=== PATIENT | female | born 1970 | race Two or more races ===

== ENCOUNTER 2020-08-31 16:50 | Outpatient (REF) | payer OTHER, SELFPAY | END 2020-08-31 16:51 | disposition home or self-care (01) | LOC: HO.LAB 16:50 | PROVIDERS: Visit Provider Internal Medicine | DX: Z20.828 Contact with and (suspected) exposure to other viral communicable diseases (principal) | CPT/HCPCS: 87635 ==

== ENCOUNTER 2020-09-08 13:23 | Emergency (ER) | payer OTHER, SELFPAY ==
[2020-09-08 13:34] VITALS: BP 157/89; PULSE 84; RESP 17; TEMP 36.7; O2SAT 97; BMI 36.1
--- NOTE | 2020-09-08 14:04 | ED_ITS ---
HPI - Back Pain/Injury General Chief Complaint: Back Pain/Injury Stated Complaint: back pain Time Seen by Provider: 09/08/20 13:57 Source: patient Mode of arrival: ambulatory Limitations: no limitations History of Present Illness HPI Narrative: Right flank pain with radiation to the right ribs for 1 week. Associated dysuria and frequency. No fevers or chills or vaginal discharge or vomiting or diarrhea. History of chronic back pain but this feels different for patient no injury or trauma. MD elicited complaint: back pain Pertinent past history: prior back pain Onset (ago): week(s) Timing: constant Severity: moderate Similar Symptoms Previously: No Quality: sharp Location: right flank Radiation: none ( Right ribs) Exacerbating factors: none Relieving factors: none Associated symptoms: dysuria Work related injury: No Related Data Previous Rx's Medication Instructions Recorded cyclobenzaprine 10 mg PO TID PRN #10 tab 09/08/20 ketorolac 10 mg PO Q8H PRN #10 tab 09/08/20 lidocaine [Lidoderm] 1 patch TOPICAL DAILY #15 ea 09/08/20 Allergies Allergy/AdvReac Type Severity Reaction Status Date / Time propofol [PROPOFOL] Allergy Severe ANAPHYLACTIC Verified 09/08/20 15:48 REACTION, anaphylaxis Anesthetics - [facility] Type - Allergy Unknown UNKNOWN Verified 09/08/20 15:48 Select A [Anesthetics - [facility] Type] Anesthetics - [facility] Type- Allergy Unknown UNKNOWN Verified 09/08/20 15:48 Parabens [Anesthetics - [facility] Type] morphine [MORPHINE] Allergy Unknown ITCHINESS Verified 09/08/20 15:48 AND HIVES, anaphylaxis succinylcholine [Anectine] Allergy Unknown anaphylaxis Verified 09/08/20 15:48 From ANECTINE Allergy Severe ANAPHYLACTI Uncoded 08/03/20 15:56 C nuts Allergy Unknown Unknown Uncoded 09/08/20 13:36 SEAFOOD Allergy Unknown THROAT Uncoded 08/03/20 15:56 SWELLING Review of Systems Review of Systems: Yes all other systems are reviewed and are negative Constitutional: Constitutional: Reports no additional constitutional complaint s, Denies body ache(s), Denies chills, Denies fever(s), Denies headache(s) and Denies weakness Eyes: Eyes: Reports no additional eye complaints and Denies change in vision ENT: Reports system reviewed and no additional complaints, except as documented, Denies dizziness, Denies headache(s), Denies nasal congestion, Denies nasal discharge and Denies neck pain Cardiovascular: Cardiovascular: Reports no additional cardiovascular complaints, Denies chest pain, Denies leg edema and Denies dyspnea Respiratory: Respiratory: Reports no additional respiratory complaints, Denies cough and Denies dyspnea Gastrointestinal: Gastrointestinal: Reports no additional gastrointestinal complaints, Denies abdominal pain, Denies diarrhea, Denies nausea and Denies vo miting Genitourinary: Genitourinary: Reports no additional female genitourinary complaints, Reports dysuria, Reports flank pain, Denies urinary incontinence and Reports urinary urgency Musculoskeletal: Musculoskeletal: Reports no additional musculoskeletal complaints, Reports back pain, Denies arthralgias, Denies joint swelling, Denies neck pain, Denies numbness and Denies tingling Integumentary/Breasts: Skin/Breast: Reports system reviewed and no additional complaints, except as docu and Denies rash Neurologic: Reports system reviewed and no additional complaints, except as documented, Denies Abnormal speech present, Denies dizziness, Denies headache(s), Denies numbness, Denies tingling and Denies weakness PMFSH Past Medical History Attestation statement: The following information was validated with the patient. Source: obtained from family and nursing notes reviewed Medical History (Updated 09/08/20 @ 16:17 by Marilou Oswald NP) Cholecystectomy planned Social History Social History Alcohol 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 Smoking Status: Unknown if ever smoked Use of substances other than those prescribed or required for medical reasons: No Advance Directives: No Advance Directives Information Provided: No Physical Exam Vital Signs: Vital Signs: Vital Signs Temp Pulse Resp BP Pulse Ox 09/08/20 15:56 71 18 122/76 97 09/08/20 13:34 98.0 F 84 17 157/89 H 97 Body Mass Index 36.1 Const: General: cooperative, healthy appearing, comfortable and no acute distress Orientation/consciousness: patient oriented x3 Limitations: no limitations HENMT: Head: Yes normal to inspection Ears: hearing grossly normal bilaterally General nose exam: Normal external nose present Face and sinus: Yes normal facial exam Mouth: Normal oral and palatal mucosa present Throat: Yes posterior oropharynx normal Eyes: General: appearance normal, both eyes and all related structures Pupils: Equal, round and reactive pupils present Neck: Neck: Yes normal visual inspection Chest: Chest palpation & inspection: normal inspection of the chest Resp: Effort & Inspection: normal respiratory effort Auscultation: clear to auscultation bilaterally Cardio: Rate: regular rate Rhythm: regular rhythm Peripheral pulses: Peripheral pulses 2+ throughout GI: Inspection: Yes normal to inspection Palpation (GI): Soft to palpation and nontender Auscultation: normal bowel sounds Back/Spine/Pelvis: Other: right-sided CVA tenderness with associated soft tissue tenderness on that side. Tenderness over the right lateral ribs. Mild tenderness in the right abdomen. No focal tenderness in the right upper or right lower quadrant. No rebound or guarding. Thoracic/Lumbar Spine: thoracic and lumbar spine normal to inspection Skin: General skin exam: no rashes or lesions noted Neuro: General: patient oriented x3, no focal motor deficits and normal sensation to monofilament Cranial nerves: Yes Equal, round and reactive pupils present Cognition (Neuro): normal cognition Speech: No Abnormal speech present Gait exam (Neuro): Normal gait present Motor exam (neuro): 5/5 motor strength present throughout Extrem: General: Yes normal to inspection Course Course Course Narrative: Right flank pain with dysuria and frequency for 1 week. Will check UA and urine . 1440- UA shows 2+ blood. no nitrates or wbc or signs of UTI. Will check CT abdomen and pelvis to rule out renal colic. Toradol IM for pain. 1615- CT shows a nonobstructing stone in the kidney. No other findings. Patient is feeling improved. Likely lumbar strain. Reviewed worrisome signs and symptoms and when to return to the emergency department. Comfortable with discharge home. MDM - Back Pain/Injury MDM Narrative Medical decision making narrative: Considered UTI, pyelonephritis, renal colic, lumbar strain Medical Records Attestation: I reviewed the patient's medical records. Lab Data Attestation: I reviewed the patient's lab results. Labs: Lab Results 09/08/20 Range/Units 14:10 Urine Color YELLOW Urine Appearance CLEAR Urine pH 6.0 (5.0-8.0) Ur Specific [place] 1.025 (1.005-1.025) Urine Protein NEG (NEG-TRACE) MG/DL Urine Glucose (UA) NEG (NEG) MG/DL Urine Ketones NEG (NEG) MG/DL Urine Blood 2+ H (NEG) Urine Nitrite NEG (NEG) Ur Leukocyte Esterase NEG (NEG) Urine RBC 5-9 H (0) /HPF Urine WBC 0 (0-4) /HPF Ur Squamous Epith Cells 1+ /LPF Urine Bacteria NONE /LPF Urine Test NEGATIVE (NEGATIVE) Imaging Data CT scan - abdomen: Attestation: I personally reviewed and interpreted this imaging study as follows: Radiologist's impression: EXAMINATION: CT ABDOMEN AND PELVIS WITHOUT CONTRAST CLINICAL INFORMATION: Right flank pain. Hematoma. History right renal calculus. COMPARISON: CT abdomen and pelvis 12/14/2019 TECHNIQUE: Multidetector volumetric imaging was performed from the superior aspect of the liver through the pubic symphysis. No oral or intravenous contrast. Sagittal and coronal reformatted images were obtained on the technologist's workstation. This CT examination was performed using dose optimization techniques as appropriate, variously including the following: *Automated exposure control *Adjustment of mA and/or kV according to patient size (this includes techniques or standardized protocols for targeted exams where dose is matched to indication/reason for exam; i.e. extremities or head) *Use of iterative reconstruction technique DLP: 701 mGy-cm FINDINGS: LUNG BASES: The visualized lung bases are unremarkable. LIVER, GALLBLADDER, AND BILIARY TREE: The liver is within normal size and smooth in contour. There is diffuse hepatic steatosis. No focal hepatic parenchymal lesion or intrahepatic ductal dilatation. There is been prior cholecystectomy. Common duct unremarkable. PANCREAS: Unremarkable. SPLEEN: Unremarkable. ADRENAL GLANDS: Unremarkable. KIDNEYS AND URETERS: The kidneys are normal in size and smooth in contour. There is no hydronephrosis, hydroureter, or perinephric stranding. No left urinary tract calculi. The right kidney has nonobstructing calculus mid to lower pole measuring 6 x 8 x 10 mm, 1160 HU attenuation, and 9 cm from the flank. BLADDER: Unremarkable. GASTROINTESTINAL TRACT: There is no bowel obstruction or inflammatory changes in the bowel or mesentery. The appendix is normal. There is no ascites or fluid collection. ABDOMINAL WALL: Borderline fat-containing umbilical hernia just under 2 cm. No lymphadenopathy. LYMPH NODES: No lymphadenopathy. VASCULAR: Unremarkable. PELVIC VISCERA: Dominant follicle on right 1.7 cm, similar to prior study. No pelvic ascites. OSSEOUS STRUCTURES: No acute bony abnormality. Prior disc surgery lumbosacral junction. CT/CT abdomen pelvis wo con IMPRESSION: 1. Nonobstructing right lower pole renal calculus 6 x 8 x 10 mm. No hydronephrosis or perinephric stranding. 2. No inflammatory changes in bowel or mesentery. Normal appendix. 3. Prior cholecystectomy. No ductal dilatation. Discharge Plan Discharge Clinical Impression: Strain of lumbar region Qualifiers: Encounter type: initial encounter Qualified Code(s): S39.012A - Strain of muscle, fascia and tendon of lower back, initial encounter Patient Disposition: Home, Self-Care Instructions: Acute Low Back Pain (ED) Additional Instructions: no heavy lifting or bending gentle stretching heat to the area Prescriptions: New ketorolac 10 mg tablet 10 mg PO Q8H PRN (Reason: pain) Qty: 10 RF: 0 cyclobenzaprine 10 mg tablet 10 mg PO TID PRN (Reason: muscle spasm) Qty: 10 RF: 0 lidocaine [Lidoderm] 5 % adhesive patch,medicated 1 patch topical DAILY Qty: 15 RF: 0 Referrals: Sarthak Silva MD [Primary Care Provider] - 2 days Interventions: ED Discharge Assessment Last Done: 09/08/20 16:20 Discharge Date/Time: 09/08/20 16:22
[2020-09-08 14:28] LABS: Glucose Urine UA NEG (NEG); Leukocyte Esterase Urine NEG (NEG); Nitrite Urine NEG (NEG); Specific Gravity - Urine 1.025 (1.005-1.025); Urine Blood 2+ (NEG); Urine Ketones NEG (NEG); Urine Protein NEG (NEG-TRACE)
[2020-09-08 14:32] LABS: Appearance Urine CLEAR; Color Urine YELLOW
--- NOTE | 2020-09-08 14:39 | CT_ITS ---
EXAMINATION: CT ABDOMEN AND PELVIS WITHOUT CONTRAST CLINICAL INFORMATION: Right flank pain. Hematoma. History right renal calculus. COMPARISON: CT abdomen and pelvis 12/14/2019 TECHNIQUE: Multidetector volumetric imaging was performed from the superior aspect of the liver through the pubic symphysis. No oral or intravenous contrast. Sagittal and coronal reformatted images were obtained on the technologist's workstation. This CT examination was performed using dose optimization techniques as appropriate, variously including the following: *Automated exposure control *Adjustment of mA and/or kV according to patient size (this includes techniques or standardized protocols for targeted exams where dose is matched to indication/reason for exam; i.e. extremities or head) *Use of iterative reconstruction technique DLP: 701 mGy-cm FINDINGS: LUNG BASES: The visualized lung bases are unremarkable. LIVER, GALLBLADDER, AND BILIARY TREE: The liver is within normal size and smooth in contour. There is diffuse hepatic steatosis. No focal hepatic parenchymal lesion or intrahepatic ductal dilatation. There is been prior cholecystectomy. Common duct unremarkable. PANCREAS: Unremarkable. SPLEEN: Unremarkable. ADRENAL GLANDS: Unremarkable. KIDNEYS AND URETERS: The kidneys are normal in size and smooth in contour. There is no hydronephrosis, hydroureter, or perinephric stranding. No left urinary tract calculi. The right kidney has nonobstructing calculus mid to lower pole measuring 6 x 8 x 10 mm, 1160 HU attenuation, and 9 cm from the flank. BLADDER: Unremarkable. GASTROINTESTINAL TRACT: There is no bowel obstruction or inflammatory changes in the bowel or mesentery. The appendix is normal. There is no ascites or fluid collection. ABDOMINAL WALL: Borderline fat-containing umbilical hernia just under 2 cm. No lymphadenopathy. LYMPH NODES: No lymphadenopathy. VASCULAR: Unremarkable. PELVIC VISCERA: Dominant follicle on right 1.7 cm, similar to prior study. No pelvic ascites. OSSEOUS STRUCTURES: No acute bony abnormality. Prior disc surgery lumbosacral junction. CT/CT abdomen pelvis wo con IMPRESSION: 1. Nonobstructing right lower pole renal calculus 6 x 8 x 10 mm. No hydronephrosis or perinephric stranding. 2. No inflammatory changes in bowel or mesentery. Normal appendix. 3. Prior cholecystectomy. No ductal dilatation.
[2020-09-08] MEDS: Ketorolac Tromethamine 60 MG/2 ML VIAL IM (14:47)
[2020-09-08 14:55] LABS: WBC Urine 0 /HPF (0-4)
[2020-09-08 14:56] LABS: Squamous Epithelial Cell Urine 1+ /LPF
[2020-09-08 15:17] LABS: UPreg QC Valid YES; Urine Pregnancy NEGATIVE (NEGATIVE)
[2020-09-08 15:56] VITALS: BP 122/76; PULSE 71; RESP 18; O2SAT 97
== END 2020-09-08 16:22 | disposition home or self-care (01) ==
PROVIDERS: Nurse Practitioner Family; Emergency Provider Emergency Medicine; PCP Internal Medicine
DX: S39.012A Strain of muscle, fascia and tendon of lower back, initial encounter (principal); X58.XXXA Exposure to other specified factors, initial encounter; Y93.9 Activity, unspecified; Y92.9 Unspecified place or not applicable; Y99.9 Unspecified external cause status
CPT/HCPCS: 74176; 81001; 81025; 96372; 99284; J1885

== ENCOUNTER 2020-12-12 15:14 | Outpatient (REF) | payer OTHER, SELFPAY | END 2020-12-12 15:15 | disposition home or self-care (01) | LOC: HO.LAB 15:14 | PROVIDERS: PCP Internal Medicine; Visit Provider Internal Medicine | DX: Z20.822 Contact with and (suspected) exposure to COVID-19 (principal) | CPT/HCPCS: 36415; C9803; U0003 ==

== ENCOUNTER 2021-02-13 08:33 | Emergency (ER) | payer OTHER, SELFPAY ==
--- NOTE | ~2021-02-13 | CT_ITS ---
EXAMINATION: CT ABDOMEN AND PELVIS WITHOUT CONTRAST CLINICAL INFORMATION: Diffuse abdominal pain and nausea COMPARISON: Previous CT of the abdomen and pelvis August 2020 TECHNIQUE: Multidetector volumetric imaging was performed from the superior aspect of the liver through the pubic symphysis. Sagittal and coronal reformatted images were obtained on the technologist's workstation. This CT examination was performed using dose optimization techniques as appropriate, variously including the following: *Automated exposure control *Adjustment of mA and/or kV according to patient size (this includes techniques or standardized protocols for targeted exams where dose is matched to indication/reason for exam; i.e. extremities or head) *Use of iterative reconstruction technique DLP: 749 mGy-cm FINDINGS: LUNG BASES: The visualized lung bases are unremarkable. LIVER, GALLBLADDER, AND BILIARY TREE: The liver is low in attenuation suggestive of fatty infiltration. The gallbladder is been removed. No focal liver lesion or biliary duct dilatation. PANCREAS: Unremarkable. SPLEEN: Unremarkable. ADRENAL GLANDS: Unremarkable. KIDNEYS AND URETERS: 6 x 10 mm stone in the lower pole of the right kidney. Kidneys are otherwise unremarkable. No hydronephrosis, ureteral dilatation or ureteral stone is seen. BLADDER: Not well distended and not well evaluated. GASTROINTESTINAL TRACT: The small and large bowel are unremarkable. The appendix is unremarkable. ABDOMINAL WALL: No significant hernia is appreciated. LYMPH NODES: Normal. VASCULAR: Unremarkable. PELVIC VISCERA: Unremarkable. OSSEOUS STRUCTURES: There are postsurgical changes at the L5-S1 disc space level. CT/CT abdomen pelvis wo con IMPRESSION: 6 x 10 mm right renal stone. No hydronephrosis, ureteral dilatation or ureteral stone. Fatty liver.
[2021-02-13 08:57] VITALS: BP 141/78; PULSE 67; RESP 16; TEMP 36.9; O2SAT 98; BMI 36.1
--- NOTE | 2021-02-13 09:59 | ED.ABDPAIN ---
HPI - Abdominal Pain General Chief Complaint: Abdominal Pain Stated Complaint: stomach pain Time Seen by Provider: 02/13/21 09:47 Source: patient Mode of arrival: ambulatory Limitations: no limitations History of Present Illness HPI narrative: 50 y/o female with history of diabetes, kidney stones who presents to the ED from home with 2 weeks of worsening abdominal pain. She states she has pain in 3 locations, upper abdomen, lower abdomen and LLQ. She states over the last 2 weeks it has gotten worse and come more frequently. It keeps her up at night. She gets nauseated when she has severe pain but has not vomited at all. She had 1 episode of non-blood diarrhea this morning. She states she did not sleep at all last night due to the pain. She has never had pain like this before. She denies urinary symptoms, vaginal bleeding, vaginal discharge, fever or chills. LMP 1 month ago, irregular, miranda-menopausal. MD elicited complaint: abdominal pain Pertinent past history: kidney stones Onset (ago): week(s) (2) Pain Consistency: intermittent Location: diffuse Severity: moderate Pain scale (0-10): 8 Quality: aching and burning Radiation: none Migration to: no migration Exacerbating factors: nothing Relieving factors: nothing Associated symptoms: nausea Related Data Date of Last Menstrual Period: 01/10/21 Patient : No Previous Rx's Medication Instructions Recorded cyclobenzaprine 10 mg PO TID PRN #10 tab 09/08/20 ketorolac 10 mg PO Q8H PRN #10 tab 09/08/20 lidocaine [Lidoderm] 1 patch TOPICAL DAILY #15 ea 09/08/20 dicyclomine 20 mg PO BID #10 tab 02/13/21 sucralfate [Carafate] 1 g PO BID #20 tab 02/13/21 Allergies Allergy/AdvReac Type Severity Reaction Status Date / Time propofol [PROPOFOL] Allergy Severe ANAPHYLACTIC Verified 09/08/20 15:48 REACTION, anaphylaxis Anesthetics - Amide Type - Allergy Unknown UNKNOWN Verified 09/08/20 15:48 Select A [Anesthetics - [facility] Type] Anesthetics - [facility] Type- Allergy Unknown UNKNOWN Verified 09/08/20 15:48 Parabens [Anesthetics - [facility] Type] morphine [MORPHINE] Allergy Unknown ITCHINESS Verified 09/08/20 15:48 AND HIVES, anaphylaxis succinylcholine [Anectine] Allergy Unknown anaphylaxis Verified 09/08/20 15:48 From ANECTINE Allergy Severe ANAPHYLACTI Uncoded 08/03/20 15:56 C nuts Allergy Unknown Unknown Uncoded 09/08/20 13:36 SEAFOOD Allergy Unknown THROAT Uncoded 08/03/20 15:56 SWELLING Review of Systems Review of Systems Constitutional: No Fever, No Chills ENT/Mouth: No sore throat, No Rhinorrhea, No Swallowing Difficulty Eyes: No Eye Pain, No Swelling, No Redness Cardiovascular: No Chest Pain, No SOB, No Orthopnea, No Edema Respiratory: No Cough, No Sputum, No Wheezing, No dyspnea Gastrointestinal: + Nausea, No Vomiting, + Diarrhea, + abdominal Pain, No Hematochezia, No Melena Genitourinary: No Dysuria, No Urinary Frequency, No Hematuria Musculoskeletal: No joint pain, No Myalgias Skin: No Skin Lesions, No rash Neuro: No Weakness, No Numbness, No Dizziness, No Headache Psych: No Anxiety/Panic, No Depression Heme/Lymph: No Bruising, No Lymphadenopathy Endocrine: No Polyuria, No Polydipsia Physical Exam Vital Signs: Vital Signs: Last Vital Signs Temp 98.5 F 02/13/21 08:57 Pulse 67 02/13/21 08:57 Resp 16 02/13/21 08:57 BP 141/78 H 02/13/21 08:57 Pulse Ox 98 02/13/21 08:57 Body Mass Index 36.1 Appearance: Alert. Oriented X3. Appears to be in pain. Eyes: Pupils equal, round and reactive to light. ENT: Pharynx normal. Neck: Normal inspection. Neck supple. CVS: Normal heart rate and rhythm. Pulses normal. Respiratory: No respiratory distress. Breath sounds normal. Abdomen: Obese, Soft with mild diffuse tenderness throughout, no rebound or guarding. +BS x4 Skin: Skin warm and dry. Normal skin color. Normal skin turgor. No rashes. Extremities: No lower extremity edema. Neuro: Oriented X 3. No motor deficit. No sensory deficit. Course Course Course Narrative: 50 y/o female presenting with 2 weeks of worsening episodic abdominal pain, diffuse both upper and lower. Etiology is unclear - Will get basic lab workup to start. IV toradol and GI cocktail ordered for symptomatic relief. Will reassess. Reevaluation(s) Reevaluation #1: Lab workup is unremarkable. Will get CT scan for further evaluation of pain. Reevaluation #2: Patient reports no improvement in the pain after Toradol and GI cocktail. She has anaphylaxis to narcotics, will give dose of Tylenol for pain. CT scan delayed due to awaiting status. CT now completed. Reevaluation #3: CT scan is negative for acute pathology - stable 6x10 mm stone in right kidney, unchanged from Aug 2020. Unlikely like to be causing her pain. She has a GI doctor and a follow up appointment with them next month. The cause of her abdominal pain is unclear at this time. She is tolerating PO and had no episodes of vomiting here. She continues to have some dull pain but it is tolerable. She would like to be discharged home. She was advised of her results and recommended management. Will start trial of carafate and bentyl for her abdominal pain. Patient agreeable with plan. MDM - Abdominal Pain Differential Diagnosis Differential diagnosis: Likely abdominal pain, aortic dissection, acute appendicitis, bowel perforation, calculus of kidney, constipation, diverticulitis, endometriosis, gastroenteritis, gastritis, mesenteric ischemia, ovarian cyst, pancreatitis, peptic ulcer disease, renal colic and small bowel obstruction Medical Records Attestation: I reviewed the patient's medical records. Lab Data Attestation: I reviewed the patient's lab results. Result diagrams: 02/13/21 10:14 02/13/21 10:14 Labs: Lab Results 02/13/21 02/13/21 02/13/21 Range/Units 10:12 10:14 10:14 WBC 7.3 (4.8-10.8) X10*3/uL RBC 4.35 (4.20-5.50) X10*6/uL Hgb 12.1 (12.0-16.0) g/dl Hct 38.5 (37-47) % MCV 88.5 (80-98) fL MCH 27.8 (27.0-33.0) pg MCHC 31.4 (31.0-35.0) g/dl RDW 12.9 (11.0-16.0) % Plt Count 292 (160-400) X10*3/uL MPV 11.1 (9.4-12.3) fL Immature Gran % (Auto) 0.1 (0.0-0.4) % Neut % (Auto) 56.2 (45-73) % Lymph % (Auto) 30.8 (20-40) % Parker % (Auto) 7.0 (2-11) % Eos % (Auto) 5.2 H (0-4) % Baso % (Auto) 0.7 (0-2) % Lymph # (Auto) 2.2 (1.2-4.9) X10*3/uL Parker # (Auto) 0.5 (0.1-1.2) X10*3/uL Eos # (Auto) 0.4 (0.0-0.4) X10*3/uL Baso # (Auto) 0.1 (0.0-0.2) X10*3/uL Abs Immat Gran (auto) 0.01 (0.00-0.03) X10*3/uL Absolute Neuts (auto) 4.1 (2.0-8.3) X10*3/uL Absolute Nucleated RBC 0.000 (0.0-0.012) X10*3/uL Nucleated RBC % (auto) 0.0 (0.0-0.2) /100WBC Hold Blue Top SEE NOTE Sodium (135-145) mmol/L Potassium (3.3-5.1) mmol/L Chloride (96-108) mmol/L Carbon Dioxide (22-29) mmol/L Anion Gap (12-20) BUN (9-16) mg/dL Creatinine (0.5-1.4) mg/dL Estim Creat Clear Calc Estimated GFR Random Glucose (60-115) mg/dL Calcium (8.4-10.2) mg/dL Magnesium (1.6-2.6) mg/dL Total Bilirubin (0.0-1.0) mg/dL Direct Bilirubin (0.0-0.5) mg/dL AST (5-31) U/L ALT (0-31) U/L Alkaline Phosphatase (39-117) U/L Total Protein (6.5-8.0) g/dL Albumin (3.5-5.0) g/dL Lipase (8-78) U/L Urine Color Urine Appearance Urine pH (5.0-8.0) Ur Specific [place] (1.005-1.025) Urine Protein (NEG-TRACE) MG/DL Urine Glucose (UA) (NEG) MG/DL Urine Ketones (NEG) MG/DL Urine Blood (NEG) Urine Nitrite (NEG) Ur Leukocyte Esterase (NEG) Urine RBC (0) /HPF Urine WBC (0-4) /HPF Ur Squamous Epith Cells /LPF Urine Bacteria /LPF Urine Test (NEGATIVE) COVID-19 ([facility]) Negative (Negative) COVID-19 Clin Com See Note 02/13/21 02/13/21 02/13/21 Range/Units 10:14 10:14 12:50 WBC (4.8-10.8) X10*3/uL RBC (4.20-5.50) X10*6/uL Hgb (12.0-16.0) g/dl Hct (37-47) % MCV (80-98) fL MCH (27.0-33.0) pg MCHC (31.0-35.0) g/dl RDW (11.0-16.0) % Plt Count (160-400) X10*3/uL MPV (9.4-12.3) fL Immature Gran % (Auto) (0.0-0.4) % Neut % (Auto) (45-73) % Lymph % (Auto) (20-40) % Parker % (Auto) (2-11) % Eos % (Auto) (0-4) % Baso % (Auto) (0-2) % Lymph # (Auto) (1.2-4.9) X10*3/uL Parker # (Auto) (0.1-1.2) X10*3/uL Eos # (Auto) (0.0-0.4) X10*3/uL Baso # (Auto) (0.0-0.2) X10*3/uL Abs Immat Gran (auto) (0.00-0.03) X10*3/uL Absolute Neuts (auto) (2.0-8.3) X10*3/uL Absolute Nucleated RBC (0.0-0.012) X10*3/uL Nucleated RBC % (auto) (0.0-0.2) /100WBC Hold Blue Top Sodium 139 (135-145) mmol/L Potassium 4.5 (3.3-5.1) mmol/L Chloride 104 (96-108) mmol/L Carbon Dioxide 26 (22-29) mmol/L Anion Gap 14 (12-20) BUN 17 H (9-16) mg/dL Creatinine 0.85 (0.5-1.4) mg/dL Estim Creat Clear Calc 93.9 Estimated GFR > 60 Random Glucose 109 (60-115) mg/dL Calcium 8.6 (8.4-10.2) mg/dL Magnesium 2.1 (1.6-2.6) mg/dL Total Bilirubin 0.3 (0.0-1.0) mg/dL Direct Bilirubin < 0.2 (0.0-0.5) mg/dL AST 12 (5-31) U/L ALT 21 (0-31) U/L Alkaline Phosphatase 78 (39-117) U/L Total Protein 7.0 (6.5-8.0) g/dL Albumin 4.2 (3.5-5.0) g/dL Lipase 65 (8-78) U/L Urine Color YELLOW Urine Appearance CLEAR Urine pH 5.5 (5.0-8.0) Ur Specific [place] >= 1.030 H (1.005-1.025) Urine Protein NEG (NEG-TRACE) MG/DL Urine Glucose (UA) NEG (NEG) MG/DL Urine Ketones NEG (NEG) MG/DL Urine Blood 1+ H (NEG) Urine Nitrite NEG (NEG) Ur Leukocyte Esterase NEG (NEG) Urine RBC 1-4 (0) /HPF Urine WBC 0 (0-4) /HPF Ur Squamous Epith Cells NONE /LPF Urine Bacteria NONE /LPF Urine Test (NEGATIVE) COVID-19 ([facility]) (Negative) COVID-19 Clin Com 02/13/21 Range/Units 12:50 WBC (4.8-10.8) X10*3/uL RBC (4.20-5.50) X10*6/uL Hgb (12.0-16.0) g/dl Hct (37-47) % MCV (80-98) fL MCH (27.0-33.0) pg MCHC (31.0-35.0) g/dl RDW (11.0-16.0) % Plt Count (160-400) X10*3/uL MPV (9.4-12.3) fL Immature Gran % (Auto) (0.0-0.4) % Neut % (Auto) (45-73) % Lymph % (Auto) (20-40) % Parker % (Auto) (2-11) % Eos % (Auto) (0-4) % Baso % (Auto) (0-2) % Lymph # (Auto) (1.2-4.9) X10*3/uL Parker # (Auto) (0.1-1.2) X10*3/uL Eos # (Auto) (0.0-0.4) X10*3/uL Baso # (Auto) (0.0-0.2) X10*3/uL Abs Immat Gran (auto) (0.00-0.03) X10*3/uL Absolute Neuts (auto) (2.0-8.3) X10*3/uL Absolute Nucleated RBC (0.0-0.012) X10*3/uL Nucleated RBC % (auto) (0.0-0.2) /100WBC Hold Blue Top Sodium (135-145) mmol/L Potassium (3.3-5.1) mmol/L Chloride (96-108) mmol/L Carbon Dioxide (22-29) mmol/L Anion Gap (12-20) BUN (9-16) mg/dL Creatinine (0.5-1.4) mg/dL Estim Creat Clear Calc Estimated GFR Random Glucose (60-115) mg/dL Calcium (8.4-10.2) mg/dL Magnesium (1.6-2.6) mg/dL Total Bilirubin (0.0-1.0) mg/dL Direct Bilirubin (0.0-0.5) mg/dL AST (5-31) U/L ALT (0-31) U/L Alkaline Phosphatase (39-117) U/L Total Protein (6.5-8.0) g/dL Albumin (3.5-5.0) g/dL Lipase (8-78) U/L Urine Color Urine Appearance Urine pH (5.0-8.0) Ur Specific [place] (1.005-1.025) Urine Protein (NEG-TRACE) MG/DL Urine Glucose (UA) (NEG) MG/DL Urine Ketones (NEG) MG/DL Urine Blood (NEG) Urine Nitrite (NEG) Ur Leukocyte Esterase (NEG) Urine RBC (0) /HPF Urine WBC (0-4) /HPF Ur Squamous Epith Cells /LPF Urine Bacteria /LPF Urine Test NEGATIVE (NEGATIVE) COVID-19 ([facility]) (Negative) COVID-19 Clin Com Discharge Plan Discharge Clinical Impression: Abdominal pain Qualifiers: Abdominal location: generalized Qualified Code(s): R10.84 - Generalized abdominal pain Patient Disposition: Home, Self-Care Instructions: Abdominal Pain (ED) Additional Instructions: Your lab workup today is normal. Your CT scan showed no acute abnormalities that could be causing your pain. Recommend following up with your GI doctor MELINDA.. Take the prescribed medications for your abdominal pain. Stick to a bland diet while you are not feeling well. Keep a food diary to bring to your GI doctor appointment. If you develop worsening pain or persistent nausea or vomiting or any other concerning symptom come back to the ER for further evaluation. Prescriptions: New sucralfate [Carafate] 1 gram tablet 1 g PO BID Qty: 20 RF: 0 dicyclomine 20 mg tablet 20 mg PO BID Qty: 10 RF: 0 No Action ketorolac 10 mg tablet 10 mg PO Q8H PRN (Reason: pain) Qty: 10 RF: 0 cyclobenzaprine 10 mg tablet 10 mg PO TID PRN (Reason: muscle spasm) Qty: 10 RF: 0 lidocaine [Lidoderm] 5 % adhesive patch,medicated 1 patch topical DAILY Qty: 15 RF: 0 PMFSH Past Medical History Medical History (Updated 02/13/21 @ 14:53 by ERI Hernandez) Cholecystectomy planned Diabetes Date of Last Menstrual Period: 01/10/21 Social History Social History Alcohol 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 Smoking Status: Never smoker Use of substances other than those prescribed or required for medical reasons: No Advance Directives: Yes Advance Directives Information Provided: No Advance Directives on File: No
[2021-02-13] MEDS: Ketorolac Tromethamine 30 MG/ML VIAL IVPUSH (10:20)
[2021-02-13] MEDS: Magnesium Hydrox/Alum Hydrox 30 ML ORAL.SUSP PO (10:20)
[2021-02-13] MEDS: Lidocaine HCl Viscous 2 % 15 ML SOLUTION MUCOUS MEM (10:20)
[2021-02-13] MEDS: 0.9 % Sodium Chloride 1,000 ML 999 ML IVCONT (10:20)
[2021-02-13] MEDS: Omeprazole 40 MG CAPSULE.DR PO (10:20)
[2021-02-13 10:26] LABS: MANUAL DIFF FLAG NO
[2021-02-13 10:28] LABS: Basophils Absolute Auto 0.1 X10*3/uL (0.0-0.2); Basophils Percent Auto 0.7 % (0-2); Eosinophils Absolute Auto 0.4 X10*3/uL (0.0-0.4); Eosinophils Percent Auto 5.2 % (0-4); Hematocrit 38.5 % (37-47); Hemoglobin 12.1 g/dl (12.0-16.0); Imm Gran Abs Auto 0.01 X10*3/uL (0.00-0.03); Imm Gran Pct Auto 0.1 % (0.0-0.4); Lymphocytes Absolute Auto 2.2 X10*3/uL (1.2-4.9); Lymphocytes Percent Auto 30.8 % (20-40); Mean Corpuscular HGB Conc 31.4 g/dl (31.0-35.0); Mean Corpuscular Hemoglobin 27.8 pg (27.0-33.0); Mean Corpuscular Volume 88.5 fL (80-98); Mean Platelet Volume 11.1 fL (9.4-12.3); Monocytes Absolute Auto 0.5 X10*3/uL (0.1-1.2); Neutrophils Absolute Auto 4.1 X10*3/uL (2.0-8.3); Neutrophils Percent Auto 56.2 % (45-73); Platelet Count 292 X10*3/uL (160-400); Red Blood Count 4.35 X10*6/uL (4.20-5.50); Red Cell Distribution Width 12.9 % (11.0-16.0); White Blood Count 7.3 X10*3/uL (4.8-10.8)
[2021-02-13 10:53] LABS: Alanine Aminotransferase 21 U/L (0-31); Albumin Level 4.2 g/dL (3.5-5.0); Alkaline Phosphatase 78 U/L (39-117); Anion Gap 14 (12-20); Aspartate Amino Transferase 12 U/L (5-31); Bilirubin Direct < 0.2 mg/dL (0.0-0.5); Bilirubin Total 0.3 mg/dL (0.0-1.0); Blood Urea Nitrogen 17 mg/dL (9-16); Calcium 8.6 mg/dL (8.4-10.2); Carbon Dioxide 26 mmol/L (22-29); Chloride 104 mmol/L (96-108); Creatinine Clr Calc Pharmacy 93.9; Estimated Glomerular Filt Rate > 60; Glucose Random 109 mg/dL (60-115); Lipase 65 U/L (8-78); Magnesium 2.1 mg/dL (1.6-2.6); Potassium 4.5 mmol/L (3.3-5.1); Sodium 139 mmol/L (135-145)
[2021-02-13 10:57] LABS: COVID-19 Test Negative (Negative); IDNOW Serial# 9DD0AD1C
[2021-02-13 13:00] LABS: Glucose Urine UA NEG (NEG); Leukocyte Esterase Urine NEG (NEG); Nitrite Urine NEG (NEG); PH 5.5 (5.0-8.0); Specific Gravity - Urine >= 1.030 (1.005-1.025); Urine Blood 1+ (NEG); Urine Ketones NEG (NEG); Urine Protein NEG (NEG-TRACE)
[2021-02-13 13:01] LABS: UPreg QC Valid YES; Urine Pregnancy NEGATIVE (NEGATIVE)
[2021-02-13 13:02] LABS: Appearance Urine CLEAR; Color Urine YELLOW
[2021-02-13 13:23] LABS: WBC Urine 0 /HPF (0-4)
[2021-02-13] MEDS: Acetaminophen 325 MG TABLET 975 MG PO (14:00)
[2021-02-13 14:53] VITALS: BP 123/58; PULSE 65; RESP 16; O2SAT 96
== END 2021-02-13 15:01 | disposition home or self-care (01) ==
PROVIDERS: Physician Assistant; Emergency Provider Emergency Medicine; PCP Internal Medicine
DX: R10.32 Left lower quadrant pain (principal); R10.84 Generalized abdominal pain; Z20.822 Contact with and (suspected) exposure to COVID-19; Z79.899 Other long term (current) drug therapy
CPT/HCPCS: 36415; 74176; 80048; 80076; 81001; 81003; 81025; 83690; 83735; 85025; 87635; 96365; 96375; 99284; 99285; J1885

== ENCOUNTER 2021-06-07 16:11 | Emergency (ER) | payer OTHER, SELFPAY ==
[2021-06-07 16:53] VITALS: BP 173/94; PULSE 83; RESP 18; TEMP 36.4; O2SAT 100; BMI 35.4
[2021-06-07 17:47] LABS: MANUAL DIFF FLAG NO
[2021-06-07 17:49] LABS: Basophils Absolute Auto 0.1 X10*3/uL (0.0-0.2); Basophils Percent Auto 0.6 % (0-2); Eosinophils Absolute Auto 0.2 X10*3/uL (0.0-0.4); Eosinophils Percent Auto 2.7 % (0-4); Hematocrit 39.1 % (37-47); Hemoglobin 12.5 g/dl (12.0-16.0); Imm Gran Abs Auto 0.01 X10*3/uL (0.00-0.03); Imm Gran Pct Auto 0.1 % (0.0-0.4); Lymphocytes Absolute Auto 2.3 X10*3/uL (1.2-4.9); Lymphocytes Percent Auto 27.1 % (20-40); Mean Corpuscular Hemoglobin 27.9 pg (27.0-33.0); Mean Corpuscular Volume 87.3 fL (80-98); Mean Platelet Volume 10.9 fL (9.4-12.3); Monocytes Absolute Auto 0.5 X10*3/uL (0.1-1.2); Neutrophils Absolute Auto 5.3 X10*3/uL (2.0-8.3); Neutrophils Percent Auto 63.5 % (45-73); Platelet Count 299 X10*3/uL (160-400); Red Blood Count 4.48 X10*6/uL (4.20-5.50); Red Cell Distribution Width 13.2 % (11.0-16.0); White Blood Count 8.3 X10*3/uL (4.8-10.8)
[2021-06-07 18:15] LABS: Alanine Aminotransferase 40 U/L (0-31); Albumin Level 4.5 g/dL (3.5-5.0); Alkaline Phosphatase 88 U/L (39-117); Anion Gap 13 (12-20); Aspartate Amino Transferase 26 U/L (5-31); Bilirubin Total 0.3 mg/dL (0.0-1.0); Blood Urea Nitrogen 17 mg/dL (9-16); Calcium 9.7 mg/dL (8.4-10.2); Carbon Dioxide 29 mmol/L (22-29); Chloride 102 mmol/L (96-108); Creatinine Clr Calc Pharmacy 73.8; Estimated Glomerular Filt Rate 55; Glucose Random 135 mg/dL (60-115); Potassium 4.5 mmol/L (3.3-5.1); Sodium 139 mmol/L (135-145); Total Protein 7.8 g/dL (6.5-8.0)
[2021-06-07 18:33] LABS: Glucose Urine UA NEG (NEG); Leukocyte Esterase Urine NEG (NEG); Nitrite Urine NEG (NEG); Specific Gravity - Urine >= 1.030 (1.005-1.025); Urine Blood 1+ (NEG); Urine Ketones NEG (NEG); Urine Protein NEG (NEG-TRACE)
[2021-06-07 18:34] LABS: Appearance Urine CLEAR; Color Urine YELLOW
[2021-06-07 18:41] LABS: Bacteria Urine TRACE /LPF; Mucus Urine TRACE /LPF; Squamous Epithelial Cell Urine TRACE /LPF
[2021-06-07 21:05] VITALS: BP 168/91; PULSE 82; RESP 18; TEMP 36.8; O2SAT 99
--- NOTE | 2021-06-07 21:10 | PC.NURSE ---
at bedside for primary eval.
--- NOTE | 2021-06-07 21:12 | ED_ITS ---
HPI - Abdominal Pain General Chief Complaint: Abdominal Pain Stated Complaint: belly pain Time Seen by Provider: 06/07/21 20:56 Source: patient Mode of arrival: ambulatory Limitations: no limitations History of Present Illness HPI narrative: Patient comes to the emergency room complaining of right-sided ear pain and gastric burning sensation intermittently for several days. Patient complaining of nausea, no vomiting or diarrhea. Patient has had multiple episodes of the same discomfort, patient has been seen by Gastroenterology, states she has had 2 upper endoscopies this year. Denies fever or chills, no dysuria. Patient is known to have chronic microscopic hematuria. Patient denies flank pain, no dysuria. MD elicited complaint: abdominal pain Related Data Previous Rx's Medication Instructions Recorded cyclobenzaprine 10 mg PO TID PRN #10 tab 09/08/20 ketorolac 10 mg PO Q8H PRN #10 tab 09/08/20 lidocaine [Lidoderm] 1 patch TOPICAL DAILY #15 ea 09/08/20 dicyclomine 20 mg PO BID #10 tab 02/13/21 sucralfate [Carafate] 1 g PO BID #20 tab 02/13/21 acetic acid 3 drp OTIC (EAR) RIGHT Q6H #15 ml 06/07/21 sucralfate 1 g PO BID #30 tab 06/07/21 Allergies Allergy/AdvReac Type Severity Reaction Status Date / Time propofol [PROPOFOL] Allergy Severe ANAPHYLACTIC Verified 06/07/21 16:53 REACTION, anaphylaxis succinylcholine [Anectine] Allergy Severe anaphylaxis Verified 06/07/21 16:53 morphine [MORPHINE] Allergy Intermediate ITCHINESS Verified 06/07/21 16:53 AND HIVES, anaphylaxis Anesthetics - Amide Type - Allergy Unknown UNKNOWN Verified 06/07/21 16:53 Select A [Anesthetics - [facility] Type] Anesthetics - [facility] Type- Allergy Unknown UNKNOWN Verified 06/07/21 16:53 Parabens [Anesthetics - [facility] Type] From ANECTINE Allergy Severe ANAPHYLACTI Uncoded 06/07/21 16:53 C nuts Allergy Unknown Unknown Uncoded 09/08/20 13:36 SEAFOOD Allergy Unknown THROAT Uncoded 08/03/20 15:56 SWELLING Review of Systems Review of Systems Constitutional : No Weight loss, No Fever, No Chills, No Night Sweats, No Fatigue, No Malaise ENT/Mouth : No Hearing loss, complaining of right-sided ear pain with no discharge, No Nasal Congestion, No Sinus Pain, No Hoarseness, No sore throat, No Rhinorrhea, No Swallowing Difficulty Eyes: No Eye Pain, No Swelling, No Redness, No Foreign Body, No Discharge, No Vision Changes Cardiovascular : No Chest Pain, No SOB, No Dyspnea on Exertion, No Orthopnea, No Edema, No Palpitations Respiratory : No Cough, No Sputum, No Wheezing, No Smoke Exposure, No Dyspnea Gastrointestinal : Complaining of Nausea, No Vomiting, No Diarrhea, No Constipation, complaining of a burning sensation radiating up her esophagus, No Hematochezia, No Melena Genitourinary : no irregular bleeding, No Dysuria, No Urinary Frequency, No Hematuria, No Urinary Incontinence, No Urgency, No Flank Pain, No Urinary Flow Changes, No Hesitancy Musculoskeletal : No joint pain, No Myalgias, No Joint Swelling Skin : No Skin Lesions, No rash Neuro : No Weakness, No Numbness, No Paresthesias, No Loss of Consciousness, No Dizziness, No Headache Psych : No Anxiety/Panic, No Depression, No SI/HI/AH/VH, No Social Issues, Heme/Lymph: No Bruising, No Bleeding,No Lymphadenopathy Endocrine : No Polyuria, No Polydipsia, No Temperature Intolerance Physical Exam Vital Signs: Vital Signs: Last Vital Signs Temp 98.3 F 06/07/21 21:05 Pulse 82 06/07/21 21:05 Resp 18 06/07/21 21:05 BP 168/91 H 06/07/21 21:05 Pulse Ox 99 06/07/21 21:05 Body Mass Index 35.4 Appearance: Alert. Oriented X3. No acute distress. Eyes: Pupils equal, round and reactive to light. ENT: Pharynx normal, no erythema, no vesicles. No visible abscess. Bilateral tympanic membranes clear, no erythema in the ear canal or tympanic membrane Neck: Normal inspection. Neck supple. No lymph nodes noted. No crepitus CVS: Normal heart rate and rhythm. Pulses normal. Normal S1 and S2 Respiratory: No respiratory distress. Breath sounds normal. No Wheezing. No rales Abdomen: Soft and nontender. No rigidity. No distention. Negative for Neumann sign, no guarding, no rebound, overall benign abdominal exam Skin: Skin warm and dry. Normal skin color. Normal skin turgor. Extremities: No lower extremity edema. No Lacerations. No Rash Neuro: Oriented X 3. No motor deficit. No sensory deficit. Moving all extermities. No slurred speech. Course Course Course Narrative: I discussed the labs with the patient, patient has no acute findings has +1 blood in the urine. I discussed with the patient on physical exam for ear she had no signs of infection. For abdominal pain, at this time likely has GERD/peptic ulcer disease, ulcer perforation is not suspected at this time. Labs and physical exam do not suggest acute cholecystitis. Patient had a CT scan done 3 months ago, it was unchanged from previous CT scan. Patient instructed to follow-up with her developer programmer analyst tomorrow, who seems to be at [facility] - Abdominal Pain Lab Data Result diagrams: 06/07/21 17:41 06/07/21 17:41 Labs: Lab Results 06/07/21 06/07/21 06/07/21 Range/Units 17:41 17:41 18:26 WBC 8.3 (4.8-10.8) X10*3/uL RBC 4.48 (4.20-5.50) X10*6/uL Hgb 12.5 (12.0-16.0) g/dl Hct 39.1 (37-47) % MCV 87.3 (80-98) fL MCH 27.9 (27.0-33.0) pg MCHC 32.0 (31.0-35.0) g/dl RDW 13.2 (11.0-16.0) % Plt Count 299 (160-400) X10*3/uL MPV 10.9 (9.4-12.3) fL Immature Gran % (Auto) 0.1 (0.0-0.4) % Neut % (Auto) 63.5 (45-73) % Lymph % (Auto) 27.1 (20-40) % Alexander % (Auto) 6.0 (2-11) % Eos % (Auto) 2.7 (0-4) % Baso % (Auto) 0.6 (0-2) % Lymph # (Auto) 2.3 (1.2-4.9) X10*3/uL Alexander # (Auto) 0.5 (0.1-1.2) X10*3/uL Eos # (Auto) 0.2 (0.0-0.4) X10*3/uL Baso # (Auto) 0.1 (0.0-0.2) X10*3/uL Abs Immat Gran (auto) 0.01 (0.00-0.03) X10*3/uL Absolute Neuts (auto) 5.3 (2.0-8.3) X10*3/uL Absolute Nucleated RBC 0.000 (0.0-0.012) X10*3/uL Nucleated RBC % (auto) 0.0 (0.0-0.2) /100WBC Sodium 139 (135-145) mmol/L Potassium 4.5 (3.3-5.1) mmol/L Chloride 102 (96-108) mmol/L Carbon Dioxide 29 (22-29) mmol/L Anion Gap 13 (12-20) BUN 17 H (9-16) mg/dL Creatinine 1.06 (0.5-1.4) mg/dL Estim Creat Clear Calc 73.8 Estimated GFR 55 Random Glucose 135 H (60-115) mg/dL Calcium 9.7 D (8.4-10.2) mg/dL Total Bilirubin 0.3 (0.0-1.0) mg/dL AST 26 D (5-31) U/L ALT 40 H (0-31) U/L Alkaline Phosphatase 88 (39-117) U/L Total Protein 7.8 (6.5-8.0) g/dL Albumin 4.5 (3.5-5.0) g/dL Urine Color YELLOW Urine Appearance CLEAR Urine pH 6.0 (5.0-8.0) Ur Specific [place] >= 1.030 H (1.005-1.025) Urine Protein NEG (NEG-TRACE) MG/DL Urine Glucose (UA) NEG (NEG) MG/DL Urine Ketones NEG (NEG) MG/DL Urine Blood 1+ H (NEG) Urine Nitrite NEG (NEG) Ur Leukocyte Esterase NEG (NEG) Urine RBC 1-4 (0) /HPF Urine WBC 1-4 (0-4) /HPF Ur Squamous Epith Cells TRACE /LPF Urine Bacteria TRACE /LPF Urine Mucus TRACE /LPF ECG Data Attestation: I personally reviewed and interpreted this ECG as follows: (Sinus rhythm, heart rate 62, no ST segment depression or elevation, no T-wave inversion, QTC 401) Discharge Plan Discharge Clinical Impression: Chronic GERD, Ear pain, right Patient Disposition: Home, Self-Care Instructions: Diet for Stomach Ulcers and Gastritis (ED), Earache (ED), Abdominal Pain (ED) Additional Instructions: Please follow-up with your primary care physician and with your developer programmer analyst tomorrow. If you have any worsening or new symptoms, please return to the emergency room or call 911 Prescriptions: New acetic acid 2 % solution 3 drp otic (ear) right Q6H Qty: 15 RF: 0 sucralfate 1 gram tablet 1 g PO BID Qty: 30 RF: 0 No Action ketorolac 10 mg tablet 10 mg PO Q8H PRN (Reason: pain) Qty: 10 RF: 0 cyclobenzaprine 10 mg tablet 10 mg PO TID PRN (Reason: muscle spasm) Qty: 10 RF: 0 lidocaine [Lidoderm] 5 % adhesive patch,medicated 1 patch topical DAILY Qty: 15 RF: 0 sucralfate [Carafate] 1 gram tablet 1 g PO BID Qty: 20 RF: 0 dicyclomine 20 mg tablet 20 mg PO BID Qty: 10 RF: 0 PMFSH Past Medical History Medical History Asthma Cholecystectomy planned Diabetes Hypertension Surgical History History of tubal ligation Social History Social History Alcohol 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 Advance Directives: No Advance Directives Information Provided: No Patient : No
--- NOTE | 2021-06-07 21:26 | ECG_ITS ---
Test Reason : ABD PAIN Blood Pressure : / mmHG Vent. Rate : 062 BPM Atrial Rate : 062 BPM P-R Int : 182 ms QRS Dur : 082 ms QT Int : 396 ms P-R-T Axes : 047 041 031 degrees QTc Int : 401 ms Normal sinus rhythm Normal ECG When compared with ECG of 31-JUL-2015 09:54, No significant change was found Referred By: Cindy Stephens Electronically Signed By:RAYNA LUCAS MD
[2021-06-07] MEDS: Famotidine 20 MG TABLET PO (21:27)
[2021-06-07] MEDS: Magnesium Hydrox/Alum Hydrox 30 ML ORAL.SUSP PO (21:27)
--- NOTE | 2021-06-07 21:31 | PC.NURSE ---
Medicated per JAN. information technology technician at bedside for EKG.
== END 2021-06-07 21:40 | disposition home or self-care (01) ==
PROVIDERS: Emergency Provider Emergency Medicine; PCP Internal Medicine
DX: K21.9 Gastro-esophageal reflux disease without esophagitis (principal); H92.01 Otalgia, right ear
CPT/HCPCS: 36415; 80053; 81001; 85025; 93005; 99283; 99284

== ENCOUNTER 2022-03-24 11:34 | Emergency (ER) | payer OTHER, SELFPAY ==
[2022-03-24 11:41] VITALS: BP 187/95; PULSE 75; RESP 18; TEMP 36.6; O2SAT 98; BMI 35.6
--- NOTE | 2022-03-24 12:21 | ED.GENADULT ---
HPI - General Adult General Chief complaint: Upper Respiratory Symptoms Stated complaint: Congestion Time Seen by Provider: 03/24/22 12:05 Source: patient Mode of arrival: ambulatory Limitations: no limitations History of Present Illness HPI narrative: 42-year-old female with history of hypertension presents to ED for nasal congestion and sinus pain. Patient states history of sinusitis. Patient states no coughing, chest pain, shortness of breath, weakness, dizziness, diarrhea, abdominal pain. Related Data Previous Rx's Medication Instructions Recorded cyclobenzaprine 10 mg tablet 10 mg PO TID PRN #10 tab 09/08/20 ketorolac 10 mg tablet 10 mg PO Q8H PRN #10 tab 09/08/20 lidocaine 5 % topical patch 1 patch TOPICAL DAILY #15 ea 09/08/20 (Lidoderm) dicyclomine 20 mg tablet 20 mg PO BID #10 tab 02/13/21 sucralfate 1 gram tablet (Carafate) 1 g PO BID #20 tab 02/13/21 acetic acid 2 % ear solution 3 drp OTIC (EAR) RIGHT Q6H #15 ml 06/07/21 sucralfate 1 gram tablet 1 g PO BID #30 tab 06/07/21 amoxicillin 875 mg-potassium 1 tab PO Q12H 10 Days #20 tab 03/24/22 clavulanate 125 mg tablet naproxen 500 mg tablet 500 mg PO BID PRN 10 Days #20 tab 03/24/22 Allergies Allergy/AdvReac Type Severity Reaction Status Date / Time propofol [PROPOFOL] Allergy Severe ANAPHYLACTIC Verified 03/24/22 11:41 REACTION, anaphylaxis succinylcholine [Anectine] Allergy Severe anaphylaxis Verified 03/24/22 11:41 morphine [MORPHINE] Allergy Intermediate ITCHINESS Verified 03/24/22 11:41 AND HIVES, anaphylaxis Anesthetics - Amide Type - Allergy Unknown UNKNOWN Verified 03/24/22 11:41 Select A [Anesthetics - [facility]ide Type] Anesthetics - [facility] Type- Allergy Unknown UNKNOWN Verified 03/24/22 11:41 Parabens [Anesthetics - [facility] Type] From ANECTINE Allergy Severe ANAPHYLACTI Uncoded 06/07/21 16:53 C nuts Allergy Unknown Unknown Uncoded 09/08/20 13:36 SEAFOOD Allergy Unknown THROAT Uncoded 08/03/20 15:56 SWELLING Review of Systems Review of Systems: Nasal congestion sinusitis. Yes all other systems are reviewed and are negative PMFSH Past Medical History Medical History Asthma Cholecystectomy planned Diabetes Hypertension Surgical History History of tubal ligation Social History Social History Alcohol 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 Advance Directives: No Advance Directives Information Provided: No Physical Exam ED Vital Signs: Vital Signs - 24 hr 03/24/22 11:41 Temperature 97.9 F Pulse Rate 75 Respiratory Rate 18 Blood Pressure 187/95 H Pulse Oximetry 98 BMI result Body Mass Index 35.6 Const General: cooperative, healthy appearing, comfortable, no acute distress, well developed, alert, awake and Physically active Orientation/consciousness: patient oriented x3 HENMT Head: Yes normal to inspection, Yes No palpable skull fracture present, Yes normocephalic, Yes atraumatic and No abrasion Face and sinus: Yes sinus tenderness (maxillary and frontal) Eyes General: appearance normal, both eyes and all related structures Neck Neck: Yes normal visual inspection, Yes full ROM, Yes no lymphadenopathy, Yes no meningeal signs, Yes trachea midline, Yes supple, No anterior neck swelling and No tender Chest Chest palpation & inspection: normal inspection of the chest and normal palpation of entire chest wall Resp Effort & Inspection: normal respiratory effort and able to speak in complete sentences Auscultation: clear to auscultation bilaterally Cardio Jugular venous distension: no JVD Heart sounds: S1 normal heart sound present and S2 normal heart sound present GI Inspection: Yes normal to inspection and No abdominal wall ecchymosis Palpation (GI): Soft to palpation, not firm, nontender, no guarding and not rigid General: No CVA tenderness and Yes no CVA tenderness Back/Spine/Pelvis Back: no CVA tenderness, No CVA tenderness and No back tenderness Skin General skin exam: no rashes or lesions noted and elasticity normal Neuro General: patient oriented x3, gait normal, tone normal, moves all extremities, no meningeal signs, no focal motor deficits and CN's II-XI intact bilaterally Extrem General: Yes normal to inspection and Yes full ROM Psych Appearance: grossly normal, well kempt and not disheveled Course Course Course Narrative: Sinusitis. COVID and influenza ordered. Reevaluation(s) Reevaluation #1: Patient states history of high blood pressure and admits not taking any of her high blood pressure medications this morning. Negative for any neuro deficits. no indicatino for head CT scan. NIH score 0. Covid and influenza negative. Patient show me a picture of Flonase bottle prescribed to her by primary care provider. Patient states usually when she received oral antibiotics the sinuses improved. Patient was prescribed antibiotics told to continue taking Flonase. Patient informed to be compliant with her high blood pressure medications to prevent stroke and OK. Time: 13:06 Medical Decision Making MDM Narrative Medical decision making narrative: Sinusitis Lab Data Labs: Lab Results 03/24/22 03/24/22 Range/Units 12:11 12:11 COVID-19 (LUCIAN) Negative (Negative) COVID-19 Clin Com See Note Influenza Type A (FARHANA) Negative (Negative) Influenza Type B (FARHANA) Negative (Negative) Influenza A & B Note See Note Discharge Plan Discharge Clinical Impression: Sinusitis Patient Disposition: Home, Self-Care Additional Instructions: Continue using Flonase prescribed by her primary care provider. He will be discharged with antibiotics to help with symptoms. Return to ED for any photophobia, nausea, vomiting, severe headache, green nasal discharge, neck swelling, coughing, chest pain, shortness of breath, or any other concerning symptoms. I recommend being compliant with you hypertensive medication to prevent stroke and heart attacks. Prescriptions: New amoxicillin-pot clavulanate 875-125 mg tablet 1 tab PO Q12H 10 Days Qty: 20 0RF naproxen 500 mg tablet 500 mg PO BID PRN (Reason: pain) 10 Days Qty: 20 0RF No Action ketorolac 10 mg tablet 10 mg PO Q8H PRN (Reason: pain) Qty: 10 0RF cyclobenzaprine 10 mg tablet 10 mg PO TID PRN (Reason: muscle spasm) Qty: 10 0RF lidocaine [Lidoderm] 5 % adhesive patch,medicated 1 patch topical DAILY Qty: 15 0RF Rx Instructions: leave on most painful area for up to 12 hrs sucralfate [Carafate] 1 gram tablet 1 g PO BID Qty: 20 0RF dicyclomine 20 mg tablet 20 mg PO BID Qty: 10 0RF acetic acid 2 % solution 3 drp otic (ear) right Q6H Qty: 15 0RF Rx Instructions: apply to (cotton) wick; replace wick every 24 hours sucralfate 1 gram tablet 1 g PO BID Qty: 30 0RF Interventions: ED Discharge Assessment Last Done: 03/24/22 13:50 Discharge Date/Time: 03/24/22 13:52 Print Language: [place]
[2022-03-24 12:35] LABS: COVID-19 Test Negative (Negative)
[2022-03-24 12:36] LABS: IDNOW Serial# 16C4AD1C; Influenza A Negative (Negative); Influenza B2 Negative (Negative)
== END 2022-03-24 13:52 | disposition home or self-care (01) ==
PROVIDERS: Physician Assistant; Emergency Provider Emergency Medicine; PCP Internal Medicine
DX: J32.9 Chronic sinusitis, unspecified (principal); R09.81 Nasal congestion; Z20.822 Contact with and (suspected) exposure to COVID-19; Z79.899 Other long term (current) drug therapy
CPT/HCPCS: 87502; 87635; 99283

== ENCOUNTER 2022-06-30 14:52 | Emergency (ER) | payer OTHER, SELFPAY ==
--- NOTE | ~2022-06-30 | CT_ITS ---
EXAMINATION: CT ABDOMEN AND PELVIS WITHOUT CONTRAST CLINICAL INFORMATION: Periumbilical pain COMPARISON: 04/15/2021 TECHNIQUE: Multidetector volumetric imaging was performed from the superior aspect of the liver through the pubic symphysis. Sagittal and coronal reformatted images were obtained on the technologist's workstation. This CT examination was performed using dose optimization techniques as appropriate, variously including the following: *Automated exposure control *Adjustment of mA and/or kV according to patient size (this includes techniques or standardized protocols for targeted exams where dose is matched to indication/reason for exam; i.e. extremities or head) *Use of iterative reconstruction technique DLP: 711 mGy-cm FINDINGS: LUNG BASES: The visualized lung bases are unremarkable. LIVER, GALLBLADDER, AND BILIARY TREE: Liver normal in size, contour and morphology. Diffuse hepatic steatosis. No focal liver lesions. No biliary dilatation. Cholecystectomy. PANCREAS: Normal. SPLEEN: Normal. ADRENAL GLANDS: Normal. KIDNEYS AND URETERS: The kidneys are normal in size, shape, and attenuation. Stable 10 x 6 mm nonobstructive calculus in the lower pole right kidney. No ureteral calculi. No hydronephrosis, or hydroureter. No perinephric stranding. BLADDER: Unremarkable. GASTROINTESTINAL TRACT: Scattered colonic diverticula. No evidence of diverticulitis. Normal appendix. Stomach and small bowel unremarkable. ABDOMINAL WALL: No significant hernia is appreciated. LYMPH NODES: Normal. VASCULAR: Unremarkable. PELVIC VISCERA: Uterus and adnexa unremarkable. OSSEOUS STRUCTURES: No acute or suspicious osseous abnormalities. Previous fusion at L5-S1. CT/CT abdomen pelvis wo con IMPRESSION: * No acute findings within the abdomen or pelvis. * Hepatic steatosis. * Unchanged 10 x 6 mm nonobstructive calculus in the lower pole right kidney. * Scattered colonic diverticula without evidence of diverticulitis.
[2022-06-30 14:56] VITALS: BP 187/103; PULSE 72; RESP 18; TEMP 36.6; O2SAT 98; BMI 35.2
[2022-06-30 15:08] LABS: MANUAL DIFF FLAG NO
[2022-06-30 15:10] LABS: Basophils Absolute Auto 0.1 X10*3/uL (0.0-0.2); Basophils Percent Auto 0.6 % (0-2); Eosinophils Absolute Auto 0.2 X10*3/uL (0.0-0.4); Eosinophils Percent Auto 1.5 % (0-4); Hematocrit 39.7 % (37.0-47.0); Hemoglobin 12.7 g/dl (12.0-16.0); Imm Gran Abs Auto 0.05 X10*3/uL (0.00-0.03); Imm Gran Pct Auto 0.4 % (0.0-0.4); Lymphocytes Absolute Auto 4.5 X10*3/uL (1.2-4.9); Lymphocytes Percent Auto 36.9 % (20-40); Mean Corpuscular Hemoglobin 27.4 pg (27.0-33.0); Mean Corpuscular Volume 85.6 fL (80.0-98.0); Monocytes Absolute Auto 0.8 X10*3/uL (0.1-1.2); Monocytes Percent Auto 6.8 % (2-11); Neutrophils Absolute Auto 6.6 x10*3/uL (2.0-8.3); Neutrophils Percent Auto 53.8 % (45-73); Platelet Count 316 X10*3/uL (160-400); Red Blood Count 4.64 X10*6/uL (4.20-5.50); Red Cell Distribution Width 13.4 % (11.0-16.0); White Blood Count 12.3 X10*3/uL (4.8-10.8)
[2022-06-30 15:25] LABS: Alanine Aminotransferase 24 U/L (0-31); Albumin Level 3.8 g/dL (3.5-5.0); Alkaline Phosphatase 93 U/L (39-117); Anion Gap 14 (12-20); Aspartate Amino Transferase 12 U/L (5-31); Bilirubin Total 0.3 mg/dL (0.0-1.0); Blood Urea Nitrogen 17 mg/dL (9-16); Calcium 8.4 mg/dL (8.4-10.2); Carbon Dioxide 28 mmol/L (22-29); Chloride 101 mmol/L (96-108); Creatinine Clr Calc Pharmacy 91.9; Estimated Glomerular Filt Rate > 60; Glucose Random 117 mg/dL (60-115); Potassium 3.5 mmol/L (3.3-5.1); Sodium 139 mmol/L (135-145); Total Protein 6.7 g/dL (6.5-8.0)
[2022-06-30 21:53] LABS: Lipase 53 U/L (8-78)
--- NOTE | 2022-06-30 23:17 | ED.ABDPAIN ---
HPI - Abdominal Pain General Chief Complaint: Abdominal Pain Stated Complaint: Abd pain Time Seen by Provider: 06/30/22 21:17 Source: patient Mode of arrival: ambulatory Limitations: no limitations History of Present Illness HPI narrative: 52-year-old female who presents emergency department for evaluation of abdominal pain x3 days. The patient's pain started 3 days prior and the afternoon while she was watching television. She states that the pain came on suddenly and she points to her epigastric area and left upper quadrant when asked to localize the pain. She states that the pain is a constant, tearing sensation and was severe, 8/10. She states this the 1st episode of this type of pain. She took Mylanta and Prilosec with no relief for the pain. She states that her last bowel movement was this morning and was normal. She denied fever, chills, rhinorrhea, sore throat, cough, dyspnea on exertion, nausea, vomiting or diarrhea. She has not noticed any dark black stools or bloody stools. MD elicited complaint: abdominal pain Onset (ago): day(s) (3) Pain Consistency: constant Location: epigastric and LUQ Severity: severe Pain scale (0-10): 8 Quality: other (Tearing) Radiation: none Migration to: no migration Exacerbating factors: nothing Relieving factors: nothing Treatments prior to arrival: antacids Related Data Previous Rx's Medication Instructions Recorded cyclobenzaprine 10 mg tablet 10 mg PO TID PRN muscle spasm #10 09/08/20 tabs ketorolac 10 mg tablet 10 mg PO Q8H PRN pain #10 tabs 09/08/20 lidocaine 5 % topical patch 1 patch topical DAILY #15 ea 09/08/20 (Lidoderm) dicyclomine 20 mg tablet 20 mg PO BID #10 tabs 02/13/21 sucralfate 1 gram tablet (Carafate) 1 g PO BID #20 tabs 02/13/21 acetic acid 2 % ear solution 3 drp otic (ear) right Q6H #15 mL 06/07/21 sucralfate 1 gram tablet 1 g PO BID #30 tabs 06/07/21 amoxicillin 875 mg-potassium 1 tab PO Q12H 10 days #20 tabs 03/24/22 clavulanate 125 mg tablet naproxen 500 mg tablet 500 mg PO BID PRN pain 10 days #20 0508/22 tabs omeprazole 20 mg capsule,delayed 20 mg PO DAILY 30 days #30 caps 07/01/22 release oxycodone 5 mg tablet 5 mg PO Q4H PRN pain #14 tabs 07/01/22 Allergies Allergy/AdvReac Type Severity Reaction Status Date / Time propofol [PROPOFOL] Allergy Severe ANAPHYLACTIC Verified 06/30/22 14:56 REACTION, anaphylaxis succinylcholine [Anectine] Allergy Severe anaphylaxis Verified 06/30/22 14:56 morphine [MORPHINE] Allergy Intermediate ITCHINESS Verified 06/30/22 14:56 AND HIVES, anaphylaxis Anesthetics - Amide Type - Allergy Unknown UNKNOWN Verified 06/30/22 14:56 Select A [Anesthetics - [facility] Type] Anesthetics - [facility] Type- Allergy Unknown UNKNOWN Verified 06/30/22 14:56 Parabens [Anesthetics - [facility] Type] From ANECTINE Allergy Severe ANAPHYLACTI Uncoded 06/07/21 16:53 C nuts Allergy Unknown Unknown Uncoded 09/08/20 13:36 SEAFOOD Allergy Unknown THROAT Uncoded 08/03/20 15:56 SWELLING Review of Systems Review of Systems Yes all other systems are reviewed and are negative [facility] Past Medical History Medical History Asthma Cholecystectomy planned Diabetes Hypertension Surgical History History of tubal ligation Social History Social History Alcohol 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 Advance Directives: No Advance Directives Information Provided: No Physical Exam ED Vital Signs: Vital Signs - 24 hr 06/30/22 14:56 Temperature 97.8 F Pulse Rate 72 Respiratory Rate 18 Blood Pressure 187/103 H Pulse Oximetry 98 Oxygen Delivery Method Room Air BMI result Body Mass Index 35.2 Const Other: Awake, alert, female patient, very pleasant cooperative, she appears to be in [id number] distress secondary to her abdominal pain Limitations: no limitations HENMT Head: Yes normal to inspection, Yes normocephalic and Yes atraumatic Ears: external ears normal General nose exam: Normal external nose present Face and sinus: Yes normal facial exam Mouth: Normal oral and palatal mucosa present Throat: Yes posterior oropharynx normal Eyes General: appearance normal, both eyes and all related structures Pupils: Equal, round and reactive pupils present Neck Neck: Yes normal visual inspection, Yes no lymphadenopathy, Yes trachea midline and Yes supple Chest Chest palpation & inspection: normal inspection of the chest and normal palpation of entire chest wall Resp Effort & Inspection: normal respiratory effort and able to speak in complete sentences Auscultation: clear to auscultation bilaterally Cardio Rate: regular rate Rhythm: regular rhythm Heart sounds: S1 normal heart sound present, S2 normal heart sound present and no murmurs GI Other: Abdomen appears to be distended, hyperactive bowel sounds Palpation (GI): Soft to palpation, Tenderness to palpation present (GI) in the epigastrum (Moderate) and in the LUQ (Mild) and no guarding General: Yes no CVA tenderness Back/Spine/Pelvis Back: no CVA tenderness Skin General skin exam: no rashes or lesions noted Neuro Cranial nerves: Yes CN's II-XII intact bilaterally and Yes Equal, round and reactive pupils present Cognition (Neuro): normal cognition Motor exam (neuro): 5/5 motor strength present throughout Extrem General: Yes normal to inspection Psych Appearance: grossly normal Speech and movement: Normal speech and movement present Affect: normal affect Attitude: cooperative Thought process: Normal thought process present Thought content: Normal thought content present Course Course Course Narrative: 52-year-old female who presents emergency department for evaluation epigastric and left upper quadrant pain x3 days. Patient's vital signs revealed an elevated blood pressure of 187/103 otherwise were unremarkable. Patient did have epigastric and left upper quadrant tenderness. Patient also appear to be distended. She also have hyperactive bowel sounds. Patient's laboratory evaluation did reveal an elevated white blood cell count 12,[address] scan of the abdomen pelvis did not reveal a clear cause for the patient's pain, there were 3 incidental findings that I did discuss with the patient. The patient was initially treated with Toradol 15 mg IV and Zofran 4 mg IV with only minimal relief for pain. Patient was given a 2nd dose of Toradol 30 mg IV again with only minimal relief for pain. I did order Dilaudid and Benadryl however the patient does not want any medications that are going to make her sleepy and unable to drive at this time. I suspect the patient's pain is secondary to gastritis and I did discuss this with her. She was started on Prilosec 20 mg once a day for 30 days, she is advised to take Tylenol for pain and for pain not relieved by Tylenol she was prescribed oxycodone. Patient was given printed and verbal instructions and discharged home. MDM - Abdominal Pain Lab Data Result diagrams: 06/30/22 14:59 06/30/22 14:59 Labs: Lab Results 06/30/22 06/30/22 06/30/22 Range/Units 14:59 14:59 23:24 WBC 12.3 H (4.8-10.8) X10*3/uL RBC 4.64 (4.20-5.50) X10*6/uL Hgb 12.7 (12.0-16.0) g/dl Hct 39.7 (37.0-47.0) % MCV 85.6 (80.0-98.0) fL MCH 27.4 (27.0-33.0) pg MCHC 32.0 (31.0-35.0) g/dl RDW 13.4 (11.0-16.0) % Plt Count 316 (160-400) X10*3/uL MPV 11.0 (9.4-12.3) fL Immature Gran % (Auto) 0.4 (0.0-0.4) % Neut % (Auto) 53.8 (45-73) % Lymph % (Auto) 36.9 (20-40) % [place] % (Auto) 6.8 (2-11) % Eos % (Auto) 1.5 (0-4) % Baso % (Auto) 0.6 (0-2) % Lymph # (Auto) 4.5 (1.2-4.9) X10*3/uL [place] # (Auto) 0.8 (0.1-1.2) X10*3/uL Eos # (Auto) 0.2 (0.0-0.4) X10*3/uL Baso # (Auto) 0.1 (0.0-0.2) X10*3/uL Abs Immat Gran (auto) 0.05 H (0.00-0.03) X10*3/uL Absolute Neuts (auto) 6.6 (2.0-8.3) x10*3/uL Absolute Nucleated RBC 0.000 (0.0-0.012) X10*3/uL Nucleated RBC % (auto) 0.0 (0.0-0.2) /100WBC Sodium 139 (135-145) mmol/L Potassium 3.5 D (3.3-5.1) mmol/L Chloride 101 (96-108) mmol/L Carbon Dioxide 28 (22-29) mmol/L Anion Gap 14 (12-20) BUN 17 H (9-16) mg/dL Creatinine 0.84 (0.5-1.4) mg/dL Estim Creat Clear Calc 91.9 Estimated GFR > 60 Random Glucose 117 H (60-115) mg/dL Calcium 8.4 D (8.4-10.2) mg/dL Total Bilirubin 0.3 (0.0-1.0) mg/dL AST 12 D (5-31) U/L ALT 24 (0-31) U/L Alkaline Phosphatase 93 (39-117) U/L Total Protein 6.7 (6.5-8.0) g/dL Albumin 3.8 (3.5-5.0) g/dL Lipase 53 (8-78) U/L Urine Color YELLOW Urine Appearance CLEAR Urine pH 7.0 (5.0-8.0) Ur Specific [place] 1.020 (1.005-1.025) Urine Protein NEG (NEG-TRACE) MG/DL Urine Glucose (UA) NEG (NEG) MG/DL Urine Ketones NEG (NEG) MG/DL Urine Blood NEG (NEG) Urine Nitrite NEG (NEG) Ur Leukocyte Esterase NEG (NEG) Discharge Plan Discharge Clinical Impression: Gastritis Patient Disposition: Home, Self-Care Instructions: Gastritis (ED) Additional Instructions: Your blood work was unremarkable. Your urinalysis was unremarkable. The CT scan of your abdomen pelvis did not reveal a clear cause for your abdominal pain. There were 3 incidental findings that you will need to follow-up with her doctor for, please see the report below and discuss these with your doctor. At this time I believe that your pain is secondary to inflammation of your stomach (gastritis). Take Prilosec (omeprazole) 20 mg pills, 1 pill once a day for 1 month. This medication shuts off your acid production and let us the inflammation in your esophagus and stomach heal.. Take Tylenol (acetaminophen) 500 mg pills, 2 pills every 4-6 hours as needed for pain. For pain not relieved by Tylenol take oxycodone 5 mg pills, 1 pill every 4 hours as needed for pain. Do not drive or work while taking this medication since they can cause sleepiness. Oxycodone is a narcotic medication that can be addicting. If you are concerned about addiction you can ask the pharmacist for less pills or do not get this prescription filled. Follow-up with your doctor in 2 days. Please return to the emergency department if your symptoms get worse or if you develop any symptoms that are concerning to you. Prescriptions: New omeprazole 20 mg capsule,delayed release(DR/EC) 20 mg PO DAILY 30 Days Qty: 30 0RF oxycodone 5 mg tablet 5 mg PO Q4H PRN (Reason: pain) Qty: 14 0RF Rx Instructions: Patient may request partial fill; Partial Fill upon patient request. No Action ketorolac 10 mg tablet 10 mg PO Q8H PRN (Reason: pain) Qty: 10 0RF cyclobenzaprine 10 mg tablet 10 mg PO TID PRN (Reason: muscle spasm) Qty: 10 0RF lidocaine [Lidoderm] 5 % adhesive patch,medicated 1 patch topical DAILY Qty: 15 0RF Rx Instructions: leave on most painful area for up to 12 hrs sucralfate [Carafate] 1 gram tablet 1 g PO BID Qty: 20 0RF dicyclomine 20 mg tablet 20 mg PO BID Qty: 10 0RF acetic acid 2 % solution 3 drp otic (ear) right Q6H Qty: 15 0RF Rx Instructions: apply to (cotton) wick; replace wick every 24 hours sucralfate 1 gram tablet 1 g PO BID Qty: 30 0RF amoxicillin-pot clavulanate 875-125 mg tablet 1 tab PO Q12H 10 Days Qty: 20 0RF naproxen 500 mg tablet 500 mg PO BID PRN (Reason: pain) 10 Days Qty: 20 0RF
[2022-06-30] MEDS: ondansetron HCL 4 MG/2 ML VIAL IVPUSH (23:22)
[2022-06-30] MEDS: Ketorolac Tromethamine 15 MG/ML VIAL IVPUSH (23:23)
[2022-06-30] MEDS: 0.9 % Sodium Chloride 1,000 ML 999 ML IV (23:23)
[2022-06-30 23:33] LABS: Appearance Urine CLEAR; Color Urine YELLOW; Glucose Urine UA NEG (NEG); Leukocyte Esterase Urine NEG (NEG); Nitrite Urine NEG (NEG); Urine Blood NEG (NEG); Urine Ketones NEG (NEG); Urine Protein NEG (NEG-TRACE)
[2022-07-01] MEDS: Lidocaine HCl Viscous 2 % 15 ML SOLUTION 10 ML PO (00:52)
[2022-07-01] MEDS: Magnesium Hydrox/Alum Hydrox 30 ML ORAL.SUSP PO (00:52)
[2022-07-01] MEDS: PHENobarb/Hyoscy/Atropine/Scop 10 ML ELIXIR PO (00:53)
[2022-07-01] MEDS: Ketorolac Tromethamine 15 MG/ML VIAL 30 MG IVPUSH (01:35)
== END 2022-07-01 02:36 | disposition home or self-care (01) ==
PROVIDERS: Emergency Medicine; Emergency Provider Emergency Medicine Emergency Medical Services; PCP Internal Medicine
DX: K29.70 Gastritis, unspecified, without bleeding (principal); R10.9 Unspecified abdominal pain; E11.9 Type 2 diabetes mellitus without complications; I10 Essential (primary) hypertension; Z98.51 Tubal ligation status
CPT/HCPCS: 36415; 74176; 80053; 81003; 83690; 85025; 96361; 96374; 96375; 96376; 99284; 99285; J1885; J2405

== ENCOUNTER 2022-08-15 07:00 | Emergency (ER) | payer OTHER, SELFPAY ==
--- NOTE | ~2022-08-15 | XR_ITS ---
EXAMINATION: XR CHEST CLINICAL INFORMATION: Shortness of breath COMPARISON: 11/26/2019 TECHNIQUE: 2 views of the chest were obtained. FINDINGS: Lungs are well-inflated. Minimal linear opacity of scar or atelectasis at the level of the inferior lingula. Trachea is midline in position. No interstitial disease, consolidation or mass. No pleural effusion or pneumothorax. Cardiac silhouette and pulmonary vessels are normal in size. The mediastinum and bev have normal contour. The visualized bones, and upper abdomen, are unremarkable. XR/XR chest 2V IMPRESSION: No acute cardiopulmonary abnormality. No evidence of pneumonia or congestive heart failure.
--- NOTE | ~2022-08-15 | CT_ITS ---
EXAMINATION: CT ANGIOGRAM OF THE CHEST WITH AND WITHOUT CONTRAST (CT PULMONARY ANGIOGRAM FOR PE) CLINICAL INFORMATION: Left-sided chest pain and dyspnea. COMPARISON: CXR from 08/15/2022. TECHNIQUE: Prior to contrast administration, noncontrast localization images were obtained. Subsequently, multidetector volumetric imaging was performed from the thoracic inlet to below the diaphragms following the administration of 65 mL Omnipaque 350 intravenous contrast. No contrast reaction reported. Sagittal, coronal, and MIP oblique sagittal reformatted images were obtained on the CT workstation, uploaded to PACS, and reviewed. This CT examination was performed using dose optimization techniques as appropriate, variously including the following: *Automated exposure control *Adjustment of mA and/or kV according to patient size (this includes techniques or standardized protocols for targeted exams where dose is matched to indication/reason for exam; i.e. extremities or head) *Use of iterative reconstruction technique DLP: Total exam dose-length product 339 mGy-cm FINDINGS: LUNGS AND PLEURA: The airways are widely patent and normal in caliber. There are a few scattered linear opacities of minimal atelectasis in both lungs. No airspace disease or pleural effusion. No pneumothorax. QUALITY OF STUDY/CONTRAST BOLUS: Satisfactory. CARDIOVASCULAR: The pulmonary arteries are normal in size. No embolic filling defects are identified within the main, lobar or segmental vessels. Cardiac chambers are normal in caliber. No pericardial effusion. Thoracic aorta has normal size and contour; no aneurysm or dissection. Incidentally noted is a bovine configuration of the aortic arch. MEDIASTINUM/LOWER NECK: No mediastinal mass. The esophagus and visualized portion of the thyroid gland are unremarkable. LYMPHATICS: No pathologic sized axillary, hilar or mediastinal lymph nodes. UPPER ABDOMEN: No contrast reflux into the inferior vena cava. Diffuse hepatic steatosis. Adrenal glands are normal. 1 cm calyceal stone of the right kidney is partially included in the [id number]; it is unchanged in size and position compared to 06/30/2022. No hydronephrosis. OSSEOUS STRUCTURES: No acute or suspicious osseous abnormality. No rib fractures are seen. No chest wall mass. CT/CT angio chest PE protocol IMPRESSION: * No evidence of pulmonary embolism. * No specific source of left-sided chest pain is identified. No rib fracture, pneumothorax or pleural effusion. * Diffuse hepatic steatosis. * 1 cm stone of the right kidney is partially included in the [id number]. No hydronephrosis.
[2022-08-15 07:31] VITALS: BP 184/96; PULSE 74; RESP 18; TEMP 36.3; O2SAT 97; BMI 34.7
--- NOTE | 2022-08-15 07:33 | ECG_ITS ---
Test Reason : chest tightness Blood Pressure : / mmHG Vent. Rate : 070 BPM Atrial Rate : 070 BPM P-R Int : 184 ms QRS Dur : 074 ms QT Int : 386 ms P-R-T Axes : 021 026 039 degrees QTc Int : 416 ms Normal sinus rhythm Normal ECG When compared with ECG of 07-JUN-2021 21:34, No significant change was found Referred By: Generic ED Physician Electronically Signed By:NADINE JO
[2022-08-15 08:06] LABS: COVID-19 Test Negative (Negative)
--- NOTE | 2022-08-15 08:53 | ED_ITS ---
HPI - SOB/Dyspnea General Chief Complaint: Dyspnea Stated Complaint: Tingling in arms Time Seen by Provider: 08/15/22 08:52 Source: patient Mode of arrival: ambulatory Limitations: no limitations History of Present Illness HPI Narrative: 7 yo female with hx of asthma, DM, HTN here with c/o 1 week of asthma symptoms including tight chest, wheezing, feeling like she cannot cough of sputum, has some tingling across her chest as well - has inhalers at home which are not helping has not been on prednisone in 2 months. MD elicited complaint: shortness of breath and cough Pertinent past history: asthma Onset (ago): week(s) (1) Timing: progressively worsening Severity: moderate Exacerbating factors: exertion and coughing Relieving factors: bronchodilators Known history of: asthma Associated symptoms: cough and wheezing Treatment prior to arrival: bronchodilator Related Data Previous Rx's Medication Instructions Recorded cyclobenzaprine 10 mg tablet 10 mg PO TID PRN muscle spasm #10 09/08/20 tabs ketorolac 10 mg tablet 10 mg PO Q8H PRN pain #10 tabs 09/08/20 lidocaine 5 % topical patch 1 patch topical DAILY #15 ea 09/08/20 (Lidoderm) dicyclomine 20 mg tablet 20 mg PO BID #10 tabs 02/13/21 sucralfate 1 gram tablet (Carafate) 1 g PO BID #20 tabs 02/13/21 acetic acid 2 % ear solution 3 drp otic (ear) right Q6H #15 mL 06/07/21 sucralfate 1 gram tablet 1 g PO BID #30 tabs 06/07/21 amoxicillin 875 mg-potassium 1 tab PO Q12H 10 days #20 tabs 03/24/22 clavulanate 125 mg tablet naproxen 500 mg tablet 500 mg PO BID PRN pain 10 days #20 03/24/22 tabs omeprazole 20 mg capsule,delayed 20 mg PO DAILY 30 days #30 caps 07/01/22 release oxycodone 5 mg tablet 5 mg PO Q4H PRN pain #14 tabs 07/01/22 azithromycin 250 mg tablet See Rx Instructions PO .COMPLEX #6 08/15/22 tabs prednisone 20 mg tablet 40 mg PO DAILY 5 days #10 tabs 08/15/22 Allergies Allergy/AdvReac Type Severity Reaction Status Date / Time propofol [PROPOFOL] Allergy Severe ANAPHYLACTIC Verified 06/30/22 14:56 REACTION, anaphylaxis succinylcholine [Anectine] Allergy Severe anaphylaxis Verified 06/30/22 14:56 morphine [MORPHINE] Allergy Intermediate ITCHINESS Verified 06/30/22 14:56 AND HIVES, anaphylaxis Anesthetics - [facility]ide Type - Allergy Unknown UNKNOWN Verified 06/30/22 14:56 Select A [Anesthetics - [facility] Type] Anesthetics - [facility] Type- Allergy Unknown UNKNOWN Verified 06/30/22 14:56 Parabens [Anesthetics - [facility] Type] From ANECTINE Allergy Severe ANAPHYLACTI Uncoded 06/07/21 16:53 C nuts Allergy Unknown Unknown Uncoded 09/08/20 13:36 SEAFOOD Allergy Unknown THROAT Uncoded 08/03/20 15:56 SWELLING Review of Systems Review of Systems: Constitutional : No Fever, No Chills ENT/Mouth : No Hoarseness, No sore throat, No Rhinorrhea Eyes: No Redness, No Discharge, No Vision Changes Cardiovascular : No Chest Pain, positive SOB, positive Dyspnea on Exertion, No Edema Respiratory : positive Cough, No Sputum, positive Wheezing, Gastrointestinal : No Nausea, No Vomiting, No Diarrhea, No abdominal Pain Genitourinary : No Dysuria, No Hematuria Musculoskeletal : No joint pain, No Myalgias Skin : No rash Neuro : No Weakness, No Numbness, No Headache Psych : No anxiety, depression Heme/Lymph: No Bruising, No Bleeding Endocrine : No Polyuria, No Polydipsia All other systems reviewed and are negative [facility] Past Medical History Attestation statement: The following information was validated with the patient. Medical History Asthma Cholecystectomy planned Diabetes Hypertension Surgical History History of tubal ligation Social History Social History (Updated 08/15/22 @ 08:53 by Gretel Bynum DO) Alcohol 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 Patient Tobacco Use Status: Never used Tobacco Use of substances other than those prescribed or required for medical reasons: No Advance Directives: No Advance Directives Information Provided: No Physical Exam Vital Signs: Vital Signs: Last Vital Signs Temp 98.4 F 08/15/22 15:32 Pulse 78 08/15/22 15:32 Resp 16 08/15/22 15:32 BP 125/73 08/15/22 15:32 Pulse Ox 96 08/15/22 15:32 O2 Del Method 08/15/22 15:32 BMI result Body Mass Index 34.7 Appearance: Alert. Oriented X3. No acute distress. Eyes: Pupils equal, round and reactive to light. ENT: Pharynx normal. Neck: Normal inspection. Neck supple. CVS: Normal heart rate and rhythm. Pulses normal. Respiratory: No respiratory distress. Breath sounds decreased with wheezes noted throughout mild wheezes Abdomen: Soft and nontender. Skin: Skin warm and dry. Normal skin color. Normal skin turgor. Extremities: No lower extremity edema. No calf ttp Neuro: Oriented X 3. No motor deficit. No sensory deficit. Course Course Course Narrative: negative troponin, EKG, no PE, no COVID, no pneumonia at this time will start on zpak and prednisone as well as tessalon stable for DC no hypoxia 96% on RA, no resp distress, lungs are CTAB MDM - SOB/Dyspnea MDM Narrative Medical decision making narrative: 52 yo female with hx of asthma, DM, HTN here with asthma complaints but also come L arm tingling. She will need neb treatment 5mg IV steroids and IV magnesium, CXR negative, EKG no acute ischemic changes - troponin ordered. She has no hypoxia/signs of DVT/tachycardia and it is not pleuritic low suspicion for VTE. Dispo per results and clinical response to treatments in the ED. Lab Data Result diagrams: 08/15/22 09:34 08/15/22 09:34 Labs: Lab Results 08/15/22 08/15/22 08/15/22 Range/Units 07:42 09:34 09:34 WBC 6.4 (4.8-10.8) X10*3/uL RBC 4.64 (4.20-5.50) X10*6/uL Hgb 12.8 (12.0-16.0) g/dl Hct 40.1 (37.0-47.0) % MCV 86.4 (80.0-98.0) fL MCH 27.6 (27.0-33.0) pg MCHC 31.9 (31.0-35.0) g/dl RDW 13.4 (11.0-16.0) % Plt Count 266 (160-400) X10*3/uL MPV 11.5 (9.4-12.3) fL Immature Gran % (Auto) 0.3 (0.0-0.4) % Neut % (Auto) 56.2 (45-73) % Lymph % (Auto) 33.1 (20-40) % Fleming % (Auto) 7.3 (2-11) % Eos % (Auto) 2.5 (0-4) % Baso % (Auto) 0.6 (0-2) % Lymph # (Auto) 2.1 (1.2-4.9) X10*3/uL Fleming # (Auto) 0.5 (0.1-1.2) X10*3/uL Eos # (Auto) 0.2 (0.0-0.4) X10*3/uL Baso # (Auto) 0.0 (0.0-0.2) X10*3/uL Abs Immat Gran (auto) 0.02 (0.00-0.03) X10*3/uL Absolute Neuts (auto) 3.6 (2.0-8.3) x10*3/uL Absolute Nucleated RBC 0.000 (0.0-0.012) X10*3/uL Nucleated RBC % (auto) 0.0 (0.0-0.2) /100WBC Sodium 138 (135-145) mmol/L Potassium 4.8 D (3.3-5.1) mmol/L Chloride 102 (96-108) mmol/L Carbon Dioxide 23 (22-29) mmol/L Anion Gap 18 (12-20) BUN 16 (9-16) mg/dL Creatinine 0.84 (0.5-1.4) mg/dL Estim Creat Clear Calc 91.2 Estimated GFR > 60 Random Glucose 135 H (60-115) mg/dL Calcium 9.2 D (8.4-10.2) mg/dL Troponin I High Sens (<3.5-17.0) ng/L COVID-19 (LUCIAN) Negative (Negative) COVID-19 Clin Com See Note 08/15/22 Range/Units 09:34 WBC (4.8-10.8) X10*3/uL RBC (4.20-5.50) X10*6/uL Hgb (12.0-16.0) g/dl Hct (37.0-47.0) % MCV (80.0-98.0) fL MCH (27.0-33.0) pg MCHC (31.0-35.0) g/dl RDW (11.0-16.0) % Plt Count (160-400) X10*3/uL MPV (9.4-12.3) fL Immature Gran % (Auto) (0.0-0.4) % Neut % (Auto) (45-73) % Lymph % (Auto) (20-40) % Fleming % (Auto) (2-11) % Eos % (Auto) (0-4) % Baso % (Auto) (0-2) % Lymph # (Auto) (1.2-4.9) X10*3/uL Fleming # (Auto) (0.1-1.2) X10*3/uL Eos # (Auto) (0.0-0.4) X10*3/uL Baso # (Auto) (0.0-0.2) X10*3/uL Abs Immat Gran (auto) (0.00-0.03) X10*3/uL Absolute Neuts (auto) (2.0-8.3) x10*3/uL Absolute Nucleated RBC (0.0-0.012) X10*3/uL Nucleated RBC % (auto) (0.0-0.2) /100WBC Sodium (135-145) mmol/L Potassium (3.3-5.1) mmol/L Chloride (96-108) mmol/L Carbon Dioxide (22-29) mmol/L Anion Gap (12-20) BUN (9-16) mg/dL Creatinine (0.5-1.4) mg/dL Estim Creat Clear Calc Estimated GFR Random Glucose (60-115) mg/dL Calcium (8.4-10.2) mg/dL Troponin I High Sens < 3.5 (<3.5-17.0) ng/L COVID-19 (LUCIAN) (Negative) COVID-19 Clin Com ECG Data Attestation: I personally reviewed and interpreted this ECG as follows: ECG interpretation date: 08/15/22 ECG interpretation time: 08:53 Interpretation: Rate: 70 Rhythm: NSR Troy: normal Normal P waves. Normal PATITO. Normal QRS complex. ST T wave : normal no LUAN qTC: normal prior studies: no acute ischemia The study has been interpreted contemporaneously by me. . Discharge Plan Discharge Clinical Impression: Bronchitis, Atypical chest pain Patient Disposition: Home, Self-Care Instructions: Chest Pain (ED), Acute Bronchitis (ED) Additional Instructions: return to ED for any worsening symptoms or concerns FINDINGS: LUNGS AND PLEURA: The airways are widely patent and normal in caliber. There are a few scattered linear opacities of minimal atelectasis in both lungs. No airspace disease or pleural effusion. No pneumothorax. QUALITY OF STUDY/CONTRAST BOLUS: Satisfactory.? CARDIOVASCULAR: The pulmonary arteries are normal in size. No embolic filling defects are identified within the main, lobar or segmental vessels. Cardiac chambers are normal in caliber. No pericardial effusion. Thoracic aorta has normal size and contour; no aneurysm or dissection. Incidentally noted is a bovine configuration of the aortic arch. MEDIASTINUM/LOWER NECK: No mediastinal mass. The esophagus and visualized portion of the thyroid gland are unremarkable. LYMPHATICS: No pathologic sized axillary, hilar or mediastinal lymph nodes. UPPER ABDOMEN: No contrast reflux into the inferior vena cava. Diffuse hepatic steatosis. Adrenal glands are normal. 1 cm calyceal stone of the right kidney is partially included in the [id number]; it is unchanged in size and position compared to 06/30/2022. No hydronephrosis. OSSEOUS STRUCTURES: No acute or suspicious osseous abnormality. No rib fractures are seen. No chest wall mass. CT/CT angio chest PE protocol IMPRESSION: *? No evidence of pulmonary embolism. *? No specific source of left-sided chest pain is identified. No rib fracture, pneumothorax or pleural effusion. *? Diffuse hepatic steatosis. *? 1 cm stone of the right kidney is partially included in the [id number]. No hydronephrosis. Prescriptions: New azithromycin 250 mg tablet See Rx Instructions .ROUTE .COMPLEX Qty: 6 0RF Rx Instructions: For 250 mg dose pack: take 500 mg today (day 1), then 250 mg for 4 days (days 2-5) prednisone 20 mg tablet 40 mg PO DAILY 5 Days Qty: 10 0RF No Action ketorolac 10 mg tablet 10 mg PO Q8H PRN (Reason: pain) Qty: 10 0RF cyclobenzaprine 10 mg tablet 10 mg PO TID PRN (Reason: muscle spasm) Qty: 10 0RF lidocaine [Lidoderm] 5 % adhesive patch,medicated 1 patch topical DAILY Qty: 15 0RF Rx Instructions: leave on most painful area for up to 12 hrs sucralfate [Carafate] 1 gram tablet 1 g PO BID Qty: 20 0RF dicyclomine 20 mg tablet 20 mg PO BID Qty: 10 0RF acetic acid 2 % solution 3 drp otic (ear) right Q6H Qty: 15 0RF Rx Instructions: apply to (cotton) wick; replace wick every 24 hours sucralfate 1 gram tablet 1 g PO BID Qty: 30 0RF omeprazole 20 mg capsule,delayed release(DR/EC) 20 mg PO DAILY 30 Days Qty: 30 0RF oxycodone 5 mg tablet 5 mg PO Q4H PRN (Reason: pain) Qty: 14 0RF Rx Instructions: Patient may request partial fill; Partial Fill upon patient request. amoxicillin-pot clavulanate 875-125 mg tablet 1 tab PO Q12H 10 Days Qty: 20 0RF naproxen 500 mg tablet 500 mg PO BID PRN (Reason: pain) 10 Days Qty: 20 0RF Referrals: Sarthak Silva III, MD [Primary Care Provider] - 2 days (if not better) Stand Alone Forms: Work/School Release
[2022-08-15] MEDS: Albuterol Sulfate 2.5 MG/0.5 ML VIAL.NEB 5 MG INHALE (09:23)
[2022-08-15 09:24] VITALS: PULSE 70; RESP 18; O2SAT 99
[2022-08-15] MEDS: methylPREDNISolone Sod Succ 125 MG/2 ML VIAL IVPUSH (09:40)
[2022-08-15] MEDS: Magnesium Sulfate/H2O 2 GM/50 ML PIGGYBACK IV (09:40)
--- NOTE | 2022-08-15 09:40 | PC.NURSE ---
pt alert and oriented, skin appropriate for ethnicity, pt reports feeling sob and dry cough, ls wheezing through all gallardo but sating well
[2022-08-15 09:46] VITALS: BP 143/89; PULSE 76; RESP 20; O2SAT 99
[2022-08-15 09:53] LABS: MANUAL DIFF FLAG NO
[2022-08-15 10:03] LABS: Basophils Percent Auto 0.6 % (0-2); Eosinophils Absolute Auto 0.2 X10*3/uL (0.0-0.4); Eosinophils Percent Auto 2.5 % (0-4); Hematocrit 40.1 % (37.0-47.0); Hemoglobin 12.8 g/dl (12.0-16.0); Imm Gran Abs Auto 0.02 X10*3/uL (0.00-0.03); Imm Gran Pct Auto 0.3 % (0.0-0.4); Lymphocytes Absolute Auto 2.1 X10*3/uL (1.2-4.9); Lymphocytes Percent Auto 33.1 % (20-40); Mean Corpuscular HGB Conc 31.9 g/dl (31.0-35.0); Mean Corpuscular Hemoglobin 27.6 pg (27.0-33.0); Mean Corpuscular Volume 86.4 fL (80.0-98.0); Mean Platelet Volume 11.5 fL (9.4-12.3); Monocytes Absolute Auto 0.5 X10*3/uL (0.1-1.2); Monocytes Percent Auto 7.3 % (2-11); Neutrophils Absolute Auto 3.6 x10*3/uL (2.0-8.3); Neutrophils Percent Auto 56.2 % (45-73); Platelet Count 266 X10*3/uL (160-400); Red Blood Count 4.64 X10*6/uL (4.20-5.50); Red Cell Distribution Width 13.4 % (11.0-16.0); White Blood Count 6.4 X10*3/uL (4.8-10.8)
[2022-08-15 10:12] LABS: Anion Gap 18 (12-20); Blood Urea Nitrogen 16 mg/dL (9-16); Calcium 9.2 mg/dL (8.4-10.2); Carbon Dioxide 23 mmol/L (22-29); Chloride 102 mmol/L (96-108); Creatinine Clr Calc Pharmacy 91.2; Estimated Glomerular Filt Rate > 60; Glucose Random 135 mg/dL (60-115); Potassium 4.8 mmol/L (3.3-5.1); Sodium 138 mmol/L (135-145)
[2022-08-15 10:17] LABS: Troponin-I High Sensitivity < 3.5 ng/L (<3.5-17.0)
[2022-08-15] MEDS: Ketorolac Tromethamine 15 MG/ML VIAL IVPUSH (12:27)
[2022-08-15 12:28] VITALS: BP 154/86; PULSE 74; RESP 20; O2SAT 98
[2022-08-15] MEDS: diphenhydrAMINE HCL 50 MG/ML VIAL IVPUSH (13:25)
[2022-08-15 13:26] VITALS: BP 143/76; PULSE 71; RESP 18; O2SAT 99
--- NOTE | 2022-08-15 15:07 | PC.NURSE ---
pt is still experiencing chest tightness even after all the medications, ls improved wheezing improved
[2022-08-15 15:32] VITALS: BP 125/73; PULSE 78; RESP 16; TEMP 36.9; O2SAT 96
[2022-08-15] MEDS: Albuterol Sulfate 90 MCG 8 GM INHALER 2 PUFF INHALE (16:35)
== END 2022-08-15 16:36 | disposition home or self-care (01) ==
PROVIDERS: Emergency Provider Emergency Medicine; PCP Internal Medicine
DX: R07.89 Other chest pain (principal); J40 Bronchitis, not specified as acute or chronic; E11.9 Type 2 diabetes mellitus without complications; I10 Essential (primary) hypertension; Z79.899 Other long term (current) drug therapy
CPT/HCPCS: 36415; 71046; 71275; 80048; 84484; 85025; 87635; 93005; 94640; 96365; 96375; 99284; 99285; J1200; J1885; J2930; J3475

== ENCOUNTER 2022-08-20 13:26 | Emergency (ER) | payer OTHER, SELFPAY | END 2022-08-20 14:30 | disposition left against medical advice (07) | PROVIDERS: Emergency Provider Emergency Medicine; PCP Internal Medicine | DX: R06.02 Shortness of breath (principal) ==

== ENCOUNTER 2022-12-20 05:34 | Emergency (ER) | payer OTHER, SELFPAY ==
[2022-12-20 05:48] VITALS: BP 189/97; PULSE 66; RESP 20; TEMP 36.1; O2SAT 96; BMI 33.7
[2022-12-20 06:30] VITALS: BP 148/82; PULSE 73; RESP 16; TEMP 36.6; O2SAT 97
[2022-12-20 06:53] LABS: MANUAL DIFF FLAG NO
[2022-12-20 06:56] LABS: Basophils Absolute Auto 0.1 X10*3/uL (0.0-0.2); Basophils Percent Auto 0.8 % (0-2); Eosinophils Absolute Auto 0.3 X10*3/uL (0.0-0.4); Hematocrit 38.5 % (37.0-47.0); Hemoglobin 12.3 g/dl (12.0-16.0); Imm Gran Abs Auto 0.02 X10*3/uL (0.00-0.03); Imm Gran Pct Auto 0.3 % (0.0-0.4); Lymphocytes Absolute Auto 2.1 X10*3/uL (1.2-4.9); Lymphocytes Percent Auto 33.6 % (20-40); Mean Corpuscular HGB Conc 31.9 g/dl (31.0-35.0); Mean Corpuscular Hemoglobin 27.6 pg (27.0-33.0); Mean Corpuscular Volume 86.3 fL (80.0-98.0); Mean Platelet Volume 10.9 fL (9.4-12.3); Monocytes Absolute Auto 0.4 X10*3/uL (0.1-1.2); Monocytes Percent Auto 7.1 % (2-11); Neutrophils Absolute Auto 3.3 x10*3/uL (2.0-8.3); Neutrophils Percent Auto 53.2 % (45-73); Platelet Count 275 X10*3/uL (160-400); Red Blood Count 4.46 X10*6/uL (4.20-5.50); Red Cell Distribution Width 12.4 % (11.0-16.0); White Blood Count 6.2 X10*3/uL (4.8-10.8)
--- NOTE | 2022-12-20 07:04 | ED.BACK ---
HPI - Back Pain/Injury General Chief Complaint: Back Pain/Injury Stated Complaint: Left Lower back pain Time Seen by Provider: 12/20/22 07:04 Source: patient Mode of arrival: ambulatory Limitations: no limitations History of Present Illness HPI Narrative: Left back pain radiating to the front, denies injury, the pain slowly increased, nothing started it, nothing makes it worse. No fever, no dysuria, no hematuria, has a history of kidney stones but this does not feel like it. Patient had lumbar diskectomy in the past. MD elicited complaint: back pain Pertinent past history: prior back pain Onset (ago): day(s) Timing: constant Severity: moderate Similar Symptoms Previously: Yes Quality: throbbing Location: lumbar spine Related Data Previous Rx's Medication Instructions Recorded cyclobenzaprine 10 mg tablet 10 mg PO TID PRN muscle spasm #10 09/08/20 tabs ketorolac 10 mg tablet 10 mg PO Q8H PRN pain #10 tabs 09/08/20 lidocaine 5 % topical patch 1 patch topical DAILY #15 ea 09/08/20 (Lidoderm) dicyclomine 20 mg tablet 20 mg PO BID #10 tabs 02/13/21 sucralfate 1 gram tablet (Carafate) 1 g PO BID #20 tabs 02/13/21 acetic acid 2 % ear solution 3 drp otic (ear) right Q6H #15 mL 06/07/21 sucralfate 1 gram tablet 1 g PO BID #30 tabs 06/07/21 amoxicillin 875 mg-potassium 1 tab PO Q12H 10 days #20 tabs 03/24/22 clavulanate 125 mg tablet naproxen 500 mg tablet 500 mg PO BID PRN pain 10 days #20 03/24/22 tabs omeprazole 20 mg capsule,delayed 20 mg PO DAILY 30 days #30 caps 07/01/22 release oxycodone 5 mg tablet 5 mg PO Q4H PRN pain #14 tabs 07/01/22 azithromycin 250 mg tablet See Rx Instructions PO .COMPLEX #6 08/15/22 tabs prednisone 20 mg tablet 40 mg PO DAILY 5 days #10 tabs 08/15/22 cyclobenzaprine 10 mg tablet 10 mg PO TID #10 tabs 12/20/22 naproxen 500 mg tablet (Naprosyn) 500 mg PO BID #20 tabs 12/20/22 Allergies Allergy/AdvReac Type Severity Reaction Status Date / Time propofol [PROPOFOL] Allergy Severe ANAPHYLACTIC Verified 12/20/22 05:51 REACTION, anaphylaxis succinylcholine [Anectine] Allergy Severe anaphylaxis Verified 12/20/22 05:51 morphine [MORPHINE] Allergy Intermediate ITCHINESS Verified 12/20/22 05:51 AND HIVES, anaphylaxis Anesthetics - [facility]ide Type - Allergy Unknown UNKNOWN Verified 12/20/22 05:51 Select A [Anesthetics - [facility] Type] Anesthetics - [facility] Type- Allergy Unknown UNKNOWN Verified 12/20/22 05:51 Parabens [Anesthetics - [facility] Type] From ANECTINE Allergy Severe ANAPHYLACTI Uncoded 12/20/22 05:51 C nuts Allergy Unknown Unknown Uncoded 12/20/22 05:51 SEAFOOD Allergy Unknown THROAT Uncoded 12/20/22 05:51 SWELLING Review of Systems Review of Systems: Yes all other systems are reviewed and are negative Musculoskeletal: Musculoskeletal: Reports back pain Neurologic: Denies Sensory deficit (Neuro) PMFSH Past Medical History Medical History Asthma Cholecystectomy planned Diabetes Hypertension Surgical History History of tubal ligation Social History Social History Alcohol 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 Patient Tobacco Use Status: Never used Tobacco Smoked in Last 30 Days: No Use of substances other than those prescribed or required for medical reasons: No Advance Directives: No Advance Directives Information Provided: Yes Physical Exam Vital Signs: Vital Signs: Last Vital Signs Temp 97.9 F 12/20/22 06:30 Pulse 68 12/20/22 08:48 Resp 16 12/20/22 08:48 BP 145/82 H 12/20/22 08:48 Pulse Ox 99 12/20/22 08:48 O2 Del Method 12/20/22 08:48 BMI result Body Mass Index 33.7 Const: General: healthy appearing Nutritional Appearance: average body habitus Orientation/consciousness: oriented to person and patient oriented x3 Limitations: no limitations HEENT: Head: Yes normal to inspection Ears: external ears normal General nose exam: Normal external nose present Mouth: Normal oral and palatal mucosa present and oropharynx normal Throat: Yes posterior oropharynx normal Eyes: General: appearance normal, both eyes and all related structures Neck: Other: supple Neck: Yes normal visual inspection Chest: Chest palpation & inspection: normal inspection of the chest Resp: Auscultation: clear to auscultation bilaterally Cardio: Jugular venous distension: no JVD Rate: regular rate Rhythm: regular rhythm Heart sounds: S1 normal heart sound present and S2 normal heart sound present GI: Inspection: Yes normal to inspection Palpation (GI): Soft to palpation, nontender and No hepatosplenomegaly present Auscultation: normal bowel sounds Back/Spine/Pelvis: Other: left SI tenderness, no sciatic notch tenderness Skin: General skin exam: no rashes or lesions noted Neuro: General: oriented to person and patient oriented x3 Cranial nerves: Yes CN's II-XII intact bilaterally Motor exam (neuro): 5/5 motor strength present throughout Sensory Exam: No Sensory deficit (Neuro) Extrem: General: Yes normal to inspection Psych: Appearance: grossly normal Course Reevaluation(s) Reevaluation #1: patient feeling much better will dc home Time: 08:57 Medications Administered Discontinued Medications Generic Name Dose Route Start Last Admin Trade Name [place] PRN Reason Stop Dose Admin Cyclobenzaprine HCl 10 mg 12/20/22 07:11 12/20/22 07:21 Cyclobenzaprine Hcl 10 Mg Tablet PO 12/20/22 07:12 10 mg ONCE ONE Administration Ketorolac Tromethamine 30 mg 12/20/22 07:11 12/20/22 07:24 Ketorolac Tromethamine 30 Mg/Ml Vial IVPUSH 12/20/22 07:12 30 mg ONCE ONE Administration Ondansetron HCl 4 mg 12/20/22 07:47 12/20/22 07:53 Ondansetron Hcl 4 Mg/2 Ml Vial IVPUSH 12/20/22 07:48 4 mg ONCE ONE Administration Medical Decision Making Differential Diagnosis Differential Diagnoses: The differential diagnosis associated with the presentation includes (SI Lumbar pain, lumbar radiculopathy, renal colic, UTI) Lab Data MDM Lab Attestation statement: I reviewed the patient's lab results. 12/20/22 06:46 12/20/22 06:46 Labs: Lab Results 12/20/22 12/20/22 12/20/22 Range/Units 06:46 06:46 07:16 WBC 6.2 (4.8-10.8) X10*3/uL RBC 4.46 (4.20-5.50) X10*6/uL Hgb 12.3 (12.0-16.0) g/dl Hct 38.5 (37.0-47.0) % MCV 86.3 (80.0-98.0) fL MCH 27.6 (27.0-33.0) pg MCHC 31.9 (31.0-35.0) g/dl RDW 12.4 (11.0-16.0) % Plt Count 275 (160-400) X10*3/uL MPV 10.9 (9.4-12.3) fL Immature Gran % (Auto) 0.3 (0.0-0.4) % Neut % (Auto) 53.2 (45-73) % Lymph % (Auto) 33.6 (20-40) % [place] % (Auto) 7.1 (2-11) % Eos % (Auto) 5.0 H (0-4) % Baso % (Auto) 0.8 (0-2) % Lymph # (Auto) 2.1 (1.2-4.9) X10*3/uL [place] # (Auto) 0.4 (0.1-1.2) X10*3/uL Eos # (Auto) 0.3 (0.0-0.4) X10*3/uL Baso # (Auto) 0.1 (0.0-0.2) X10*3/uL Abs Immat Gran (auto) 0.02 (0.00-0.03) X10*3/uL Absolute Neuts (auto) 3.3 (2.0-8.3) x10*3/uL Absolute Nucleated RBC 0.000 (0.0-0.012) X10*3/uL Nucleated RBC % (auto) 0.0 (0.0-0.2) /100WBC Sodium 139 (135-145) mmol/L Potassium 4.6 (3.3-5.1) mmol/L Chloride 104 (96-108) mmol/L Carbon Dioxide 25 (22-29) mmol/L Anion Gap 15 (12-20) BUN 15 (9-16) mg/dL Creatinine 0.76 (0.5-1.4) mg/dL Estim Creat Clear Calc 99.3 Estimated GFR > 60 Random Glucose 138 H (60-115) mg/dL Calcium 9.1 (8.4-10.2) mg/dL Total Bilirubin 0.3 (0.0-1.0) mg/dL AST 18 (5-31) U/L ALT 26 (0-31) U/L Alkaline Phosphatase 96 (39-117) U/L Total Protein 7.0 (6.5-8.0) g/dL Albumin 4.1 (3.5-5.0) g/dL Urine Color Yellow Urine Appearance Clear Urine pH 6.0 (5.0-9.0) Ur Specific [place] 1.020 (1.005-1.025) Urine Protein Negative (Neg-Trace) mg/dL Urine Glucose (UA) Negative (Negative) mg/dL Urine Ketones Negative (Negative) mg/dL Urine Blood Trace H (Negative) Urine Nitrite Negative (Negative) Ur Leukocyte Esterase Negative (Negative) Urine RBC 3-5 H (0-2) /HPF Urine WBC 0-5 (0-5) /HPF Ur Squamous Epith Cells 0-2 (0-2) /HPF Urine Bacteria None Seen (None Seen) Hyaline Casts 0-2 (0-2) /LPF Tests considered The following testing was considered but not selected: I considered getting a CT abdomen and pelvis but the patient had point tenderness to palpation so this seemed more like lumbar radiculopathy than renal colic Chronic Conditions Patient?s care impacted by: Diabetes and Hypertension Discharge Plan Discharge Clinical Impression: Lumbar radiculopathy, Strain of lumbar region Patient Disposition: Home, Self-Care Instructions: Lumbar Radiculopathy (ED), Back Pain (ED) Prescriptions: New cyclobenzaprine 10 mg tablet 10 mg PO TID Qty: 10 0RF naproxen [Naprosyn] 500 mg tablet 500 mg PO BID Qty: 20 0RF No Action ketorolac 10 mg tablet 10 mg PO Q8H PRN (Reason: pain) Qty: 10 0RF cyclobenzaprine 10 mg tablet 10 mg PO TID PRN (Reason: muscle spasm) Qty: 10 0RF lidocaine [Lidoderm] 5 % adhesive patch,medicated 1 patch topical DAILY Qty: 15 0RF Rx Instructions: leave on most painful area for up to 12 hrs sucralfate [Carafate] 1 gram tablet 1 g PO BID Qty: 20 0RF dicyclomine 20 mg tablet 20 mg PO BID Qty: 10 0RF acetic acid 2 % solution 3 drp otic (ear) right Q6H Qty: 15 0RF Rx Instructions: apply to (cotton) wick; replace wick every 24 hours sucralfate 1 gram tablet 1 g PO BID Qty: 30 0RF omeprazole 20 mg capsule,delayed release(DR/EC) 20 mg PO DAILY 30 Days Qty: 30 0RF oxycodone 5 mg tablet 5 mg PO Q4H PRN (Reason: pain) Qty: 14 0RF Rx Instructions: Patient may request partial fill; Partial Fill upon patient request. amoxicillin-pot clavulanate 875-125 mg tablet 1 tab PO Q12H 10 Days Qty: 20 0RF naproxen 500 mg tablet 500 mg PO BID PRN (Reason: pain) 10 Days Qty: 20 0RF azithromycin 250 mg tablet See Rx Instructions .ROUTE .COMPLEX Qty: 6 0RF Rx Instructions: For 250 mg dose pack: take 500 mg today (day 1), then 250 mg for 4 days (days 2-5) prednisone 20 mg tablet 40 mg PO DAILY 5 Days Qty: 10 0RF
[2022-12-20] MEDS: Cyclobenzaprine HCl 10 MG TABLET PO (07:21)
[2022-12-20 07:24] LABS: Chloride 104 mmol/L (96-108)
[2022-12-20] MEDS: Ketorolac Tromethamine 30 MG/ML VIAL IVPUSH (07:24)
[2022-12-20 07:25] LABS: Alanine Aminotransferase 26 U/L (0-31); Albumin Level 4.1 g/dL (3.5-5.0); Alkaline Phosphatase 96 U/L (39-117); Anion Gap 15 (12-20); Aspartate Amino Transferase 18 U/L (5-31); Bilirubin Total 0.3 mg/dL (0.0-1.0); Blood Urea Nitrogen 15 mg/dL (9-16); Calcium 9.1 mg/dL (8.4-10.2); Carbon Dioxide 25 mmol/L (22-29); Creatinine Clr Calc Pharmacy 99.3; Estimated Glomerular Filt Rate > 60; Glucose Random 138 mg/dL (60-115); Potassium 4.6 mmol/L (3.3-5.1); Sodium 139 mmol/L (135-145)
[2022-12-20 07:41] LABS: Appearance Urine Clear; Color Urine Yellow; Glucose Urine UA Negative (Negative); Leukocyte Esterase Urine Negative (Negative); Nitrite Urine Negative (Negative); UMIC TRIGGER UACC YES; Urine Blood Trace (Negative); Urine Ketones Negative (Negative); Urine Protein Negative (Neg-Trace)
[2022-12-20 07:46] LABS: Bacteria Urine None Seen (None Seen); Hyaline Casts Urine 0-2 /LPF (0-2); Squamous Epithelial Cell Urine 0-2 /HPF (0-2); WBC Urine 0-5 /HPF (0-5)
[2022-12-20] MEDS: ondansetron HCL 4 MG/2 ML VIAL IVPUSH (07:53)
[2022-12-20 08:48] VITALS: BP 145/82; PULSE 68; RESP 16; O2SAT 99
== END 2022-12-20 09:28 | disposition home or self-care (01) ==
PROVIDERS: Emergency Provider Emergency Medicine; PCP Internal Medicine
DX: M54.16 Radiculopathy, lumbar region (principal); M54.50 Low back pain, unspecified; Z79.899 Other long term (current) drug therapy
CPT/HCPCS: 36415; 80053; 81001; 85025; 96374; 96375; 99284; J1885; J2405

== ENCOUNTER 2023-02-15 15:07 | Emergency (ER) | payer OTHER, SELFPAY ==
--- NOTE | ~2023-02-15 | XR_ITS ---
EXAMINATION: XR CHEST CLINICAL INFORMATION: Shortness of breath COMPARISON: Chest x-ray and CTA chest August 15, 2022 TECHNIQUE: Frontal view of the chest was obtained. FINDINGS: Cardiac silhouette is normal in size. The lungs are well aerated. There is no lobar consolidation. No pleural effusion or pneumothorax. XR/XR chest 1V IMPRESSION: No acute pulmonary pathology.
[2023-02-15 15:12] VITALS: BP 187/93; PULSE 78; RESP 20; TEMP 36.8; O2SAT 98; BMI 34.1
--- NOTE | 2023-02-15 15:16 | ED.URI ---
HPI - URI/Sore Throat General Chief Complaint: Upper Respiratory Symptoms <ERI Valenzuela Last Filed: 02/15/23 15:19> Stated Complaint: asthma,wheezing,tightness <ERI Valenzuela Last Filed: 02/15/23 15:19> Time Seen by Provider: 02/15/23 16:29 <ERI Valenzuela Last Filed: 02/15/23 15:19> History of Present Illness HPI Narrative: Patient complains of cough, shortness of breath described as intermittent wheezing relieved by her nebulizer, but wheezing returns shortly thereafter She went to her doctor about the cough several days ago and he prescribed the Z-Balaji but the wheezing and chest tightness continue The cough is productive of sputum She also complains of some burning in her chest when she coughs and when she is wheezing but there is no other chest pain it is not related to exertion there is no fainting or feeling faint, there is no other shortness of breath except the typical wheezing relieved by albuterol similar to prior asthma, there is no nausea or vomiting no diaphoresis, there is no abdominal pain no diarrhea no leg swelling no calf pain or swelling no dysuria no skin rash <ERI Hernández Last Filed: 02/15/23 19:23> Related Data Home Medications: Previous Rx's Medication Instructions Recorded cyclobenzaprine 10 mg tablet 10 mg PO TID PRN muscle spasm #10 09/08/20 tabs ketorolac 10 mg tablet 10 mg PO Q8H PRN pain #10 tabs 09/08/20 lidocaine 5 % topical patch 1 patch topical DAILY #15 ea 09/08/20 (Lidoderm) dicyclomine 20 mg tablet 20 mg PO BID #10 tabs 02/13/21 sucralfate 1 gram tablet (Carafate) 1 g PO BID #20 tabs 02/13/21 acetic acid 2 % ear solution 3 drp otic (ear) right Q6H #15 mL 06/07/21 sucralfate 1 gram tablet 1 g PO BID #30 tabs 06/07/21 amoxicillin 875 mg-potassium 1 tab PO Q12H 10 days #20 tabs 03/24/22 clavulanate 125 mg tablet naproxen 500 mg tablet 500 mg PO BID PRN pain 10 days #20 03/24/22 tabs omeprazole 20 mg capsule,delayed 20 mg PO DAILY 30 days #30 caps 07/01/22 release oxycodone 5 mg tablet 5 mg PO Q4H PRN pain #14 tabs 07/01/22 azithromycin 250 mg tablet See Rx Instructions PO .COMPLEX #6 08/15/22 tabs prednisone 20 mg tablet 40 mg PO DAILY 5 days #10 tabs 08/15/22 cyclobenzaprine 10 mg tablet 10 mg PO TID #10 tabs 12/20/22 naproxen 500 mg tablet (Naprosyn) 500 mg PO BID #20 tabs 12/20/22 albuterol sulfate 2.5 mg/0.5 mL 5 mg inhalation QID PRN shortness 02/15/23 solution for nebulization of breath or wheezing #30 ea albuterol sulfate 90 mcg/actuation 2 puff inhalation Q4-6H PRN 02/15/23 aerosol inhaler shortness of breath or wheezing #8.5 grams benzonatate 200 mg capsule 200 mg PO BID PRN cough #14 caps 02/15/23 prednisone 20 mg tablet 60 mg PO DAILY 4 days #12 tabs 02/15/23 <ERI Valenzuela - Last Filed: 02/15/23 15:19> Allergies/Adverse Reactions: Allergies Allergy/AdvReac Type Severity Reaction Status Date / Time propofol [PROPOFOL] Allergy Severe ANAPHYLACTIC Verified 12/20/22 05:51 REACTION, anaphylaxis succinylcholine [Anectine] Allergy Severe anaphylaxis Verified 12/20/22 05:51 morphine [MORPHINE] Allergy Intermediate ITCHINESS Verified 12/20/22 05:51 AND HIVES, anaphylaxis Anesthetics - [facility]ide Type - Allergy Unknown UNKNOWN Verified 12/20/22 05:51 Select A [Anesthetics - [facility] Type] Anesthetics - [facility] Type- Allergy Unknown UNKNOWN Verified 12/20/22 05:51 Parabens [Anesthetics - [facility] Type] From ANECTINE Allergy Severe ANAPHYLACTI Uncoded 12/20/22 05:51 C nuts Allergy Unknown Unknown Uncoded 12/20/22 05:51 SEAFOOD Allergy Unknown THROAT Uncoded 12/20/22 05:51 SWELLING <ERI Valenzuela - Last Filed: 02/15/23 15:19> [facility] Past Medical History Source: nursing notes reviewed <ERI Hernández - Last Filed: 02/15/23 19:23> Medical History: Medical History Asthma Cholecystectomy planned Diabetes Hypertension <ERI Valenzuela - Last Filed: 02/15/23 15:19> Surgical History: Surgical History History of tubal ligation <ERI Valenzuela - Last Filed: 02/15/23 15:19> Social History Social History: Social History Alcohol 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 Patient Tobacco Use Status: Never used Tobacco Advance Directives: No Advance Directives Information Provided: No <ERI Valenzuela - Last Filed: 02/15/23 15:19> Physical Exam Vital Signs: Vital Signs: Last Vital Signs Temp 98.2 F 02/15/23 15:12 Pulse 72 02/15/23 18:31 Resp 20 02/15/23 18:31 BP 187/93 H 02/15/23 15:12 Pulse Ox 98 02/15/23 15:12 O2 Del Method Room Air 02/15/23 15:12 BMI result Body Mass Index 34.1 <ERI Valenzuela - Last Filed: 02/15/23 15:19> Vital Signs: Last Vital Signs Temp 98.2 F 02/15/23 15:12 Pulse 72 02/15/23 18:31 Resp 20 02/15/23 18:31 BP 187/93 H 02/15/23 15:12 Pulse Ox 98 02/15/23 15:12 O2 Del Method Room Air 02/15/23 15:12 BMI result Body Mass Index 34.1 <ERI Hernández - Last Filed: 02/15/23 19:23> General appearance no acute distress Eyes no redness or discharge The sinuses nontender The pharynx is clear no redness swelling or exudate Neck is supple Chest was clear to auscultation but there were diminished breath sounds bilaterally, no adventitious sounds No respiratory distress Heart no murmur Abdomen soft nontender Extremities no pedal edema no calf tenderness or swelling <ERI Hernández - Last Filed: 02/15/23 19:23> Course Course Course Narrative: This is an RME: Additional HPI, ROS, PE not included below will be deferred to primary provider. 52 year old female presents w/ persistent cough X 3 weeks feels like she has to cough something up but cant. On Z pack day four. Cough is very uncomfortable. Reports substernal chest pressure non radiating Pe benign Plan- labs, viral tests, trop, ekg <ERI Valenzuela - Last Filed: 02/15/23 15:19> This is an RME: Additional HPI, ROS, PE not included below will be deferred to primary provider. 52 year old female presents w/ persistent cough X 3 weeks feels like she has to cough something up but cant. On Z pack day four. Cough is very uncomfortable. Reports substernal chest pressure non radiating Pe benign Plan- labs, viral tests, trop, ekg Patient with cough for over 2 weeks saw her doctor several days ago and is in middle of taking Zithromax 5 day course Her main complaint has been intermittent episodes of wheezing and chest tightness similar to prior asthma relieved with her home nebulizer, but wheezing returns and shortness of breath and chest tightness returns She has not had any chest pain but she gets a burning feeling only when she is coughing or wheezing, EKG was normal sinus rhythm, normal intervals, no ST elevations no ischemic changes Troponin was under 3.5 normal, symptoms were not consistent with cardiac disease or pulmonary embolus Chest x-ray was negative no acute pneumonia no acute findings CBC and chemistry did not have any acute findings Patient is being treated for bronchitis with Zithromax, we started prednisone for asthma today and she did have 1 treatment in the ER for her chest tightness which she experienced here and her lungs did open up with repeat exam showing good full air movement no wheezing and symptoms she felt improved Well-appearing patient speaking full sentences no respiratory distress, improved after neb is discharged <ERI Hernández - Last Filed: 02/15/23 19:23> Medications Administered Discontinued Medications Generic Name Dose Route Start Last Admin Trade Name Freq PRN Reason Stop Dose Admin Albuterol Sulfate 5 mg/ 0 mg 02/15/23 18:14 02/15/23 18:31 Ipratropium Foreman 0.5 mg INHALE 02/15/23 18:15 5 each ONCE ONE Administration Prednisone 60 mg 02/15/23 18:29 02/15/23 18:38 Prednisone 20 Mg Tablet PO 02/15/23 18:30 60 mg ONCE ONE Administration <ERI Valenzuela - Last Filed: 02/15/23 15:19> Medications Administered Discontinued Medications Generic Name Dose Route Start Last Admin Trade Name Sedrick PRN Reason Stop Dose Admin Albuterol Sulfate 5 mg/ 0 mg 02/15/23 18:14 02/15/23 18:31 Ipratropium Foreman 0.5 mg INHALE 02/15/23 18:15 5 each ONCE ONE Administration Prednisone 60 mg 02/15/23 18:29 02/15/23 18:38 Prednisone 20 Mg Tablet PO 02/15/23 18:30 60 mg ONCE ONE Administration <ERI Hernández - Last Filed: 02/15/23 19:23> Medical Decision Making Lab Data MDM Lab Attestation statement: I reviewed the patient's lab results. <ERI Hernández - Last Filed: 02/15/23 19:23> Result Diagrams: 02/15/23 15:26 02/15/23 15:26 <ERI Valenzuela - Last Filed: 02/15/23 15:19> Labs: Lab Results 02/15/23 02/15/23 02/15/23 Range/Units 15:26 15:26 15:26 WBC (4.8-10.8) X10*3/uL RBC (4.20-5.50) X10*6/uL Hgb (12.0-16.0) g/dl Hct (37.0-47.0) % MCV (80.0-98.0) fL MCH (27.0-33.0) pg MCHC (31.0-35.0) g/dl RDW (11.0-16.0) % Plt Count (160-400) X10*3/uL MPV (9.4-12.3) fL Immature Gran % (Auto) (0.0-0.4) % Neut % (Auto) (45-73) % Lymph % (Auto) (20-40) % [place] % (Auto) (2-11) % Eos % (Auto) (0-4) % Baso % (Auto) (0-2) % Lymph # (Auto) (1.2-4.9) X10*3/uL [place] # (Auto) (0.1-1.2) X10*3/uL Eos # (Auto) (0.0-0.4) X10*3/uL Baso # (Auto) (0.0-0.2) X10*3/uL Abs Immat Gran (auto) (0.00-0.03) X10*3/uL Absolute Neuts (auto) (2.0-8.3) x10*3/uL Absolute Nucleated RBC (0.0-0.012) X10*3/uL Nucleated RBC % (auto) (0.0-0.2) /100WBC Sodium (135-145) mmol/L Potassium (3.3-5.1) mmol/L Chloride (96-108) mmol/L Carbon Dioxide (22-29) mmol/L Anion Gap (12-20) BUN (9-16) mg/dL Creatinine (0.5-1.4) mg/dL Estim Creat Clear Calc Estimated GFR Random Glucose (60-115) mg/dL Calcium (8.4-10.2) mg/dL Total Bilirubin (0.0-1.0) mg/dL AST (5-31) U/L ALT (0-31) U/L Alkaline Phosphatase (39-117) U/L Troponin I High Sens < 3.5 (<3.5-17.0) ng/L Total Protein (6.5-8.0) g/dL Albumin (3.5-5.0) g/dL COVID-19 (LUCIAN) Negative (Negative) COVID-19 Clin Com See Note Influenza Type A (FARHANA) Negative (Negative) Influenza Type B (FARHANA) Negative (Negative) Influenza A & B Note See Note 02/15/23 02/15/23 Range/Units 15:26 15:26 WBC 7.2 (4.8-10.8) X10*3/uL RBC 4.61 (4.20-5.50) X10*6/uL Hgb 12.6 (12.0-16.0) g/dl Hct 39.1 (37.0-47.0) % MCV 84.8 (80.0-98.0) fL MCH 27.3 (27.0-33.0) pg MCHC 32.2 (31.0-35.0) g/dl RDW 12.9 (11.0-16.0) % Plt Count 297 (160-400) X10*3/uL MPV 10.8 (9.4-12.3) fL Immature Gran % (Auto) 0.1 (0.0-0.4) % Neut % (Auto) 54.2 (45-73) % Lymph % (Auto) 34.7 (20-40) % [place] % (Auto) 7.0 (2-11) % Eos % (Auto) 3.2 (0-4) % Baso % (Auto) 0.8 (0-2) % Lymph # (Auto) 2.5 (1.2-4.9) X10*3/uL [place] # (Auto) 0.5 (0.1-1.2) X10*3/uL Eos # (Auto) 0.2 (0.0-0.4) X10*3/uL Baso # (Auto) 0.1 (0.0-0.2) X10*3/uL Abs Immat Gran (auto) 0.01 (0.00-0.03) X10*3/uL Absolute Neuts (auto) 3.9 (2.0-8.3) x10*3/uL Absolute Nucleated RBC 0.000 (0.0-0.012) X10*3/uL Nucleated RBC % (auto) 0.0 (0.0-0.2) /100WBC Sodium 139 (135-145) mmol/L Potassium 3.8 (3.3-5.1) mmol/L Chloride 103 (96-108) mmol/L Carbon Dioxide 29 (22-29) mmol/L Anion Gap 11 L (12-20) BUN 19 H (9-16) mg/dL Creatinine 0.85 (0.5-1.4) mg/dL Estim Creat Clear Calc 89.2 Estimated GFR > 60 Random Glucose 117 H (60-115) mg/dL Calcium 9.2 (8.4-10.2) mg/dL Total Bilirubin 0.4 (0.0-1.0) mg/dL AST 14 (5-31) U/L ALT 27 (0-31) U/L Alkaline Phosphatase 86 (39-117) U/L Troponin I High Sens (<3.5-17.0) ng/L Total Protein 7.1 (6.5-8.0) g/dL Albumin 4.2 (3.5-5.0) g/dL COVID-19 (LUCIAN) (Negative) COVID-19 Clin Com Influenza Type A (FARHANA) (Negative) Influenza Type B (FARHANA) (Negative) Influenza A & B Note <ERI Valenzuela - Last Filed: 02/15/23 15:19> Lab Results 02/15/23 02/15/23 02/15/23 Range/Units 15:26 15:26 15:26 WBC (4.8-10.8) X10*3/uL RBC (4.20-5.50) X10*6/uL Hgb (12.0-16.0) g/dl Hct (37.0-47.0) % MCV (80.0-98.0) fL MCH (27.0-33.0) pg MCHC (31.0-35.0) g/dl RDW (11.0-16.0) % Plt Count (160-400) X10*3/uL MPV (9.4-12.3) fL Immature Gran % (Auto) (0.0-0.4) % Neut % (Auto) (45-73) % Lymph % (Auto) (20-40) % [place] % (Auto) (2-11) % Eos % (Auto) (0-4) % Baso % (Auto) (0-2) % Lymph # (Auto) (1.2-4.9) X10*3/uL [place] # (Auto) (0.1-1.2) X10*3/uL Eos # (Auto) (0.0-0.4) X10*3/uL Baso # (Auto) (0.0-0.2) X10*3/uL Abs Immat Gran (auto) (0.00-0.03) X10*3/uL Absolute Neuts (auto) (2.0-8.3) x10*3/uL Absolute Nucleated RBC (0.0-0.012) X10*3/uL Nucleated RBC % (auto) (0.0-0.2) /100WBC Sodium (135-145) mmol/L Potassium (3.3-5.1) mmol/L Chloride (96-108) mmol/L Carbon Dioxide (22-29) mmol/L Anion Gap (12-20) BUN (9-16) mg/dL Creatinine (0.5-1.4) mg/dL Estim Creat Clear Calc Estimated GFR Random Glucose (60-115) mg/dL Calcium (8.4-10.2) mg/dL Total Bilirubin (0.0-1.0) mg/dL AST (5-31) U/L ALT (0-31) U/L Alkaline Phosphatase (39-117) U/L Troponin I High Sens < 3.5 (<3.5-17.0) ng/L Total Protein (6.5-8.0) g/dL Albumin (3.5-5.0) g/dL COVID-19 (LUCIAN) Negative (Negative) COVID-19 Clin Com See Note Influenza Type A (FARHANA) Negative (Negative) Influenza Type B (FARHANA) Negative (Negative) Influenza A & B Note See Note 02/15/23 02/15/23 Range/Units 15:26 15:26 WBC 7.2 (4.8-10.8) X10*3/uL RBC 4.61 (4.20-5.50) X10*6/uL Hgb 12.6 (12.0-16.0) g/dl Hct 39.1 (37.0-47.0) % MCV 84.8 (80.0-98.0) fL MCH 27.3 (27.0-33.0) pg MCHC 32.2 (31.0-35.0) g/dl RDW 12.9 (11.0-16.0) % Plt Count 297 (160-400) X10*3/uL MPV 10.8 (9.4-12.3) fL Immature Gran % (Auto) 0.1 (0.0-0.4) % Neut % (Auto) 54.2 (45-73) % Lymph % (Auto) 34.7 (20-40) % [place] % (Auto) 7.0 (2-11) % Eos % (Auto) 3.2 (0-4) % Baso % (Auto) 0.8 (0-2) % Lymph # (Auto) 2.5 (1.2-4.9) X10*3/uL [place] # (Auto) 0.5 (0.1-1.2) X10*3/uL Eos # (Auto) 0.2 (0.0-0.4) X10*3/uL Baso # (Auto) 0.1 (0.0-0.2) X10*3/uL Abs Immat Gran (auto) 0.01 (0.00-0.03) X10*3/uL Absolute Neuts (auto) 3.9 (2.0-8.3) x10*3/uL Absolute Nucleated RBC 0.000 (0.0-0.012) X10*3/uL Nucleated RBC % (auto) 0.0 (0.0-0.2) /100WBC Sodium 139 (135-145) mmol/L Potassium 3.8 (3.3-5.1) mmol/L Chloride 103 (96-108) mmol/L Carbon Dioxide 29 (22-29) mmol/L Anion Gap 11 L (12-20) BUN 19 H (9-16) mg/dL Creatinine 0.85 (0.5-1.4) mg/dL Estim Creat Clear Calc 89.2 Estimated GFR > 60 Random Glucose 117 H (60-115) mg/dL Calcium 9.2 (8.4-10.2) mg/dL Total Bilirubin 0.4 (0.0-1.0) mg/dL AST 14 (5-31) U/L ALT 27 (0-31) U/L Alkaline Phosphatase 86 (39-117) U/L Troponin I High Sens (<3.5-17.0) ng/L Total Protein 7.1 (6.5-8.0) g/dL Albumin 4.2 (3.5-5.0) g/dL COVID-19 (LUCIAN) (Negative) COVID-19 Clin Com Influenza Type A (FARHANA) (Negative) Influenza Type B (FARHANA) (Negative) Influenza A & B Note <ERI Hernández - Last Filed: 02/15/23 19:23> Discharge Plan Discharge Clinical Impression: Bronchitis, Asthma <ERI Valenzuela - Last Filed: 02/15/23 15:19> Patient Disposition: Home, Self-Care <ERI Valenzuela - Last Filed: 02/15/23 15:19> Additional Instructions: Chest x-ray was normal Blood tests did not show any acute abnormalities Troponin test for your heart and EKG were normal, no sign of heart attack Your symptoms are consistent with asthma and bronchitis so complete your antibiotic Zithromax We started prednisone, use albuterol as needed Return to the ER any time for difficulty breathing any worse condition or any concerns <ERI Valenzuela - Last Filed: 02/15/23 15:19> Prescriptions: New prednisone 20 mg tablet 60 mg PO DAILY 4 Days Qty: 12 0RF benzonatate 200 mg capsule 200 mg PO BID PRN (Reason: cough) Qty: 14 0RF albuterol sulfate 2.5 mg/0.5 mL solution for nebulization 5 mg inhalation QID PRN (Reason: shortness of breath or wheezing) Qty: 30 0RF albuterol sulfate 90 mcg/actuation HFA aerosol inhaler 2 puff inhalation Q4-6H PRN (Reason: shortness of breath or wheezing) Qty: 8.5 0RF No Action ketorolac 10 mg tablet 10 mg PO Q8H PRN (Reason: pain) Qty: 10 0RF cyclobenzaprine 10 mg tablet 10 mg PO TID PRN (Reason: muscle spasm) Qty: 10 0RF lidocaine [Lidoderm] 5 % adhesive patch,medicated 1 patch topical DAILY Qty: 15 0RF Rx Instructions: leave on most painful area for up to 12 hrs sucralfate [Carafate] 1 gram tablet 1 g PO BID Qty: 20 0RF dicyclomine 20 mg tablet 20 mg PO BID Qty: 10 0RF acetic acid 2 % solution 3 drp otic (ear) right Q6H Qty: 15 0RF Rx Instructions: apply to (cotton) wick; replace wick every 24 hours sucralfate 1 gram tablet 1 g PO BID Qty: 30 0RF omeprazole 20 mg capsule,delayed release(DR/EC) 20 mg PO DAILY 30 Days Qty: 30 0RF oxycodone 5 mg tablet 5 mg PO Q4H PRN (Reason: pain) Qty: 14 0RF Rx Instructions: Patient may request partial fill; Partial Fill upon patient request. amoxicillin-pot clavulanate 875-125 mg tablet 1 tab PO Q12H 10 Days Qty: 20 0RF naproxen 500 mg tablet 500 mg PO BID PRN (Reason: pain) 10 Days Qty: 20 0RF azithromycin 250 mg tablet See Rx Instructions .ROUTE .COMPLEX Qty: 6 0RF Rx Instructions: For 250 mg dose pack: take 500 mg today (day 1), then 250 mg for 4 days (days 2-5) prednisone 20 mg tablet 40 mg PO DAILY 5 Days Qty: 10 0RF cyclobenzaprine 10 mg tablet 10 mg PO TID Qty: 10 0RF naproxen [Naprosyn] 500 mg tablet 500 mg PO BID Qty: 20 0RF <ERI Valenzuela - Last Filed: 02/15/23 15:19>
--- NOTE | 2023-02-15 15:18 | ECG_ITS ---
Test Reason : SOB Blood Pressure : / mmHG Vent. Rate : 073 BPM Atrial Rate : 073 BPM P-R Int : 174 ms QRS Dur : 088 ms QT Int : 368 ms P-R-T Axes : 039 024 041 degrees QTc Int : 405 ms Normal sinus rhythm Normal ECG When compared with ECG of 15-AUG-2022 07:36, No significant change was found Referred By: Leda Menendez Electronically Signed By:MARLIN GUTIERREZ
[2023-02-15 15:32] LABS: MANUAL DIFF FLAG NO
[2023-02-15 15:33] LABS: Basophils Absolute Auto 0.1 X10*3/uL (0.0-0.2); Basophils Percent Auto 0.8 % (0-2); Eosinophils Absolute Auto 0.2 X10*3/uL (0.0-0.4); Eosinophils Percent Auto 3.2 % (0-4); Hematocrit 39.1 % (37.0-47.0); Hemoglobin 12.6 g/dl (12.0-16.0); Imm Gran Abs Auto 0.01 X10*3/uL (0.00-0.03); Imm Gran Pct Auto 0.1 % (0.0-0.4); Lymphocytes Absolute Auto 2.5 X10*3/uL (1.2-4.9); Lymphocytes Percent Auto 34.7 % (20-40); Mean Corpuscular HGB Conc 32.2 g/dl (31.0-35.0); Mean Corpuscular Hemoglobin 27.3 pg (27.0-33.0); Mean Corpuscular Volume 84.8 fL (80.0-98.0); Mean Platelet Volume 10.8 fL (9.4-12.3); Monocytes Absolute Auto 0.5 X10*3/uL (0.1-1.2); Neutrophils Absolute Auto 3.9 x10*3/uL (2.0-8.3); Neutrophils Percent Auto 54.2 % (45-73); Platelet Count 297 X10*3/uL (160-400); Red Blood Count 4.61 X10*6/uL (4.20-5.50); Red Cell Distribution Width 12.9 % (11.0-16.0); White Blood Count 7.2 X10*3/uL (4.8-10.8)
[2023-02-15 15:51] LABS: IDNOW Serial# BCCEAD1C
[2023-02-15 15:52] LABS: Alanine Aminotransferase 27 U/L (0-31); Albumin Level 4.2 g/dL (3.5-5.0); Alkaline Phosphatase 86 U/L (39-117); Anion Gap 11 (12-20); Aspartate Amino Transferase 14 U/L (5-31); Bilirubin Total 0.4 mg/dL (0.0-1.0); Blood Urea Nitrogen 19 mg/dL (9-16); COVID-19 Test Negative (Negative); Calcium 9.2 mg/dL (8.4-10.2); Carbon Dioxide 29 mmol/L (22-29); Chloride 103 mmol/L (96-108); Creatinine Clr Calc Pharmacy 89.2; Estimated Glomerular Filt Rate > 60; Glucose Random 117 mg/dL (60-115); IDNOW Serial# 08D9AD1C; Influenza A Negative (Negative); Influenza B2 Negative (Negative); Potassium 3.8 mmol/L (3.3-5.1); Sodium 139 mmol/L (135-145); Total Protein 7.1 g/dL (6.5-8.0)
[2023-02-15 16:04] LABS: Troponin-I High Sensitivity < 3.5 ng/L (<3.5-17.0)
[2023-02-15 18:31] VITALS: PULSE 72; RESP 20; O2SAT 99
[2023-02-15] MEDS: predniSONE 20 MG TABLET 60 MG PO (18:38)
== END 2023-02-15 19:24 | disposition home or self-care (01) ==
PROVIDERS: Physician Assistant; Emergency Provider Emergency Medicine Emergency Medical Services; PCP Internal Medicine
DX: J40 Bronchitis, not specified as acute or chronic (principal); J45.909 Unspecified asthma, uncomplicated; R06.02 Shortness of breath; Z20.822 Contact with and (suspected) exposure to COVID-19; E11.9 Type 2 diabetes mellitus without complications; I10 Essential (primary) hypertension; Z79.899 Other long term (current) drug therapy
CPT/HCPCS: 36415; 71045; 80053; 84484; 85025; 87502; 87635; 93005; 94640; 99284

== ENCOUNTER 2023-02-22 12:30 | Emergency (ER) | payer OTHER, SELFPAY ==
--- NOTE | ~2023-02-22 | XR_ITS ---
EXAMINATION: XR chest 2V CLINICAL INFORMATION: Shortness of breath COMPARISON: 02/15/2023 TECHNIQUE: XR chest 2V Lungs and Haleigh: Both lungs are clear. Pleura: Normal. Costophrenic angles are sharp. No pneumothorax. Heart: The heart is normal in size. Mediastinum: The mediastinum is within normal limits.. Bones: Skeletal structures included are normal for patient's age. XR/XR chest 2V IMPRESSION: No radiographic evidence of acute cardiopulmonary disease.
[2023-02-22 12:53] VITALS: BP 188/91; PULSE 80; RESP 18; TEMP 36.7; O2SAT 99; BMI 34.1
--- NOTE | 2023-02-22 12:53 | ED.GENADULT ---
HPI - General Adult General Chief complaint: Asthma <ERI Tiwari - Last Filed: 02/22/23 12:54> Stated complaint: diff breathing <ERI Tiwari - Last Filed: 02/22/23 12:54> Time Seen by Provider: 02/22/23 13:18 <ERI Tiwari - Last Filed: 02/22/23 12:54> Source: patient <Chrissy Dennis MD - Last Filed: 02/22/23 15:42> Mode of arrival: ambulatory <Chrissy Dennis MD - Last Filed: 02/22/23 15:42> Limitations: no limitations <Chrissy Dennis MD - Last Filed: 02/22/23 15:42> History of Present Illness HPI narrative: A 52-year-old female history of asthma came in for evaluation of difficulty breathing, dry cough, patient feels sputum in her lungs but cannot cough it up. No fever, no chills, no recent travel, no lower extremity swelling or tenderness. Patient was recently seen in the emergency department for similar symptoms was started on albuterol and Z-Balaji and prednisone patient said was a temporary relief, patient is back today for the same symptoms, no sick contacts, no recent travel. <Chrissy Dennis MD - Last Filed: 02/22/23 15:42> Related Data Home medications: Previous Rx's Medication Instructions Recorded cyclobenzaprine 10 mg tablet 10 mg PO TID PRN muscle spasm #10 09/08/20 tabs ketorolac 10 mg tablet 10 mg PO Q8H PRN pain #10 tabs 09/08/20 lidocaine 5 % topical patch 1 patch topical DAILY #15 ea 09/08/20 (Lidoderm) dicyclomine 20 mg tablet 20 mg PO BID #10 tabs 02/13/21 sucralfate 1 gram tablet (Carafate) 1 g PO BID #20 tabs 02/13/21 acetic acid 2 % ear solution 3 drp otic (ear) right Q6H #15 mL 06/07/21 sucralfate 1 gram tablet 1 g PO BID #30 tabs 06/07/21 amoxicillin 875 mg-potassium 1 tab PO Q12H 10 days #20 tabs 03/24/22 clavulanate 125 mg tablet naproxen 500 mg tablet 500 mg PO BID PRN pain 10 days #20 03/24/22 tabs omeprazole 20 mg capsule,delayed 20 mg PO DAILY 30 days #30 caps 07/01/22 release oxycodone 5 mg tablet 5 mg PO Q4H PRN pain #14 tabs 07/01/22 azithromycin 250 mg tablet See Rx Instructions PO .COMPLEX #6 08/15/22 tabs prednisone 20 mg tablet 40 mg PO DAILY 5 days #10 tabs 08/15/22 cyclobenzaprine 10 mg tablet 10 mg PO TID #10 tabs 12/20/22 naproxen 500 mg tablet (Naprosyn) 500 mg PO BID #20 tabs 12/20/22 albuterol sulfate 2.5 mg/0.5 mL 5 mg inhalation QID PRN shortness 02/15/23 solution for nebulization of breath or wheezing #30 ea albuterol sulfate 90 mcg/actuation 2 puff inhalation Q4-6H PRN 02/15/23 aerosol inhaler shortness of breath or wheezing #8.5 grams benzonatate 200 mg capsule 200 mg PO BID PRN cough #14 caps 02/15/23 prednisone 20 mg tablet 60 mg PO DAILY 4 days #12 tabs 02/15/23 azithromycin 500 mg tablet 500 mg PO DAILY 7 days #7 tabs 02/22/23 (Zithromax) prednisone 20 mg tablet 20 mg PO BID #10 tabs 02/22/23 <ERI Tiwari - Last Filed: 02/22/23 12:54> Allergies/adverse reactions: Allergies Allergy/AdvReac Type Severity Reaction Status Date / Time propofol [PROPOFOL] Allergy Severe ANAPHYLACTIC Verified 02/22/23 12:53 REACTION, anaphylaxis succinylcholine [Anectine] Allergy Severe anaphylaxis Verified 02/22/23 12:53 morphine [MORPHINE] Allergy Intermediate ITCHINESS Verified 02/22/23 12:53 AND HIVES, anaphylaxis Anesthetics - Amide Type - Allergy Unknown UNKNOWN Verified 02/22/23 12:53 Select A [Anesthetics - Amide Type] Anesthetics - Mercy Type- Allergy Unknown UNKNOWN Verified 02/22/23 12:53 Parabens [Anesthetics - [facility] Type] From ANECTINE Allergy Severe ANAPHYLACTI Uncoded 12/20/22 05:51 C nuts Allergy Unknown Unknown Uncoded 12/20/22 05:51 SEAFOOD Allergy Unknown THROAT Uncoded 12/20/22 05:51 SWELLING <ERI Tiwari - Last Filed: 02/22/23 12:54> Review of Systems Review of Systems: All other systems are reviewed and are negative Constitutional: Reports as per HPI and Reports no additional constitutional complaints Eyes: Reports as per HPI and Reports no additional eye complaints Reports system reviewed and no additional complaints, except as documented Cardiovascular: Reports as per HPI and Reports no additional cardiovascular complaints Respiratory: Reports as per HPI and Reports no additional respiratory complaints Gastrointestinal: Reports as per HPI and Reports no additional gastrointestinal complaints Genitourinary: Reports no additional female genitourinary complaints Musculoskeletal: Reports no additional musculoskeletal complaints Skin/Breast: Reports system reviewed and no additional complaints, except as docu Psychiatric: Reports no additional psychiatric complaints Endocrine: Reports no additional endocrine complaints Hematologic/Lymphatic: Reports no additional hematologic/lymphatic complaints Allergic/Immunologic: Reports no additional allergic/immunologic complaints Reports system reviewed and no additional complaints, except as documented and Reports Abnormal speech present <Chrissy Dennis MD - Last Filed: 02/22/23 15:42> [facility] Past Medical History Medical History: Medical History Asthma Cholecystectomy planned Diabetes Hypertension <ERI Tiwari - Last Filed: 02/22/23 12:54> Surgical History: Surgical History History of tubal ligation <ERI Tiwari - Last Filed: 02/22/23 12:54> Social History Social History: Social History Alcohol 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 Patient Tobacco Use Status: Never used Tobacco Smoked in Last 30 Days: No Use of substances other than those prescribed or required for medical reasons: No Advance Directives: No Advance Directives Information Provided: Yes <ERI Tiwari - Last Filed: 02/22/23 12:54> Physical Exam ED Vital Signs: Vital Signs - 24 hr 02/22/23 12:53 02/22/23 13:28 02/22/23 13:48 Temperature 98.1 F 97.6 F Pulse Rate 80 75 Respiratory Rate 18 18 Blood Pressure 188/91 H Pulse Oximetry 99 99 Oxygen Delivery Method Room Air Room Air 02/22/23 15:37 Temperature Pulse Rate 99 Respiratory Rate 16 Blood Pressure Pulse Oximetry 95 Oxygen Delivery Method Room Air BMI result Body Mass Index 34.1 <ERI Tiwari - Last Filed: 02/22/23 12:54> Vital Signs - 24 hr 02/22/23 12:53 02/22/23 13:28 02/22/23 13:48 Temperature 98.1 F 97.6 F Pulse Rate 80 75 Respiratory Rate 18 18 Blood Pressure 188/91 H Pulse Oximetry 99 99 Oxygen Delivery Method Room Air Room Air 02/22/23 15:37 Temperature Pulse Rate 99 Respiratory Rate 16 Blood Pressure Pulse Oximetry 95 Oxygen Delivery Method Room Air BMI result Body Mass Index 34.1 Vital signs have been reviewed as appeared to be correct. Blood pressure elevated. Heart rate normal. Respiration rate normal. Temperature normal. Oxygen saturation normal. <Chrissy Dennis MD - Last Filed: 02/22/23 15:42> Appearance: Alert. Oriented X3. No acute distress. Head: Normal external exam. Normocephalic. Atraumatic. No Pineda signs noted. No raccoon eyes noted Eyes: PERRLA. EOMI. Conjunctiva and sclera normal. Eyelids normal. ENT: TM's Normal. Pharynx normal. Uvula midline. Moist mucous membranes. No trismus noted. No drooling noted. No muffled voice noted. Neck: Normal inspection. Neck supple. FROM. No adenopathy. Thyroid Normal. No meningeal signs. No neck mass noted. CVS: Normal heart rate and rhythm. Heart sound normal. No murmurs noted. Pulses normal throughout. Respiratory: No respiratory distress. Painless inspiration. Breath sounds normal. Expiratory wheezing with prolonged expiration. Chest nontender. No accessory muscle usage noted or decreased air movement noted. Abdomen: Soft and nontender. Bowel sounds normal in all 4 quadrants. No distention noted. No organomegaly noted. No visible injury noted. Back: No CVA tenderness. Full range of motion noted. Skin: Skin warm and dry. Normal skin color. Normal skin turgor. No rashes/lesions/lacerations noted. Extremities: No lower extremity edema. Extremities exhibit normal range of motion. Extremities nontender. Neuro: Oriented X 3. Cranial nerve exam: II-XII are grossly intact No motor deficit. No sensory deficit. Reflexes normal. <Chrissy Dennis MD - Last Filed: 02/22/23 15:42> Course Course Course Narrative: RME performed by Hailey Carcamo PA-C. Patient is a 52 year old assigned female at presenting to the emergency department with shortness of breath. Patient has a history of asthma. Labs, imaging, and swab ordered. Patient placed back in the waiting room pending room availability and results. <ERI Tiwari - Last Filed: 02/22/23 12:54> Reevaluation(s) Reevaluation #1: 52-year-old female with history of asthma/COPD came in with 2 weeks of bronchitis patient had a previous treatment with prednisone 2 weeks ago fell temporally better, patient return with similar symptoms, no miquel pneumonia on the x-ray. Will start the patient on another short course of prednisone for 5 days and zithromax. Negative D-dimer with no risks to suggest for pulmonary embolism <Chrissy Dennis MD - Last Filed: 02/22/23 15:42> Time: 15:40 <Chrissy Dennis MD - Last Filed: 02/22/23 15:42> Medications Administered Discontinued Medications Generic Name Dose Route Start Last Admin Trade Name Freq PRN Reason Stop Dose Admin Albuterol Sulfate 5 mg 02/22/23 13:02/22/23 13:48 Albuterol Sulfate (0.083%) 2.5 Mg/3 Ml Vial.Neb INHALE 02/22/23 13:24 5 mg ONCE ONE Administration Methylprednisolone Sodium Succinate 125 mg 02/22/23 13:23 02/22/23 13:39 Methylprednisolone Sod Succ 125 Mg/2 Ml Vial IVPUSH 02/22/23 13:24 125 mg ONCE ONE Administration <ERI Tiwari - Last Filed: 02/22/23 12:54> Medications Administered Discontinued Medications Generic Name Dose Route Start Last Admin Trade Name Freq PRN Reason Stop Dose Admin Albuterol Sulfate 5 mg 02/22/23 13:23 02/22/23 13:48 Albuterol Sulfate (0.083%) 2.5 Mg/3 Ml Vial.Neb INHALE 02/22/23 13:24 5 mg ONCE ONE Administration Methylprednisolone Sodium Succinate 125 mg 02/22/23 13:23 02/22/23 13:39 Methylprednisolone Sod Succ 125 Mg/2 Ml Vial IVPUSH 02/22/23 13:24 125 mg ONCE ONE Administration <Chrissy Dennis MD - Last Filed: 02/22/23 15:42> Medical Decision Making Differential Diagnosis Differential Diagnoses: The differential diagnosis associated with the presentation includes (Acute bronchitis, asthma exacerbation, COPD exacerbation, pneumonia, pulmonary embolism.) <Chrissy Dennis MD - Last Filed: 02/22/23 15:42> Admission/Observation Consideration of admission/observation: Escalation of care including admission/observation considered <Chrissy Dennis MD - Last Filed: 02/22/23 15:42> Lab Data MDM Lab Attestation statement: I reviewed the patient's lab results. <Chrissy Dennis MD - Last Filed: 02/22/23 15:42> Result Diagrams: 02/22/23 13:30 02/22/23 13:30 <ERI Tiwari - Last Filed: 02/22/23 12:54> Labs: Lab Results 02/22/23 02/22/23 02/22/23 Range/Units 13:21 13:30 13:30 WBC 9.2 (4.8-10.8) X10*3/uL RBC 4.70 (4.20-5.50) X10*6/uL Hgb 13.0 (12.0-16.0) g/dl Hct 40.5 (37.0-47.0) % MCV 86.2 (80.0-98.0) fL MCH 27.7 (27.0-33.0) pg MCHC 32.1 (31.0-35.0) g/dl RDW 13.2 (11.0-16.0) % Plt Count 341 (160-400) X10*3/uL MPV 10.5 (9.4-12.3) fL Immature Gran % (Auto) 0.2 (0.0-0.4) % Neut % (Auto) 56.4 (45-73) % Lymph % (Auto) 33.4 (20-40) % Ulster % (Auto) 5.8 (2-11) % Eos % (Auto) 3.7 (0-4) % Baso % (Auto) 0.5 (0-2) % Lymph # (Auto) 3.1 (1.2-4.9) X10*3/uL Ulster # (Auto) 0.5 (0.1-1.2) X10*3/uL Eos # (Auto) 0.3 (0.0-0.4) X10*3/uL Baso # (Auto) 0.1 (0.0-0.2) X10*3/uL Abs Immat Gran (auto) 0.02 (0.00-0.03) X10*3/uL Absolute Neuts (auto) 5.2 (2.0-8.3) x10*3/uL Absolute Nucleated RBC 0.000 (0.0-0.012) X10*3/uL Nucleated RBC % (auto) 0.0 (0.0-0.2) /100WBC D-Dimer High Sensitivty NG/ML Sodium 141 (135-145) mmol/L Potassium 4.1 (3.3-5.1) mmol/L Chloride 103 (96-108) mmol/L Carbon Dioxide 31 H (22-29) mmol/L Anion Gap 11 L (12-20) BUN 16 (9-16) mg/dL Creatinine 0.93 (0.5-1.4) mg/dL Estim Creat Clear Calc 81.5 Estimated GFR > 60 Random Glucose 149 H (60-115) mg/dL Calcium 9.2 (8.4-10.2) mg/dL Magnesium 2.1 (1.6-2.6) mg/dL Total Bilirubin 0.5 (0.0-1.0) mg/dL AST 11 (5-31) U/L ALT 21 (0-31) U/L Alkaline Phosphatase 90 (39-117) U/L Total Protein 6.8 (6.5-8.0) g/dL Albumin 4.0 (3.5-5.0) g/dL Influenza Type A (PCR) NEGATIVE (Negative) Influenza Type B (PCR) NEGATIVE (Negative) RSV RNA Qual (PCR) NEGATIVE (Negative) SARS-CoV-2 RNA (RT-PCR) NEGATIVE (Negative) 02/22/23 Range/Units 13:30 WBC (4.8-10.8) X10*3/uL RBC (4.20-5.50) X10*6/uL Hgb (12.0-16.0) g/dl Hct (37.0-47.0) % MCV (80.0-98.0) fL MCH (27.0-33.0) pg MCHC (31.0-35.0) g/dl RDW (11.0-16.0) % Plt Count (160-400) X10*3/uL MPV (9.4-12.3) fL Immature Gran % (Auto) (0.0-0.4) % Neut % (Auto) (45-73) % Lymph % (Auto) (20-40) % Ulster % (Auto) (2-11) % Eos % (Auto) (0-4) % Baso % (Auto) (0-2) % Lymph # (Auto) (1.2-4.9) X10*3/uL Ulster # (Auto) (0.1-1.2) X10*3/uL Eos # (Auto) (0.0-0.4) X10*3/uL Baso # (Auto) (0.0-0.2) X10*3/uL Abs Immat Gran (auto) (0.00-0.03) X10*3/uL Absolute Neuts (auto) (2.0-8.3) x10*3/uL Absolute Nucleated RBC (0.0-0.012) X10*3/uL Nucleated RBC % (auto) (0.0-0.2) /100WBC D-Dimer High Sensitivty 228 NG/ML Sodium (135-145) mmol/L Potassium (3.3-5.1) mmol/L Chloride (96-108) mmol/L Carbon Dioxide (22-29) mmol/L Anion Gap (12-20) BUN (9-16) mg/dL Creatinine (0.5-1.4) mg/dL Estim Creat Clear Calc Estimated GFR Random Glucose (60-115) mg/dL Calcium (8.4-10.2) mg/dL Magnesium (1.6-2.6) mg/dL Total Bilirubin (0.0-1.0) mg/dL AST (5-31) U/L ALT (0-31) U/L Alkaline Phosphatase (39-117) U/L Total Protein (6.5-8.0) g/dL Albumin (3.5-5.0) g/dL Influenza Type A (PCR) (Negative) Influenza Type B (PCR) (Negative) RSV RNA Qual (PCR) (Negative) SARS-CoV-2 RNA (RT-PCR) (Negative) <ERI Tiwari - Last Filed: 02/22/23 12:54> Lab Results 02/22/23 02/22/23 02/22/23 Range/Units 13:21 13:30 13:30 WBC 9.2 (4.8-10.8) X10*3/uL RBC 4.70 (4.20-5.50) X10*6/uL Hgb 13.0 (12.0-16.0) g/dl Hct 40.5 (37.0-47.0) % MCV 86.2 (80.0-98.0) fL MCH 27.7 (27.0-33.0) pg MCHC 32.1 (31.0-35.0) g/dl RDW 13.2 (11.0-16.0) % Plt Count 341 (160-400) X10*3/uL MPV 10.5 (9.4-12.3) fL Immature Gran % (Auto) 0.2 (0.0-0.4) % Neut % (Auto) 56.4 (45-73) % Lymph % (Auto) 33.4 (20-40) % Ulster % (Auto) 5.8 (2-11) % Eos % (Auto) 3.7 (0-4) % Baso % (Auto) 0.5 (0-2) % Lymph # (Auto) 3.1 (1.2-4.9) X10*3/uL Ulster # (Auto) 0.5 (0.1-1.2) X10*3/uL Eos # (Auto) 0.3 (0.0-0.4) X10*3/uL Baso # (Auto) 0.1 (0.0-0.2) X10*3/uL Abs Immat Gran (auto) 0.02 (0.00-0.03) X10*3/uL Absolute Neuts (auto) 5.2 (2.0-8.3) x10*3/uL Absolute Nucleated RBC 0.000 (0.0-0.012) X10*3/uL Nucleated RBC % (auto) 0.0 (0.0-0.2) /100WBC D-Dimer High Sensitivty NG/ML Sodium 141 (135-145) mmol/L Potassium 4.1 (3.3-5.1) mmol/L Chloride 103 (96-108) mmol/L Carbon Dioxide 31 H (22-29) mmol/L Anion Gap 11 L (12-20) BUN 16 (9-16) mg/dL Creatinine 0.93 (0.5-1.4) mg/dL Estim Creat Clear Calc 81.5 Estimated GFR > 60 Random Glucose 149 H (60-115) mg/dL Calcium 9.2 (8.4-10.2) mg/dL Magnesium 2.1 (1.6-2.6) mg/dL Total Bilirubin 0.5 (0.0-1.0) mg/dL AST 11 (5-31) U/L ALT 21 (0-31) U/L Alkaline Phosphatase 90 (39-117) U/L Total Protein 6.8 (6.5-8.0) g/dL Albumin 4.0 (3.5-5.0) g/dL Influenza Type A (PCR) NEGATIVE (Negative) Influenza Type B (PCR) NEGATIVE (Negative) RSV RNA Qual (PCR) NEGATIVE (Negative) SARS-CoV-2 RNA (RT-PCR) NEGATIVE (Negative) 02/22/23 Range/Units 13:30 WBC (4.8-10.8) X10*3/uL RBC (4.20-5.50) X10*6/uL Hgb (12.0-16.0) g/dl Hct (37.0-47.0) % MCV (80.0-98.0) fL MCH (27.0-33.0) pg MCHC (31.0-35.0) g/dl RDW (11.0-16.0) % Plt Count (160-400) X10*3/uL MPV (9.4-12.3) fL Immature Gran % (Auto) (0.0-0.4) % Neut % (Auto) (45-73) % Lymph % (Auto) (20-40) % Ulster % (Auto) (2-11) % Eos % (Auto) (0-4) % Baso % (Auto) (0-2) % Lymph # (Auto) (1.2-4.9) X10*3/uL Ulster # (Auto) (0.1-1.2) X10*3/uL Eos # (Auto) (0.0-0.4) X10*3/uL Baso # (Auto) (0.0-0.2) X10*3/uL Abs Immat Gran (auto) (0.00-0.03) X10*3/uL Absolute Neuts (auto) (2.0-8.3) x10*3/uL Absolute Nucleated RBC (0.0-0.012) X10*3/uL Nucleated RBC % (auto) (0.0-0.2) /100WBC D-Dimer High Sensitivty 228 NG/ML Sodium (135-145) mmol/L Potassium (3.3-5.1) mmol/L Chloride (96-108) mmol/L Carbon Dioxide (22-29) mmol/L Anion Gap (12-20) BUN (9-16) mg/dL Creatinine (0.5-1.4) mg/dL Estim Creat Clear Calc Estimated GFR Random Glucose (60-115) mg/dL Calcium (8.4-10.2) mg/dL Magnesium (1.6-2.6) mg/dL Total Bilirubin (0.0-1.0) mg/dL AST (5-31) U/L ALT (0-31) U/L Alkaline Phosphatase (39-117) U/L Total Protein (6.5-8.0) g/dL Albumin (3.5-5.0) g/dL Influenza Type A (PCR) (Negative) Influenza Type B (PCR) (Negative) RSV RNA Qual (PCR) (Negative) SARS-CoV-2 RNA (RT-PCR) (Negative) <Chrissy Dennis MD - Last Filed: 02/22/23 15:42> Independent Interpretation I performed an independent interpretation of an: Plain X-Ray (No radiographic evidence of acute pulmonary disease.) <Chrissy Dennis MD - Last Filed: 02/22/23 15:42> Radiology Impression Discussion of test interpretation with radiology: I have reviewed the radiologist's reading. <Chrissy Dennis MD - Last Filed: 02/22/23 15:42> Discharge Plan Discharge Clinical Impression: Chronic obstructive asthma with exacerbation, Bronchitis <ERI Tiwari - Last Filed: 02/22/23 12:54> Patient Disposition: Home, Self-Care <ERI Tiwari - Last Filed: 02/22/23 12:54> Instructions: Acute Bronchitis (ED) <ERI Tiwari - Last Filed: 02/22/23 12:54> Additional Instructions: Use albuterol inhaler 2 puffs every 6 hours if needed for wheezing. <ERI Tiwari - Last Filed: 02/22/23 12:54> Prescriptions: New prednisone 20 mg tablet 20 mg PO BID Qty: 10 0RF azithromycin [Zithromax] 500 mg tablet 500 mg PO DAILY 7 Days Qty: 7 0RF No Action ketorolac 10 mg tablet 10 mg PO Q8H PRN (Reason: pain) Qty: 10 0RF cyclobenzaprine 10 mg tablet 10 mg PO TID PRN (Reason: muscle spasm) Qty: 10 0RF lidocaine [Lidoderm] 5 % adhesive patch,medicated 1 patch topical DAILY Qty: 15 0RF Rx Instructions: leave on most painful area for up to 12 hrs sucralfate [Carafate] 1 gram tablet 1 g PO BID Qty: 20 0RF dicyclomine 20 mg tablet 20 mg PO BID Qty: 10 0RF acetic acid 2 % solution 3 drp otic (ear) right Q6H Qty: 15 0RF Rx Instructions: apply to (cotton) wick; replace wick every 24 hours sucralfate 1 gram tablet 1 g PO BID Qty: 30 0RF omeprazole 20 mg capsule,delayed release(DR/EC) 20 mg PO DAILY 30 Days Qty: 30 0RF oxycodone 5 mg tablet 5 mg PO Q4H PRN (Reason: pain) Qty: 14 0RF Rx Instructions: Patient may request partial fill; Partial Fill upon patient request. amoxicillin-pot clavulanate 875-125 mg tablet 1 tab PO Q12H 10 Days Qty: 20 0RF naproxen 500 mg tablet 500 mg PO BID PRN (Reason: pain) 10 Days Qty: 20 0RF azithromycin 250 mg tablet See Rx Instructions .ROUTE .COMPLEX Qty: 6 0RF Rx Instructions: For 250 mg dose pack: take 500 mg today (day 1), then 250 mg for 4 days (days 2-5) prednisone 20 mg tablet 40 mg PO DAILY 5 Days Qty: 10 0RF cyclobenzaprine 10 mg tablet 10 mg PO TID Qty: 10 0RF naproxen [Naprosyn] 500 mg tablet 500 mg PO BID Qty: 20 0RF prednisone 20 mg tablet 60 mg PO DAILY 4 Days Qty: 12 0RF benzonatate 200 mg capsule 200 mg PO BID PRN (Reason: cough) Qty: 14 0RF albuterol sulfate 2.5 mg/0.5 mL solution for nebulization 5 mg inhalation QID PRN (Reason: shortness of breath or wheezing) Qty: 30 0RF albuterol sulfate 90 mcg/actuation HFA aerosol inhaler 2 puff inhalation Q4-6H PRN (Reason: shortness of breath or wheezing) Qty: 8.5 0RF <ERI Tiwari - Last Filed: 02/22/23 12:54> Referrals: Sarthak Silva III, MD [Primary Care Provider] - <ERI Tiwari - Last Filed: 02/22/23 12:54>
[2023-02-22 13:28] VITALS: TEMP 36.4; O2SAT 99
[2023-02-22 13:34] LABS: MANUAL DIFF FLAG NO
[2023-02-22 13:35] LABS: Basophils Absolute Auto 0.1 X10*3/uL (0.0-0.2); Basophils Percent Auto 0.5 % (0-2); Eosinophils Absolute Auto 0.3 X10*3/uL (0.0-0.4); Eosinophils Percent Auto 3.7 % (0-4); Hematocrit 40.5 % (37.0-47.0); Imm Gran Abs Auto 0.02 X10*3/uL (0.00-0.03); Imm Gran Pct Auto 0.2 % (0.0-0.4); Lymphocytes Absolute Auto 3.1 X10*3/uL (1.2-4.9); Lymphocytes Percent Auto 33.4 % (20-40); Mean Corpuscular HGB Conc 32.1 g/dl (31.0-35.0); Mean Corpuscular Hemoglobin 27.7 pg (27.0-33.0); Mean Corpuscular Volume 86.2 fL (80.0-98.0); Mean Platelet Volume 10.5 fL (9.4-12.3); Monocytes Absolute Auto 0.5 X10*3/uL (0.1-1.2); Monocytes Percent Auto 5.8 % (2-11); Neutrophils Absolute Auto 5.2 x10*3/uL (2.0-8.3); Neutrophils Percent Auto 56.4 % (45-73); Platelet Count 341 X10*3/uL (160-400); Red Cell Distribution Width 13.2 % (11.0-16.0); White Blood Count 9.2 X10*3/uL (4.8-10.8)
[2023-02-22] MEDS: methylPREDNISolone Sod Succ 125 MG/2 ML VIAL IVPUSH (13:39)
[2023-02-22 13:44] LABS: D Dimer High Sensitivity 228 NG/ML
[2023-02-22 13:48] VITALS: PULSE 75; RESP 18; O2SAT 100
[2023-02-22] MEDS: Albuterol Sulfate (0.083%) 2.5 MG/3 ML VIAL.NEB 5 MG INHALE (13:48)
[2023-02-22 14:03] LABS: Influenza A PCR NEGATIVE (Negative); Influenza B PCR NEGATIVE (Negative); Resp Syncy Virus RNA Qual PCR NEGATIVE (Negative); SARS COV2 PCR INHOUSE NEGATIVE (Negative)
[2023-02-22 14:37] LABS: Alanine Aminotransferase 21 U/L (0-31); Alkaline Phosphatase 90 U/L (39-117); Anion Gap 11 (12-20); Aspartate Amino Transferase 11 U/L (5-31); Bilirubin Total 0.5 mg/dL (0.0-1.0); Blood Urea Nitrogen 16 mg/dL (9-16); Calcium 9.2 mg/dL (8.4-10.2); Carbon Dioxide 31 mmol/L (22-29); Chloride 103 mmol/L (96-108); Creatinine Clr Calc Pharmacy 81.5; Estimated Glomerular Filt Rate > 60; Glucose Random 149 mg/dL (60-115); Magnesium 2.1 mg/dL (1.6-2.6); Potassium 4.1 mmol/L (3.3-5.1); Sodium 141 mmol/L (135-145); Total Protein 6.8 g/dL (6.5-8.0)
--- NOTE | 2023-02-22 15:35 | PC.NURSE ---
report received from valerie Blue Pt is resting comfortably on stretcher at this time, reports that she has been having increased difficulty breathing over the past few months and that her home inhaler is not working. Pt received duoneb treatment here in the ED and reports that it has helped a little but not 100%. O2 is currently 95% on room air. Lung sounds clear bilaterally, no wheezes noted
[2023-02-22 15:37] VITALS: PULSE 99; RESP 16; O2SAT 95
== END 2023-02-22 15:50 | disposition home or self-care (01) ==
PROVIDERS: Physician Assistant Medical; Emergency Provider Emergency Medicine; PCP Internal Medicine
DX: J44.1 Chronic obstructive pulmonary disease with (acute) exacerbation (principal); J20.9 Acute bronchitis, unspecified; J44.0 Chronic obstructive pulmonary disease with (acute) lower respiratory infection; Z20.822 Contact with and (suspected) exposure to COVID-19; Z20.828 Contact with and (suspected) exposure to other viral communicable diseases; E11.9 Type 2 diabetes mellitus without complications; I10 Essential (primary) hypertension; Z79.899 Other long term (current) drug therapy
CPT/HCPCS: 0241U; 36415; 71046; 80053; 83735; 85025; 85379; 94640; 96374; 99284; J2930

== ENCOUNTER 2023-06-25 03:31 | Emergency (ER) | payer OTHER, SELFPAY ==
--- NOTE | 2023-06-25 | ECG_ITS ---
Test Reason : CP Blood Pressure : / mmHG Vent. Rate : 091 BPM Atrial Rate : 091 BPM P-R Int : 172 ms QRS Dur : 078 ms QT Int : 346 ms P-R-T Axes : 039 025 037 degrees QTc Int : 425 ms Normal sinus rhythm Normal ECG When compared with ECG of 15-FEB-2023 15:34, No significant change was found Referred By: Generic ED Physician Electronically Signed By:Pedro Quinn
[2023-06-25 03:40] VITALS: BP 200/88; PULSE 92; RESP 20; TEMP 36.7; O2SAT 97; BMI 35.3
[2023-06-25 04:00] LABS: Hematocrit 39.1 % (37.0-47.0); Hemoglobin 12.8 g/dl (12.0-16.0); Mean Corpuscular HGB Conc 32.7 g/dl (31.0-35.0); Mean Corpuscular Hemoglobin 28.1 pg (27.0-33.0); Mean Corpuscular Volume 85.9 fL (80.0-98.0); Mean Platelet Volume 10.9 fL (9.4-12.3); Platelet Count 272 X10*3/uL (160-400); Red Blood Count 4.55 X10*6/uL (4.20-5.50); Red Cell Distribution Width 12.1 % (11.0-16.0); White Blood Count 9.7 X10*3/uL (4.8-10.8)
[2023-06-25] MEDS: lisinopriL 5 MG TABLET PO (04:09)
[2023-06-25 04:13] LABS: Alanine Aminotransferase 46 U/L (0-31); Albumin Level 4.2 g/dL (3.5-5.0); Alkaline Phosphatase 76 U/L (39-117); Anion Gap 15 (12-20); Aspartate Amino Transferase 19 U/L (5-31); Bilirubin Total 0.3 mg/dL (0.0-1.0); Blood Urea Nitrogen 13 mg/dL (9-16); Calcium 9.7 mg/dL (8.4-10.2); Carbon Dioxide 22 mmol/L (22-29); Chloride 105 mmol/L (96-108); Estimated Glomerular Filt Rate > 60; Glucose Random 249 mg/dL (60-115); Potassium 4.3 mmol/L (3.3-5.1); Sodium 138 mmol/L (135-145); Total Protein 7.5 g/dL (6.5-8.0)
[2023-06-25 04:24] LABS: Troponin-I High Sensitivity < 2.7 ng/L (<3.5-17.0)
[2023-06-25 04:35] VITALS: BP 153/85; PULSE 81; RESP 18; O2SAT 97
--- NOTE | 2023-06-25 05:20 | ED_ITS ---
HPI - Chest Pain General Chief Complaint: Chest Pain Stated Complaint: Chest Pain Time Seen by Provider: 06/25/23 05:19 Source: patient Mode of arrival: ambulatory Limitations: no limitations History of Present Illness HPI narrative: 53 yo female with bronchits seeing pulm on inhalers and current prednisone taper, HTN no known CAD here with c/o waking up with tingling in L arm and chest tightness and feeling sob at 2am. She didn't take her BP medications. She notes she does feel tight in the lungs. She has not had a fever or change in cough. She has had chest pain before but not to this degree. No recent travel or procedures. MD complaint: chest pain Onset (ago): hour(s) (2am) Timing of current episode: now resolved Prior episodes: Yes Onset: during rest Pain location: substernal Pain radiation: left arm Severity: moderate Quality: shooting Relieving factors: nothing Exacerbating factors: nothing Associated symptoms: dyspnea Treatment prior to arrival: none Related Data Previous Rx's Medication Instructions Recorded cyclobenzaprine 10 mg tablet 10 mg PO TID PRN muscle spasm #10 09/08/20 tabs ketorolac 10 mg tablet 10 mg PO Q8H PRN pain #10 tabs 09/08/20 lidocaine 5 % topical patch 1 patch topical DAILY #15 ea 09/08/20 (Lidoderm) dicyclomine 20 mg tablet 20 mg PO BID #10 tabs 02/13/21 sucralfate 1 gram tablet (Carafate) 1 g PO BID #20 tabs 02/13/21 acetic acid 2 % ear solution 3 drp otic (ear) right Q6H #15 mL 06/07/21 sucralfate 1 gram tablet 1 g PO BID #30 tabs 06/07/21 amoxicillin 875 mg-potassium 1 tab PO Q12H 10 days #20 tabs 03/24/22 clavulanate 125 mg tablet naproxen 500 mg tablet 500 mg PO BID PRN pain 10 days #20 03/24/22 tabs omeprazole 20 mg capsule,delayed 20 mg PO DAILY 30 days #30 caps 07/01/22 release oxycodone 5 mg tablet 5 mg PO Q4H PRN pain #14 tabs 07/01/22 azithromycin 250 mg tablet See Rx Instructions PO .COMPLEX #6 08/15/22 tabs prednisone 20 mg tablet 40 mg PO DAILY 5 days #10 tabs 08/15/22 cyclobenzaprine 10 mg tablet 10 mg PO TID #10 tabs 12/20/22 naproxen 500 mg tablet (Naprosyn) 500 mg PO BID #20 tabs 12/20/22 albuterol sulfate 2.5 mg/0.5 mL 5 mg inhalation QID PRN shortness 02/15/23 solution for nebulization of breath or wheezing #30 ea albuterol sulfate 90 mcg/actuation 2 puff inhalation Q4-6H PRN 02/15/23 aerosol inhaler shortness of breath or wheezing #8.5 grams benzonatate 200 mg capsule 200 mg PO BID PRN cough #14 caps 02/15/23 prednisone 20 mg tablet 60 mg PO DAILY 4 days #12 tabs 02/15/23 azithromycin 500 mg tablet 500 mg PO DAILY 7 days #7 tabs 02/22/23 (Zithromax) prednisone 20 mg tablet 20 mg PO BID #10 tabs 02/22/23 Allergies Allergy/AdvReac Type Severity Reaction Status Date / Time propofol [PROPOFOL] Allergy Severe ANAPHYLACTIC Verified 02/22/23 12:53 REACTION, anaphylaxis succinylcholine [Anectine] Allergy Severe anaphylaxis Verified 02/22/23 12:53 morphine [MORPHINE] Allergy Intermediate ITCHINESS Verified 02/22/23 12:53 AND HIVES, anaphylaxis Anesthetics - Amide Type - Allergy Unknown UNKNOWN Verified 02/22/23 12:53 Select A [Anesthetics - Amide Type] Anesthetics - [facility] Type- Allergy Unknown UNKNOWN Verified 02/22/23 12:53 Parabens [Anesthetics - [facility] Type] From ANECTINE Allergy Severe ANAPHYLACTI Uncoded 12/20/22 05:51 C nuts Allergy Unknown Unknown Uncoded 12/20/22 05:51 SEAFOOD Allergy Unknown THROAT Uncoded 12/20/22 05:51 SWELLING Review of Systems Review of Systems: Constitutional : No Weight loss, No Fever, No Chills ENT/Mouth : No sore throat, No Rhinorrhea Cardiovascular : pos Chest Pain, pos SOB, no Dyspnea on Exertion, No Orthopnea, No Edema, No Palpitations Respiratory : No Cough, No Sputum Gastrointestinal : no Nausea, No Vomiting, No Diarrhea, No abdominal Pain, No Hematochezia, No Melena Genitourinary : No Dysuria, No Urinary Frequency Musculoskeletal : No joint pain, No Myalgias, No Joint Swelling Skin : No Skin Lesions, No rash Neuro : No Weakness, No Numbness, No Dizziness, No Headache Psych : No Anxiety/Panic, No Depression All other systems reviewed and are negative [facility] Past Medical History Attestation statement: The following information was validated with the patient. Medical History Asthma Cholecystectomy planned Diabetes Hypertension Surgical History History of tubal ligation Social History Social History Alcohol 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 Patient Tobacco Use Status: Never used Tobacco Advance Directives: No Advance Directives Information Provided: No Physical Exam Vital Signs: Vital Signs: Last Vital Signs Temp 98.0 F 06/25/23 03:40 Pulse 76 06/25/23 06:08 Resp 20 06/25/23 06:08 BP 156/92 H 06/25/23 05:53 Pulse Ox 97 06/25/23 05:53 O2 Del Method Room Air 06/25/23 05:53 BMI result Body Mass Index 35.3 Appearance: Alert. Oriented X3. No acute distress. Eyes: Pupils equal, round and reactive to light. ENT: Pharynx normal. Neck: Normal inspection. Neck supple. CVS: Normal heart rate and rhythm. Pulses normal. Respiratory: No respiratory distress. Breath sounds diminished Abdomen: Soft and nontender. Skin: Skin warm and dry. Normal skin color. Normal skin turgor. Extremities: No lower extremity edema. No calf ttp Neuro: Oriented X 3. No motor deficit. No sensory deficit. Course Course Course Narrative: trop flat Medications Administered Discontinued Medications Generic Name Dose Route Start Last Admin Trade Name Freq PRN Reason Stop Dose Admin Albuterol/Ipratropium 3 ml 06/25/23 05:52 06/25/23 06:08 Albuterol/Iprat 2.5/0.5mg 3 Ml Ampul.Neb INHALE 06/25/23 05:53 3 ml ONCE ONE Administration Lisinopril 5 mg 06/25/23 03:56 06/25/23 04:09 Lisinopril 5 Mg Tablet PO 06/25/23 03:57 5 mg ONCE ONE Administration Protocol Medical Decision Making Medical Decision Making MDM Narrative: 53 yo female no known CAD here with c/o chest pain with tingling in L arm - no hx of clots no signs of DVT no tachycardia no hypoxia - doubt PE. Her pulses are intact doubt dissection. At this time no know CAD so ACS is unlikely. Will obtain troponin x 2. She is slightly diminished will give duoneb. At this time she is not toxic and no fevers or change in cough to suggest pneumonia or need for antibiotics. Can follow up with heart doctor for sress test. Differential Diagnosis Differential Diagnoses: The differential diagnosis associated with the presentation includes bronchitis, doubt PE no hypoxia/signs of DVT/not pleuritic/denies risk factors, distal pulses are intact doubt dissection seems atypical for ACS has no known heart disease Admission/Observation Consideration of admission/observation: Escalation of care including admission/observation considered trop flat x 2 and EKG unchanged atypical chest pain can get stress test as outpatient Lab Data [facility] Lab Attestation statement: I reviewed the patient's lab results. 06/25/23 03:54 06/25/23 03:54 Labs: Lab Results 06/25/23 06/25/23 06/25/23 Range/Units 03:54 03:54 03:54 WBC 9.7 (4.8-10.8) X10*3/uL RBC 4.55 (4.20-5.50) X10*6/uL Hgb 12.8 (12.0-16.0) g/dl Hct 39.1 (37.0-47.0) % MCV 85.9 (80.0-98.0) fL MCH 28.1 (27.0-33.0) pg MCHC 32.7 (31.0-35.0) g/dl RDW 12.1 (11.0-16.0) % Plt Count 272 (160-400) X10*3/uL MPV 10.9 (9.4-12.3) fL Absolute Nucleated RBC 0.000 (0.0-0.012) X10*3/uL Nucleated RBC % (auto) 0.0 (0.0-0.2) /100WBC Sodium 138 (135-145) mmol/L Potassium 4.3 (3.3-5.1) mmol/L Chloride 105 (96-108) mmol/L Carbon Dioxide 22 (22-29) mmol/L Anion Gap 15 (12-20) BUN 13 (9-16) mg/dL Creatinine 0.92 (0.5-1.4) mg/dL Estim Creat Clear Calc 83.0 Estimated GFR > 60 Random Glucose 249 H (60-115) mg/dL Calcium 9.7 (8.4-10.2) mg/dL Total Bilirubin 0.3 (0.0-1.0) mg/dL AST 19 (5-31) U/L ALT 46 H (0-31) U/L Alkaline Phosphatase 76 (39-117) U/L Troponin I High Sens < 2.7 (<3.5-17.0) ng/L Total Protein 7.5 (6.5-8.0) g/dL Albumin 4.2 (3.5-5.0) g/dL Independent Interpretation I performed an independent interpretation of an: EKG Interpretation: Rate: 91 Rhythm: NSR [place]: normal Normal P waves. Normal PATITO. Normal QRS complex. ST T wave : no LUAN qTC: normal prior studies: no acute ischemia The study has been interpreted contemporaneously by me. . External Record Review External record reviewed: Inpatient record Discharge Plan Discharge Clinical Impression: Atypical chest pain Patient Disposition: Home, Self-Care Instructions: Chest Pain (ED) Additional Instructions: please talk to your doctor about outpatient stress test. continue all medications. return for worsening symptoms or concerns. stay hydrated. take your inhalers. return for dizziness, faitning, increased work of breath, return of persistent pain or any other concerns. Prescriptions: No Action ketorolac 10 mg tablet 10 mg PO Q8H PRN (Reason: pain) Qty: 10 0RF cyclobenzaprine 10 mg tablet 10 mg PO TID PRN (Reason: muscle spasm) Qty: 10 0RF lidocaine [Lidoderm] 5 % adhesive patch,medicated 1 patch topical DAILY Qty: 15 0RF Rx Instructions: leave on most painful area for up to 12 hrs sucralfate [Carafate] 1 gram tablet 1 g PO BID Qty: 20 0RF dicyclomine 20 mg tablet 20 mg PO BID Qty: 10 0RF acetic acid 2 % solution 3 drp otic (ear) right Q6H Qty: 15 0RF Rx Instructions: apply to (cotton) wick; replace wick every 24 hours sucralfate 1 gram tablet 1 g PO BID Qty: 30 0RF omeprazole 20 mg capsule,delayed release(DR/EC) 20 mg PO DAILY 30 Days Qty: 30 0RF oxycodone 5 mg tablet 5 mg PO Q4H PRN (Reason: pain) Qty: 14 0RF Rx Instructions: Patient may request partial fill; Partial Fill upon patient request. amoxicillin-pot clavulanate 875-125 mg tablet 1 tab PO Q12H 10 Days Qty: 20 0RF naproxen 500 mg tablet 500 mg PO BID PRN (Reason: pain) 10 Days Qty: 20 0RF azithromycin 250 mg tablet See Rx Instructions .ROUTE .COMPLEX Qty: 6 0RF Rx Instructions: For 250 mg dose pack: take 500 mg today (day 1), then 250 mg for 4 days (days 2-5) prednisone 20 mg tablet 40 mg PO DAILY 5 Days Qty: 10 0RF cyclobenzaprine 10 mg tablet 10 mg PO TID Qty: 10 0RF naproxen [Naprosyn] 500 mg tablet 500 mg PO BID Qty: 20 0RF prednisone 20 mg tablet 60 mg PO DAILY 4 Days Qty: 12 0RF benzonatate 200 mg capsule 200 mg PO BID PRN (Reason: cough) Qty: 14 0RF albuterol sulfate 2.5 mg/0.5 mL solution for nebulization 5 mg inhalation QID PRN (Reason: shortness of breath or wheezing) Qty: 30 0RF albuterol sulfate 90 mcg/actuation HFA aerosol inhaler 2 puff inhalation Q4-6H PRN (Reason: shortness of breath or wheezing) Qty: 8.5 0RF prednisone 20 mg tablet 20 mg PO BID Qty: 10 0RF azithromycin [Zithromax] 500 mg tablet 500 mg PO DAILY 7 Days Qty: 7 0RF Referrals: Pedro Quinn MD [Physician] - (call for outpatient stress test)
[2023-06-25 05:53] VITALS: BP 156/92; PULSE 91; RESP 18; O2SAT 97
[2023-06-25 06:08] VITALS: PULSE 76; RESP 20; O2SAT 97
[2023-06-25] MEDS: Albuterol/Iprat 2.5/0.5MG 3 ML AMPUL.NEB INHALE (06:08)
[2023-06-25 06:29] LABS: Troponin-I High Sensitivity < 2.7 ng/L (<3.5-17.0)
[2023-06-25 07:04] VITALS: BP 163/80; PULSE 91; RESP 16; O2SAT 95
== END 2023-06-25 07:07 | disposition home or self-care (01) ==
PROVIDERS: Emergency Provider Emergency Medicine; PCP Internal Medicine
DX: R07.89 Other chest pain (principal); R06.02 Shortness of breath; Z79.899 Other long term (current) drug therapy
CPT/HCPCS: 36415; 80053; 84484; 85027; 93005; 94640; 99284; 99285

== ENCOUNTER → 2023-06-25 03:38 | Outpatient (BNV) | payer OTHER, SELFPAY | PROVIDERS: Emergency Provider Emergency Medicine; PCP Internal Medicine; Visit Provider Internal Medicine Cardiovascular Disease | DX: R07.9 Chest pain, unspecified (principal) | CPT/HCPCS: 93010 ==

== ENCOUNTER 2023-10-06 05:40 | Emergency (ER) | payer OTHER, SELFPAY ==
[2023-10-06 05:41] VITALS: BP 191/109; PULSE 100; RESP 18; TEMP 36.9; O2SAT 97; BMI 34.9
[2023-10-06 06:02] VITALS: O2SAT 99
[2023-10-06 06:08] LABS: IDNOW Serial# 08D9AD1C; Strep A Nucleic Acid Negative (Negative)
--- NOTE | 2023-10-06 06:35 | ED.URI ---
HPI - URI/Sore Throat General Chief Complaint: Upper Respiratory Symptoms Stated Complaint: Ear Pain Time Seen by Provider: 10/06/23 06:35 Source: patient, RN notes reviewed and old records reviewed Mode of arrival: ambulatory History of Present Illness HPI Narrative: 53-year-old female with a past medical history of asthma, hypertension, diabetes, presenting to the ED complaining of sinus congestion, head pressure and bilateral ear pain x2 weeks. Also reports mild sore throat. Admits recently saw PCP versus prescribed nasal spray without relief. Denies known fever, chills, cough, SOB, recent travel, sick contacts MD elicited complaint: sore throat, rhinorrhea and nasal congestion Related Data Previous Rx's Medication Instructions Recorded cyclobenzaprine 10 mg tablet 10 mg PO TID PRN muscle spasm #10 09/08/20 tabs ketorolac 10 mg tablet 10 mg PO Q8H PRN pain #10 tabs 09/08/20 lidocaine 5 % topical patch 1 patch topical DAILY #15 ea 09/08/20 (Lidoderm) dicyclomine 20 mg tablet 20 mg PO BID #10 tabs 02/13/21 sucralfate 1 gram tablet (Carafate) 1 g PO BID #20 tabs 02/13/21 acetic acid 2 % ear solution 3 drp otic (ear) right Q6H #15 mL 06/07/21 sucralfate 1 gram tablet 1 g PO BID #30 tabs 06/07/21 amoxicillin 875 mg-potassium 1 tab PO Q12H 10 days #20 tabs 03/24/22 clavulanate 125 mg tablet naproxen 500 mg tablet 500 mg PO BID PRN pain 10 days #20 03/24/22 tabs omeprazole 20 mg capsule,delayed 20 mg PO DAILY 30 days #30 caps 07/01/22 release oxycodone 5 mg tablet 5 mg PO Q4H PRN pain #14 tabs 07/01/22 azithromycin 250 mg tablet See Rx Instructions PO .COMPLEX #6 08/15/22 tabs prednisone 20 mg tablet 40 mg (2 x 20 mg) PO DAILY 5 days 08/15/22 #10 tabs cyclobenzaprine 10 mg tablet 10 mg PO TID #10 tabs 12/20/22 naproxen 500 mg tablet (Naprosyn) 500 mg PO BID #20 tabs 12/20/22 albuterol sulfate 2.5 mg/0.5 mL 5 mg inhalation QID PRN shortness 02/15/23 solution for nebulization of breath or wheezing #30 ea albuterol sulfate 90 mcg/actuation 2 puff inhalation Q4-6H PRN 02/15/23 aerosol inhaler shortness of breath or wheezing #8.5 grams benzonatate 200 mg capsule 200 mg PO BID PRN cough #14 caps 02/15/23 prednisone 20 mg tablet 60 mg (3 x 20 mg) PO DAILY 4 days 02/15/23 #12 tabs azithromycin 500 mg tablet 500 mg PO DAILY 7 days #7 tabs 02/22/23 (Zithromax) prednisone 20 mg tablet 20 mg PO BID #10 tabs 02/22/23 amoxicillin 875 mg tablet 875 mg PO BID 7 days #14 tabs 10/06/23 Allergies Allergy/AdvReac Type Severity Reaction Status Date / Time propofol [PROPOFOL] Allergy Severe ANAPHYLACTIC Verified 10/06/23 05:44 REACTION, anaphylaxis succinylcholine [Anectine] Allergy Severe anaphylaxis Verified 10/06/23 05:44 morphine [MORPHINE] Allergy Intermediate ITCHINESS Verified 10/06/23 05:44 AND HIVES, anaphylaxis Anesthetics - Amide Type - Allergy Unknown UNKNOWN Verified 10/06/23 05:44 Select A [Anesthetics - [facility]ide Type] Anesthetics - [facility] Type- Allergy Unknown UNKNOWN Verified 10/06/23 05:44 Parabens [Anesthetics - [facility] Type] From ANECTINE Allergy Severe ANAPHYLACTI Uncoded 12/20/22 05:51 C nuts Allergy Unknown Unknown Uncoded 12/20/22 05:51 SEAFOOD Allergy Unknown THROAT Uncoded 12/20/22 05:51 SWELLING Review of Systems Review of Systems: Constitutional: No Fever, No Chills,No Fatigue, No Malaise ENT/Mouth: + Ear Pain, +Nasal Congestion, + Sinus Pain, No Hoarseness, +sore throat, + Rhinorrhea, No Swallowing Difficulty Eyes: No Eye Pain, No Swelling, No Redness,No Discharge, No Vision Changes Cardiovascular: No Chest Pain, No SOB, No Edema, No Palpitations Respiratory: No Cough, No Sputum, No Dyspnea Gastrointestinal: No Nausea, No Vomiting, No Diarrhea, No Constipation, No Abdominal pain Musculoskeletal: No joint pain, No Myalgias, No Joint Swelling Skin: No Skin Lesions, No rash Neuro: No Weakness, No Dizziness, + Headache Yes all other systems are reviewed and are negative Constitutional: Constitutional: Reports as per [facility] Past Medical History Attestation statement: The following information was validated with the patient. Source: old records reviewed Medical History Asthma Hypertension Diabetes Cholecystectomy planned Surgical History History of tubal ligation Social History Alcohol 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 Patient Tobacco Use Status: Never used Tobacco Advance Directives: No Advance Directives Information Provided: No Physical Exam Vital Signs: Vital Signs: Last Vital Signs Temp 98.2 F 10/06/23 08:13 Pulse 67 10/06/23 08:13 Resp 16 10/06/23 08:13 BP 165/86 H 10/06/23 08:13 Pulse Ox 97 10/06/23 08:13 O2 Del Method Room Air 10/06/23 08:13 BMI result Body Mass Index 34.9 Const: General: cooperative, healthy appearing and no acute distress Orientation/consciousness: patient oriented x3 Limitations: no limitations HEENT: Head: Yes normal to inspection and Yes atraumatic Ears: hearing grossly normal bilaterally, external ears normal, TM's normal bilaterally and mastoids normal General nose exam: Normal external nose present Face and sinus: Yes normal facial exam and Yes sinus tenderness (Maxillary and frontal) Mouth: Normal oral and palatal mucosa present Throat: Yes posterior oropharynx normal, Yes tonsils normal, Yes uvula midline, No peritonsillar mass, No uvula laterally displaced and No uvular edema Eyes: General: appearance normal, both eyes and all related structures EOM: EOMs intact bilaterally Neck: Neck: Yes normal visual inspection and Yes no meningeal signs Resp: Effort & Inspection: normal respiratory effort, no respiratory distress and not tachypneic Auscultation: clear to auscultation bilaterally and no wheezes Cardio: Rate: regular rate Heart sounds: S1 normal heart sound present and S2 normal heart sound present Skin: Rashes: no rashes Wounds: no wounds Neuro: General: patient oriented x3, tone normal and no meningeal signs Cranial nerves: Yes CN's II-XII intact bilaterally Gait exam (Neuro): Normal gait present Extrem: General: Yes normal to inspection Course Course Course Narrative: -713--COVID/FLU/RSV and rapid strep negative -801--repeat blood pressure 151/84 after home dose of lisinopril Results discussed with patient including worrisome signs and symptoms and strict return precautions, and when to return to the emergency department. They verbalized understanding and feel safe for discharge at this time. Medications Administered Discontinued Medications Generic Name Dose Route Start Last Admin Trade Name [place] PRN Reason Stop Dose Admin Lisinopril 5 mg 10/06/23 07:12 10/06/23 08:30 Lisinopril 5 Mg Tablet PO 10/06/23 07:13 5 mg ONCE ONE Administration Protocol Medical Decision Making Medical Decision Making [facility] Narrative: 53-year-old female with a past medical history of asthma, hypertension, diabetes, presenting to the ED complaining of sinus congestion, head pressure and bilateral ear pain x2 weeks. On exam hypertensive, patient denies taking her BP medication today, NAD, nontoxic appearing, physical exam as noted above with nasal congestion bilateral sinus tenderness. Oropharynx WNL, lungs CTA. Concern for sinusitis vs viral illness vs pharyngitis. Lower suspicion for strep, [employer], retropharyngeal abscess, pneumonia Plan: Viral testing, rapid strep, give PO home dose Lisinopril Please refer to course for remaining clinical decision making, interpretation of labs/imaging results, and discussions with consultants and/or family members. Differential Diagnosis Differential Diagnoses: The differential diagnosis associated with the presentation includes As above Lab Data [facility] Lab Attestation statement: I reviewed the patient's lab results. Labs: Lab Results 10/06/23 Range/Units 05:54 Influenza Type A (PCR) NEGATIVE (Negative) Influenza Type B (PCR) NEGATIVE (Negative) RSV RNA Qual (PCR) NEGATIVE (Negative) SARS-CoV-2 RNA (RT-PCR) NEGATIVE (Negative) S. pyogenes GrpA FARHANA Negative (Negative) External Record Review External record reviewed: Inpatient record, Office record, Outpatient record, Prior outpatient labs, Prior outpatient radiology, Primary care record and Outside ED record Tests considered The following testing was considered but not selected: As above Discharge Plan Discharge Clinical Impression: Sinusitis Patient Disposition: Home, Self-Care Instructions: Sinusitis (ED) Additional Instructions: You likely have sinusitis. Amoxicillin as an antibiotic please take as prescribed. You can continue to use nasal spray Follow-up with her doctor Stay hydrated Please take blood pressure medication at home If symptoms persist or worsen return to the ED Prescriptions: New amoxicillin 875 mg tablet 875 mg PO BID 7 Days Qty: 14 0RF No Action ketorolac 10 mg tablet 10 mg PO Q8H PRN (Reason: pain) Qty: 10 0RF cyclobenzaprine 10 mg tablet 10 mg PO TID PRN (Reason: muscle spasm) Qty: 10 0RF lidocaine [Lidoderm] 5 % adhesive patch,medicated 1 patch topical DAILY Qty: 15 0RF Rx Instructions: leave on most painful area for up to 12 hrs sucralfate [Carafate] 1 gram tablet 1 g PO BID Qty: 20 0RF dicyclomine 20 mg tablet 20 mg PO BID Qty: 10 0RF acetic acid 2 % solution 3 drp otic (ear) right Q6H Qty: 15 0RF Rx Instructions: apply to (cotton) wick; replace wick every 24 hours sucralfate 1 gram tablet 1 g PO BID Qty: 30 0RF omeprazole 20 mg capsule,delayed release(DR/EC) 20 mg PO DAILY 30 Days Qty: 30 0RF oxycodone 5 mg tablet 5 mg PO Q4H PRN (Reason: pain) Qty: 14 0RF Rx Instructions: Patient may request partial fill; Partial Fill upon patient request. amoxicillin-pot clavulanate 875-125 mg tablet 1 tab PO Q12H 10 Days Qty: 20 0RF naproxen 500 mg tablet 500 mg PO BID PRN (Reason: pain) 10 Days Qty: 20 0RF azithromycin 250 mg tablet See Rx Instructions .ROUTE .COMPLEX Qty: 6 0RF Rx Instructions: For 250 mg dose pack: take 500 mg today (day 1), then 250 mg for 4 days (days 2-5) prednisone 20 mg tablet 40 mg PO DAILY 5 Days Qty: 10 0RF cyclobenzaprine 10 mg tablet 10 mg PO TID Qty: 10 0RF naproxen [Naprosyn] 500 mg tablet 500 mg PO BID Qty: 20 0RF prednisone 20 mg tablet 60 mg PO DAILY 4 Days Qty: 12 0RF benzonatate 200 mg capsule 200 mg PO BID PRN (Reason: cough) Qty: 14 0RF albuterol sulfate 2.5 mg/0.5 mL solution for nebulization 5 mg inhalation QID PRN (Reason: shortness of breath or wheezing) Qty: 30 0RF albuterol sulfate 90 mcg/actuation HFA aerosol inhaler 2 puff inhalation Q4-6H PRN (Reason: shortness of breath or wheezing) Qty: 8.5 0RF prednisone 20 mg tablet 20 mg PO BID Qty: 10 0RF azithromycin [Zithromax] 500 mg tablet 500 mg PO DAILY 7 Days Qty: 7 0RF Referrals: Sarthak Silva III, MD [Primary Care Provider] - Interventions: ED Discharge Assessment Last Done: 10/06/23 08:30 Discharge Date/Time: 10/06/23 08:30
[2023-10-06 06:39] LABS: Influenza A PCR NEGATIVE (Negative); Influenza B PCR NEGATIVE (Negative); Resp Syncy Virus RNA Qual PCR NEGATIVE (Negative); SARS COV2 PCR INHOUSE NEGATIVE (Negative)
[2023-10-06 08:13] VITALS: BP 165/86; PULSE 67; RESP 16; TEMP 36.8; O2SAT 97
[2023-10-06] MEDS: lisinopriL 5 MG TABLET PO (08:30)
== END 2023-10-06 08:30 | disposition home or self-care (01) ==
PROVIDERS: Emergency Provider Emergency Medicine; PCP Internal Medicine
DX: J32.9 Chronic sinusitis, unspecified (principal); Z20.822 Contact with and (suspected) exposure to COVID-19; Z20.828 Contact with and (suspected) exposure to other viral communicable diseases; E11.9 Type 2 diabetes mellitus without complications; I10 Essential (primary) hypertension
CPT/HCPCS: 0241U; 87651; 99283; 99284

== ENCOUNTER 2023-10-18 20:26 | Emergency (ER) | payer OTHER, SELFPAY ==
--- NOTE | ~2023-10-18 | CT_ITS ---
EXAMINATION: CT ABDOMEN AND PELVIS WITHOUT CONTRAST CLINICAL INFORMATION: Right flank pain, hematuria. COMPARISON: CTA chest 08/15/2022. CT abdomen/pelvis 06/30/2022. TECHNIQUE: Multidetector volumetric imaging was performed from the superior aspect of the liver through the pubic symphysis. Sagittal and coronal reformatted images were obtained on the technologist's workstation. This CT examination was performed using dose optimization techniques as appropriate, variously including the following: *Automated exposure control *Adjustment of mA and/or kV according to patient size (this includes techniques or standardized protocols for targeted exams where dose is matched to indication/reason for exam; i.e. extremities or head) *Use of iterative reconstruction technique DLP: 657 mGy-cm FINDINGS: The lack of intravenous contrast limits evaluation of the solid visceral organs including the liver, spleen, pancreas, and kidneys. LUNG BASES: No focal consolidation or pleural effusion. LIVER, GALLBLADDER, AND BILIARY TREE: Enlarged liver measuring 20 cm craniocaudally with decreased attenuation consistent with hepatic steatosis, otherwise normal in shape without discrete focal lesion. No biliary ductal dilatation. Cholecystectomy. PANCREAS: Limited noncontrast examination. No peripancreatic fat stranding or free fluid. No main ductal dilatation. SPLEEN: Unremarkable. ADRENAL GLANDS: Unremarkable. KIDNEYS AND URETERS: Moderate right-sided hydronephrosis secondary to a 1 cm calculus in the right ureteropelvic junction measuring 1434 Hounsfield units. Mild surrounding stranding of the right renal pelvis and adjacent proximal right ureter. Normal noncontrast appearance of the left kidney. BLADDER: Unremarkable. GASTROINTESTINAL TRACT: The stomach and the small bowel are nondilated. Normal appendix. Colonic diverticulosis without significant pericolonic fat stranding or free fluid. No evidence of bowel obstruction. ABDOMINAL WALL: No significant hernia is appreciated. LYMPH NODES: No lymphadenopathy. VASCULAR: Normal caliber abdominal aorta. PELVIC VISCERA: Unremarkable. OSSEOUS STRUCTURES: No acute or aggressive appearing osseous findings. Degenerative change of the spine. Previous fusion at L5-S1. CT/CT abdomen pelvis wo IV con IMPRESSION: 1. Moderate right-sided hydronephrosis secondary to a 1 cm calculus in the right ureteropelvic junction. 2. Diverticulosis but no evidence of acute diverticulitis. 3. Hepatomegaly and hepatic steatosis.
[2023-10-18 20:41] VITALS: BP 195/101; PULSE 79; RESP 18; TEMP 36.3; O2SAT 98; BMI 34.9
[2023-10-18 21:10] LABS: Basophils Absolute Auto 0.1 X10*3/uL (0.0-0.2); Basophils Percent Auto 0.7 % (0-2); Eosinophils Absolute Auto 0.2 X10*3/uL (0.0-0.4); Eosinophils Percent Auto 3.1 % (0-4); Hematocrit 38.3 % (37.0-47.0); Hemoglobin 12.3 g/dl (12.0-16.0); Imm Gran Abs Auto 0.01 X10*3/uL (0.00-0.03); Imm Gran Pct Auto 0.1 % (0.0-0.4); Lymphocytes Absolute Auto 2.3 X10*3/uL (1.2-4.9); Lymphocytes Percent Auto 30.9 % (20-40); MANUAL DIFF FLAG NO; Mean Corpuscular HGB Conc 32.1 g/dl (31.0-35.0); Mean Corpuscular Hemoglobin 27.8 pg (27.0-33.0); Mean Corpuscular Volume 86.7 fL (80.0-98.0); Mean Platelet Volume 11.1 fL (9.4-12.3); Monocytes Absolute Auto 0.6 X10*3/uL (0.1-1.2); Monocytes Percent Auto 7.7 % (2-11); Neutrophils Absolute Auto 4.3 x10*3/uL (2.0-8.3); Neutrophils Percent Auto 57.5 % (45-73); Platelet Count 285 X10*3/uL (160-400); Red Blood Count 4.42 X10*6/uL (4.20-5.50); White Blood Count 7.5 X10*3/uL (4.8-10.8)
--- NOTE | 2023-10-18 21:10 | MHC.EDTECH ---
Patient blood drawn and urine sample collected and sent to lab .
[2023-10-18 21:12] LABS: Appearance Urine Hazy; Color Urine Yellow; Glucose Urine UA Negative (Negative); Leukocyte Esterase Urine Trace (Negative); Nitrite Urine Negative (Negative); Specific Gravity - Urine 1.025 (1.005-1.025); UMIC TRIGGER UACC YES; Urine Blood Large (3+) (Negative); Urine Ketones Negative (Negative); Urine Protein 30 (1+) mg/dL (Neg-Trace)
[2023-10-18 21:17] LABS: Bacteria Urine None Seen (None Seen); RBC Urine >20 /HPF (0-2); Squamous Epithelial Cell Urine 0-2 /HPF (0-2); UACC Culture Trigger YES
[2023-10-18 21:24] LABS: Alanine Aminotransferase 47 U/L (0-31); Albumin Level 4.2 g/dL (3.5-5.0); Alkaline Phosphatase 91 U/L (39-117); Anion Gap 14 (12-20); Aspartate Amino Transferase 29 U/L (5-31); Bilirubin Total 0.3 mg/dL (0.0-1.0); Blood Urea Nitrogen 19 mg/dL (9-16); Calcium 9.7 mg/dL (8.4-10.2); Carbon Dioxide 27 mmol/L (22-29); Chloride 104 mmol/L (96-108); Creatinine Clr Calc Pharmacy 68.4; Estimated Glomerular Filt Rate 52; Glucose Random 151 mg/dL (60-115); Lipase 18 U/L (8-78); Sodium 141 mmol/L (135-145); Total Protein 7.5 g/dL (6.5-8.0)
--- NOTE | 2023-10-18 21:59 | ED.GENADULT ---
HPI - General Adult General Chief complaint: Abdominal Pain Stated complaint: R side pain Time Seen by Provider: 10/18/23 21:47 Source: patient History of Present Illness HPI narrative: The patient is a 53-year-old female comes to the emergency room complaining of 3 days of right-sided flank pain. She has been taking ibuprofen over the last couple of days and this was helping at first. She has a known large right-sided kidney stone which was last imaged at this hospital in June of 2022. This showed a longstanding 10 mm x 6 mm nonobstructive calculus in the lower pole the right kidney. Patient also feels that her urine has looked somewhat bloody over the last 3 days. No nausea or vomiting or diarrhea. No definite fever. Related Data Previous Rx's Medication Instructions Recorded cyclobenzaprine 10 mg tablet 10 mg PO TID PRN muscle spasm #10 09/08/20 tabs ketorolac 10 mg tablet 10 mg PO Q8H PRN pain #10 tabs 09/08/20 lidocaine 5 % topical patch 1 patch topical DAILY #15 ea 09/08/20 (Lidoderm) dicyclomine 20 mg tablet 20 mg PO BID #10 tabs 02/13/21 sucralfate 1 gram tablet (Carafate) 1 g PO BID #20 tabs 02/13/21 acetic acid 2 % ear solution 3 drp otic (ear) right Q6H #15 mL 06/07/21 sucralfate 1 gram tablet 1 g PO BID #30 tabs 06/07/21 amoxicillin 875 mg-potassium 1 tab PO Q12H 10 days #20 tabs 03/24/22 clavulanate 125 mg tablet naproxen 500 mg tablet 500 mg PO BID PRN pain 10 days #20 03/24/22 tabs omeprazole 20 mg capsule,delayed 20 mg PO DAILY 30 days #30 caps 07/01/22 release oxycodone 5 mg tablet 5 mg PO Q4H PRN pain #14 tabs 07/01/22 azithromycin 250 mg tablet See Rx Instructions PO .COMPLEX #6 08/15/22 tabs prednisone 20 mg tablet 40 mg (2 x 20 mg) PO DAILY 5 days 08/15/22 #10 tabs cyclobenzaprine 10 mg tablet 10 mg PO TID #10 tabs 12/20/22 naproxen 500 mg tablet (Naprosyn) 500 mg PO BID #20 tabs 12/20/22 albuterol sulfate 2.5 mg/0.5 mL 5 mg inhalation QID PRN shortness 02/15/23 solution for nebulization of breath or wheezing #30 ea albuterol sulfate 90 mcg/actuation 2 puff inhalation Q4-6H PRN 02/15/23 aerosol inhaler shortness of breath or wheezing #8.5 grams benzonatate 200 mg capsule 200 mg PO BID PRN cough #14 caps 02/15/23 prednisone 20 mg tablet 60 mg (3 x 20 mg) PO DAILY 4 days 02/15/23 #12 tabs azithromycin 500 mg tablet 500 mg PO DAILY 7 days #7 tabs 02/22/23 (Zithromax) prednisone 20 mg tablet 20 mg PO BID #10 tabs 02/22/23 amoxicillin 875 mg tablet 875 mg PO BID 7 days #14 tabs 10/06/23 cefuroxime axetil 500 mg tablet 500 mg PO BID #14 tabs 10/19/23 ibuprofen 600 mg tablet 600 mg PO Q6H PRN pain #14 tabs 10/19/23 ondansetron 4 mg disintegrating 4 mg PO Q8H PRN nausea and 10/19/23 tablet vomiting #10 tabs oxycodone 5 mg capsule 5 mg PO Q6H PRN pain #10 caps 10/19/23 tamsulosin 0.4 mg capsule 0.4 mg PO BEDTIME #7 caps 10/19/23 Allergies Allergy/AdvReac Type Severity Reaction Status Date / Time propofol [PROPOFOL] Allergy Severe ANAPHYLACTIC Verified 10/18/23 20:41 REACTION, anaphylaxis succinylcholine [Anectine] Allergy Severe anaphylaxis Verified 10/18/23 20:41 morphine [MORPHINE] Allergy Intermediate ITCHINESS Verified 10/18/23 20:41 AND HIVES, anaphylaxis Anesthetics - [facility]ide Type - Allergy Unknown UNKNOWN Verified 10/18/23 20:41 Select A [Anesthetics - [facility] Type] Anesthetics - [facility] Type- Allergy Unknown UNKNOWN Verified 10/18/23 20:41 Parabens [Anesthetics - [facility] Type] From ANECTINE Allergy Severe ANAPHYLACTI Uncoded 12/20/22 05:51 C nuts Allergy Unknown Unknown Uncoded 12/20/22 05:51 SEAFOOD Allergy Unknown THROAT Uncoded 12/20/22 05:51 SWELLING Review of Systems Review of Systems: Yes all other systems are reviewed and are negative [facility] Past Medical History Medical History Asthma Hypertension Diabetes Cholecystectomy planned Surgical History History of tubal ligation Social History Social History Alcohol 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 Patient Tobacco Use Status: Never used Tobacco Smoked in Last 30 Days: No Use of substances other than those prescribed or required for medical reasons: No Advance Directives: No Advance Directives Information Provided: No Physical Exam ED Vital Signs: Vital Signs - 24 hr 10/18/23 20:41 10/18/23 22:00 10/18/23 23:58 Temperature 97.3 F 98.3 F 97.7 F Pulse Rate 79 70 65 Respiratory Rate 18 18 18 Blood Pressure 195/101 H 203/95 H 170/89 H Pulse Oximetry 98 93 96 Oxygen Delivery Method Room Air Room Air Room Air BMI result Body Mass Index 34.9 Const Other: The patient is awake and alert. She is pleasant cooperative. She looks mildly uncomfortable. She does not look overtly toxic. HENMT Other: Mucous membranes are moist. Eyes Other: Pupils are round equal, conjunctivae are clear Neck Other: Moving her neck easily Resp Other: Lungs are clear bilaterally Cardio Other: The patient has a regular rate and rhythm no murmur GI Other: The abdomen is soft and nontender Back/Spine/Pelvis Other: There is right-sided percussion tenderness Skin Other: The skin is dry and unremarkable Neuro Other: The patient is awake, alert, appropriate, neurologically intact. Extrem Other: No peripheral edema Medications Administered Discontinued Medications Generic Name Dose Route Start Last Admin Trade Name Freq PRN Reason Stop Dose Admin Acetaminophen 975 mg 10/19/23 00:22 10/19/23 00:44 Acetaminophen 325 Mg Tablet PO 10/19/23 00:23 975 mg ONCE ONE Administration Sodium Chloride 1,000 mls @ 999 mls/hr 10/18/23 22:00 10/19/23 00:51 Ns IV 10/18/23 23:00 Infused .Q1H1M YASH Infusion Sodium Chloride 1,000 mls @ 999 mls/hr 10/19/23 00:30 10/19/23 01:50 Ns IV 10/19/23 01:30 Infused .Q1H1M YASH Infusion Ceftriaxone Sodium 1 gm/ 50 mls @ 100 mls/hr 10/19/23 01:45 10/19/23 03:22 Sodium Chloride IV 10/19/23 02:14 Infused ONCE ONE Infusion Ketorolac Tromethamine 15 mg 10/18/23 21:58 10/18/23 23:27 Ketorolac Tromethamine 15 Mg/Ml Vial IVPUSH 10/18/23 21:59 15 mg ONCE ONE Administration Tamsulosin HCl 0.4 mg 10/19/23 01:45 10/19/23 02:35 Tamsulosin Hcl 0.4 Mg Capsule PO 10/19/23 01:46 0.4 mg ONCE ONE Administration Medical Decision Making Medical Decision Making [facility] Narrative: The patient is a very pleasant 53-year-old who has had a known history of a large right renal stone for several years. She comes in with 3 days of right renal colic associated with hematuria. She also possibly describes some dysuria but she has not had a fever or vomiting. CT the abdomen and pelvis shows that the large stone which had been an intrarenal stone is now visible in the renal pelvis at the UPJ and causing some hydronephrosis. The patient reported the severity of pain as 9/10 although she did not look remarkably uncomfortable. She was treated with ketorolac IV. This helped somewhat. She was very watery of narcotic medications. Ultimately I discussed the case with the on-call urologist, Dr. Kingsley. Since the patient does not look toxic and since the patient's renal function is good and since the patient's white count is good we agreed that the patient might be appropriate for outpatient management. The patient seemed to prefer the concept of being discharged rather than being hospitalized. The patient's urinalysis is very mildly abnormal but since she has some symptoms of dysuria I felt it would be reasonable to cover her with antibiotics. This had also been discussed with the urologist who agreed. The patient was therefore given a g of IV ceftriaxone in addition to the 2 L of IV saline she had received. She will be discharged with prescriptions for cefuroxime, oxycodone, ibuprofen, ondansetron, and tamsulosin. She should call the urology office on Dinesh morning. She should return if worse. Lab Data 10/18/23 21:04 10/18/23 21:04 Labs: Lab Results 10/18/23 Range/Units 21:04 WBC 7.5 (4.8-10.8) X10*3/uL RBC 4.42 (4.20-5.50) X10*6/uL Hgb 12.3 (12.0-16.0) g/dl Hct 38.3 (37.0-47.0) % MCV 86.7 (80.0-98.0) fL MCH 27.8 (27.0-33.0) pg MCHC 32.1 (31.0-35.0) g/dl RDW 12.0 (11.0-16.0) % Plt Count 285 (160-400) X10*3/uL MPV 11.1 (9.4-12.3) fL Immature Gran % (Auto) 0.1 (0.0-0.4) % Neut % (Auto) 57.5 (45-73) % Lymph % (Auto) 30.9 (20-40) % Chambers % (Auto) 7.7 (2-11) % Eos % (Auto) 3.1 (0-4) % Baso % (Auto) 0.7 (0-2) % Lymph # (Auto) 2.3 (1.2-4.9) X10*3/uL Chambers # (Auto) 0.6 (0.1-1.2) X10*3/uL Eos # (Auto) 0.2 (0.0-0.4) X10*3/uL Baso # (Auto) 0.1 (0.0-0.2) X10*3/uL Abs Immat Gran (auto) 0.01 (0.00-0.03) X10*3/uL Absolute Neuts (auto) 4.3 (2.0-8.3) x10*3/uL Absolute Nucleated RBC 0.000 (0.0-0.012) X10*3/uL Nucleated RBC % (auto) 0.0 (0.0-0.2) /100WBC Sodium 141 (135-145) mmol/L Potassium 4.0 (3.3-5.1) mmol/L Chloride 104 (96-108) mmol/L Carbon Dioxide 27 (22-29) mmol/L Anion Gap 14 (12-20) BUN 19 H (9-16) mg/dL Creatinine 1.11 (0.5-1.4) mg/dL Estim Creat Clear Calc 68.4 Estimated GFR 52 Random Glucose 151 H (60-115) mg/dL Calcium 9.7 (8.4-10.2) mg/dL Total Bilirubin 0.3 (0.0-1.0) mg/dL AST 29 (5-31) U/L ALT 47 H (0-31) U/L Alkaline Phosphatase 91 (39-117) U/L C-Reactive Protein 0.64 H (< or = 0.50) mg/dL Total Protein 7.5 (6.5-8.0) g/dL Albumin 4.2 (3.5-5.0) g/dL Lipase 18 (8-78) U/L Urine Color Yellow Urine Appearance Hazy Urine pH 6.0 (5.0-9.0) Ur Specific Marquez 1.025 (1.005-1.025) Urine Protein 30 (1+) H (Neg-Trace) mg/dL Urine Glucose (UA) Negative (Negative) mg/dL Urine Ketones Negative (Negative) mg/dL Urine Blood Large (3+) H (Negative) Urine Nitrite Negative (Negative) Ur Leukocyte Esterase Trace H (Negative) Urine RBC >20 H (0-2) /HPF Urine WBC 6-10 H (0-5) /HPF Ur Squamous Epith Cells 0-2 (0-2) /HPF Urine Bacteria None Seen (None Seen) Hyaline Casts 3-5 (0-2) /LPF Urine Test NEGATIVE (NEGATIVE) Discharge Plan Discharge Clinical Impression: Ureter colic, Calculus of proximal right ureter Patient Disposition: Home, Self-Care Instructions: Renal Colic (ED) Additional Instructions: Your kidney stone has moved into your right ureter and is causing a blockage. This is why you are having pain. To manage your pain at home you may take 2 extra-strength acetaminophen every 8 hours. You may also take ibuprofen 600 mg every 6 hours as needed. I have also sent a prescription for oxycodone which she may take every 6 hours as needed as well. If you wish you may cut the tablets in half. There is a prescription for ondansetron the you may use for nausea. Please take the tamsulosin at bedtime (starting Friday evening). This may help passage of the stone. Drink a lot of fluids. In case there is any element of an infection you have been prescribed an antibiotic, cefuroxime. This should be taken 2 times a day, approximately every 12 hours. Please start this medication on Friday evening also. Please call the urology office on Friday to arrange follow-up and further care. Return to the emergency room if worse. Prescriptions: New oxycodone 5 mg capsule 5 mg PO Q6H PRN (Reason: pain) Qty: 10 0RF Rx Instructions: Partial Fill upon patient request. ondansetron 4 mg tablet,disintegrating 4 mg PO Q8H PRN (Reason: nausea and vomiting) Qty: 10 0RF ibuprofen 600 mg tablet 600 mg PO Q6H PRN (Reason: pain) Qty: 14 0RF cefuroxime axetil 500 mg tablet 500 mg PO BID Qty: 14 0RF tamsulosin 0.4 mg capsule 0.4 mg PO BEDTIME Qty: 7 0RF No Action ketorolac 10 mg tablet 10 mg PO Q8H PRN (Reason: pain) Qty: 10 0RF cyclobenzaprine 10 mg tablet 10 mg PO TID PRN (Reason: muscle spasm) Qty: 10 0RF lidocaine [Lidoderm] 5 % adhesive patch,medicated 1 patch topical DAILY Qty: 15 0RF Rx Instructions: leave on most painful area for up to 12 hrs sucralfate [Carafate] 1 gram tablet 1 g PO BID Qty: 20 0RF dicyclomine 20 mg tablet 20 mg PO BID Qty: 10 0RF acetic acid 2 % solution 3 drp otic (ear) right Q6H Qty: 15 0RF Rx Instructions: apply to (cotton) wick; replace wick every 24 hours sucralfate 1 gram tablet 1 g PO BID Qty: 30 0RF omeprazole 20 mg capsule,delayed release(DR/EC) 20 mg PO DAILY 30 Days Qty: 30 0RF oxycodone 5 mg tablet 5 mg PO Q4H PRN (Reason: pain) Qty: 14 0RF Rx Instructions: Patient may request partial fill; Partial Fill upon patient request. amoxicillin-pot clavulanate 875-125 mg tablet 1 tab PO Q12H 10 Days Qty: 20 0RF naproxen 500 mg tablet 500 mg PO BID PRN (Reason: pain) 10 Days Qty: 20 0RF azithromycin 250 mg tablet See Rx Instructions .ROUTE .COMPLEX Qty: 6 0RF Rx Instructions: For 250 mg dose pack: take 500 mg today (day 1), then 250 mg for 4 days (days 2-5) prednisone 20 mg tablet 40 mg PO DAILY 5 Days Qty: 10 0RF cyclobenzaprine 10 mg tablet 10 mg PO TID Qty: 10 0RF naproxen [Naprosyn] 500 mg tablet 500 mg PO BID Qty: 20 0RF amoxicillin 875 mg tablet 875 mg PO BID 7 Days Qty: 14 0RF prednisone 20 mg tablet 60 mg PO DAILY 4 Days Qty: 12 0RF benzonatate 200 mg capsule 200 mg PO BID PRN (Reason: cough) Qty: 14 0RF albuterol sulfate 2.5 mg/0.5 mL solution for nebulization 5 mg inhalation QID PRN (Reason: shortness of breath or wheezing) Qty: 30 0RF albuterol sulfate 90 mcg/actuation HFA aerosol inhaler 2 puff inhalation Q4-6H PRN (Reason: shortness of breath or wheezing) Qty: 8.5 0RF prednisone 20 mg tablet 20 mg PO BID Qty: 10 0RF azithromycin [Zithromax] 500 mg tablet 500 mg PO DAILY 7 Days Qty: 7 0RF Referrals: Angle Kingsley MD [Physician] - (right proximal ureteral stone)
[2023-10-18 22:00] VITALS: BP 203/95; PULSE 70; RESP 18; TEMP 36.8; O2SAT 93
[2023-10-18 22:09] LABS: UPreg QC Valid YES; Urine Pregnancy NEGATIVE (NEGATIVE)
[2023-10-18 22:10] LABS: C Reactive Protein 0.64 mg/dL (< or = 0.50)
--- NOTE | 2023-10-18 22:31 | PC.NURSE ---
Pt ca&ox4, no signs of distress. Pts family at bedside. Pt reports 9/10 right flank pain that radiates to RLQ with an onset of 3 days. Pt denies n/v/d/fever. Plan of care ongoing.
[2023-10-18] MEDS: 0.9 % Sodium Chloride 1,000 ML 999 ML IV (23:27)
[2023-10-18] MEDS: Ketorolac Tromethamine 15 MG/ML VIAL IVPUSH (23:27)
[2023-10-18 23:58] VITALS: BP 170/89; PULSE 65; RESP 18; TEMP 36.5; O2SAT 96
[2023-10-19] MEDS: Acetaminophen 325 MG TABLET 975 MG PO (00:44)
[2023-10-19] MEDS: 0.9 % Sodium Chloride 1,000 ML 999 ML IV (00:46)
--- NOTE | 2023-10-19 00:48 | PC.NURSE ---
Pt medicated per jan. Pt ca&ox4, no signs of distress. Pt ambulated to the restroom with a steady gait. Plan of care ongoing.
--- NOTE | 2023-10-19 01:27 | PC.NURSE ---
Pt ambulated to the restroom. Plan of care ongoing.
[2023-10-19] MEDS: cefTRIAXone sodium 1 GM in 0.9 % Sodium Chloride 50 ML IV (02:35)
[2023-10-19] MEDS: Tamsulosin HCL 0.4 MG CAPSULE PO (02:35)
--- NOTE | 2023-10-19 02:53 | PC.NURSE ---
Pt ca&ox4, no signs of distress. Pt moved from ED to hospital bed for comfort. Binder placed on pt. Pt tolerated well. Plan of care ongoing.
== END 2023-10-19 04:16 | disposition home or self-care (01) ==
PROVIDERS: Emergency Provider Emergency Medicine; PCP Internal Medicine
DX: N13.2 Hydronephrosis with renal and ureteral calculous obstruction (principal); E11.9 Type 2 diabetes mellitus without complications; I10 Essential (primary) hypertension; Z79.899 Other long term (current) drug therapy
CPT/HCPCS: 36415; 74176; 80053; 81001; 81025; 83690; 85025; 86140; 87086; 96361; 96365; 96375; 99284; J0696; J1885

== ENCOUNTER 2023-10-20 14:12 | Inpatient (IN) | payer OTHER, SELFPAY ==
--- NOTE | ~2023-10-20 | FL_ITS ---
EXAMINATION: XR FLUOROSCOPY WITH IMAGES CLINICAL INFORMATION: Cystoscopy COMPARISON: CT of the abdomen and pelvis October 18, 2023 TECHNIQUE: Fluoroscopy Supervised By: Dr. Kingsley. Fluoroscopy Time: 12.5 seconds. Cumulative Dose: 5.2 mGy. DAP: Gycm2. Images: 1. FINDINGS: Single image demonstrates opacification of the right renal collecting system. There is mild right hydronephrosis. There is a central right renal stone. There is a right internal ureteral stent with proximal pigtail projecting over the right renal pelvis. FL/FL guidance in OR IMPRESSION: Fluoroscopy guidance for right retrograde exam and stent placement.
--- NOTE | ~2023-10-20 | XR_ITS ---
EXAMINATION: XR ABDOMEN KUB CLINICAL INDICATION: Renal stone, extracorporal shockwave lithotripsy COMPARISON: None available. TECHNIQUE: AP view of the abdomen. FINDINGS: AP supine x-rays of the abdomen show nonspecific bowel gas pattern. No abnormal bowel dilatation is seen. Triangular-shaped calculus is seen in medial lower mid right kidney measuring 1.1 cm in vertical height, 0.9 cm in width. Right ureteric double pigtail stent is present. Surgical clips are seen in medial right upper abdomen.. XR/XR KUB IMPRESSION: 1. Medial right lower mid renal calculus is present. Right ureteric double pigtail stent is seen. 2. No diagnostic radiographic signs of intestinal obstruction on supine x-rays. 3. Status post cholecystectomy.
--- NOTE | 2023-10-20 14:27 | ED_ITS ---
HPI - General Adult General Chief complaint: Urogenital-Female Stated complaint: kidney stone pain Time Seen by Provider: 10/20/23 19:48 Source: patient Mode of arrival: ambulatory Limitations: no limitations History of Present Illness HPI narrative: Patient is a 53-year-old female past medical history of hypertension, diabetes, ureteral calculi presenting to emergency department for evaluation of worsening right flank pain. She states she was seen in the emergency department recently was diagnosed with a kidney stone and discharged home with ibuprofen and oxycodone without any improvement in her pain. She reports her pain to be worsening, having some dysuria, as well as nausea but without vomiting. She also endorses chills but no fever Related Data Previous Rx's Medication Instructions Recorded cyclobenzaprine 10 mg tablet 10 mg PO TID PRN muscle spasm #10 09/08/20 tabs ketorolac 10 mg tablet 10 mg PO Q8H PRN pain #10 tabs 09/08/20 lidocaine 5 % topical patch 1 patch topical DAILY #15 ea 09/08/20 (Lidoderm) dicyclomine 20 mg tablet 20 mg PO BID #10 tabs 02/13/21 sucralfate 1 gram tablet (Carafate) 1 g PO BID #20 tabs 02/13/21 acetic acid 2 % ear solution 3 drp otic (ear) right Q6H #15 mL 06/07/21 sucralfate 1 gram tablet 1 g PO BID #30 tabs 06/07/21 amoxicillin 875 mg-potassium 1 tab PO Q12H 10 days #20 tabs 03/24/22 clavulanate 125 mg tablet naproxen 500 mg tablet 500 mg PO BID PRN pain 10 days #20 03/24/22 tabs omeprazole 20 mg capsule,delayed 20 mg PO DAILY 30 days #30 caps 07/01/22 release oxycodone 5 mg tablet 5 mg PO Q4H PRN pain #14 tabs 07/01/22 azithromycin 250 mg tablet See Rx Instructions PO .COMPLEX #6 08/15/22 tabs prednisone 20 mg tablet 40 mg (2 x 20 mg) PO DAILY 5 days 08/15/22 #10 tabs cyclobenzaprine 10 mg tablet 10 mg PO TID #10 tabs 12/20/22 naproxen 500 mg tablet (Naprosyn) 500 mg PO BID #20 tabs 12/20/22 albuterol sulfate 2.5 mg/0.5 mL 5 mg inhalation QID PRN shortness 02/15/23 solution for nebulization of breath or wheezing #30 ea albuterol sulfate 90 mcg/actuation 2 puff inhalation Q4-6H PRN 02/15/23 aerosol inhaler shortness of breath or wheezing #8.5 grams benzonatate 200 mg capsule 200 mg PO BID PRN cough #14 caps 02/15/23 prednisone 20 mg tablet 60 mg (3 x 20 mg) PO DAILY 4 days 02/15/23 #12 tabs azithromycin 500 mg tablet 500 mg PO DAILY 7 days #7 tabs 02/22/23 (Zithromax) prednisone 20 mg tablet 20 mg PO BID #10 tabs 02/22/23 amoxicillin 875 mg tablet 875 mg PO BID 7 days #14 tabs 10/06/23 cefuroxime axetil 500 mg tablet 500 mg PO BID #14 tabs 10/19/23 ibuprofen 600 mg tablet 600 mg PO Q6H PRN pain #14 tabs 10/19/23 ondansetron 4 mg disintegrating 4 mg PO Q8H PRN nausea and 10/19/23 tablet vomiting #10 tabs oxycodone 5 mg capsule 5 mg PO Q6H PRN pain #10 caps 10/19/23 tamsulosin 0.4 mg capsule 0.4 mg PO BEDTIME #7 caps 10/19/23 Allergies Allergy/AdvReac Type Severity Reaction Status Date / Time propofol [PROPOFOL] Allergy Severe ANAPHYLACTIC Verified 10/20/23 14:27 REACTION, anaphylaxis succinylcholine [Anectine] Allergy Severe anaphylaxis Verified 10/20/23 14:27 morphine [MORPHINE] Allergy Intermediate ITCHINESS Verified 10/20/23 14:27 AND HIVES, anaphylaxis Anesthetics - Amide Type - Allergy Unknown UNKNOWN Verified 10/20/23 14:27 Select A [Anesthetics - Amide Type] Anesthetics - [facility] Type- Allergy Unknown UNKNOWN Verified 10/20/23 14:27 Parabens [Anesthetics - [facility] Type] From ANECTINE Allergy Severe ANAPHYLACTI Uncoded 12/20/22 05:51 C nuts Allergy Unknown Unknown Uncoded 12/20/22 05:51 SEAFOOD Allergy Unknown THROAT Uncoded 12/20/22 05:51 SWELLING Review of Systems 2 Review of Systems: Yes all other systems are reviewed and are negative PMFSH Past Medical History Attestation statement: The following information was validated with the patient. Source: old records reviewed Medical History Asthma Hypertension Diabetes Cholecystectomy planned Surgical History History of tubal ligation Social History Social History Alcohol 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 Patient Tobacco Use Status: Never used Tobacco Smoked in Last 30 Days: No Use of substances other than those prescribed or required for medical reasons: No Advance Directives: No Advance Directives Information Provided: No Patient : No Physical Exam ED Vital Signs: Vital Signs - 24 hr 10/20/23 14:28 10/20/23 19:37 10/20/23 22:10 Temperature 98.8 F 98.0 F 98.1 F Pulse Rate 86 68 68 Respiratory Rate 20 16 18 Blood Pressure 173/97 H 177/81 H 170/78 H Pulse Oximetry 98 96 97 Oxygen Delivery Method Room Air Room Air Room Air BMI result Body Mass Index 34.9 Appearance: Alert.?Oriented to person, place and time. No acute distress.?Normal affect. Eyes: Pupils equal, round and reactive to light.? ENT: Pharynx normal.?? Neck: Normal inspection.? Neck supple.?? CVS: Heart sounds normal. Normal heart rate and rhythm.? Pulses normal.?? Respiratory: No respiratory distress.? Lung sounds clear to auscultation bilaterally?? Abdomen: Soft with mid right abdominal tenderness palpation. Right CVA tenderness. Normoactive bowel sounds. Skin: Skin warm and dry.? Normal skin color.? Extremities: No lower extremity edema.? No calf ttp? Neuro: Moves all extremities spontaneously. Sensation intact bilaterally. CN II- XII intact. No focal neuro deficits. Ambulates with normal steady gait. Course Course Course Narrative: RME performed by Hailey Carcamo PA-C. Patient is a 53 year old assigned female at presenting to the emergency department with right sided flank pain. Patient has known right sided kidney stone, see note from 10/18/2023. Urologist was consulted, recommended trying outpatient management. Patient is back now as she cannot tolerate the pain. Labs ordered. Patient placed back in the waiting room pending room availability and results. Reevaluation(s) Reevaluation #1: Consulted with Urology on-call, Dr. Holder, who accepts patient for admission to his service for further management. Medications Administered Discontinued Medications Generic Name Dose Route Start Last Admin Trade Name [place] PRN Reason Stop Dose Admin Hydromorphone HCl 1 mg 10/20/23 20:23 10/20/23 20:52 Hydromorphone Hcl 1 Mg/Ml Syringe IVPUSH 10/20/23 20:24 Not Given ONCE ONE Protocol Sodium Chloride 1,000 mls @ 999 mls/hr 10/20/23 20:30 10/20/23 22:05 Ns IV 10/20/23 21:30 Infused .Q1H1M YASH Infusion Ketorolac Tromethamine 30 mg 10/20/23 21:01 10/20/23 21:08 Ketorolac Tromethamine 30 Mg/Ml Vial IVPUSH 10/20/23 21:02 30 mg ONCE ONE Administration Ondansetron HCl 4 mg 10/20/23 20:21 10/20/23 20:49 Ondansetron Hcl 4 Mg/2 Ml Vial IVPUSH 10/20/23 20:22 4 mg ONCE ONE Administration Medical Decision Making Medical Decision Making [facility] Narrative: Patient is a 53-year-old female past medical history of hypertension, diabetes, ureteral calculi presenting to emergency department for progressive renal colic and nausea. CT scan from 10/18/2023 reveals a moderate hydronephrosis with 1 cm calculus at the right UPJ. Urology was consulted on 10/18/23, ultimately she was discharged home with recommendation for outpatient follow-up. Will obtain CBC to evaluate for leukocytosis/ anemia, CMP and lipase to evaluate for abnormal electrolytes /abnormal renal function/ abnormal hepatic/biliary function, and Urinalysis. Differential Diagnosis Differential Diagnoses: The differential diagnosis associated with the presentation includes (Hydronephrosis, obstructive calculi, pyelonephritis, urinary tract infection) Admission/Observation Consideration of admission/observation: Escalation of care including admission/observation considered (See narrative above and course narrative for further detail) Consult Healthcare Provider Management of the patient was discussed with: Barge Hand (Urology; Sancho) Lab Data [facility] Lab Attestation statement: I reviewed the patient's lab results. No leukocytosis. No anemia. No KIA. 10/20/23 15:58 10/20/23 15:58 Labs: Lab Results 10/20/23 Range/Units 15:58 WBC 9.0 (4.8-10.8) X10*3/uL RBC 4.36 (4.20-5.50) X10*6/uL Hgb 12.1 (12.0-16.0) g/dl Hct 38.2 (37.0-47.0) % MCV 87.6 (80.0-98.0) fL MCH 27.8 (27.0-33.0) pg MCHC 31.7 (31.0-35.0) g/dl RDW 12.0 (11.0-16.0) % Plt Count 247 (160-400) X10*3/uL MPV 11.2 (9.4-12.3) fL Immature Gran % (Auto) 0.2 (0.0-0.4) % Neut % (Auto) 69.5 (45-73) % Lymph % (Auto) 20.5 (20-40) % [place] % (Auto) 7.0 (2-11) % Eos % (Auto) 2.2 (0-4) % Baso % (Auto) 0.6 (0-2) % Lymph # (Auto) 1.8 (1.2-4.9) X10*3/uL [place] # (Auto) 0.6 (0.1-1.2) X10*3/uL Eos # (Auto) 0.2 (0.0-0.4) X10*3/uL Baso # (Auto) 0.1 (0.0-0.2) X10*3/uL Abs Immat Gran (auto) 0.02 (0.00-0.03) X10*3/uL Absolute Neuts (auto) 6.3 (2.0-8.3) x10*3/uL Absolute Nucleated RBC 0.000 (0.0-0.012) X10*3/uL Nucleated RBC % (auto) 0.0 (0.0-0.2) /100WBC Sodium 140 (135-145) mmol/L Potassium 3.4 (3.3-5.1) mmol/L Chloride 106 (96-108) mmol/L Carbon Dioxide 26 (22-29) mmol/L Anion Gap 11 L (12-20) BUN 17 H (9-16) mg/dL Creatinine 1.13 (0.5-1.4) mg/dL Estim Creat Clear Calc 67.2 Estimated GFR 51 Random Glucose 115 (60-115) mg/dL Lactic Acid 0.9 (0.5-2.0) mmol/L Calcium 9.0 D (8.4-10.2) mg/dL Magnesium 2.0 (1.6-2.6) mg/dL Total Bilirubin 0.4 (0.0-1.0) mg/dL AST 28 (5-31) U/L ALT 41 H (0-31) U/L Alkaline Phosphatase 94 (39-117) U/L Total Protein 7.3 (6.5-8.0) g/dL Albumin 4.2 (3.5-5.0) g/dL Urine Color Straw Urine Appearance Clear Urine pH 6.0 (5.0-9.0) Ur Specific [place] 1.020 (1.005-1.025) Urine Protein Negative (Neg-Trace) mg/dL Urine Glucose (UA) Negative (Negative) mg/dL Urine Ketones Negative (Negative) mg/dL Urine Blood Small (1+) H (Negative) Urine Nitrite Negative (Negative) Ur Leukocyte Esterase Negative (Negative) Urine RBC 0-2 (0-2) /HPF Urine WBC 0-5 (0-5) /HPF Ur Squamous Epith Cells 0-2 (0-2) /HPF Urine Bacteria None Seen (None Seen) Hyaline Casts 0-2 (0-2) /LPF Independent Historian Clinical information obtained from an independent historian. History obtained from or confirmed by: Spouse (Present who confirms history) External Record Review External record reviewed: Prior outpatient radiology Discharge Plan Discharge Clinical Impression: Hydronephrosis with ureteral calculus Patient Disposition: Admitted As Inpatient Prescriptions: No Action ketorolac 10 mg tablet 10 mg PO Q8H PRN (Reason: pain) Qty: 10 0RF cyclobenzaprine 10 mg tablet 10 mg PO TID PRN (Reason: muscle spasm) Qty: 10 0RF lidocaine [Lidoderm] 5 % adhesive patch,medicated 1 patch topical DAILY Qty: 15 0RF Rx Instructions: leave on most painful area for up to 12 hrs sucralfate [Carafate] 1 gram tablet 1 g PO BID Qty: 20 0RF dicyclomine 20 mg tablet 20 mg PO BID Qty: 10 0RF acetic acid 2 % solution 3 drp otic (ear) right Q6H Qty: 15 0RF Rx Instructions: apply to (cotton) wick; replace wick every 24 hours sucralfate 1 gram tablet 1 g PO BID Qty: 30 0RF omeprazole 20 mg capsule,delayed release(DR/EC) 20 mg PO DAILY 30 Days Qty: 30 0RF oxycodone 5 mg tablet 5 mg PO Q4H PRN (Reason: pain) Qty: 14 0RF Rx Instructions: Patient may request partial fill; Partial Fill upon patient request. amoxicillin-pot clavulanate 875-125 mg tablet 1 tab PO Q12H 10 Days Qty: 20 0RF naproxen 500 mg tablet 500 mg PO BID PRN (Reason: pain) 10 Days Qty: 20 0RF azithromycin 250 mg tablet See Rx Instructions .ROUTE .COMPLEX Qty: 6 0RF Rx Instructions: For 250 mg dose pack: take 500 mg today (day 1), then 250 mg for 4 days (days 2-5) prednisone 20 mg tablet 40 mg PO DAILY 5 Days Qty: 10 0RF cyclobenzaprine 10 mg tablet 10 mg PO TID Qty: 10 0RF naproxen [Naprosyn] 500 mg tablet 500 mg PO BID Qty: 20 0RF amoxicillin 875 mg tablet 875 mg PO BID 7 Days Qty: 14 0RF prednisone 20 mg tablet 60 mg PO DAILY 4 Days Qty: 12 0RF benzonatate 200 mg capsule 200 mg PO BID PRN (Reason: cough) Qty: 14 0RF albuterol sulfate 2.5 mg/0.5 mL solution for nebulization 5 mg inhalation QID PRN (Reason: shortness of breath or wheezing) Qty: 30 0RF albuterol sulfate 90 mcg/actuation HFA aerosol inhaler 2 puff inhalation Q4-6H PRN (Reason: shortness of breath or wheezing) Qty: 8.5 0RF prednisone 20 mg tablet 20 mg PO BID Qty: 10 0RF azithromycin [Zithromax] 500 mg tablet 500 mg PO DAILY 7 Days Qty: 7 0RF oxycodone 5 mg capsule 5 mg PO Q6H PRN (Reason: pain) Qty: 10 0RF Rx Instructions: Partial Fill upon patient request. ondansetron 4 mg tablet,disintegrating 4 mg PO Q8H PRN (Reason: nausea and vomiting) Qty: 10 0RF ibuprofen 600 mg tablet 600 mg PO Q6H PRN (Reason: pain) Qty: 14 0RF cefuroxime axetil 500 mg tablet 500 mg PO BID Qty: 14 0RF tamsulosin 0.4 mg capsule 0.4 mg PO BEDTIME Qty: 7 0RF
[2023-10-20 14:28] VITALS: BP 173/97; PULSE 86; RESP 20; TEMP 37.1; O2SAT 98; BMI 34.9
[2023-10-20 16:07] LABS: MANUAL DIFF FLAG NO
[2023-10-20 16:10] LABS: Basophils Absolute Auto 0.1 X10*3/uL (0.0-0.2); Basophils Percent Auto 0.6 % (0-2); Eosinophils Absolute Auto 0.2 X10*3/uL (0.0-0.4); Eosinophils Percent Auto 2.2 % (0-4); Hematocrit 38.2 % (37.0-47.0); Hemoglobin 12.1 g/dl (12.0-16.0); Imm Gran Abs Auto 0.02 X10*3/uL (0.00-0.03); Imm Gran Pct Auto 0.2 % (0.0-0.4); Lymphocytes Absolute Auto 1.8 X10*3/uL (1.2-4.9); Lymphocytes Percent Auto 20.5 % (20-40); Mean Corpuscular HGB Conc 31.7 g/dl (31.0-35.0); Mean Corpuscular Hemoglobin 27.8 pg (27.0-33.0); Mean Corpuscular Volume 87.6 fL (80.0-98.0); Mean Platelet Volume 11.2 fL (9.4-12.3); Monocytes Absolute Auto 0.6 X10*3/uL (0.1-1.2); Neutrophils Absolute Auto 6.3 x10*3/uL (2.0-8.3); Neutrophils Percent Auto 69.5 % (45-73); Platelet Count 247 X10*3/uL (160-400); Red Blood Count 4.36 X10*6/uL (4.20-5.50)
[2023-10-20 16:15] LABS: Appearance Urine Clear; Color Urine Straw; Glucose Urine UA Negative (Negative); Leukocyte Esterase Urine Negative (Negative); Nitrite Urine Negative (Negative); UMIC TRIGGER UACC YES; Urine Blood Small (1+) (Negative); Urine Ketones Negative (Negative); Urine Protein Negative (Neg-Trace)
[2023-10-20 16:21] LABS: Lactic Acid 0.9 mmol/L (0.5-2.0)
[2023-10-20 16:22] LABS: Bacteria Urine None Seen (None Seen); Hyaline Casts Urine 0-2 /LPF (0-2); RBC Urine 0-2 /HPF (0-2); Squamous Epithelial Cell Urine 0-2 /HPF (0-2); WBC Urine 0-5 /HPF (0-5)
[2023-10-20 16:26] LABS: Alanine Aminotransferase 41 U/L (0-31); Albumin Level 4.2 g/dL (3.5-5.0); Alkaline Phosphatase 94 U/L (39-117); Anion Gap 11 (12-20); Aspartate Amino Transferase 28 U/L (5-31); Bilirubin Total 0.4 mg/dL (0.0-1.0); Blood Urea Nitrogen 17 mg/dL (9-16); Carbon Dioxide 26 mmol/L (22-29); Chloride 106 mmol/L (96-108); Creatinine Clr Calc Pharmacy 67.2; Estimated Glomerular Filt Rate 51; Glucose Random 115 mg/dL (60-115); Potassium 3.4 mmol/L (3.3-5.1); Sodium 140 mmol/L (135-145); Total Protein 7.3 g/dL (6.5-8.0)
[2023-10-20 19:37] VITALS: BP 177/81; PULSE 68; RESP 16; TEMP 36.7; O2SAT 96
[2023-10-20] MEDS: ondansetron HCL 4 MG/2 ML VIAL IVPUSH (20:49)
[2023-10-20] MEDS: 0.9 % Sodium Chloride 1,000 ML 999 ML IV (20:49)
--- NOTE | 2023-10-20 20:53 | PC.NURSE ---
IV access obtained, IV fluids hung and infusing without difficulty, medicated for nausea per MAR. Pt declined Dilaudid states she does not want to feel drowsy, provider notified.
[2023-10-20] MEDS: Ketorolac Tromethamine 30 MG/ML VIAL IVPUSH (21:08)
--- NOTE | 2023-10-20 21:47 | PC.NURSE ---
Pt reports some relief from previously administered Toradol, current pain scale 7/10. Resting on stretcher, IVF continue to infuse without difficulty, NAD. Awaiting MD reeval and updated plan of care.
[2023-10-20 22:10] VITALS: BP 170/78; PULSE 68; RESP 18; TEMP 36.7; O2SAT 97
--- NOTE | 2023-10-20 23:24 | PC.NURSE ---
Report given to Cristiane MI, pt exits my care at this time.
[2023-10-21] VITALS (14 sets, daily range): BP systolic 119–191; BP diastolic 59–93; PULSE 57–75; RESP 14–20; TEMP 36–37.4; O2SAT 94–100; BMI 35.3
--- NOTE | 2023-10-21 04:12 | PC.NURSE ---
Due to there being no response from MD Holder RN consulted with MD Bynum to request medication for pain and nausea and pt appears to be visibly uncomfortable at this time. New orders obtained
[2023-10-21] MEDS: ondansetron HCL 4 MG/2 ML VIAL IVPUSH ×2 (04:46→20:23)
[2023-10-21] MEDS: Ketorolac Tromethamine 15 MG/ML VIAL IVPUSH ×2 (04:46→18:57)
[2023-10-21] MEDS: 0.9 % Sodium Chloride 1,000 ML 100 ML IVCONT ×2 (04:47→22:15)
--- NOTE | 2023-10-21 06:24 | PM.HPGS ---
History of Present Illness History of Present Illness Date of Service: 10/21/23 Chief complaint: Renal Stone Narrative: Kay Gaona is a 53 year old female Primary complaint 10mm right UPJ stone Past medical history of hypertension, diabetes, ureteral calculi presenting to emergency department for evaluation of worsening right flank pain. She states she was seen in the emergency department recently was diagnosed with a kidney stone and discharged home with ibuprofen and oxycodone without any improvement in her pain. She reports her pain to be worsening, having some dysuria, as well as nausea but without vomiting. She also endorses chills but no fever or hematuria WBC 9, Cr 1.1, Ca 9,0 CT - Moderate right-sided hydronephrosis secondary to a 1 cm calculus in the right ureteropelvic junction measuring 1434 Hounsfield units. Mild surrounding stranding of the right renal pelvis and adjacent proximal right ureter. Normal noncontrast appearance of the left kidney. Suggest admission with stent placement and followup ESWL Review of Systems Constitutional: Constitutional: Reports as per HPI and Reports no additional constitutional complaints Cardiovascular: Cardiovascular: Reports as per HPI and Reports no additional cardiovascular complaints Respiratory: Respiratory: Reports as per HPI and Reports no additional respiratory complaints Gastrointestinal: Gastrointestinal: Reports as per HPI and Reports no additional gastrointestinal complaints Genitourinary: Genitourinary: Reports as per HPI Musculoskeletal: Musculoskeletal: Reports no additional musculoskeletal complaints and Reports as per HPI Neurologic: Reports system reviewed and no additional complaints, except as documented and Reports as per HPI PMF Past Medical History Medical History Asthma Hypertension Diabetes Cholecystectomy planned Surgical History Surgical History History of tubal ligation Social History Social History Alcohol 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 Patient Tobacco Use Status: Never used Tobacco Smoked in Last 30 Days: No Use of substances other than those prescribed or required for medical reasons: No Advance Directives: No Advance Directives Information Provided: No Patient : No Meds Allergies Allergy/AdvReac Type Severity Reaction Status Date / Time propofol [PROPOFOL] Allergy Severe ANAPHYLACTIC Verified 10/20/23 14:27 REACTION, anaphylaxis succinylcholine [Anectine] Allergy Severe anaphylaxis Verified 10/20/23 14:27 morphine [MORPHINE] Allergy Intermediate ITCHINESS Verified 10/20/23 14:27 AND HIVES, anaphylaxis Anesthetics - Amide Type - Allergy Unknown UNKNOWN Verified 10/20/23 14:27 Select A [Anesthetics - [facility] Type] Anesthetics - [facility] Type- Allergy Unknown UNKNOWN Verified 10/20/23 14:27 Parabens [Anesthetics - [facility] Type] From ANECTINE Allergy Severe ANAPHYLACTI Uncoded 12/20/22 05:51 C nuts Allergy Unknown Unknown Uncoded 12/20/22 05:51 SEAFOOD Allergy Unknown THROAT Uncoded 12/20/22 05:51 SWELLING Active Medications: Current Medications Acetaminophen (Acetaminophen 325 Mg Tablet) 650 mg PO Q6H [facility] Hydromorphone HCl (Hydromorphone Hcl 1 Mg/Ml Syringe) 0.5 mg IVPUSH Q4H PRN; Protocol PRN Reason: Pain, Severe (Pain Scale 7-10) Sodium Chloride (Ns) 1,000 mls @ 100 mls/hr IVCONT .Q10H [facility] Last Admin: 10/21/23 04:47 Dose: 100 mls/hr Sodium Chloride (Ns) 1,000 mls @ 100 mls/hr IVCONT .Q10H [facility] Ketorolac Tromethamine (Ketorolac Tromethamine 15 Mg/Ml Vial) 15 mg IVPUSH Q6H PRN PRN Reason: Pain, Moderate(Pain Scale 4-6) Ondansetron HCl (Ondansetron Hcl 4 Mg/2 Ml Vial) 4 mg IVPUSH Q8H PRN PRN Reason: Nausea and Vomiting Sodium Chloride (0.9 % Sodium Chloride Flush 3 Ml Syringe) 3 ml IVFLUSH QSHIFT [facility] Home Medications Medication Instructions Recorded Confirmed Last Taken Type atorvastatin 20 mg tablet 20 mg PO DAILY 10/21/23 10/21/23 Unknown History fluticasone fur. 200 mcg-umeclid 1 ea inhalation DAILY 10/21/23 10/21/23 Unknown History 62.5 mcg-vilant 25 mcg inhalat.powder (Trelegy Ellipta) lisinopril 5 mg tablet 5 mg PO DAILY 10/21/23 10/21/23 Unknown History metformin 500 mg tablet,extended 1,000 mg PO QAM 10/21/23 10/21/23 Unknown History release 24 hr Physical Exam Vital Signs: Vital Signs: Last Vital Signs Temp 97.6 F 10/21/23 03:47 Pulse 69 10/21/23 03:47 Resp 18 10/21/23 03:47 BP 167/82 H 10/21/23 03:47 Pulse Ox 97 10/21/23 03:47 O2 Del Method Room Air 10/21/23 03:47 BMI result Body Mass Index 34.9 Const: General: cooperative, healthy appearing, comfortable and no acute distress Orientation/consciousness: patient oriented x3 HEENT: Face and sinus: Yes normal facial exam Mouth: moist mucous membranes Neck: Neck: Yes normal visual inspection, Yes full ROM and Yes trachea midline Chest: Chest palpation & inspection: normal inspection of the chest Resp: Effort & Inspection: normal respiratory effort, able to speak in complete sentences and no respiratory distress GI: Inspection: Yes normal to inspection Back/Spine/Pelvis: Cervical Spine: normal cervical lordosis Thoracic/Lumbar Spine: thoracic and lumbar spine normal to inspection Skin: General skin exam: no rashes or lesions noted Neuro: General: patient oriented x3, tone normal and moves all extremities Extrem: General: Yes normal to inspection and Yes capillary refill normal Results Results Labs: Short CBC 10/20/23 Range/Units 15:58 WBC 9.0 (4.8-10.8) X10*3/uL Hgb 12.1 (12.0-16.0) g/dl Hct 38.2 (37.0-47.0) % Plt Count 247 (160-400) X10*3/uL BMP 10/20/23 15:58 Sodium 140 Potassium 3.4 Chloride 106 Carbon Dioxide 26 BUN 17 H Creatinine 1.13 Calcium 9.0 D Liver Function 10/20/23 Range/Units 15:58 Total Bilirubin 0.4 (0.0-1.0) mg/dL AST 28 (5-31) U/L ALT 41 H (0-31) U/L Alkaline Phosphatase 94 (39-117) U/L Albumin 4.2 (3.5-5.0) g/dL Urine 10/20/23 Range/Units 15:58 Urine Color Straw Urine Appearance Clear Urine pH 6.0 (5.0-9.0) Ur Specific [place] 1.020 (1.005-1.025) Urine Protein Negative (Neg-Trace) mg/dL Urine Glucose (UA) Negative (Negative) mg/dL Assessment and Plan (1) Hydronephrosis with ureteral calculus: Status: Acute Plan Risks, benefits and alternatives to therapy were discussed. These include but are not limited to infection, bleeding, damage to local organs and tissues, need for further interventions. Anesthetic risks regarding cardiac arrhythmia, blood clots, and potential mortality were discussed. The patient understands the typical recovery time and the outpatient nature of the procedure. After consideration of these risks the patient gives full informed consent and they wish to move ahead with the procedure. Cysto, right retror, right stent placement Quality Stroke Does the patient have a stroke diagnosis?: No VTE Prior VTE?: No VTE Risk Level:: Surgical - low VTE Device Contraindication: Treatment Not Indicated VTE Drug Contraindication: Treatment Not Indicated Procedures Date of Service Date of Service: 10/21/23
--- NOTE | 2023-10-21 08:39 | PC.NURSE ---
Dr. Holder at bedside to see pt
--- NOTE | 2023-10-21 09:56 | MHC.CM.PN ---
pt lives with family,pt has a salesperson flying squad and her own ride home hcp filed dc plan home w/[employer]person [employer]
--- NOTE | 2023-10-21 11:20 | PHA.MEDREC ---
Pharmacy Consult ? Medication Reconciliation Pharmacy has completed the medication reconciliation.spoke to pt to confirm home meds. she states not using montelukast even though it is on claim history. she started antibiotics, pain meds, and tamsulosin given with discharge on 10/19 but only took them for 1 day because of readmission to this facility.
[2023-10-21] MEDS: Acetaminophen 325 MG TABLET 650 MG PO (13:39)
[2023-10-21 15:18] LABS: Glucose, Whole Blood 122 mg/dL (60-115)
--- NOTE | 2023-10-21 17:21 | PC.NURSE ---
pt off unit to PACU at approx 1450 with OR staff
--- NOTE | 2023-10-21 17:38 | HO.ANESPROP2 ---
[facility] Active Problems Active Problems: All Active Problems (Updated 10/20/23 @ 22:53 by Ibeth Broussard CNP) Hydronephrosis with ureteral calculus (Acute) Diabetes (Acute) Past Medical History Medical History Asthma Hypertension Diabetes Cholecystectomy planned Functional capacity: independent ambulation Surgical History Surgical History History of tubal ligation Social History Social History Alcohol 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 Patient Tobacco Use Status: Never used Tobacco Smoked in Last 30 Days: No Use of substances other than those prescribed or required for medical reasons: No Are you DNR?: No Advance Directives: No Advance Directives Information Provided: No Recently lost weight without trying: No Nutrition Risks: No Nutritional Risk Patient : No service: No Meds Allergies Allergy/AdvReac Type Severity Reaction Status Date / Time propofol [PROPOFOL] Allergy Severe ANAPHYLACTIC Verified 10/20/23 14:27 REACTION, anaphylaxis succinylcholine [Anectine] Allergy Severe anaphylaxis Verified 10/20/23 14:27 morphine [MORPHINE] Allergy Intermediate ITCHINESS Verified 10/20/23 14:27 AND HIVES, anaphylaxis Anesthetics - Amide Type - Allergy Unknown UNKNOWN Verified 10/20/23 14:27 Select A [Anesthetics - Amide Type] Anesthetics - Mercy Type- Allergy Unknown UNKNOWN Verified 10/20/23 14:27 Parabens [Anesthetics - [facility]cy Type] From ANECTINE Allergy Severe ANAPHYLACTI Uncoded 12/20/22 05:51 C nuts Allergy Unknown Unknown Uncoded 12/20/22 05:51 SEAFOOD Allergy Unknown THROAT Uncoded 12/20/22 05:51 SWELLING Active Medications: Current Medications Acetaminophen (Acetaminophen 325 Mg Tablet) 650 mg PO Q6H YASH Last Admin: 10/21/23 13:39 Dose: 650 mg Hydromorphone HCl (Hydromorphone Hcl 1 Mg/Ml Syringe) 0.5 mg IVPUSH Q4H PRN; Protocol PRN Reason: Pain, Severe (Pain Scale 7-10) Sodium Chloride (Ns) 1,000 mls @ 100 mls/hr IVCONT .Q10H YASH Last Admin: 10/21/23 04:47 Dose: 100 mls/hr Sodium Chloride (Ns) 1,000 mls @ 100 mls/hr IVCONT .Q10H [facility] Last Admin: 10/21/23 08:25 Dose: Not Given Ketorolac Tromethamine (Ketorolac Tromethamine 15 Mg/Ml Vial) 15 mg IVPUSH Q6H PRN PRN Reason: Pain, Moderate(Pain Scale 4-6) Ondansetron HCl (Ondansetron Hcl 4 Mg/2 Ml Vial) 4 mg IVPUSH Q8H PRN PRN Reason: Nausea and Vomiting Sodium Chloride (0.9 % Sodium Chloride Flush 3 Ml Syringe) 3 ml IVFLUSH QSHIFT [facility] Last Admin: 10/21/23 08:24 Dose: Not Given Home Medications Medication Instructions Recorded Confirmed Last Taken Type albuterol sulfate 2.5 mg/3 mL 2.5 mg inhalation Q6H PRN wheezing 10/21/23 10/21/23 Unknown History (0.083 %) solution for nebulization albuterol sulfate 90 mcg/actuation 2 puff inhalation QID PRN wheezing 10/21/23 10/21/23 Unknown History aerosol inhaler atorvastatin 20 mg tablet 20 mg PO DAILY 10/21/23 10/21/23 10/19/23 History azelastine 137 mcg (0.1 %) nasal 2 spray intranasal BID PRN Allergy 10/21/23 10/21/23 Unknown History spray aerosol Symptoms cefuroxime axetil 500 mg tablet 500 mg PO BID 10/21/23 10/21/23 10/19/23 History fluticasone fur. 200 mcg-umeclid 1 ea inhalation DAILY 10/21/23 10/21/23 10/19/23 History 62.5 mcg-vilant 25 mcg inhalat.powder (Trelegy Ellipta) fluticasone propionate 50 2 spray intranasal DAILY PRN 10/21/23 10/21/23 Unknown History mcg/actuation nasal Congestion spray,suspension ibuprofen 600 mg tablet (IBU) 600 mg PO Q6H PRN Pain 10/21/23 10/21/23 Unknown History lisinopril 5 mg tablet 5 mg PO DAILY 10/21/23 10/21/23 10/19/23 History metformin 500 mg tablet,extended 1,000 mg PO DAILY@0800 10/21/23 10/21/23 10/19/23 History release 24 hr omeprazole 20 mg capsule,delayed 20 mg PO DAILY@0630 10/21/23 10/21/23 10/19/23 History release ondansetron 4 mg disintegrating 4 mg PO Q8H PRN Nausea And Vomiting 10/21/23 10/21/23 Unknown History tablet oxycodone 5 mg tablet 5 mg PO Q6H PRN Pain 10/21/23 10/21/23 Unknown History tamsulosin 0.4 mg capsule 0.4 mg PO BEDTIME 10/21/23 10/21/23 10/19/23 History Exam Height,Weight and Vital Signs: Height 5 ft 5 in Weight 96.162 kg Last Vital Signs Temp 98.8 F 10/21/23 15:13 Pulse 73 10/21/23 15:13 Resp 18 10/21/23 15:13 BP 170/86 H 10/21/23 15:13 Pulse Ox 95 10/21/23 15:13 O2 Del Method Room Air 10/21/23 15:13 Pertinent Lab Results Pertinent Lab Results: Laboratory Tests 10/20/23 10/21/23 15:58 15:14 WBC 9.0 RBC 4.36 Hgb 12.1 Hct 38.2 MCV 87.6 MCH 27.8 MCHC 31.7 RDW 12.0 Plt Count 247 MPV 11.2 Immature Gran % (Auto) 0.2 Neut % (Auto) 69.5 Lymph % (Auto) 20.5 Bartholomew % (Auto) 7.0 Eos % (Auto) 2.2 Baso % (Auto) 0.6 Lymph # (Auto) 1.8 Bartholomew # (Auto) 0.6 Eos # (Auto) 0.2 Baso # (Auto) 0.1 Abs Immat Gran (auto) 0.02 Absolute Neuts (auto) 6.3 Absolute Nucleated RBC 0.000 Nucleated RBC % (auto) 0.0 Sodium 140 Potassium 3.4 Chloride 106 Carbon Dioxide 26 Anion Gap 11 L BUN 17 H Creatinine 1.13 Estim Creat Clear Calc 67.2 Estimated GFR 51 POC Glucose 122 H Random Glucose 115 Lactic Acid 0.9 Calcium 9.0 D Magnesium 2.0 Total Bilirubin 0.4 AST 28 ALT 41 H Alkaline Phosphatase 94 Total Protein 7.3 Albumin 4.2 Urine Color Straw Urine Appearance Clear Urine pH 6.0 Ur Specific [place] 1.020 Urine Protein Negative Urine Glucose (UA) Negative Urine Ketones Negative Urine Blood Small (1+) H Urine Nitrite Negative Ur Leukocyte Esterase Negative Urine RBC 0-2 Urine WBC 0-5 Ur Squamous Epith Cells 0-2 Urine Bacteria None Seen Hyaline Casts 0-2 Airway Mallampati Class: II TM Dist: >3cm Neck ROM: Full Heart: RRR Lungs: CTA Assessment and Plan Assessment Anesthesia Assessment: Anesthesia Plan Discussed Final Anesthetic Review Final Preanesthetic Review: Meds/Allgs Chart Reviewed, Consent Obtained/Reviewed and Anes Risks/Benef Reviewed Patient Risk: Intermediate Procedure Risk: Low Anesthetic Plan Anesthetic Plan: GA Disposition: Standard PACU
--- NOTE | 2023-10-21 19:09 | PC.NURSE ---
1900 Medicated for 7/[address] pain [address] right flank[address] dr[address] crowe ok to medicated iv toradol for pain. patient reports improving pain after medication.
--- NOTE | 2023-10-21 19:10 | MHC.SHP ---
Pre-Procedural Eval Section A Date of Service: 10/21/23 The patient is an INPATIENT: Yes The History & Physical has been completed within 30 days and I have reviewed it.: Yes Section B Chief Complaint: Renal Stone Allergies: Allergies Allergy/AdvReac Type Severity Reaction Status Date / Time propofol [PROPOFOL] Allergy Severe ANAPHYLACTIC Verified 10/20/23 14:27 REACTION, anaphylaxis succinylcholine [Anectine] Allergy Severe anaphylaxis Verified 10/20/23 14:27 morphine [MORPHINE] Allergy Intermediate ITCHINESS Verified 10/20/23 14:27 AND HIVES, anaphylaxis Anesthetics - Amide Type - Allergy Unknown UNKNOWN Verified 10/20/23 14:27 Select A [Anesthetics - Amide Type] Anesthetics - Mercy Type- Allergy Unknown UNKNOWN Verified 10/20/23 14:27 Parabens [Anesthetics - [facility] Type] From ANECTINE Allergy Severe ANAPHYLACTI Uncoded 12/20/22 05:51 C nuts Allergy Unknown Unknown Uncoded 12/20/22 05:51 SEAFOOD Allergy Unknown THROAT Uncoded 12/20/22 05:51 SWELLING Plan Diagnosis/Plan: Unchanged I have reviewed the history and physical and performed a pertinent physical examination on my patient. No changes have occurred unless specified. Plan for Cystoscopy, right retrograde ureteral stent. Risks discussed included but not limited to, possible need to repeat procedure if stone is not completely fragmented, Irritative voiding symptoms, bladder spasms, urgency, blood in urine. Time Spent With Patient Time: Total time managing care of this patient today ____ minutes.
--- NOTE | 2023-10-21 20:14 | W.PM.OPN ---
Operative Note Operative Note Date of Service: 10/21/23 Narrative: PreOperative Diagnosis:?? Right UPJ stone, right hydronephrosis Post Operative Diagnosis:?? ?Right UPJ stone, right hydronephrosis Procedure: - cystoscopy, right retrograde - right stent insertion, size 7 Estonian by 24 cm Surgeon:?Dr Angle Kingsley Anesthesia:? General Procedure: After informed consent was verified the patient was brought to the operating placed on the OR table in supine position.? General Anesthesia was administered per protocol.? The patient was placed in lithotomy position, prepped and draped in the usual sterile fashion.? Safety pause time-out and side of surgery confirmed.? Antibiotics confirmed. Ancef 2 g IV. A 22 Estonian cystoscope was inserted transurethrally, The bladder was visualized.? Both ureteric orifices were in normal position. The? right ureteric orifice was cannulated? and a retrograde examination was performed, the stone was noted at the right UPJ, contrast was seen passing beyond the stone into the renal pelvis A hydrophilic guidewire was placed up to the level of the renal pelvis under fluoroscopy. A 7 fr by 24 cm ureteral stent was passed over the guide wire under fluoroscopic guidance. The guide wire was removed. The bladder was emptied.? The rigid cystoscope was removed. ? The patient tolerated the procedure well and was brought to the recovery room in stable condition. Complications: None Drains: Ureteral stent as dictated above
[2023-10-21 20:42] LABS: Glucose, Whole Blood 89 mg/dL (60-115)
[2023-10-21] MEDS: Albuterol/Iprat 2.5/0.5MG 3 ML AMPUL.NEB INHALE (21:04)
[2023-10-21] MEDS: Acetaminophen 1,000 MG/100 ML PIGGYBACK 400 MG IV (22:14)
[2023-10-22] VITALS (8 sets, daily range): BP systolic 137–182; BP diastolic 65–94; PULSE 60–72; RESP 16–20; TEMP 36–37.3; O2SAT 92–97
[2023-10-22] MEDS: Ketorolac Tromethamine 15 MG/ML VIAL IVPUSH (03:18)
[2023-10-22] MEDS: 0.9 % Sodium Chloride 1,000 ML 100 ML IVCONT (03:21)
[2023-10-22 07:48] LABS: Glucose, Whole Blood 110 mg/dL (60-115)
--- NOTE | 2023-10-22 08:51 | P.PNUR_ITS ---
Subjective Subjective Date of Service: 10/22/23 Interval history: stent last night pain resolved d/c today with ESWL in 2 weeks Physical Exam 2 Vital Signs: Vital Signs: Last Vital Signs Temp 96.8 F 10/22/23 07:38 Pulse 60 10/22/23 07:38 Resp 18 10/22/23 07:38 BP 137/67 10/22/23 07:38 Pulse Ox 95 10/22/23 07:38 O2 Del Method Room Air 10/22/23 07:38 O2 Flow Rate 2 10/21/23 21:08 BMI result Body Mass Index 35.3 Const: General: cooperative, healthy appearing, comfortable and no acute distress Orientation/consciousness: patient oriented x3 HEENT: Face and sinus: Yes normal facial exam Mouth: moist mucous membranes Neck: Neck: Yes normal visual inspection, Yes full ROM and Yes trachea midline Chest: Chest palpation & inspection: normal inspection of the chest Resp: Effort & Inspection: normal respiratory effort, able to speak in complete sentences and no respiratory distress GI: Inspection: Yes normal to inspection Back/Spine/Pelvis: Cervical Spine: normal cervical lordosis Thoracic/Lumbar Spine: thoracic and lumbar spine normal to inspection Skin: General skin exam: no rashes or lesions noted Neuro: General: patient oriented x3, tone normal and moves all extremities Extrem: General: Yes normal to inspection and Yes capillary refill normal Urology Results Labs 10/20/23 15:58 10/20/23 15:58 Labs: Laboratory Results - last 24 hr 10/21/23 10/21/23 10/22/23 15:14 20:24 07:43 POC Glucose 122 H 89 110 Progress Note: A&P Assessment and plan (1) Hydronephrosis with ureteral calculus: Status: Acute Assessment and Plan: stent placed Time Spent With Patient Time: Total time managing care of this patient today ____ minutes. Progress Note: Quality Stroke Does the patient have a stroke diagnosis?: No
--- NOTE | 2023-10-22 08:54 | PM.DS ---
DS: Providers Provider Date of Service: 10/22/23 Date of admission: 10/21/23 06:16 Primary care physician: Sarthak Silva III, MD DS: Diagnosis Discharge Diagnosis (1) Hydronephrosis with ureteral calculus: Status: Acute DS: Summary Hospital Course Hospital Course: Admit 24 hours with procedure Status at Discharge Functional status at discharge: independent ambulation Overall status at discharge: patient is back to baseline Time Attestation Discharge coordination time: Less than 30 minutes Quality: Safe Use of Opioids Does Pt have an Active Cancer Diagnosis on the Problem List?: No Quality: Stroke Does the patient have a stroke diagnosis?: No Physical Exam Vital Signs: Vital Signs: Last Vital Signs Temp 96.8 F 10/22/23 07:38 Pulse 60 10/22/23 07:38 Resp 18 10/22/23 07:38 BP 137/67 10/22/23 07:38 Pulse Ox 95 10/22/23 07:38 O2 Del Method Room Air 10/22/23 07:38 O2 Flow Rate 2 10/21/23 21:08 BMI result Body Mass Index 35.3 DS: Data Data Completed and Pending Labs on day of discharge: Laboratory Results - last 24 hr 10/21/23 10/21/23 10/22/23 15:14 20:24 07:43 POC Glucose 122 H 89 110 Preliminary micro results at discharge 10/20/23 15:58 Blood Culture - Preliminary Blood - Venous No growth after 24 hours. 10/20/23 15:58 Blood Culture - Preliminary Blood - Venous No growth after 24 hours. Discharge Plan Discharge Anticipated Discharge Date/Time: 10/22/23 16:30 Patient Disposition: Home, Self-Care Discharge Diagnosis: ureteric stone Referrals: Sarthak Silva III, MD [Primary Care Provider] - 1 Week Discharge Medications: Continued atorvastatin 20 mg tablet 20 mg PO DAILY lisinopril 5 mg tablet 5 mg PO DAILY metformin 500 mg tablet extended release 24 hr 1,000 mg PO DAILY@0800 Trelegy Ellipta 200-62.5-25 mcg blister with device 1 ea INHALATION DAILY omeprazole 20 mg capsule,delayed release(DR/EC) 20 mg PO DAILY@0630 albuterol sulfate 90 mcg/actuation HFA aerosol inhaler 2 puff INHALATION QID PRN (Reason: wheezing) albuterol sulfate 2.5 mg /3 mL (0.083 %) solution for nebulization 2.5 mg inhalation Q6H PRN (Reason: wheezing) azelastine 137 mcg (0.1 %) aerosol,spray 2 spray intranasal BID PRN (Reason: Allergy Symptoms) fluticasone propionate 50 mcg/actuation spray,suspension 2 spray intranasal DAILY PRN (Reason: Congestion) cefuroxime axetil 500 mg Tablet 500 mg PO BID oxycodone 5 mg Tablet 5 mg PO Q6H PRN (Reason: Pain) No Action tramadol 50 mg tablet 50 mg PO Q8H PRN (Reason: pain) Qty: 18 0RF ondansetron HCl 8 mg tablet 8 mg PO Q8H PRN (Reason: nausea and vomiting) 1 Days Qty: 20 0RF ketorolac 10 mg tablet 10 mg PO Q6H PRN (Reason: pain) 5 Days Qty: 20 0RF Rx Instructions: Patient received Toradol in the emergency room. ondansetron 4 mg tablet,disintegrating 4 mg PO Q8H PRN (Reason: nausea and vomiting) 4 Days Qty: 10 0RF oxybutynin chloride 5 mg tablet extended release 24hr 5 mg PO TID PRN (Reason: urinary urgency) Qty: 90 0RF hydromorphone [Dilaudid] 2 mg tablet 2 mg PO Q6-8H Qty: 8 0RF Rx Instructions: Partial Fill upon patient request. levofloxacin 500 mg tablet 500 mg PO DAILY 10 Days Qty: 10 0RF Discharge Orders: Discharge Order (Routine); Ordered 10/22/23 Ordered By: Varinder Holder Diet: Advance to usual diet Activity on Discharge: As tolerated Stand Alone Forms: Patient Portal Discharge page Activity Restrictions/Additional Instructions: Keep scheduled FU with Dr. Kingsley on 10/24/23 Care Plan Goals: stone Health Concerns: stone Plan of Treatment: stone Assessment: stone Patient Instructions: Ureteral Stent Placement (DC) Discharge Date/Time: 10/22/23 17:35
--- NOTE | 2023-10-22 09:56 | MHC.CM.PN ---
IMM 10/21/23 Patient is discharges to home today with resumption of [employer] services. Patient has arranged for her [employer] to provide transport home.
[2023-10-22 11:39] LABS: Glucose, Whole Blood 118 mg/dL (60-115)
--- NOTE | 2023-10-22 13:26 | W.PM.OPN ---
Operative Note Operative Note Date of Service: 10/22/23 Narrative: PreOperative Diagnosis:? ? Right Renal stone s/p stent Post Operative Diagnosis:? Right Renal stone s/p stent Procedure:?Right? ESWL Surgeon:?Dr Angle Kingsley Anesthesia:? General Indications for procedure: The patient understands there is a risk of bruising or hematoma to the kidney, infection, and stone migration following the procedure and subsequent intervention may be required.? - Imaging 12x 9 mm stone right mid pole kidney Procedure: After informed consent was verified the patient was brought to the operating room and placed in a supine position.? Anesthesia was performed per protocol. Safety pause time-out was performed. Imaging was displayed in the room and laterality confirmed. ESWL was performed.?The stone was visualized on both fluoroscopy and ultrasound.? Shockwave lithotripsy was performed, the first 300 shocks at 120 hertz.? A pause for 3 minutes.? A total of 2500 shocks to a maximum of power of 20 with a maximum rate of 120 hertz.? Good fragmentation of the stone was appreciated. The patient tolerated the procedure well and was transferred to the recovery area upon completion. Complications: None
--- NOTE | 2023-10-22 13:30 | HO.POSTANES ---
Post Anesthesia Evaluation Post Anesthesia Evaluation Date of Service: 10/22/23 Vital Signs: Vital Signs Temp Pulse Resp BP Pulse Ox O2 Del Method 10/22/23 13:25 65 16 150/74 H 96 Room Air 10/22/23 13:20 62 16 156/76 H 96 Room Air 10/22/23 13:15 99.2 F 72 16 155/89 H 95 Room Air 10/22/23 11:45 98.2 F 72 16 182/94 H 96 Room Air 10/22/23 07:38 96.8 F 60 18 137/67 95 Room Air Anesthesia: General LMA Mental Status: Awake Pain Control: Satisfactory Nausea/Vomiting: None Hydration: Adequate Anesthesia-Related Issues: No Anes. Related Issues
[2023-10-22] MEDS: Acetaminophen 325 MG TABLET 650 MG PO (14:14)
[2023-10-22] MEDS: HYDROmorphone HCl 1 MG/ML SYRINGE 0.5 MG IVPUSH (14:15)
[2023-10-22 16:25] LABS: Glucose, Whole Blood 242 mg/dL (60-115)
--- NOTE | 2023-10-22 16:41 | PC.NURSE ---
BP elevated 177/80 pulse 67,medicated for abdominal pain with morphine ,ERI Krishnan made aware
--- NOTE | 2023-10-22 17:41 | PC.NURSE ---
Patient discharged by SHMUEL Vargas
== END 2023-10-22 17:35 | disposition home or self-care (01) | DRG 661 ==
LOC: HO.ED 10-21 05:57 → HO.EDOVER 10-21 06:26 → HO.S3 10-21 19:24
PROVIDERS: Physician Assistant Medical; Urology; Admitting Provider Urology; Emergency Provider Student in an Organized Health Care Education/Training Program; PCP Internal Medicine; Visit Provider Urology
PROC: 0T768DZ Dilation of Right Ureter with Intraluminal Device, Via Natural or Artificial Opening Endoscopic (ICD-10-PCS; principal; 2023-10-21 15:50)
PROC: 0TF68ZZ Fragmentation in Right Ureter, Via Natural or Artificial Opening Endoscopic (ICD-10-PCS; CPT 50590; principal; 2023-10-22 12:10)
DX: N13.2 Hydronephrosis with renal and ureteral calculous obstruction (principal); E11.9 Type 2 diabetes mellitus without complications; Z79.84 Long term (current) use of oral hypoglycemic drugs; Z79.899 Other long term (current) drug therapy
CPT/HCPCS: 36415; 74018; 80053; 81001; 82947; 83605; 83735; 85025; 87040; 99285; C2617; J0131; J0690; J1100; J1170; J1885; J1940; J2250; J2405; J2704; Q9967

== ENCOUNTER → 2023-10-21 06:16 | Outpatient (BNV) | payer OTHER, SELFPAY | PROVIDERS: Admitting Provider Urology; Emergency Provider Student in an Organized Health Care Education/Training Program; PCP Internal Medicine; Visit Provider Urology | DX: N13.2 Hydronephrosis with renal and ureteral calculous obstruction (principal) | CPT/HCPCS: 52332; 74420; 99024; 99223; 99238 ==

== ENCOUNTER 2023-10-24 08:15 | Outpatient (AMB) | payer OTHER, SELFPAY ==
--- NOTE | 2023-10-24 08:15 | A.OFFVIS_ITS ---
Intake Intake Visit Reasons: UPJ stone Intake Note: NEW Patient presents today to established treatment for Hydronephrosis with ureteral calculus, patient had surgery (ESWL) on 10/22/2023: Meds- Tamsulosin Allergies to Antibiotic- No Known Allergies Blood Thinner- None Netsuite Developer Required: No Accompanied by: Self / Same As Patient Allergies propofol [PROPOFOL] Allergy (Severe, Verified 10/24/23 08:23) ANAPHYLACTIC REACTION, anaphylaxis succinylcholine [Anectine] Allergy (Severe, Verified 10/24/23 08:23) anaphylaxis morphine [MORPHINE] Allergy (Intermediate, Verified 10/24/23 08:23) ITCHINESS AND HIVES, anaphylaxis Anesthetics - Amide Type - Select A [Anesthetics - Amide Type] Allergy (Unknown, Verified 10/24/23 08:23) UNKNOWN Anesthetics - [facility] Type- Parabens [Anesthetics - [facility] Type] Allergy (Unknown, Verified 10/24/23 08:23) UNKNOWN From ANECTINE Allergy (Severe, Uncoded 10/24/23 08:23) ANAPHYLACTIC nuts Allergy (Unknown, Uncoded 10/24/23 08:23) Unknown SEAFOOD Allergy (Unknown, Uncoded 10/24/23 08:23) THROAT SWELLING Medication List - Last Reconciled 10/24/23 by Angle Kingsley MD albuterol sulfate 2.5 mg inhalation Q6H PRN albuterol sulfate 90 mcg/actuation 2 puffs inhalation QID PRN atorvastatin 20 mg PO DAILY azelastine 2 sprays intranasal BID PRN cefuroxime axetil 500 mg PO BID fluticasone propionate 50 mcg/actuation 2 sprays intranasal DAILY PRN [id number] 200-62.5-25 mcg (Trelegy Ellipta) 1 ea inhalation DAILY hydromorphone (Dilaudid) 2 mg PO Q6-8H ibuprofen (IBU) 600 mg PO Q6H PRN lisinopril 5 mg PO DAILY metformin ER 1,000 mg PO DAILY@0800 omeprazole 20 mg PO DAILY@0630 ondansetron 4 mg PO Q8H PRN oxybutynin chloride ER 5 mg PO TID PRN oxycodone 5 mg PO Q6H PRN tramadol 50 mg PO Q8H PRN HPI HPI Comments History of Present Illness Details Kay is a 53-year-old female who presents today to the office for a follow-up. 10/24/2023? She is followed today for hydronephrosis with ureteral calculus. She is a status post right ureteral stent done on 10/21/2023 for obstructive 1 cm UPJ stone. She underwent ESWL of the right kidney on 10/22/2023. Reviewed imagings, CTKUB films, and KUB films with the patient, she c/o's of urinary frequency q 15 minutues 10/24/2023: Evaluation today?UA?Leukocyte s: 2+; protein: 3+; blood: 3+. 10/24/2023: Plan: Ordered Oxybutynin 5 m g TID for bladder spasms. Advised the patient to complete the Ceftin antibiotic course. Advised the patient to discontinue Flomax. Ordered Dilaudid no 8 tabs to use prn pain 7-10 and instructed the patient to use extra strength tylenol every 8 hours prn. Follow-up in 3 weeks KUB X-ray 2 days prior. 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 Patient Tobacco Use Status: Never used Tobacco service: No Review of Systems Const All systems reviewed & are unremarkable except as noted in HPI and below Reports no additional complaints Eyes Reports no additional complaints ENT Reports no additional complaints Card Denies dyspnea Resp Denies cough and Denies dyspnea GI Reports no additional complaints Reports no additional complaints Musc Reports no additional complaints Skin/Breast Denies rash and Denies unusual bruising Neuro Reports no additional complaints Psych Reports no additional complaints Endo Reports no additional complaints Ant/Lymph Reports no additional complaints Aller/Immun Reports no additional complaints Results AMB Urinalysis, Automated UA Leukoctes 125 [place]/uL Last Edit by MICHELLE Barry on 10/24/23 08:36 2+ Jaycee Kc 10/24/23 08:36 UA Nitrite Negative Last Edit by MICHELLE Barry on 10/24/23 08:36 UA Urobilinogen 0.2 mg/dL Last Edit by Jaycee Kc [facility] on 10/24/23 08:3 6 UA Protein 300 mg/dL Last Edit by Jaycee Kc Katelynn on 10/24/23 08:36 3+ Jaycee Kc 10/24/23 08:36 UA pH 6.0 Last Edit by MICHELLE Barry on 10/24/23 08:36 UA Blood 200 [place]/uL Last Edit by Jaycee Kc Katelynn on 10/24/23 08:36 3+ Jaycee Kc 10/24/23 08:36 UA Specific [place] 1.020 Last Edit by MICHELLE Barry on 10/24/23 08: 36 UA Ketone Negative Last Edit by MICHELLE Barry on 10/24/23 08:36 UA Bilirubin 0 mg/dL Last Edit by MICHELLE Barry on 10/24/23 08:36 UA Glucose 0 mg/dL Last Edit by Jaycee Kc Katelynn on 10/24/23 08:36 Results Reviewed Results Reviewed: Laboratory Last Values Urine pH (Auto) 6.0 10/24/23 08:34 Specific [place] (Auto) 1.020 10/24/23 08:34 Urine Protein (Auto) 300 mg/dL 10/24/23 08:34 Glucose (UA)(Auto) 0 mg/dL 10/24/23 08:34 Urine Ketones (Auto) Negative 10/24/23 08:34 Urine Blood (Auto) 200 [place]/uL 10/24/23 08:34 Urine Nitrite (Auto) Negative 10/24/23 08:34 Urine Bilirubin (Auto) 0 mg/dL 10/24/23 08:34 Urine Urobilinogen (Auto) 0.2 mg/dL 10/24/23 08:34 Leukocyte Esterase (Auto) 125 [place]/uL 10/24/23 08:34 Date of Service: 10/22/23 EXAMINATION: XR ABDOMEN KUB CLINICAL INDICATION: Renal stone, extracorporal shockwave lithotripsy COMPARISON: None available. FINDINGS: AP supine x-rays of the abdomen show nonspecific bowel gas pattern. No abnormal bowel dilatation is seen. Triangular-shaped calculus is seen in medial lower mid right kidney measuring 1.1 cm in vertical height, 0.9 cm in width. Right ureteric double pigtail stent is present. Surgical clips are seen in medial right upper abdomen.. IMPRESSION: 1. Medial right lower mid renal calculus is present. Right ureteric double pigtail stent is seen. 2. No diagnostic radiographic signs of intestinal obstruction on supine x-rays. 3. Status post cholecystectomy. Assessment & Plan Assessment & Plan (1) Hydronephrosis with ureteral calculus: Code(s): N13.2 - Hydronephrosis with renal and ureteral calculous obstruction (2) Urinary frequency: Code(s): R35.0 - Frequency of micturition (3) Ureteral stent present: Code(s): Z96.0 - Presence of urogenital implants Plan Ordered Oxybutynin 5 mg TID for bladder spasms. Advised the patient to complete the Ceftin antibiotic course. Advised the patient to discontinue Flomax. Ordered Dilaudid no 8 tabs to use prn pain 7-10 and instructed the patient to use extra strength tylenol every 8 hours prn. Follow-up in 3 weeks KUB X-ray 2 days prior. Orders: Orders AMB Urinalysis Automated Today Z13.9 - Encounter for screening, unspecified Medications: New oxybutynin chloride ER 5 mg PO TID PRN 90 tabs 0RF urinary urgency hydromorphone (Dilaudid) Partial Fill upon patient request. 2 mg PO Q6-8H 8 tabs 0RF pain Patient Instructions: The patient had an opportunity to ask questions regarding treatment plan. All questions were answered. Imaging, Laboratory studies and physical exam results were discussed and reviewed in detail. No major barriers to understanding were identified. The patient expressed understanding and agreement with the above treatment plan. The patient is aware they should contact our office by phone for worsening of their current condition or the appearance of new symptoms. Compliance is encouraged with any medications and followup testing that is ordered. It is a privilege to be allowed the opportunity to participate in the urologic care of your patient. If you have any questions or concerns regarding treatment for the above conditions please do not hesitate to contact me. The office telephone contact is [phone]. This note is constructed in part using voice recognition software. While every effort has been made to ensure accuracy e commerce web developer errors may have been included. Yours sincerely, Angle Kingsley MD Coding Level of Care Code Est Pt Level 4 (67177) Diagnoses Hydronephrosis with ureteral calculus N13.2 Urinary frequency R35.0 Ureteral stent present Z96.0
== END 2023-10-24 09:09 | disposition home or self-care (01) ==
PROVIDERS: PCP Internal Medicine; Visit Provider Urology
DX: N13.2 Hydronephrosis with renal and ureteral calculous obstruction (principal); R35.0 Frequency of micturition; Z96.0 Presence of urogenital implants; Z13.9 Encounter for screening, unspecified
CPT/HCPCS: 99214

== ENCOUNTER → 2023-10-24 08:15 | Outpatient (BNVA) | payer OTHER, SELFPAY | PROVIDERS: PCP Internal Medicine; Visit Provider Urology | DX: N13.2 Hydronephrosis with renal and ureteral calculous obstruction (principal); R35.0 Frequency of micturition; Z96.0 Presence of urogenital implants | CPT/HCPCS: 81003; 99212 ==

== ENCOUNTER 2023-11-02 14:45 | Emergency (ER) | payer OTHER, SELFPAY ==
--- NOTE | ~2023-11-02 | CT_ITS ---
EXAMINATION: CT ABDOMEN AND PELVIS WITH CONTRAST CLINICAL INFORMATION: Infection around renal stent. Kidney stones. Abscess. COMPARISON: CT abdomen and pelvis from 10/18/2023. TECHNIQUE: Multidetector volumetric imaging was performed through the abdomen and pelvis after the administration of 85 mL of Omnipaque 350 intravenous contrast. Sagittal and coronal reformatted images were obtained on the technologist's workstation. This CT examination was performed using dose optimization techniques as appropriate, variously including the following: *Automated exposure control. *Adjustment of mA and/or kV according to patient size (this includes techniques or standardized protocols for targeted exams where dose is matched to indication/reason for exam; i.e. extremities or head). *Use of iterative reconstruction technique. DLP: 801 mGy-cm. FINDINGS: Lower Chest: Mild bilateral dependent atelectasis. Otherwise, no diffuse or focal parenchymal abnormalities in the visualized lung bases. No demonstrated abnormalities of the visualized cardiac structures. Liver, Biliary Ducts, and Gallbladder: The liver is normal in size. Diffuse hypoattenuation of the liver parenchyma (45 Hounsfield units). No demonstrated focal hepatic lesions or biliary ductal dilatation. Changes of prior cholecystectomy. Pancreas: The pancreas is normal in appearance. Adrenal Glands: The adrenal glands are normal in appearance. Spleen: The spleen is normal in appearance. Kidneys and Ureters: The kidneys demonstrate symmetric nephrograms. There is an irregular 1 cm stone in the lower pole of the right kidney. Right-sided double-J ureteral stent in place. Mild to moderate right-sided hydronephrosis. Mild wall thickening of the right ureter with moderate surrounding fat stranding. No demonstrated discrete extraluminal fluid collection. No demonstrated ureteral lithiasis. No left-sided hydroureter. Urinary Bladder: The urinary bladder is partially distended without focal wall thickening. No bladder calculi are demonstrated. Gastrointestinal System: The stomach is decompressed and therefore not well evaluated on this exam. The small bowel is of normal caliber without regions of abnormal wall enhancement. Mild sigmoid diverticulosis without evidence of diverticulitis. Otherwise, the colon is normal in appearance without focal wall thickening or pericolonic inflammatory change. Normal appendix. Genitourinary: No demonstrated adnexal soft tissue masses. Intra-abdominal and Retroperitoneal Spaces: No intra-abdominal free fluid collections or gas. No mesenteric, retroperitoneal, or inguinal lymphadenopathy. Vasculature: The abdominal aorta is of normal contour and caliber. Musculoskeletal: Mild to moderate multilevel degenerative changes of the spine. Mild degenerative stepwise retrolistheses of L2-L5. Disc spacer in place at L5-S1. No suspicious lytic or sclerotic osseous lesions demonstrated. No soft tissue masses demonstrated. CT/CT abdomen pelvis w IV con IMPRESSION: 1. Right-sided double-J ureteral stent in place. Mild to moderate right-sided hydronephrosis. Mild wall thickening of the right ureter with moderate surrounding fat stranding. No demonstrated discrete extraluminal fluid collection. 2. There is a 1 cm stone in the lower pole of the right kidney. 3. Hepatic steatosis. 4. Diverticulosis without evidence of diverticulitis.
[2023-11-02 15:03] VITALS: BP 180/91; PULSE 84; RESP 18; TEMP 36.6; O2SAT 98; BMI 35.9
[2023-11-02 15:26] LABS: MANUAL DIFF FLAG NO
[2023-11-02 15:29] LABS: Basophils Absolute Auto 0.1 X10*3/uL (0.0-0.2); Basophils Percent Auto 0.9 % (0-2); Eosinophils Absolute Auto 0.3 X10*3/uL (0.0-0.4); Eosinophils Percent Auto 4.5 % (0-4); Hematocrit 39.6 % (37.0-47.0); Hemoglobin 12.9 g/dl (12.0-16.0); Imm Gran Abs Auto 0.01 X10*3/uL (0.00-0.03); Imm Gran Pct Auto 0.1 % (0.0-0.4); Lymphocytes Absolute Auto 2.3 X10*3/uL (1.2-4.9); Lymphocytes Percent Auto 29.6 % (20-40); Mean Corpuscular HGB Conc 32.6 g/dl (31.0-35.0); Mean Corpuscular Hemoglobin 28.2 pg (27.0-33.0); Mean Corpuscular Volume 86.5 fL (80.0-98.0); Mean Platelet Volume 11.2 fL (9.4-12.3); Monocytes Absolute Auto 0.5 X10*3/uL (0.1-1.2); Monocytes Percent Auto 6.5 % (2-11); Neutrophils Absolute Auto 4.4 x10*3/uL (2.0-8.3); Neutrophils Percent Auto 58.4 % (45-73); Platelet Count 326 X10*3/uL (160-400); Red Blood Count 4.58 X10*6/uL (4.20-5.50); Red Cell Distribution Width 11.9 % (11.0-16.0); White Blood Count 7.6 X10*3/uL (4.8-10.8)
[2023-11-02 15:31] LABS: Appearance Urine Cloudy; Color Urine Yellow; Glucose Urine UA Negative (Negative); Leukocyte Esterase Urine Trace (Negative); Nitrite Urine Negative (Negative); UMIC TRIGGER UACC YES; Urine Blood Large (3+) (Negative); Urine Ketones Negative (Negative); Urine Protein 300 (3+) mg/dL (Neg-Trace)
[2023-11-02 15:37] LABS: Bacteria Urine None Seen (None Seen); Hyaline Casts Urine 0-2 /LPF (0-2); RBC Urine >20 /HPF (0-2); UACC Culture Trigger YES
[2023-11-02 15:44] LABS: Anion Gap 14 (12-20); Blood Urea Nitrogen 16 mg/dL (9-16); Calcium 9.2 mg/dL (8.4-10.2); Carbon Dioxide 25 mmol/L (22-29); Chloride 105 mmol/L (96-108); Creatinine Clr Calc Pharmacy 82.9; Estimated Glomerular Filt Rate > 60; Glucose Random 154 mg/dL (60-115); Potassium 3.9 mmol/L (3.3-5.1); Sodium 140 mmol/L (135-145)
[2023-11-02 15:52] VITALS: BP 173/102; PULSE 90; O2SAT 99
--- NOTE | 2023-11-02 16:00 | PC.NURSE ---
Pt states she had ureter stents placed last week. Pt states 2 days ago I have been feeling awful, I feel electrical pain in my pelvis and it moves all around. It moves through my abdomen to by back. It hurts to walk. I am constantly peeing . Pt states she tok 875 mg Amoxicillin this morning.
--- NOTE | 2023-11-02 16:09 | PC.NURSE ---
Pt has hx of HTN; takes daily HTN medication, however, did not take them today.
[2023-11-02 16:10] VITALS: BP 157/81
[2023-11-02] MEDS: Ketorolac Tromethamine 30 MG/ML VIAL IVPUSH (17:47)
[2023-11-02] MEDS: HYDROmorphone HCl 1 MG/ML SYRINGE IVPUSH (17:47)
[2023-11-02 18:14] VITALS: BP 154/75; PULSE 68; RESP 18; O2SAT 97
[2023-11-02] MEDS: cefTRIAXone sodium 1 GM in 0.9 % Sodium Chloride 50 ML IV (18:14)
[2023-11-02 18:27] LABS: Lactic Acid 1.3 mmol/L (0.5-2.0)
[2023-11-02] MEDS: iohexoL 350 MG/ML 100 ML INFUS..BTL IV (18:36)
--- NOTE | 2023-11-02 19:15 | PC.NURSE ---
this rn assumed care of pt. pt resting in stretcher at this time, pt reports pain has got better but still reports pressure in the lower abdomen.
--- NOTE | 2023-11-02 19:28 | ED.FEMALEGU ---
HPI - Female Genitourinary General Chief complaint: Urogenital-Female Stated complaint: Pain from stent 10/22 kidney stone Time Seen by Provider: 11/02/23 17:29 Source: patient Mode of arrival: ambulatory Limitations: no limitations History of Present Illness HPI Narrative: 53-year-old female history of kidney stone and diabetes with recent stent placement presents to the ED for right flank pain since last night. Patient denies any fever but states having chills. Patient has stent placed on the 22 of October. Patient denies any recent trauma Related Data Home Medications Medication Instructions Recorded Confirmed albuterol sulfate 2.5 mg/3 mL 2.5 mg inhalation Q6H PRN wheezing 10/21/23 10/24/23 (0.083 %) solution for nebulization albuterol sulfate 90 mcg/actuation 2 puff inhalation QID PRN wheezing 10/21/23 10/24/23 aerosol inhaler atorvastatin 20 mg tablet 20 mg PO DAILY 10/21/23 10/24/23 azelastine 137 mcg (0.1 %) nasal 2 spray intranasal BID PRN Allergy 10/21/23 10/24/23 spray aerosol Symptoms cefuroxime axetil 500 mg tablet 500 mg PO BID 10/21/23 10/24/23 fluticasone fur. 200 mcg-umeclid 1 ea inhalation DAILY 10/21/23 10/24/23 62.5 mcg-vilant 25 mcg inhalat.powder (Trelegy Ellipta) fluticasone propionate 50 2 spray intranasal DAILY PRN 10/21/23 10/24/23 mcg/actuation nasal Congestion spray,suspension ibuprofen 600 mg tablet (IBU) 600 mg PO Q6H PRN Pain 10/21/23 10/24/23 lisinopril 5 mg tablet 5 mg PO DAILY 10/21/23 10/24/23 metformin 500 mg tablet,extended 1,000 mg PO DAILY@0800 10/21/23 10/24/23 release 24 hr omeprazole 20 mg capsule,delayed 20 mg PO DAILY@0630 10/21/23 10/24/23 release ondansetron 4 mg disintegrating 4 mg PO Q8H PRN Nausea And Vomiting 10/21/23 10/24/23 tablet oxycodone 5 mg tablet 5 mg PO Q6H PRN Pain 10/21/23 10/24/23 Previous Rx's Medication Instructions Recorded hydromorphone 2 mg tablet 2 mg PO Q6-8H pain #8 tabs 10/24/23 (Dilaudid) oxybutynin chloride 5 mg 5 mg PO TID PRN urinary urgency 10/24/23 tablet,extended release 24 hr #90 tabs cefuroxime axetil 250 mg tablet 250 mg PO Q12H 7 days #14 tabs 11/02/23 ketorolac 10 mg tablet 10 mg PO Q6H PRN pain 5 days #20 11/02/23 tabs tramadol 50 mg tablet 50 mg PO Q8H PRN pain 3 days #9 11/03/23 tabs Allergies Allergy/AdvReac Type Severity Reaction Status Date / Time propofol [PROPOFOL] Allergy Severe ANAPHYLACTIC Verified 10/24/23 08:23 REACTION, anaphylaxis succinylcholine [Anectine] Allergy Severe anaphylaxis Verified 10/24/23 08:23 morphine [MORPHINE] Allergy Intermediate ITCHINESS Verified 10/24/23 08:23 AND HIVES, anaphylaxis Anesthetics - Amide Type - Allergy Unknown UNKNOWN Verified 10/24/23 08:23 Select A [Anesthetics - Amide Type] Anesthetics - [facility] Type- Allergy Unknown UNKNOWN Verified 10/24/23 08:23 Parabens [Anesthetics - [facility] Type] From ANECTINE Allergy Severe ANAPHYLACTI Uncoded 10/24/23 08:23 C nuts Allergy Unknown Unknown Uncoded 10/24/23 08:23 SEAFOOD Allergy Unknown THROAT Uncoded 10/24/23 08:23 SWELLING Review of Systems Review of Systems: Right flank pain Yes all other systems are reviewed and are negative PMFSH Past Medical History Medical History Asthma Hypertension Diabetes Cholecystectomy planned Surgical History Hx of lithotripsy History of tubal ligation Social History Social History Household Members: Family Housing: House 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 Patient Tobacco Use Status: Never used Tobacco Smoked in Last 30 Days: No Use of substances other than those prescribed or required for medical reasons: No Advance Directives: No Advance Directives Information Provided: No Patient : No service: No Physical Exam Vital Signs: Vital Signs: Last Vital Signs Temp 97.7 F 11/02/23 20:25 Pulse 68 11/02/23 20:25 Resp 15 11/02/23 20:25 BP 107/65 11/02/23 20:25 Pulse Ox 98 11/02/23 20:25 O2 Del Method Room Air 11/02/23 20:25 BMI result Body Mass Index 35.9 Const: General: cooperative, healthy appearing, comfortable, no acute distress, well developed, alert and awake Orientation/consciousness: oriented to person, oriented to place, oriented to time and patient oriented x3 HEENT: Head: Yes normal to inspection, Yes No palpable skull fracture present, Yes normocephalic and Yes atraumatic Eyes: General: appearance normal, both eyes and all related structures Neck: Neck: Yes normal visual inspection, Yes full ROM, Yes no lymphadenopathy, Yes no meningeal signs, Yes trachea midline, Yes supple, No anterior neck swelling and No tender Chest: Chest palpation & inspection: normal inspection of the chest and normal palpation of entire chest wall Resp: Effort & Inspection: normal respiratory effort and able to speak in complete sentences Auscultation: clear to auscultation bilaterally Cardio: Jugular venous distension: no JVD Heart sounds: S1 normal heart sound present and S2 normal heart sound present GI: Inspection: Yes normal to inspection Palpation (GI): Soft to palpation, not firm, Tenderness to palpation present (GI) in the RLQ and no guarding : General: Yes CVA tenderness (RIght) Back/Spine/Pelvis: Back: CVA tenderness (RIght) Skin: General skin exam: no rashes or lesions noted, elasticity normal and turgor normal Neuro: General: oriented to person, oriented to place, oriented to time, patient oriented x3, gait normal, tone normal, moves all extremities, Normal light touch and pain sensation, no meningeal signs, no focal motor deficits, CN's II-XI intact bilaterally and normal sensation to monofilament Extrem: General: Yes normal to inspection and Yes full ROM Psych: Appearance: grossly normal, well kempt and not disheveled Medications Administered Discontinued Medications Generic Name Dose Route Start Last Admin Trade Name Freq PRN Reason Stop Dose Admin Acetaminophen 975 mg 11/02/23 21:29 11/02/23 21:39 Acetaminophen 325 Mg Tablet PO 11/02/23 21:30 975 mg ONCE ONE Administration Hydromorphone HCl 1 mg 11/02/23 17:29 11/02/23 17:47 Hydromorphone Hcl 1 Mg/Ml Syringe IVPUSH 11/02/23 17:30 1 mg ONCE ONE Administration Protocol Hydromorphone HCl 1 mg 11/02/23 21:15 11/02/23 21:39 Hydromorphone Hcl 1 Mg/Ml Syringe IVPUSH 11/02/23 21:16 Not Given ONCE STA Protocol Ceftriaxone Sodium 1 gm/ 50 mls @ 100 mls/hr 11/02/23 17:36 11/02/23 19:17 Sodium Chloride IV 11/02/23 18:05 Infused ONCE ONE Infusion Iohexol 100 ml 11/02/23 18:36 11/02/23 18:36 Iohexol 350 Mg/Ml 100 Ml Infus..Btl IV 11/02/23 18:37 85 ml ONCE ONE Administration Ketorolac Tromethamine 30 mg 11/02/23 17:30 11/02/23 17:47 Ketorolac Tromethamine 30 Mg/Ml Vial IVPUSH 11/02/23 17:31 30 mg ONCE ONE Administration Ondansetron HCl 4 mg 11/02/23 20:20 11/02/23 20:25 Ondansetron Hcl 4 Mg/2 Ml Vial IVPUSH 11/02/23 20:21 4 mg ONCE ONE Administration Medical Decision Making Medical Decision Making MDM Narrative: 53-year-old female recently placed kidney stent on the 6th of this month by Urology presents to ED for right flank pain with chills since last night. Patient UA shows UTI. Negative for elevated white blood cell count. Kidney function is normal. Patient is sent for repeat CT scan with IV contrast to check for any abscess near kidney stent or any fat stranding. 9:16pm: Abdominal CT scan shows right right-sided hydronephrosis and some fat stranding around the ureter. Negative for abscess near stent. Negative for stone in ureter. Case was discussed with Dr. Holder of Urology who states if patient's pain improved patient could be discharged, states presently no indication for admission. Patient states pain has actually improved. Patient completed ceftin will give another trial of Ceftin antibiotics. Patient states Dilaudid prescription finished. Patient states pain improved only wants oral Tylenol before discharge Differential Diagnosis Differential Diagnoses: The differential diagnosis associated with the presentation includes (Kidney stone, UTI, pyelonephritis, abscess near stent) Admission/Observation Consideration of admission/observation: Escalation of care including admission/observation considered Consult Healthcare Provider Management of the patient was discussed with: Metal Smelter (Dr. Holder) Lab Data 11/02/23 15:21 11/02/23 15:21 Labs: Lab Results 11/02/23 11/02/23 11/02/23 Range/Units 15:17 15:21 18:01 WBC 7.6 (4.8-10.8) X10*3/uL RBC 4.58 (4.20-5.50) X10*6/uL Hgb 12.9 (12.0-16.0) g/dl Hct 39.6 (37.0-47.0) % MCV 86.5 (80.0-98.0) fL MCH 28.2 (27.0-33.0) pg MCHC 32.6 (31.0-35.0) g/dl RDW 11.9 (11.0-16.0) % Plt Count 326 D (160-400) X10*3/uL MPV 11.2 (9.4-12.3) fL Immature Gran % (Auto) 0.1 (0.0-0.4) % Neut % (Auto) 58.4 (45-73) % Lymph % (Auto) 29.6 (20-40) % [place] % (Auto) 6.5 (2-11) % Eos % (Auto) 4.5 H (0-4) % Baso % (Auto) 0.9 (0-2) % Lymph # (Auto) 2.3 (1.2-4.9) X10*3/uL [place] # (Auto) 0.5 (0.1-1.2) X10*3/uL Eos # (Auto) 0.3 (0.0-0.4) X10*3/uL Baso # (Auto) 0.1 (0.0-0.2) X10*3/uL Abs Immat Gran (auto) 0.01 (0.00-0.03) X10*3/uL Absolute Neuts (auto) 4.4 (2.0-8.3) x10*3/uL Absolute Nucleated RBC 0.000 (0.0-0.012) X10*3/uL Nucleated RBC % (auto) 0.0 (0.0-0.2) /100WBC Sodium 140 (135-145) mmol/L Potassium 3.9 (3.3-5.1) mmol/L Chloride 105 (96-108) mmol/L Carbon Dioxide 25 (22-29) mmol/L Anion Gap 14 (12-20) BUN 16 (9-16) mg/dL Creatinine 0.93 (0.5-1.4) mg/dL Estim Creat Clear Calc 82.9 Estimated GFR > 60 Random Glucose 154 H (60-115) mg/dL Lactic Acid 1.3 (0.5-2.0) mmol/L Calcium 9.2 (8.4-10.2) mg/dL Urine Color Yellow Urine Appearance Cloudy Urine pH 6.0 (5.0-9.0) Ur Specific [place] 1.020 (1.005-1.025) Urine Protein 300 (3+) H (Neg-Trace) mg/dL Urine Glucose (UA) Negative (Negative) mg/dL Urine Ketones Negative (Negative) mg/dL Urine Blood Large (3+) H (Negative) Urine Nitrite Negative (Negative) Ur Leukocyte Esterase Trace H (Negative) Urine RBC >20 H (0-2) /HPF Urine WBC 11-20 H (0-5) /HPF Ur Squamous Epith Cells 3-5 (0-2) /HPF Urine Bacteria None Seen (None Seen) Hyaline Casts 0-2 (0-2) /LPF Independent Interpretation I performed an independent interpretation of an: CT Scan Radiology Impression Discussion of test interpretation with radiology: I have reviewed the radiologist's reading. Independent Historian Clinical information obtained from an independent historian. History obtained from or confirmed by: Spouse Prescription Management I considered prescription management with: Pain Medication and Antibiotic Discharge Plan Discharge Clinical Impression: Urinary tract infection, Kidney stone, Ureteral stent present Patient Disposition: Home, Self-Care Instructions: Kidney Stones (ED), Urinary Tract Infection in Women (ED) Additional Instructions: YOU NO LONGER HAVE URETER STONE. CT SCAN NEGATIVE FOR ABSCESS AROUND YOUR STENT. YOU WILL BE DISCHARGED WITH PAIN MEDICATION ANTIBIOTICS. RETURN TO THE ED IMMEDIATELY FOR WORSENING FLANK PAIN, ABDOMINAL PAIN, DYSURIA, HEMATURIA, FEVER, CHILLS, INABILITY TOLERATE SOLID FOOD/LIQUID, OR ANY OTHER CONCERNING SYMPTOMS. PLEASE FOLLOW-UP WITH UROLOGIST. Do not take anyother NSAiDS while taking ketoralac. Prescriptions: New cefuroxime axetil 250 mg tablet 250 mg PO Q12H 7 Days Qty: 14 0RF ketorolac 10 mg tablet 10 mg PO Q6H PRN (Reason: pain) 5 Days Qty: 20 0RF Rx Instructions: RECEIVED 30 MG IM TORADOL tramadol 50 mg tablet 50 mg PO Q8H PRN (Reason: pain) 3 Days Qty: 9 0RF Discontinued tramadol 50 mg tablet 50 mg PO Q8H PRN (Reason: pain) Qty: 8 0RF No Action atorvastatin 20 mg tablet 20 mg PO DAILY lisinopril 5 mg tablet 5 mg PO DAILY metformin 500 mg tablet extended release 24 hr 1,000 mg PO DAILY@0800 Trelegy Ellipta 200-62.5-25 mcg blister with device 1 ea INHALATION DAILY omeprazole 20 mg capsule,delayed release(DR/EC) 20 mg PO DAILY@0630 albuterol sulfate 90 mcg/actuation HFA aerosol inhaler 2 puff INHALATION QID PRN (Reason: wheezing) albuterol sulfate 2.5 mg /3 mL (0.083 %) solution for nebulization 2.5 mg inhalation Q6H PRN (Reason: wheezing) azelastine 137 mcg (0.1 %) aerosol,spray 2 spray intranasal BID PRN (Reason: Allergy Symptoms) fluticasone propionate 50 mcg/actuation spray,suspension 2 spray intranasal DAILY PRN (Reason: Congestion) ibuprofen [IBU] 600 mg Tablet 600 mg PO Q6H PRN (Reason: Pain) cefuroxime axetil 500 mg Tablet 500 mg PO BID ondansetron 4 mg Tablet,Disintegrating 4 mg PO Q8H PRN (Reason: Nausea And Vomiting) oxycodone 5 mg Tablet 5 mg PO Q6H PRN (Reason: Pain) oxybutynin chloride 5 mg tablet extended release 24hr 5 mg PO TID PRN (Reason: urinary urgency) Qty: 90 0RF hydromorphone [Dilaudid] 2 mg tablet 2 mg PO Q6-8H Qty: 8 0RF Rx Instructions: Partial Fill upon patient request. Referrals: [facility] [place] [facility] [Provider Group] (RIGHT HYDRONEPHROSIS WITH STRANDING AROUND URETER. STENT PLACED ON 22 OF OCTOBER. NEGATIVE FOR URETER STONE) Stand Alone Forms: Work/School Release Interventions: ED Discharge Assessment Last Done: 11/02/23 21:56 Discharge Date/Time: 11/02/23 21:57 Print Language: Lithuanian
--- NOTE | 2023-11-02 20:20 | PC.NURSE ---
pt reporting increasing nausea, provider aware.
[2023-11-02 20:25] VITALS: BP 107/65; PULSE 68; RESP 15; TEMP 36.5; O2SAT 98
[2023-11-02] MEDS: ondansetron HCL 4 MG/2 ML VIAL IVPUSH (20:25)
[2023-11-02] MEDS: Acetaminophen 325 MG TABLET 975 MG PO (21:39)
--- NOTE | 2023-11-02 21:42 | PC.NURSE ---
pt medicated per mar at this time for 7/10 lower abd pain.
== END 2023-11-02 21:57 | disposition home or self-care (01) ==
PROVIDERS: Physician Assistant; Emergency Provider Emergency Medicine; PCP Internal Medicine
DX: N39.0 Urinary tract infection, site not specified (principal); N20.0 Calculus of kidney; Z96.0 Presence of urogenital implants; N13.30 Unspecified hydronephrosis; K57.90 Diverticulosis of intestine, part unspecified, without perforation or abscess without bleeding; K76.0 Fatty (change of) liver, not elsewhere classified; E11.9 Type 2 diabetes mellitus without complications; I10 Essential (primary) hypertension; R10.9 Unspecified abdominal pain; Z79.899 Other long term (current) drug therapy
CPT/HCPCS: 36415; 74177; 80048; 81001; 83605; 85025; 87040; 87086; 96365; 96375; 99285; J0696; J1170; J1885; J2405; Q9967

== ENCOUNTER 2023-11-11 10:29 | Outpatient (REF) | payer OTHER, SELFPAY | END 2023-11-11 10:30 | disposition home or self-care (01) | LOC: HO.XRAY 10:29 | PROVIDERS: PCP Internal Medicine; Visit Provider Urology | DX: N13.2 Hydronephrosis with renal and ureteral calculous obstruction (principal) | CPT/HCPCS: 74018 ==

== ENCOUNTER 2023-11-13 08:10 | Outpatient (AMB) | payer OTHER, SELFPAY ==
--- NOTE | 2023-11-13 08:14 | A.OFFVIS_ITS ---
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 Accompanied by: Self / Same As Patient Allergies propofol [PROPOFOL] Allergy (Severe, Verified 10/24/23 08:23) ANAPHYLACTIC REACTION, anaphylaxis succinylcholine [Anectine] Allergy (Severe, Verified 10/24/23 08:23) anaphylaxis morphine [MORPHINE] Allergy (Intermediate, Verified 10/24/23 08:23) ITCHINESS AND HIVES, anaphylaxis Anesthetics - Amide Type - Select A [Anesthetics - Amide Type] Allergy (Unknown, Verified 10/24/23 08:23) UNKNOWN Anesthetics - [facility] Type- Parabens [Anesthetics - [facility] Type] Allergy (Unknown, Verified 10/24/23 08:23) UNKNOWN From ANECTINE Allergy (Severe, Uncoded 10/24/23 08:23) ANAPHYLACTIC nuts Allergy (Unknown, Uncoded 10/24/23 08:23) Unknown SEAFOOD Allergy (Unknown, Uncoded 10/24/23 08:23) THROAT SWELLING Medication List - Last Reconciled 11/13/23 by Angle Kingsley MD albuterol sulfate 2.5 mg inhalation Q6H PRN albuterol sulfate 90 mcg/actuation 2 puffs inhalation QID PRN atorvastatin 20 mg PO DAILY azelastine 2 sprays intranasal BID PRN cefuroxime axetil 500 mg PO BID fluticasone propionate 50 mcg/actuation 2 sprays intranasal DAILY PRN izsivbkfxic-[id number]-zwdnoqse 200-62.5-25 mcg (Trelegy Ellipta) 1 ea inhalation DAILY hydromorphone (Dilaudid) 2 mg PO Q6-8H ibuprofen (IBU) 600 mg PO Q6H PRN ketorolac 10 mg PO Q6H PRN 5 days levofloxacin 500 mg PO DAILY 10 days lisinopril 5 mg PO DAILY metformin ER 1,000 mg PO DAILY@0800 omeprazole 20 mg PO DAILY@0630 ondansetron 4 mg PO Q8H PRN oxybutynin chloride ER 5 mg PO TID PRN oxycodone 5 mg PO Q6H PRN tramadol 50 mg PO Q8H PRN 3 days HPI HPI Comments History of Present Illness Details Kay is a 53-year-old female who presents today to the office for a follow-up. 10/24/2023? She was evaluated for hydronephrosis with ureteral calculus. She is a status post right ureteral stent done on 10/21/2023 for obstructive 1 cm UPJ stone. She underwent ESWL of the right kidney on 10/22/2023. She states that she was seen in the ED last week and treated for a UTI but feels like she still has one. She is taking tylenol prn for pain. Reviewed imagings, recent KUB films with the patient, which is not officially read as yet. There is a calcification in the renal pelvis and there may be some fragments along the proximal portion of the right stent. 11/13/2023: Evaluation today?UA?Leukocyt es, blood, and nitrite positive 11/13/2023: Plan: Levaquin 500 mg daily x 10 days Consent obtained for ureteroscopy stent exchange laser lithotripsy remaining stone in right kidney. 33 minutes spent in discussion regarding Xray, UTI and antibiotic treatment and surgical plan. Risks discussed included but not limited to, possible need to repeat procedure if stone is not completely fragmented, Irritative voiding symptoms, bladder spasms, urgency, blood in urine. 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 Patient Tobacco Use Status: Never used Tobacco service: No Review of Systems Const All systems reviewed & are unremarkable except as noted in HPI and below Reports no additional complaints Eyes Reports no additional complaints ENT Reports no additional complaints Card Denies dyspnea Resp Denies cough and Denies dyspnea GI Reports no additional complaints Reports no additional complaints Musc Reports no additional complaints Skin/Breast Denies rash and Denies unusual bruising Neuro Reports no additional complaints Psych Reports no additional complaints Endo Reports no additional complaints Ant/Lymph Reports no additional complaints Aller/Immun Reports no additional complaints Results AMB Urinalysis, Automated UA Leukoctes 500 [place]/uL Last Edit by MICHELLE Barry on 11/13/23 08:36 3+ Jaycee Kc 11/13/23 08:36 UA Nitrite Positive Last Edit by MICHELLE Barry on 11/13/23 08:36 UA Urobilinogen 0.2 mg/dL Last Edit by MICHELLE Barry on 11/13/23 08:3 6 UA Protein 300 mg/dL Last Edit by MICHELLE Barry on 11/13/23 08:36 3+ Jaycee Kc 11/13/23 08:36 UA pH 6.0 Last Edit by MICHELLE Barry on 11/13/23 08:36 UA Blood 200 [place]/uL Last Edit by MICHELLE Barry on 11/13/23 08:36 UA Specific [place] 1.030 Last Edit by MICHELLE Barry on 11/13/23 08: 36 UA Ketone Positive Last Edit by MICHELLE Barry on 11/13/23 08:36 5 mg/dL Jaycee Kc 11/13/23 08:36 UA Bilirubin 1 mg/dL Last Edit by MICHELLE Barry on 11/13/23 08:36 1 mg/dL Jaycee Kc 11/13/23 08:36 UA Glucose 0 mg/dL Last Edit by MICHELLE Barry on 11/13/23 08:36 Results Reviewed Results Reviewed: Laboratory Last Values Urine pH (Auto) 6.0 11/13/23 08:31 Specific [place] (Auto) 1.030 11/13/23 08:31 Urine Protein (Auto) 300 mg/dL 11/13/23 08:31 Glucose (UA)(Auto) 0 mg/dL 11/13/23 08:31 Urine Ketones (Auto) Positive 11/13/23 08:31 Urine Blood (Auto) 200 [place]row/uL 11/13/23 08:31 Urine Nitrite (Auto) Positive 11/13/23 08:31 Urine Bilirubin (Auto) 1 mg/dL 11/13/23 08:31 Urine Urobilinogen (Auto) 0.2 mg/dL 11/13/23 08:31 Leukocyte Esterase (Auto) 500 [place]ellen/uL 11/13/23 08:31 Assessment & Plan Assessment & Plan (1) Urinary frequency: Code(s): R35.0 - Frequency of micturition (2) Ureteral stent present: Code(s): Z96.0 - Presence of urogenital implants (3) Kidney stone: Code(s): N20.0 - Calculus of kidney Plan Cysto right stent exchange, right ureteroscopy laser lithotripsy on 11/25/22 Orders: Orders AMB Urinalysis Automated Today Z13.9 - Encounter for screening, unspecified Medications: New levofloxacin 500 mg PO DAILY 10 days 10 tabs 0RF Patient Instructions: The patient had an opportunity to ask questions regarding treatment plan. All q uestions were answered. Imaging, Laboratory studies and physical exam results were discussed and reviewed in detail. No major barriers to understanding were identified. The patient expressed understanding and agreement with the above treatment plan. The patient is aware they should contact our office by phone for worsening of their current condition or the appearance of new symptoms. Compliance is encouraged with any medications and followup testing that is ordered. It is a privilege to be allowed the opportunity to participate in the urologic care of your patient. If you have any questions or concerns regarding treatment for the above conditions please do not hesitate to contact me. The office telephone contact is [phone]. This note is constructed in part using voice recognition software. While every effort has been made to ensure accuracy waste elimination errors may have been included. Yours sincerely, Angle Kingsley MD Coding Level of Care Code Est Pt Level 4 (69295) Global (83453) Diagnoses Urinary frequency R35.0 Ureteral stent present Z96.0 Kidney stone N20.0 Time Spent (min) 33 Comment modifier for time
== END 2023-11-13 09:18 | disposition home or self-care (01) ==
PROVIDERS: PCP Internal Medicine; Visit Provider Urology
DX: R35.0 Frequency of micturition (principal); Z96.0 Presence of urogenital implants; N20.0 Calculus of kidney; Z13.9 Encounter for screening, unspecified
CPT/HCPCS: 99214

== ENCOUNTER → 2023-11-13 08:10 | Outpatient (BNVA) | payer OTHER, SELFPAY | PROVIDERS: PCP Internal Medicine; Visit Provider Urology | DX: R35.0 Frequency of micturition (principal); N20.0 Calculus of kidney; Z96.0 Presence of urogenital implants | CPT/HCPCS: 81003; 99212 ==

== ENCOUNTER 2023-11-21 02:28 | Emergency (ER) | payer OTHER, SELFPAY ==
[2023-11-21 02:41] VITALS: BP 204/107; PULSE 86; RESP 22; TEMP 36.6; O2SAT 100; BMI 34.9
[2023-11-21 03:26] VITALS: BP 182/84; PULSE 74; RESP 18; TEMP 36.8; O2SAT 99
--- NOTE | 2023-11-21 03:27 | MHC.EDTECH ---
Patient brought into room,changed into hospital attire,vitals were taken and BP is elevated 182/84 RN aware. Urine sample was obtained and sent to lab. Call alvarez is in reach
[2023-11-21 04:00] LABS: Alanine Aminotransferase 31 U/L (0-31); Albumin Level 4.2 g/dL (3.5-5.0); Alkaline Phosphatase 92 U/L (39-117); Anion Gap 16 (12-20); Aspartate Amino Transferase 23 U/L (5-31); Bilirubin Total 0.3 mg/dL (0.0-1.0); Blood Urea Nitrogen 19 mg/dL (9-16); Calcium 9.2 mg/dL (8.4-10.2); Carbon Dioxide 26 mmol/L (22-29); Chloride 102 mmol/L (96-108); Creatinine Clr Calc Pharmacy 88.3; Estimated Glomerular Filt Rate > 60; Glucose Random 142 mg/dL (60-115); Potassium 3.9 mmol/L (3.3-5.1); Sodium 140 mmol/L (135-145); Total Protein 7.6 g/dL (6.5-8.0)
[2023-11-21 05:56] VITALS: BP 174/85; PULSE 77; RESP 18; TEMP 36.8; O2SAT 98
--- NOTE | 2023-11-21 05:57 | MHC.EDTECH ---
Hourly rounds and vitals completed,BP elevated 174/85 RN is aware,Call alvarez is within reach
--- NOTE | 2023-11-21 09:56 | ED.FEMALEGU ---
HPI - Female Genitourinary General Chief complaint: Urogenital-Female Stated complaint: gen med Time Seen by Provider: 11/21/23 07:33 Source: patient Mode of arrival: ambulatory History of Present Illness HPI Narrative: 53-year-old female who arrives with complaints of onset of right flank pain that started approximately 0 100 last night and was associated with nausea and chills. Patient reports that she had a ureteral stent placed on 10/22 and will be undergoing procedure next week. Related Data Home Medications Medication Instructions Recorded Confirmed albuterol sulfate 2.5 mg/3 mL 2.5 mg inhalation Q6H PRN wheezing 10/21/23 11/13/23 (0.083 %) solution for nebulization albuterol sulfate 90 mcg/actuation 2 puff inhalation QID PRN wheezing 10/21/23 11/13/23 aerosol inhaler atorvastatin 20 mg tablet 20 mg PO DAILY 10/21/23 11/13/23 azelastine 137 mcg (0.1 %) nasal 2 spray intranasal BID PRN Allergy 10/21/23 11/13/23 spray aerosol Symptoms cefuroxime axetil 500 mg tablet 500 mg PO BID 10/21/23 11/13/23 fluticasone fur. 200 mcg-umeclid 1 ea inhalation DAILY 10/21/23 11/13/23 62.5 mcg-vilant 25 mcg inhalat.powder (Trelegy Ellipta) fluticasone propionate 50 2 spray intranasal DAILY PRN 10/21/23 11/13/23 mcg/actuation nasal Congestion spray,suspension lisinopril 5 mg tablet 5 mg PO DAILY 10/21/23 11/13/23 metformin 500 mg tablet,extended 1,000 mg PO DAILY@0800 10/21/23 11/13/23 release 24 hr omeprazole 20 mg capsule,delayed 20 mg PO DAILY@0630 10/21/23 11/13/23 release ondansetron 4 mg disintegrating 4 mg PO Q8H PRN Nausea And Vomiting 10/21/23 11/13/23 tablet oxycodone 5 mg tablet 5 mg PO Q6H PRN Pain 10/21/23 11/13/23 Previous Rx's Medication Instructions Recorded hydromorphone 2 mg tablet 2 mg PO Q6-8H pain #8 tabs 10/24/23 (Dilaudid) oxybutynin chloride 5 mg 5 mg PO TID PRN urinary urgency 10/24/23 tablet,extended release 24 hr #90 tabs tramadol 50 mg tablet 50 mg PO Q8H PRN pain 3 days #9 11/03/23 tabs levofloxacin 500 mg tablet 500 mg PO DAILY 10 days #10 tabs 11/13/23 ketorolac 10 mg tablet 10 mg PO Q6H PRN pain 5 days #20 11/21/23 tabs Allergies Allergy/AdvReac Type Severity Reaction Status Date / Time propofol [PROPOFOL] Allergy Severe ANAPHYLACTIC Verified 11/21/23 02:41 REACTION, anaphylaxis succinylcholine [Anectine] Allergy Severe anaphylaxis Verified 11/21/23 02:41 morphine [MORPHINE] Allergy Intermediate ITCHINESS Verified 11/21/23 02:41 AND HIVES, anaphylaxis Anesthetics - Amide Type - Allergy Unknown UNKNOWN Verified 11/21/23 02:41 Select A [Anesthetics - [facility] Type] Anesthetics - [facility] Type- Allergy Unknown UNKNOWN Verified 11/21/23 02:41 Parabens [Anesthetics - [facility] Type] From ANECTINE Allergy Severe ANAPHYLACTI Uncoded 11/21/23 02:41 C nuts Allergy Unknown Unknown Uncoded 11/21/23 02:41 SEAFOOD Allergy Unknown THROAT Uncoded 11/21/23 02:41 SWELLING Review of Systems Review of Systems: Pertinent positives and negatives as stated in HPI [facility] Past Medical History Source: nursing notes reviewed Onset Date is defined in the Problem List Problems that require an onset date and time if occurred within 24 hrs of arrival to the ED Aortic Dissection and Rupture; Neurologic impairment; Cardiopulmonary Arrest; Endotracheal Intubation; Insertion or Replacement of Mechanical Circulatory Assist Device Medical History Asthma Hypertension Diabetes Cholecystectomy planned Surgical History Hx of lithotripsy History of tubal ligation Social History Social History Household Members: Family Housing: House 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 GENERAL: Well developed, well nourished, in no acute distress. HEAD: Normocephalic/atraumatic EYES: PERRLA, EOMI EARS: Ext canals without abnormality NOSE: Nares patent bilateral OROPHARYNX: no oral lesions noted, posterior pharynx clear NECK: Supple, no adenopathy LUNGS: Normal breath sounds. No adventitious sounds or accessory muscle use. SpO2<98> CARDIOVASCULAR: Regular rate and rhythm without noted murmurs ABDOMEN: Soft, non-tender, non-distended with bowel sounds. No rigidity. No guarding. No palpable masses or hernias noted MUSCULOSKELETAL: No tenderness, deformities, or effusions noted on gross inspection. EXTREMITIES: No cyanosis, clubbing or edema. SKIN: Inspection of the skin reveals no rashes NEUROLOGIC: Alert and oriented x 4. Strength and sensation to light touch were grossly intact x 4. Medications Administered Discontinued Medications Generic Name Dose Route Start Last Admin Trade Name Freq PRN Reason Stop Dose Admin Sodium Chloride 1,000 mls @ 999 mls/hr 11/21/23 08:30 11/21/23 08:43 Ns IV 11/21/23 09:30 999 mls/hr .Q1H1M YASH Administration Ketorolac Tromethamine 15 mg 11/21/23 08:22 11/21/23 09:03 Ketorolac Tromethamine 30 Mg/Ml Vial IVPUSH 11/21/23 08:23 15 mg ONCE ONE Administration Medical Decision Making Medical Decision Making MDM Narrative: 53-year-old female with history and clinical presentation, ddx: Acute on chronic renal colic, possible UTI. I reviewed all investigations and hematologic indices are negative for leukocytosis/left shift/anemia/thrombocytopenia. Chemistry indices are negative for KIA/electrolyte or liver enzyme derangements. Urinalysis significant for hematuria but no evidence to suggest infection. Patient received IV fluids, antiemetics as well as pain medication. KUB does not demonstrate any differences but there are smaller stones which may be causing some of the patient's discomfort. On re-evaluation patient is feeling better. She will be discharged with anti-inflammatories and encouraged to follow up with Urology. Differential Diagnosis Differential Diagnoses: The differential diagnosis associated with the presentation includes Please see the discussion above Admission/Observation Consideration of admission/observation: Escalation of care including admission/observation considered Lab Data MDM Lab Attestation statement: I reviewed the patient's lab results. Please see the discussion above 11/21/23 03:32 11/21/23 03:32 Labs: Lab Results 11/21/23 11/21/23 Range/Units 03:16 03:32 WBC 8.3 (4.8-10.8) X10*3/uL RBC 4.49 (4.20-5.50) X10*6/uL Hgb 12.4 (12.0-16.0) g/dl Hct 38.3 (37.0-47.0) % MCV 85.3 (80.0-98.0) fL MCH 27.6 (27.0-33.0) pg MCHC 32.4 (31.0-35.0) g/dl RDW 12.4 (11.0-16.0) % Plt Count 277 (160-400) X10*3/uL MPV 11.1 (9.4-12.3) fL Immature Gran % (Auto) 0.2 (0.0-0.4) % Neut % (Auto) 59.2 (45-73) % Lymph % (Auto) 27.9 (20-40) % [place] % (Auto) 8.5 (2-11) % Eos % (Auto) 3.6 (0-4) % Baso % (Auto) 0.6 (0-2) % Lymph # (Auto) 2.3 (1.2-4.9) X10*3/uL [place] # (Auto) 0.7 (0.1-1.2) X10*3/uL Eos # (Auto) 0.3 (0.0-0.4) X10*3/uL Baso # (Auto) 0.1 (0.0-0.2) X10*3/uL Abs Immat Gran (auto) 0.02 (0.00-0.03) X10*3/uL Absolute Neuts (auto) 4.9 (2.0-8.3) x10*3/uL Absolute Nucleated RBC 0.000 (0.0-0.012) X10*3/uL Nucleated RBC % (auto) 0.0 (0.0-0.2) /100WBC Sodium 140 (135-145) mmol/L Potassium 3.9 (3.3-5.1) mmol/L Chloride 102 (96-108) mmol/L Carbon Dioxide 26 (22-29) mmol/L Anion Gap 16 (12-20) BUN 19 H (9-16) mg/dL Creatinine 0.86 (0.5-1.4) mg/dL Estim Creat Clear Calc 88.3 Estimated GFR > 60 Random Glucose 142 H (60-115) mg/dL Calcium 9.2 (8.4-10.2) mg/dL Total Bilirubin 0.3 (0.0-1.0) mg/dL AST 23 (5-31) U/L ALT 31 (0-31) U/L Alkaline Phosphatase 92 (39-117) U/L Total Protein 7.6 (6.5-8.0) g/dL Albumin 4.2 (3.5-5.0) g/dL Urine Color Yellow Urine Appearance Clear Urine pH 7.0 (5.0-9.0) Ur Specific [place] 1.010 (1.005-1.025) Urine Protein 100 (2+) H (Neg-Trace) mg/dL Urine Glucose (UA) Negative (Negative) mg/dL Urine Ketones Negative (Negative) mg/dL Urine Blood Large (3+) H (Negative) Urine Nitrite Negative (Negative) Ur Leukocyte Esterase Small (1+) H (Negative) Urine RBC 11-20 H (0-2) /HPF Urine WBC 0-5 (0-5) /HPF Ur Squamous Epith Cells 0-2 (0-2) /HPF Urine Bacteria None Seen (None Seen) Hyaline Casts 3-5 (0-2) /LPF Radiology Impression Discussion of test interpretation with radiology: I have reviewed the radiologist's reading. Radiologist Impression: Please see the discussion above External Record Review External record reviewed: Outpatient record, Prior outpatient labs and Prior outpatient radiology Chronic Conditions Patient?s care impacted by: Diabetes and Hypertension Critical Care Time Critical Care Time Critical Care Time: Yes Total Critical Care Time: 30 Attestation: I personally attest to this time spent taking care of the patient. Discharge Plan Discharge Clinical Impression: Renal colic Patient Disposition: Home, Self-Care Instructions: Renal Colic (ED) Additional Instructions: 1. Resume all home medications as prescribed. Stop taking the ibuprofen as you have been prescribed a different medication. 2. Please follow-up with primary care doctor and Urology. Prescriptions: New ketorolac 10 mg tablet 10 mg PO Q6H PRN (Reason: pain) 5 Days Qty: 20 0RF Rx Instructions: Patient received Toradol in the emergency room. Discontinued ketorolac 10 mg tablet 10 mg PO Q6H PRN (Reason: pain) 5 Days Qty: 20 0RF Rx Instructions: RECEIVED 30 MG IM TORADOL ibuprofen [IBU] 600 mg Tablet 600 mg PO Q6H PRN (Reason: Pain) No Action tramadol 50 mg tablet 50 mg PO Q8H PRN (Reason: pain) 3 Days Qty: 9 0RF atorvastatin 20 mg tablet 20 mg PO DAILY lisinopril 5 mg tablet 5 mg PO DAILY metformin 500 mg tablet extended release 24 hr 1,000 mg PO DAILY@0800 Trelegy Ellipta 200-62.5-25 mcg blister with device 1 ea INHALATION DAILY omeprazole 20 mg capsule,delayed release(DR/EC) 20 mg PO DAILY@0630 albuterol sulfate 90 mcg/actuation HFA aerosol inhaler 2 puff INHALATION QID PRN (Reason: wheezing) albuterol sulfate 2.5 mg /3 mL (0.083 %) solution for nebulization 2.5 mg inhalation Q6H PRN (Reason: wheezing) azelastine 137 mcg (0.1 %) aerosol,spray 2 spray intranasal BID PRN (Reason: Allergy Symptoms) fluticasone propionate 50 mcg/actuation spray,suspension 2 spray intranasal DAILY PRN (Reason: Congestion) cefuroxime axetil 500 mg Tablet 500 mg PO BID ondansetron 4 mg Tablet,Disintegrating 4 mg PO Q8H PRN (Reason: Nausea And Vomiting) oxycodone 5 mg Tablet 5 mg PO Q6H PRN (Reason: Pain) oxybutynin chloride 5 mg tablet extended release 24hr 5 mg PO TID PRN (Reason: urinary urgency) Qty: 90 0RF hydromorphone [Dilaudid] 2 mg tablet 2 mg PO Q6-8H Qty: 8 0RF Rx Instructions: Partial Fill upon patient request. levofloxacin 500 mg tablet 500 mg PO DAILY 10 Days Qty: 10 0RF Referrals: Sarthak Silva III, MD [Primary Care Provider] -
== END 2023-11-21 12:10 | disposition home or self-care (01) ==
PROVIDERS: Emergency Provider Student in an Organized Health Care Education/Training Program; PCP Internal Medicine
DX: N23 Unspecified renal colic (principal); R11.2 Nausea with vomiting, unspecified; Z79.899 Other long term (current) drug therapy
CPT/HCPCS: 36415; 74018; 80053; 81001; 85025; 87086; 96361; 96374; 99284; J1885

== ENCOUNTER 2023-11-25 10:51 | Day surgery (SDC) | payer OTHER, SELFPAY ==
--- NOTE | 2023-11-24 10:17 | P.CONAN_ITS ---
Documented by User: Lissett Caldwell NP 11/24/23 10:21 HPI - Anesthesia Eval Consult details Narrative: 53yo F for Right Cystoscopy, Ureteroroscopy, Retro, Laser w/stent removal/exchange Multiple Anesthetic Allergies s/p cysto/stent 10/2023 with GA-LMA 4 - anesthesia record on chart [facility] Active Problems Active Problems: All Active Problems (Updated 11/22/23 @ 00:02 by Background Dachino) Ureteral stent present (Acute) Urinary frequency (Acute) Hydronephrosis with ureteral calculus (Acute) Diabetes (Acute) Past Medical History Medical History Asthma Hypertension Diabetes Cholecystectomy planned Surgical History Surgical History History of cholecystectomy History of lumbar surgery Hx of lithotripsy History of tubal ligation Social History Social History Household Members: Family Housing: House Do you presently have 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) Alcohol 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 Patient Tobacco Use Status: Former Tobacco user Use of substances other than those prescribed or required for medical reasons: No Are you DNR?: No Advance Directives: No Advance Directives Information Provided: Yes service: No Meds Allergies Allergy/AdvReac Type Severity Reaction Status Date / Time propofol [PROPOFOL] Allergy Severe ANAPHYLACTIC Verified 11/21/23 02:41 REACTION, anaphylaxis succinylcholine [Anectine] Allergy Severe anaphylaxis Verified 11/21/23 02:41 morphine [MORPHINE] Allergy Intermediate ITCHINESS Verified 11/21/23 02:41 AND HIVES, anaphylaxis Anesthetics - Amide Type - Allergy Unknown UNKNOWN Verified 11/21/23 02:41 Select A [Anesthetics - Amide Type] Anesthetics - Mercy Type- Allergy Unknown UNKNOWN Verified 11/21/23 02:41 Parabens [Anesthetics - [facility] Type] From ANECTINE Allergy Severe ANAPHYLACTI Uncoded 11/21/23 02:41 C nuts Allergy Severe Anaphylaxis Uncoded 11/25/23 12:01 SEAFOOD Allergy Unknown Anaphylaxis Uncoded 11/25/23 12:01 Home Medications Medication Instructions Recorded Confirmed Last Taken Type albuterol sulfate 2.5 mg/3 mL 2.5 mg inhalation Q6H PRN wheezing 10/21/23 11/13/23 Unknown History (0.083 %) solution for nebulization albuterol sulfate 90 mcg/actuation 2 puff inhalation QID PRN wheezing 10/21/23 11/13/23 Unknown History aerosol inhaler atorvastatin 20 mg tablet 20 mg PO DAILY 10/21/23 11/13/23 10/19/23 History azelastine 137 mcg (0.1 %) nasal 2 spray intranasal BID PRN Allergy 10/21/23 11/13/23 Unknown History spray aerosol Symptoms cefuroxime axetil 500 mg tablet 500 mg PO BID 10/21/23 11/13/23 10/19/23 History fluticasone fur. 200 mcg-umeclid 1 ea inhalation DAILY 10/21/23 11/25/23 11/25/23 10:00 History 62.5 mcg-vilant 25 mcg inhalat.powder (Trelegy Ellipta) fluticasone propionate 50 2 spray intranasal DAILY PRN 10/21/23 11/13/23 Unknown History mcg/actuation nasal Congestion spray,suspension lisinopril 5 mg tablet 5 mg PO DAILY 10/21/23 11/13/23 10/19/23 History metformin 500 mg tablet,extended 1,000 mg PO DAILY@0800 10/21/23 11/13/23 10/19/23 History release 24 hr omeprazole 20 mg capsule,delayed 20 mg PO DAILY@0630 10/21/23 11/13/23 10/19/23 History release ondansetron 4 mg disintegrating 4 mg PO Q8H PRN Nausea And Vomiting 10/21/23 11/13/23 Unknown History tablet oxycodone 5 mg tablet 5 mg PO Q6H PRN Pain 10/21/23 11/13/23 Unknown History Exam Narrative Narrative: EKG 06/2023 Vent. Rate : 091 BPM Atrial Rate : 091 BPM P-R Int : 172 ms QRS Dur : 078 ms QT Int : 346 ms P-R-T Axes : 039 025 037 degrees QTc Int : 425 ms Normal sinus rhythm Normal ECG When compared with ECG of 15-FEB-2023 15:34, No significant change was found Assessment and Plan Assessment Anesthesia Assessment: Chart Reviewed Documented by User: Rachael Reaves MD 11/25/23 14:01 [facility] Past Medical History Medical History Asthma Hypertension Diabetes Cholecystectomy planned Surgical History Surgical History History of cholecystectomy History of lumbar surgery Hx of lithotripsy History of tubal ligation History of Problems with Anesthesia: No Social History Social History Household Members: Family Housing: House Do you presently have 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) Alcohol 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 Patient Tobacco Use Status: Former Tobacco user Use of substances other than those prescribed or required for medical reasons: No Are you DNR?: No Advance Directives: No Advance Directives Information Provided: Yes service: No Meds Allergies Allergy/AdvReac Type Severity Reaction Status Date / Time propofol [PROPOFOL] Allergy Severe ANAPHYLACTIC Verified 11/21/23 02:41 REACTION, anaphylaxis succinylcholine [Anectine] Allergy Severe anaphylaxis Verified 11/21/23 02:41 morphine [MORPHINE] Allergy Intermediate ITCHINESS Verified 11/21/23 02:41 AND HIVES, anaphylaxis Anesthetics - Amide Type - Allergy Unknown UNKNOWN Verified 11/21/23 02:41 Select A [Anesthetics - Amide Type] Anesthetics - Mercy Type- Allergy Unknown UNKNOWN Verified 11/21/23 02:41 Parabens [Anesthetics - [facility] Type] From ANECTINE Allergy Severe ANAPHYLACTI Uncoded 11/21/23 02:41 C nuts Allergy Severe Anaphylaxis Uncoded 11/25/23 12:01 SEAFOOD Allergy Unknown Anaphylaxis Uncoded 11/25/23 12:01 Home Medications Medication Instructions Recorded Confirmed Last Taken Type albuterol sulfate 2.5 mg/3 mL 2.5 mg inhalation Q6H PRN wheezing 10/21/23 11/13/23 Unknown History (0.083 %) solution for nebulization albuterol sulfate 90 mcg/actuation 2 puff inhalation QID PRN wheezing 10/21/23 11/13/23 Unknown History aerosol inhaler atorvastatin 20 mg tablet 20 mg PO DAILY 10/21/23 11/13/23 10/19/23 History azelastine 137 mcg (0.1 %) nasal 2 spray intranasal BID PRN Allergy 10/21/23 11/13/23 Unknown History spray aerosol Symptoms cefuroxime axetil 500 mg tablet 500 mg PO BID 10/21/23 11/13/23 10/19/23 History fluticasone fur. 200 mcg-umeclid 1 ea inhalation DAILY 10/21/23 11/25/23 0 11/25/23 10:00 History 62.5 mcg-vilant 25 mcg inhalat.powder (Trelegy Ellipta) fluticasone propionate 50 2 spray intranasal DAILY PRN 10/21/23 11/13/23 Unknown History mcg/actuation nasal Congestion spray,suspension lisinopril 5 mg tablet 5 mg PO DAILY 10/21/23 11/13/23 10/19/23 History metformin 500 mg tablet,extended 1,000 mg PO DAILY@0800 10/21/23 11/13/23 10/19/23 History release 24 hr omeprazole 20 mg capsule,delayed 20 mg PO DAILY@0630 10/21/23 11/13/23 10/19/23 History release ondansetron 4 mg disintegrating 4 mg PO Q8H PRN Nausea And Vomiting 10/21/23 11/13/23 Unknown History tablet oxycodone 5 mg tablet 5 mg PO Q6H PRN Pain 10/21/23 11/13/23 Unknown History Exam Airway Mallampati Class: II TM Dist: >3cm Neck ROM: Full Loose/Missing/Broken Teeth: No Heart: RRR Lungs: CTA Assessment and Plan Assessment Anesthesia Assessment: Anesthesia Plan Discussed Final Anesthetic Review History of Problems with Anesthesia: No NPO: Yes ASA Class: II Final Preanesthetic Review: Meds/Allgs Chart Reviewed, Consent Obtained/Reviewed and Anes Risks/Benef Reviewed Patient Risk: Low Procedure Risk: Low Anesthetic Plan Anesthetic Plan: GA Disposition: Standard PACU
[2023-11-25] VITALS (7 sets, daily range): BP systolic 137–179; BP diastolic 74–89; PULSE 65–86; RESP 16; TEMP 36.6–36.9; O2SAT 96–100; BMI 34.7
--- NOTE | ~2023-11-25 | FL_ITS ---
EXAMINATION: XR FLUOROSCOPY WITH IMAGES CLINICAL INFORMATION: Stone right COMPARISON: None available. TECHNIQUE: Fluoroscopy Supervised By: Dr. Kingsley. Fluoroscopy Time: 35.8 seconds. Cumulative Dose: 14.1 mGy. DAP: Not reported on this machine. Images: 3. FINDINGS: Technical assistance and equipment were provided by the Department of Radiology during intraoperative fluoroscopy. A total of 3 limited fluoroscopic spot images are submitted for archival purposes. A radiologist was not present during the procedure. The images are available for review on PACS. FL/FL guidance in OR IMPRESSION: Technical assistance and equipment provided by the Department of Radiology during procedural fluoroscopy, as above. Please see procedure report for further details.
[2023-11-25 12:25] LABS: Glucose, Whole Blood 136 mg/dL (60-115)
[2023-11-25] MEDS: Lactated Ringers 1,000 ML 100 ML IVCONT (12:27)
--- NOTE | 2023-11-25 14:21 | MHC.SHP ---
Pre-Procedural Eval Section A Date of Service: 11/25/23 The patient is an INPATIENT: No The History & Physical has been completed within 30 days and I have reviewed it.: Yes Section B Chief Complaint: Hydronephrosis with renal and ureteral calculous o Allergies: Allergies Allergy/AdvReac Type Severity Reaction Status Date / Time propofol [PROPOFOL] Allergy Severe ANAPHYLACTIC Verified 11/21/23 02:41 REACTION, anaphylaxis succinylcholine [Anectine] Allergy Severe anaphylaxis Verified 11/21/23 02:41 morphine [MORPHINE] Allergy Intermediate ITCHINESS Verified 11/21/23 02:41 AND HIVES, anaphylaxis Anesthetics - Amide Type - Allergy Unknown UNKNOWN Verified 11/21/23 02:41 Select A [Anesthetics - Amide Type] Anesthetics - [facility]cy Type- Allergy Unknown UNKNOWN Verified 11/21/23 02:41 Parabens [Anesthetics - [facility] Type] From ANECTINE Allergy Severe ANAPHYLACTI Uncoded 11/21/23 02:41 C nuts Allergy Severe Anaphylaxis Uncoded 11/25/23 12:01 SEAFOOD Allergy Unknown Anaphylaxis Uncoded 11/25/23 12:01 Plan Diagnosis/Plan: Unchanged I have reviewed the history and physical and performed a pertinent physical examination on my patient. No changes have occurred unless specified. Plan for Cystoscopy, Right ureteroscopy, laser lithotripsy, ureteral stent exchange. Risks discussed included but not limited to, possible need to repeat procedure if stone is not completely fragmented, Irritative voiding symptoms, bladder spasms, urgency, blood in urine. Time Spent With Patient Time: Total time managing care of this patient today ____ minutes.
[2023-11-25] MEDS: ondansetron HCL 4 MG/2 ML VIAL IVPUSH (16:45)
[2023-11-25] MEDS: droPERidol 5 MG/2 ML VIAL 0.625 MG IVPUSH (17:01)
--- NOTE | 2023-11-25 17:04 | P.OP_ITS ---
Operative Note Operative Note Date of Service: 11/25/23 Narrative: PreOperative Diagnosis:?? Right renal stone Post Operative Diagnosis:?? right renal stone Procedure: Cystoscopy, right ureteroscopy laser lithotripsy stent exchange, size 7 Citizen Of [place] by 24 cm Flexible Disposible Ureteroscope used Surgeon:?Dr Angle Kingsley Anesthesia:? General Indications for procedure: Here for stone fragmentation. Procedure: After informed consent was verified the patient was brought to the operating placed on the OR table in supine position.? General Anesthesia was administered per protocol.? The patient was placed in lithotomy position, prepped and draped in the usual sterile fashion.? Safety pause time-out and side of surgery confirmed.? Antibiotics confirmed. A 22 Citizen [place] cystoscope was inserted transurethrally, The bladder was visualized.? Both ureteric orifices were in normal position. The right ureteral stent was curled in the bladder. The? distal end of the ureteral stent was grasped with the flexible grasping forceps. The stent was pulled retrograde through the urethra. A guidewire was passed through the stent. The cystoscope was removed, leaving the guidewire in place. The access shealth was then passed over the guidewire. The disposible flexible ureteroscope was passed over the guide wire to the level of the stone in the lower pole of the right kidney. Laser lithotripsy of the stone was done using the 225 fiber with a combination of dusting settings 0.3 J by 20 hertz and 0.6 joules by 6 hertz There was good fragmentation of the stone. The 0 degree basket was used to remove several stone fragments, which were sent for analysis. The ureteroscope was removed. The guidewire was replaced and the access shealth was removed. The cystoscope was passed over the safety guidewire. A? 7 Citizen [place] by 24 cm stent was placed into the ureter and renal pelvis under a combination of fluoroscopy and direct visualization. The bladder was emptied.? The rigid cystoscope was removed. ? The patient tolerated the procedure well and was brought to the recovery room in stable condition. Complications: None Drains: Ureteral stent as dictated above
[2023-12-04 19:44] LABS: Stone Source RIGHT KIDNEY STONE
== END 2023-11-25 17:35 | disposition home or self-care (01) ==
PROVIDERS: PCP Internal Medicine; Visit Provider Urology
PROC: (CPT 52356; principal; 2023-11-25 12:30)
DX: N13.2 Hydronephrosis with renal and ureteral calculous obstruction (principal); Z96.0 Presence of urogenital implants; Z87.442 Personal history of urinary calculi; N39.0 Urinary tract infection, site not specified; R35.0 Frequency of micturition; J45.909 Unspecified asthma, uncomplicated; I10 Essential (primary) hypertension; E11.9 Type 2 diabetes mellitus without complications; Z79.899 Other long term (current) drug therapy; Z79.84 Long term (current) use of oral hypoglycemic drugs; Z79.1 Long term (current) use of non-steroidal anti-inflammatories (NSAID); Z79.51 Long term (current) use of inhaled steroids; Z88.5 Allergy status to narcotic agent; Z88.8 Allergy status to other drugs, medicaments and biological substances; Z98.51 Tubal ligation status; Z87.891 Personal history of nicotine dependence
CPT/HCPCS: 52356; 82365; 82947; 88300; C1758; C1769; C2617; J0131; J0690; J1100; J1790; J1885; J2250; J2405; J2704; J3010; Q9967

== ENCOUNTER → 2023-11-25 10:51 | Outpatient (BNV) | payer OTHER, SELFPAY | PROVIDERS: PCP Internal Medicine; Visit Provider Urology | DX: N20.0 Calculus of kidney (principal) | CPT/HCPCS: 52356 ==

== ENCOUNTER 2023-12-05 10:06 | Outpatient (REF) | payer OTHER, SELFPAY ==
--- NOTE | ~2023-12-05 | XR_ITS ---
EXAMINATION: XR ABDOMEN KUB CLINICAL INDICATION: Presence of urogenital implant COMPARISON: Previous KUB November 2022 TECHNIQUE: AP view of the abdomen. FINDINGS: There is a right internal ureteral stent in satisfactory position. There is a cluster of stones in the lower pole of the right kidney. This measures 0.5 x 1.2 cm. No left renal stone seen. Small bilateral pelvic calcifications probably representing calcified phleboliths. Normal bowel gas pattern. Previous disc surgery at L5-S1 XR/XR KUB IMPRESSION: Right internal ureteral stent in satisfactory position. Right lower pole renal stones.
== END 2023-12-05 10:07 | disposition home or self-care (01) ==
LOC: HO.XRAY 10:06
PROVIDERS: PCP Internal Medicine; Visit Provider Urology
DX: Z96.0 Presence of urogenital implants (principal)
CPT/HCPCS: 74018

== ENCOUNTER 2023-12-09 08:02 | Day surgery (SDC) | payer OTHER, SELFPAY ==
--- NOTE | 2023-12-08 11:48 | HO.ANESPROP2 ---
HPI - Anesthesia Eval Consult details Narrative: 53yo F for Cystoscopy, Ureteroroscopy, Retro, Laser with stent removal Multiple Anesthetic Allergies PROPOFOL / ? Amide, Esters s/p cysto/stent 11/2023 with GA-LMA 4 - anesthesia record on chart [facility] Active Problems Active Problems: All Active Problems (Updated 11/22/23 @ 00:02 by Background Delfin) Ureteral stent present (Acute) Urinary frequency (Acute) Hydronephrosis with ureteral calculus (Acute) Diabetes (Acute) Past Medical History Medical History Asthma Hypertension Diabetes Cholecystectomy planned Surgical History Surgical History History of cholecystectomy History of lumbar surgery Hx of lithotripsy History of tubal ligation History of Problems with Anesthesia: No Social History Social History Household Members: Family Housing: House 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 Patient Tobacco Use Status: Former Tobacco user service: No Meds Allergies Allergy/AdvReac Type Severity Reaction Status Date / Time propofol [PROPOFOL] Allergy Severe ANAPHYLACTIC Verified 11/21/23 02:41 REACTION, anaphylaxis succinylcholine [Anectine] Allergy Severe anaphylaxis Verified 11/21/23 02:41 morphine [MORPHINE] Allergy Intermediate ITCHINESS Verified 11/21/23 02:41 AND HIVES, anaphylaxis Anesthetics - Amide Type - Allergy Unknown UNKNOWN Verified 11/21/23 02:41 Select A [Anesthetics - Amide Type] Anesthetics - [facility]cy Type- Allergy Unknown UNKNOWN Verified 11/21/23 02:41 Parabens [Anesthetics - [facility] Type] From ANECTINE Allergy Severe ANAPHYLACTI Uncoded 11/21/23 02:41 C nuts Allergy Severe Anaphylaxis Uncoded 11/25/23 12:01 SEAFOOD Allergy Unknown Anaphylaxis Uncoded 11/25/23 12:01 Home Medications Medication Instructions Recorded Confirmed Last Taken Type albuterol sulfate 2.5 mg/3 mL 2.5 mg inhalation Q6H PRN wheezing 10/21/23 11/13/23 Unknown History (0.083 %) solution for nebulization albuterol sulfate 90 mcg/actuation 2 puff inhalation QID PRN wheezing 10/21/23 11/13/23 Unknown History aerosol inhaler atorvastatin 20 mg tablet 20 mg PO DAILY 10/21/23 11/13/23 10/19/23 History azelastine 137 mcg (0.1 %) nasal 2 spray intranasal BID PRN Allergy 10/21/23 11/13/23 Unknown History spray aerosol Symptoms cefuroxime axetil 500 mg tablet 500 mg PO BID 10/21/23 11/13/23 10/19/23 History fluticasone fur. 200 mcg-umeclid 1 ea inhalation DAILY 10/21/23 11/25/23 11/25/23 10:00 History 62.5 mcg-vilant 25 mcg inhalat.powder (Trelegy Ellipta) fluticasone propionate 50 2 spray intranasal DAILY PRN 10/21/23 11/13/23 Unknown History mcg/actuation nasal Congestion spray,suspension lisinopril 5 mg tablet 5 mg PO DAILY 10/21/23 11/13/23 10/19/23 History metformin 500 mg tablet,extended 1,000 mg PO DAILY@0800 10/21/23 11/13/23 10/19/23 History release 24 hr omeprazole 20 mg capsule,delayed 20 mg PO DAILY@0630 10/21/23 11/13/23 10/19/23 History release ondansetron 4 mg disintegrating 4 mg PO Q8H PRN Nausea And Vomiting 10/21/23 11/13/23 Unknown History tablet oxycodone 5 mg tablet 5 mg PO Q6H PRN Pain 10/21/23 11/13/23 Unknown History Exam Pertinent Lab Results Pertinent Lab Results: Laboratory Tests 11/21/23 03:32 WBC 8.3 Hgb 12.4 Hct 38.3 Plt Count 277 Sodium 140 Potassium 3.9 Chloride 102 Carbon Dioxide 26 BUN 19 H Creatinine 0.86 Narrative Narrative: EKG 06/2023 Vent. Rate : 091 BPM Atrial Rate : 091 BPM P-R Int : 172 ms QRS Dur : 078 ms QT Int : 346 ms P-R-T Axes : 039 025 037 degrees QTc Int : 425 ms Normal sinus rhythm Normal ECG When compared with ECG of 15-FEB-2023 15:34, No significant change was found Assessment and Plan Assessment Anesthesia Assessment: Chart Reviewed Final Anesthetic Review History of Problems with Anesthesia: No
[2023-12-09] VITALS (9 sets, daily range): BP systolic 131–166; BP diastolic 60–96; PULSE 65–80; RESP 16–18; TEMP 36.1–36.9; O2SAT 93–100; BMI 35.6
--- NOTE | ~2023-12-09 | FL_ITS ---
EXAMINATION: XR FLUOROSCOPY WITH IMAGES CLINICAL INFORMATION: Cystoscopy and ureteroscopy. COMPARISON: KUB 12/05/2023. TECHNIQUE: Fluoroscopy Supervised By: Dr. Angle Kingsley. Fluoroscopy Time: 8.0 seconds. Cumulative Dose: 3.03 mGy. Images: 2. FINDINGS: 2 images demonstrate contrast in the ureter and nondilated collecting system, presumably right however the image is not labeled. FL/FL guidance in OR IMPRESSION: Fluoroscopy provided for cystoscopy and ureteroscopy.
--- NOTE | 2023-12-09 08:29 | HO.ANESPROP2 ---
[facility] Active Problems Active Problems: All Active Problems (Updated 11/22/23 @ 00:02 by Donta Lenz) Ureteral stent present (Acute) Urinary frequency (Acute) Hydronephrosis with ureteral calculus (Acute) Diabetes (Acute) Past Medical History Medical History Asthma Hypertension Diabetes Cholecystectomy planned Family History Family history of problems with anesthesia: No Surgical History Surgical History History of cholecystectomy History of lumbar surgery Hx of lithotripsy History of tubal ligation History of Problems with Anesthesia: No Social History Social History Household Members: Family Housing: House 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) Alcohol 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 Patient Tobacco Use Status: Former Tobacco user Use of substances other than those prescribed or required for medical reasons: No Are you DNR?: No Advance Directives: No Advance Directives Information Provided: Yes service: No Meds Allergies Allergy/AdvReac Type Severity Reaction Status Date / Time propofol [PROPOFOL] Allergy Severe ANAPHYLACTIC Verified 12/09/23 08:29 REACTION, anaphylaxis succinylcholine [Anectine] Allergy Severe anaphylaxis Verified 12/09/23 08:29 morphine [MORPHINE] Allergy Intermediate ITCHINESS Verified 12/09/23 08:29 AND HIVES, anaphylaxis Anesthetics - Amide Type - Allergy Unknown UNKNOWN Verified 12/09/23 08:29 Select A [Anesthetics - Amide Type] Anesthetics - [facility]cy Type- Allergy Unknown UNKNOWN Verified 12/09/23 08:29 Parabens [Anesthetics - [facility] Type] From ANECTINE Allergy Severe ANAPHYLACTI Uncoded 12/09/23 08:29 C nuts Allergy Severe Anaphylaxis Uncoded 12/09/23 08:29 SEAFOOD Allergy Unknown Anaphylaxis Uncoded 12/09/23 08:29 Active Medications: Current Medications Albuterol Sulfate (Albuterol Sulfate (0.083%) 2.5 Mg/3 Ml Vial.Neb) 2.5 mg INHALE ONCE PRN PRN Reason: Shortness of Breath/Wheezing Lactated Ringer's (Lr) 1,000 mls @ 100 mls/hr IVCONT .Q10H [facility] Home Medications Medication Instructions Recorded Confirmed Last Taken Type albuterol sulfate 2.5 mg/3 mL 2.5 mg inhalation Q6H PRN wheezing 10/21/23 11/13/23 Unknown History (0.083 %) solution for nebulization albuterol sulfate 90 mcg/actuation 2 puff inhalation QID PRN wheezing 10/21/23 11/13/23 Unknown History aerosol inhaler atorvastatin 20 mg tablet 20 mg PO DAILY 10/21/23 11/13/23 10/19/23 History azelastine 137 mcg (0.1 %) nasal 2 spray intranasal BID PRN Allergy 10/21/23 11/13/23 Unknown History spray aerosol Symptoms cefuroxime axetil 500 mg tablet 500 mg PO BID 10/21/23 11/13/23 10/19/23 History fluticasone fur. 200 mcg-umeclid 1 ea inhalation DAILY 10/21/23 11/25/23 11/25/23 10:00 History 62.5 mcg-vilant 25 mcg inhalat.powder (Trelegy Ellipta) fluticasone propionate 50 2 spray intranasal DAILY PRN 10/21/23 11/13/23 Unknown History mcg/actuation nasal Congestion spray,suspension lisinopril 5 mg tablet 5 mg PO DAILY 10/21/23 11/13/23 10/19/23 History metformin 500 mg tablet,extended 1,000 mg PO DAILY@0800 10/21/23 11/13/23 10/19/23 History release 24 hr omeprazole 20 mg capsule,delayed 20 mg PO DAILY@0630 10/21/23 11/13/23 10/19/23 History release ondansetron 4 mg disintegrating 4 mg PO Q8H PRN Nausea And Vomiting 10/21/23 11/13/23 Unknown History tablet oxycodone 5 mg tablet 5 mg PO Q6H PRN Pain 10/21/23 11/13/23 Unknown History Exam Height,Weight and Vital Signs: Height 5 ft 5 in Weight 97.069 kg Airway Mallampati Class: I TM Dist: >3cm Neck ROM: Full Assessment and Plan Assessment Anesthesia Assessment: Anesthesia Plan Discussed Final Anesthetic Review Family History of Problems with Anesthesia: No History of Problems with Anesthesia: No NPO: Yes ASA Class: III Final Preanesthetic Review: No Changes in Pt Med Stat, Meds/Allgs Chart Reviewed, Consent Obtained/Reviewed and Anes Risks/Benef Reviewed Patient Risk: Intermediate Procedure Risk: Low Anesthetic Plan Anesthetic Plan: GA Disposition: Standard PACU
[2023-12-09] MEDS: Lactated Ringers 1,000 ML 100 ML IVCONT (08:51)
[2023-12-09 08:58] LABS: Glucose, Whole Blood 160 mg/dL (60-115)
--- NOTE | 2023-12-09 10:40 | MHC.SHP ---
Pre-Procedural Eval Section A Date of Service: 12/09/23 The History & Physical has been completed within 30 days and I have reviewed it.: Yes Section B Chief Complaint: Hydronephrosis with renal and ureteral calculous o Allergies: Allergies Allergy/AdvReac Type Severity Reaction Status Date / Time propofol [PROPOFOL] Allergy Severe ANAPHYLACTIC Verified 12/09/23 08:29 REACTION, anaphylaxis succinylcholine [Anectine] Allergy Severe anaphylaxis Verified 12/09/23 08:29 morphine [MORPHINE] Allergy Intermediate ITCHINESS Verified 12/09/23 08:29 AND HIVES, anaphylaxis Anesthetics - Amide Type - Allergy Unknown UNKNOWN Verified 12/09/23 08:29 Select A [Anesthetics - Amide Type] Anesthetics - [facility]cy Type- Allergy Unknown UNKNOWN Verified 12/09/23 08:29 Parabens [Anesthetics - [facility] Type] From ANECTINE Allergy Severe ANAPHYLACTI Uncoded 12/09/23 08:29 C nuts Allergy Severe Anaphylaxis Uncoded 12/09/23 08:29 SEAFOOD Allergy Unknown Anaphylaxis Uncoded 12/09/23 08:29 Plan Diagnosis/Plan: Unchanged I have reviewed the history and physical and performed a pertinent physical examination on my patient. No changes have occurred unless specified. Cystoscopy, right retrograde, possible ureteroscopy, remove right ureteral stone Time Spent With Patient Time: Total time managing care of this patient today ____ minutes.
--- NOTE | 2023-12-09 12:53 | P.OP_ITS ---
Operative Note Operative Note Date of Service: 12/09/23 Narrative: PreOperative Diagnosis:?? right renal nephrolithiaisi Post Operative Diagnosis:?? ?right renal nephrolithiaisi Procedure: - cystoscopy, right retrograde - right stent removal Surgeon:?Dr Angle Kingsley Anesthesia:? General Indications for procedure: The patient is s/p right ureteroscopy laser lithotripsy Procedure: After informed consent was verified the patient was brought to the operating placed on the OR table in supine position.? General Anesthesia was administered per protocol.? The patient was placed in lithotomy position, prepped and draped in the usual sterile fashion.? Safety pause time-out and side of surgery confirmed.? Antibiotics confirmed. A 22 [place] cystoscope was inserted transurethrally, The bladder was visualized.? Both ureteric orifices were in normal position. Mild edema at the right ureteral orifice which is expected, distal end of ureteral stent visualized. The grasping forceps were used and the stent was removed without difficulty. The? right ureteric orifice was cannulated? and a retrograde examination was performed, there was no dilatation noted. The bladder was emptied.? The rigid cystoscope was removed. ? The patient tolerated the procedure well and was brought to the recovery room in stable condition. Complications: None Drains: none
[2023-12-09] MEDS: ondansetron HCL 4 MG/2 ML VIAL IVPUSH (13:11)
== END 2023-12-09 14:46 | disposition home or self-care (01) ==
PROVIDERS: PCP Internal Medicine; Visit Provider Urology
PROC: (CPT 52310; principal; 2023-12-09 10:10)
DX: N13.2 Hydronephrosis with renal and ureteral calculous obstruction (principal); E11.9 Type 2 diabetes mellitus without complications; I10 Essential (primary) hypertension; Z79.899 Other long term (current) drug therapy; Z79.84 Long term (current) use of oral hypoglycemic drugs; Z79.02 Long term (current) use of antithrombotics/antiplatelets
CPT/HCPCS: 52310; 82947; C1769; J0690; J1100; J1885; J2250; J2405; J3010; Q9967

== ENCOUNTER → 2023-12-09 08:02 | Outpatient (BNV) | payer OTHER, SELFPAY | PROVIDERS: PCP Internal Medicine; Visit Provider Urology | DX: N13.2 Hydronephrosis with renal and ureteral calculous obstruction (principal) | CPT/HCPCS: 52310; 74420 ==

== ENCOUNTER 2024-01-08 08:16 | Outpatient (REF) | payer OTHER, SELFPAY | END 2024-01-08 08:17 | disposition home or self-care (01) | LOC: HO.LAB 08:16 | PROVIDERS: PCP Internal Medicine; Visit Provider Urology | DX: N39.0 Urinary tract infection, site not specified (principal); N13.2 Hydronephrosis with renal and ureteral calculous obstruction; R39.9 Unspecified symptoms and signs involving the genitourinary system; Z79.899 Other long term (current) drug therapy | CPT/HCPCS: 81003; 87086; 99212 ==

== ENCOUNTER 2024-01-08 08:16 | Outpatient (AMB) | payer OTHER, SELFPAY ==
--- NOTE | 2024-01-08 08:16 | A.OFFVIS_ITS ---
Intake Intake Visit Reasons: follow up Intake Note: Patient presents today for post op Hydronephrosis with renal and urethral calculous: Meds- Oxybutynin Allergies to Antibiotic- No Known Allergies Blood Thinner- None Guitar Repair Technician Required: No Accompanied by: Self / Same As Patient Allergies propofol [PROPOFOL] Allergy (Severe, Verified 01/08/24 08:19) ANAPHYLACTIC REACTION, anaphylaxis succinylcholine [Anectine] Allergy (Severe, Verified 01/08/24 08:19) anaphylaxis morphine [MORPHINE] Allergy (Intermediate, Verified 01/08/24 08:19) ITCHINESS AND HIVES, anaphylaxis Anesthetics - Amide Type - Select A [Anesthetics - Amide Type] Allergy (Unknown, Verified 01/08/24 08:19) UNKNOWN Anesthetics - [facility]cy Type- Parabens [Anesthetics - [facility] Type] Allergy (Unknown, Verified 01/08/24 08:19) UNKNOWN From ANECTINE Allergy (Severe, Uncoded 01/08/24 08:19) ANAPHYLACTIC nuts Allergy (Severe, Uncoded 01/08/24 08:19) Anaphylaxis SEAFOOD Allergy (Unknown, Uncoded 01/08/24 08:19) Anaphylaxis Medication List - Last Reconciled 01/08/24 by Angle Kingsley MD albuterol sulfate 2.5 mg inhalation Q6H PRN albuterol sulfate 90 mcg/actuation 2 puffs inhalation QID PRN atorvastatin 20 mg PO DAILY azelastine 2 sprays intranasal BID PRN cephalexin 500 mg PO BID 5 days fluticasone propionate 50 mcg/actuation 2 sprays intranasal DAILY PRN yzvhwhktioo-pgtitecqi-fjdyergk 200-62.5-25 mcg (Trelegy Ellipta) 1 ea inhalation DAILY hydromorphone (Dilaudid) 2 mg PO Q6-8H lisinopril 5 mg PO DAILY metformin ER 1,000 mg PO DAILY@0800 omeprazole 20 mg PO DAILY@0630 oxybutynin chloride ER 5 mg PO TID PRN tramadol 50 mg PO Q8H PRN HPI HPI Comments History of Present Illness Details 01/08/24--Kay is a 53-year-old fem mario who presents today to the office for a follow-up. s/p right ureteroscopy laser litho, with fu stent removal c/o's dysuria, UA today leuks negative, nitrite negative, however will empirically start keflex and send urine culture Review of chart 10/24/2023? She was evaluated for hydronephrosis with ureteral calculus. She is a status post right ureteral stent done on 10/21/2023 for obstructive 1 cm UPJ stone. She underwent ESWL of the right kidney on 10/22/2023. She states that she was seen in the ED last week and treated for a UTI but feels like she still has one. She is taking tylenol prn for pain. Reviewed imagings, recent KUB films with the patient, which is not officially read as yet. There is a calcification in the renal pelvis and there may be some fragments along the proximal portion of the right stent. 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) Alcohol 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 Patient Tobacco Use Status: Former Tobacco user service: No Review of Systems Const All systems reviewed & are unremarkable except as noted in HPI and below Reports no additional complaints Eyes Reports no additional complaints ENT Reports no additional complaints Card Denies dyspnea Resp Denies cough and Denies dyspnea GI Reports no additional complaints Reports no additional complaints Musc Reports no additional complaints Skin/Breast Denies rash and Denies unusual bruising Neuro Reports no additional complaints Psych Reports no additional complaints Endo Reports no additional complaints Ant/Lymph Reports no additional complaints Aller/Immun Reports no additional complaints Results AMB Urinalysis, Automated UA Leukoctes 0 Suellen/uL Last Edit by MICHELLE Barry on 01/08/24 08:30 UA Nitrite Negative Last Edit by MICHELLE Barry on 01/08/24 08:30 UA Urobilinogen 0.2 mg/dL Last Edit by MICHELLE Barry on 01/08/24 08:3 0 UA Protein 15 mg/dL Last Edit by MICHELLE Barry on 01/08/24 08:30 UA pH 6.0 Last Edit by MICHELLE Barry on 01/08/24 08:30 UA Blood 0 Woodrow/uL Last Edit by MICHELLE Barry on 01/08/24 08:30 UA Specific [place] 1.030 Last Edit by MICHELLE Barry on 01/08/24 08: 30 UA Ketone Negative Last Edit by MICHELLE Barry on 01/08/24 08:30 UA Bilirubin 1 mg/dL Last Edit by MICHELLE Barry on 01/08/24 08:30 1+ Jaycee Kc 01/08/24 08:30 UA Glucose 0 mg/dL Last Edit by MICHELLE Barry on 01/08/24 08:30 Results Reviewed Results Reviewed: Laboratory Last Values Urine pH (Auto) 6.0 01/08/24 08:22 Specific [place] (Auto) 1.030 01/08/24 08:22 Urine Protein (Auto) 15 mg/dL 01/08/24 08:22 Glucose (UA)(Auto) 0 mg/dL 01/08/24 08:22 Urine Ketones (Auto) Negative 01/08/24 08:22 Urine Blood (Auto) 0 Woodrow/uL 01/08/24 08:22 Urine Nitrite (Auto) Negative 01/08/24 08:22 Urine Bilirubin (Auto) 1 mg/dL 01/08/24 08:22 Urine Urobilinogen (Auto) 0.2 mg/dL 01/08/24 08:22 Leukocyte Esterase (Auto) 0 Suellen/uL 01/08/24 08:22 Assessment & Plan Assessment & Plan (1) Kidney stone: Code(s): N20.0 - Calculus of kidney (2) Hydronephrosis with ureteral calculus: Code(s): N13.2 - Hydronephrosis with renal and ureteral calculous obstruction (3) UTI symptoms: Code(s): R39.9 - Unspecified symptoms and signs involving the genitourinary system Plan KUB renal sono 24 hr urine kefflex 500 mg bid for 5 dys Orders: Orders US renal BI 01/08/24 N13.2 - Hydronephrosis with renal and ureteral calculous obstruction AMB Urinalysis Automated 01/08/24 Z13.9 - Encounter for screening, unspecified XR KUB 01/08/24 N20.0 - Calculus of kidney Urine Culture 01/08/24 N39.0 - Urinary tract infection, site not specified Medications: New cephalexin 500 mg PO BID 5 days 10 caps 0RF Patient Instructions: The patient had an opportunity to ask questions regarding treatment plan. All questions were answered. Imaging, Laboratory studies and physical exam results were discussed and reviewed in detail. No major barriers to understanding were identified. The patient expressed understanding and agreement with the above treatment plan. The patient is aware they should contact our office by phone for worsening of their current condition or the appearance of new symptoms. Compliance is encouraged with any medications and followup testing that is ordered. It is a privilege to be allowed the opportunity to participate in the urologic care of your patient. If you have any questions or concerns regarding treatment for the above conditions please do not hesitate to contact me. The office tel ephone contact is [phone]. This note is constructed in part using voice recognition software. While every effort has been made to ensure accuracy press feeder errors may have been included. Yours sincerely, Angle Kingsley MD Coding Level of Care Code Est Pt Level 4 (80280) Diagnoses Kidney stone N20.0 Hydronephrosis with ureteral calculus N13.2 UTI symptoms R39.9
== END 2024-01-08 09:15 | disposition home or self-care (01) ==
PROVIDERS: PCP Internal Medicine; Visit Provider Urology
DX: N13.2 Hydronephrosis with renal and ureteral calculous obstruction (principal); R39.9 Unspecified symptoms and signs involving the genitourinary system
CPT/HCPCS: 99214

== ENCOUNTER 2024-02-05 10:02 | Outpatient (REF) | payer OTHER, SELFPAY ==
--- NOTE | ~2024-02-05 | XR_ITS ---
EXAMINATION: XR ABDOMEN KUB CLINICAL INDICATION: Renal calculus COMPARISON: 12/05/2023 and 11/11/2023 TECHNIQUE: AP view of the abdomen. FINDINGS: Seen previously calculus in the expected location of right kidney is not identified. Seen previously right ureteral stent has been removed. Patient is status post cholecystectomy with surgical vivian in the right upper quadrant. There are mild degenerative changes of lumbar spine with minimal levoscoliosis. XR/XR KUB IMPRESSION: Resolution of nephrolithiasis on the right
== END 2024-02-05 10:03 | disposition home or self-care (01) ==
LOC: HO.XRAY 10:02
PROVIDERS: PCP Internal Medicine; Visit Provider Urology
DX: N20.0 Calculus of kidney (principal)
CPT/HCPCS: 74018

== ENCOUNTER 2024-03-11 10:46 | Outpatient (REF) | payer OTHER, SELFPAY ==
--- NOTE | ~2024-03-11 | US_ITS ---
EXAMINATION: US RETROPERITONEAL LIMITED (RENAL ONLY) CLINICAL INFORMATION: Hydronephrosis with renal and ureteral calculus obstruction. Status post lithotripsy and stent removal. COMPARISON: X-ray abdomen KUB 02/05/2024 and 12/05/2023. CT abdomen and pelvis 11/02/2023. TECHNIQUE: Real-time imaging of the kidneys. FINDINGS: RIGHT KIDNEY: 10.8 x 3.6 x 5.4 cm (SAG x AP x TRV). The kidney is normal in size, contour, and echogenicity. Renal cortical thickness is normal. No calculi or focal parenchymal lesions. No hydronephrosis. LEFT KIDNEY: 11.5 x 5.7 x 4.5 cm (SAG x AP x TRV). The kidney is normal in size, contour, and echogenicity. Renal cortical thickness is normal. No calculi or focal parenchymal lesions. No hydronephrosis. ADDITIONAL FINDINGS: Incidental note made of a hyperechoic liver consistent with hepatic steatosis. US/US renal BI IMPRESSION: 1. Normal-appearing kidneys without hydronephrosis. 2. Incidentally noted hepatic steatosis.
== END 2024-03-11 10:47 | disposition home or self-care (01) ==
LOC: HO.US 10:46
PROVIDERS: PCP Internal Medicine; Visit Provider Urology
DX: N13.2 Hydronephrosis with renal and ureteral calculous obstruction (principal)
CPT/HCPCS: 76775

== ENCOUNTER 2024-03-18 13:05 | Outpatient (AMB) | payer OTHER, SELFPAY ==
--- NOTE | 2024-03-18 13:10 | A.OFFVIS_ITS ---
Intake Visit Reasons: 10w/US/KUB/[facility] Intake Note: Patient presents today for a follow-up US/KUB and [facility] 24 hr urine collection Results: Meds- Oxybutynin Allergies to Antibiotic- No Known Allergies Blood Thinner- None Installation Coordinator Required: No Accompanied by: Self / Same As Patient Allergies propofol [PROPOFOL] Allergy (Severe, Verified 03/25/24 06:03) ANAPHYLACTIC REACTION, anaphylaxis succinylcholine [Anectine] Allergy (Severe, Verified 03/25/24 06:03) anaphylaxis morphine [MORPHINE] Allergy (Intermediate, Verified 03/25/24 06:03) ITCHINESS AND HIVES, anaphylaxis Anesthetics - Amide Type - Select A [Anesthetics - Amide Type] Allergy (Unknown, Verified 03/25/24 06:03) UNKNOWN Anesthetics - [facility] Type- Parabens [Anesthetics - [facility] Type] Allergy (Unknown, Verified 03/25/24 06:03) UNKNOWN From ANECTINE Allergy (Severe, Uncoded 03/25/24 06:03) ANAPHYLACTIC nuts Allergy (Severe, Uncoded 03/25/24 06:03) Anaphylaxis SEAFOOD Allergy (Unknown, Uncoded 03/25/24 06:03) Anaphylaxis HPI Comments Details: 03/18/2024--Kay is here for follow-up. Discussed 24 hour urine results: Collection date 03/10/24--Total volume 3.33 L, Calcium 199 mg; Oxalate 31 mg, Sodium 116, Citrate 1229 mg, uric acid 0.95--. Instructed on importance of fluid intake, Low oxalate diet, low sodium diet. We will start allopurinol 100 mg twice a day discussed reduce protein in diet. Renal US - 03/11/24- resolution of [place] and KUB- 02/05/24--no remaining renal calcifications. Stone analysis 95% calcium oxalate Review of chart: 01/08/24--Kay is a 53-year-old female who presents today to the office for a follow-up. s/p right ureteroscopy laser litho, with fu stent removal c/o's dysuria, UA today leuks negative, nitrite negative, however will empirically start keflex and send urine culture 10/24/2023? She was evaluated for hydronephrosis with ureteral calculus. She is a status post right ureteral stent done on 10/21/2023 for obstructive 1 cm UPJ stone. She underwent ESWL of the right kidney on 10/22/2023. She states that she was seen in the ED last week and treated for a UTI but feels like she still has one. She is taking tylenol prn for pain. Reviewed imagings, recent KUB films with the patient, which is not officially read as yet. There is a calcification in the renal pelvis and there may be some fragments along the proximal portion of the right stent. 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 Patient Tobacco Use Status: Former Tobacco user Smoked in Last 30 Days: No Use of substances other than those prescribed or required for medical reasons: No Advance Directives: No Advance Directives Information Provided: No Do you have a plan to hurt others: No Plan service: No Review of Systems Const All systems reviewed & are unremarkable except as noted in HPI and below Reports no additional complaints Eyes Reports no additional complaints ENT Reports no additional complaints Card Reports no additional complaints Resp Reports no additional complaints GI Reports no additional complaints Reports as per HPI Musc Reports no additional complaints Skin/Breast Reports system reviewed and no additional complaints, except as documented Neuro Reports no additional complaints Psych Reports no additional complaints Endo Reports no additional complaints Ant/Lymph Reports no additional complaints Aller/Immun Reports no additional complaints Results AMB Urinalysis, Automated UA Leukoctes 0 Suellen/uL Last Edit by Jaycee Kc Katelynn on 03/18/24 13:21 UA Nitrite Negative Last Edit by Jaycee Kc Katelynn on 03/18/24 13:21 UA Urobilinogen 0.2 mg/dL Last Edit by Jaycee Kc [facility] on 03/18/24 13:2 1 UA Protein 15 mg/dL Last Edit by Jaycee Kc Katelynn on 03/18/24 13:21 UA pH 5.5 Last Edit by Jaycee Kc [facility] on 03/18/24 13:21 UA Blood 0 Woodrow/uL Last Edit by Jaycee Kc [facility] on 03/18/24 13:21 UA Specific [place] 1.025 Last Edit by Jaycee Kc Katelynn on 03/18/24 13: 21 UA Ketone Negative Last Edit by Jaycee Kc Katelynn on 03/18/24 13:21 UA Bilirubin 0 mg/dL Last Edit by Jaycee Kc [facility] on 03/18/24 13:21 UA Glucose 0 mg/dL Last Edit by Jaycee Kc [facility] on 03/18/24 13:21 Results Reviewed Results Reviewed: Laboratory Last Values Urine pH (Auto) 5.5 03/18/24 13:11 Specific [place] (Auto) 1.025 03/18/24 13:11 Urine Protein (Auto) 15 mg/dL 03/18/24 13:11 Glucose (UA)(Auto) 0 mg/dL 03/18/24 13:11 Urine Ketones (Auto) Negative 03/18/24 13:11 Urine Blood (Auto) 0 Woodrow/uL 03/18/24 13:11 Urine Nitrite (Auto) Negative 03/18/24 13:11 Urine Bilirubin (Auto) 0 mg/dL 03/18/24 13:11 Urine Urobilinogen (Auto) 0.2 mg/dL 03/18/24 13:11 Leukocyte Esterase (Auto) 0 Suellen/uL 03/18/24 13:11 Date of Service: 03/11/24 EXAMINATION: US RETROPERITONEAL LIMITED (RENAL ONLY) CLINICAL INFORMATION: Hydronephrosis with renal and ureteral calculus obstruction. Status post lithotripsy and stent removal. COMPARISON: X-ray abdomen KUB 02/05/2024 and 12/05/2023. CT abdomen and pelvis 11/02/2023. TECHNIQUE: Real-time imaging of the kidneys. FINDINGS: RIGHT KIDNEY: 10.8 x 3.6 x 5.4 cm (SAG x AP x TRV). The kidney is normal in size, contour, and echogenicity. Renal cortical thickness is normal. No calculi or focal parenchymal lesions. No hydronephrosis. LEFT KIDNEY: 11.5 x 5.7 x 4.5 cm (SAG x AP x TRV). The kidney is normal in size, contour, and echogenicity. Renal cortical thickness is normal. No calculi or focal parenchymal lesions. No hydronephrosis. ADDITIONAL FINDINGS: Incidental note made of a hyperechoic liver consistent with hepatic steatosis. IMPRESSION: 1. Normal-appearing kidneys without hydronephrosis. 2. Incidentally noted hepatic steatosis. Date of Service: 02/05/24 EXAMINATION: XR ABDOMEN KUB CLINICAL INDICATION: Renal calculus COMPARISON: 12/05/2023 and 11/11/2023 TECHNIQUE: AP view of the abdomen. FINDINGS: Seen previously calculus in the expected location of right kidney is not identified. Seen previously right ureteral stent has been removed. Patient is status post cholecystectomy with surgical vivian in the right upper quadrant. There are mild degenerative changes of lumbar spine with minimal levoscoliosis. 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 The patient expressed understanding and agreement with the above treatment plan. The patient is aware they should contact our office by phone for worsening of their current condition or the appearance of new symptoms. Compliance is encouraged with any medications and followup testing that is ordered. It is a privilege to be allowed the opportunity to participate in the urologic care of your patient. If you have any questions or concerns regarding treatment for the above conditions please do not hesitate to contact me. The office telephone contact is [phone]. This note is constructed in part using voice recognition software. While every effort has been made to ensure accuracy bean snapper errors may have been included. Yours sincerely, Angle Kingsley MD Coding Level of Care Code Est Pt Level 4 (84724) Diagnoses Kidney stone N20.0 Hyperuricosuria R82.993
== END 2024-03-18 14:12 | disposition home or self-care (01) ==
PROVIDERS: PCP Internal Medicine; Visit Provider Urology
DX: N20.0 Calculus of kidney (principal); R82.993 Hyperuricosuria
CPT/HCPCS: 99214

== ENCOUNTER → 2024-03-18 13:05 | Outpatient (BNVA) | payer OTHER, SELFPAY | PROVIDERS: PCP Internal Medicine; Visit Provider Urology | DX: N20.0 Calculus of kidney (principal); R82.993 Hyperuricosuria | CPT/HCPCS: 81003; 99212 ==

== ENCOUNTER 2024-03-25 05:42 | Emergency (ER) | payer OTHER, SELFPAY ==
--- NOTE | ~2024-03-25 | XR_ITS ---
EXAMINATION: XR CHEST CLINICAL INFORMATION: Right-sided rib pain COMPARISON: 02/22/2023 TECHNIQUE: Frontal view of the chest was obtained. FINDINGS: Lungs are well-inflated and clear. Trachea is midline in position. No interstitial disease, consolidation or mass. No pleural effusion or pneumothorax. Cardiac silhouette and pulmonary vessels are normal in size. The mediastinum and bev have normal contour. The ribs have an intact appearance on this limited single view of the chest. XR/XR chest 1V IMPRESSION: No acute cardiopulmonary abnormality.
--- NOTE | ~2024-03-25 | US_ITS ---
EXAMINATION: US ABDOMEN LIMITED CLINICAL INFORMATION: Right upper quadrant tenderness, history of cholecystectomy. COMPARISON: Renal ultrasound 03/11/2024, CT scan abdomen and pelvis 11/02/2023 TECHNIQUE: Real-time imaging of the right upper quadrant abdominal viscera. FINDINGS: PANCREAS: Pancreas is obscured by bowel gas. LIVER: The liver is normal in size. The liver contour is normal. There is diffuse increased liver parenchymal echogenicity, consistent with hepatic steatosis. No focal hepatic lesion. There is no intrahepatic biliary duct dilatation seen. GALLBLADDER: Surgically absent. COMMON BILE DUCT: Normal in caliber measuring 0.15cm in diameter. RIGHT KIDNEY: Normal. No hydronephrosis. No renal calculi or focal parenchymal lesions. The kidney measures 11.6 cm in maximum dimension. FREE FLUID: None. US/US abdomen limited IMPRESSION: 1. Hepatic steatosis. 2. Prior cholecystectomy.
[2024-03-25 06:01] VITALS: BP 184/74; PULSE 80; RESP 16; TEMP 36.8; O2SAT 98; BMI 35.9
--- NOTE | 2024-03-25 08:01 | ED_ITS ---
HPI - General Adult General Chief complaint: General Medical Stated complaint: Upper resp symptoms Time Seen by Provider: 03/25/24 08:01 Source: patient Mode of arrival: ambulatory Limitations: no limitations History of Present Illness HPI narrative: Patient is a 53-year-old female with history of DM, HTN, asthma, renal calculi presenting to the emergency department with complaint of right mid back pain radiating around to right flank. States pain has been present for the past 2 days. Denies fevers. Denies nausea, vomiting, diarrhea, constipation. Denies urinary urgency, dysuria, hematuria or other urinary symptoms. Took ibuprofen at home with some relief. States pain does not increase with deep inspiration. Denies any cough or other URI symptoms. Denies chest pain or palpitations. Has been taking ibuprofen without relief. MD complaint: back/flank pain Onset (ago): day(s) Location: back Radiation: flank Severity: moderate Quality: sharp ( hot ) Pain Consistency: colicky Associated symptoms: denies other symptoms Treatments prior to arrival: NSAID Related Data Home Medications ?Medication ?Instructions ?Recorded ?Confirmed albuterol sulfate 2.5 mg/3 mL 2.5 mg inhalation Q6H PRN wheezing 10/21/23 01/08/24 (0.083 %) solution for nebulization albuterol sulfate 90 mcg/actuation 2 puff inhalation QID PRN wheezing 10/21/23 01/08/24 aerosol inhaler atorvastatin 20 mg tablet 20 mg PO DAILY 10/21/23 01/08/24 azelastine 137 mcg (0.1 %) nasal 2 spray intranasal BID PRN Allergy 10/21/23 01/08/24 spray aerosol Symptoms fluticasone fur. 200 mcg-umeclid 1 ea inhalation DAILY 10/21/23 01/08/24 62.5 mcg-vilant 25 mcg inhalat.powder (Trelegy Ellipta) fluticasone propionate 50 2 spray intranasal DAILY PRN 10/21/23 01/08/24 mcg/actuation nasal Congestion spray,suspension lisinopril 5 mg tablet 5 mg PO DAILY 10/21/23 01/08/24 metformin 500 mg tablet,extended 1,000 mg PO DAILY@0800 10/21/23 01/08/24 release 24 hr omeprazole 20 mg capsule,delayed 20 mg PO DAILY@0630 10/21/23 01/08/24 release Previous Rx's ?Medication ?Instructions ?Recorded hydromorphone 2 mg tablet 2 mg PO Q6-8H pain #8 tabs 10/24/23 (Dilaudid) oxybutynin chloride 5 mg 5 mg PO TID PRN urinary urgency 10/24/23 tablet,extended release 24 hr #90 tabs tramadol 50 mg tablet 50 mg PO Q8H PRN pain #18 tabs 11/25/23 cephalexin 500 mg capsule 500 mg PO BID 5 days #10 caps 01/08/24 allopurinol 100 mg tablet 100 mg PO BID #60 tabs 03/18/24 cyclobenzaprine 5 mg tablet 5 mg PO TID PRN muscle spasm #10 03/25/24 tabs Allergies Allergy/AdvReac Type Severity Reaction Status Date / Time propofol [PROPOFOL] Allergy Severe ANAPHYLACTIC Verified 03/25/24 06:03 REACTION, anaphylaxis succinylcholine [Anectine] Allergy Severe anaphylaxis Verified 03/25/24 06:03 morphine [MORPHINE] Allergy Intermediate ITCHINESS Verified 03/25/24 06:03 AND HIVES, anaphylaxis Anesthetics - Amide Type - Allergy Unknown UNKNOWN Verified 03/25/24 06:03 Select A [Anesthetics - [facility]ide Type] Anesthetics - [facility] Type- Allergy Unknown UNKNOWN Verified 03/25/24 06:03 Parabens [Anesthetics - [facility] Type] From ANECTINE Allergy Severe ANAPHYLACTI Uncoded 03/25/24 06:03 C nuts Allergy Severe Anaphylaxis Uncoded 03/25/24 06:03 SEAFOOD Allergy Unknown Anaphylaxis Uncoded 03/25/24 06:03 Review of Systems 2 Review of Systems: As per HPI. 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 Blood pressure elevated. Heart rate normal. Respiratory rate normal. Temperature normal. Oxygen saturation normal. Const General: cooperative, healthy appearing and no acute distress Orientation/consciousness: oriented to person, oriented to place, oriented to time and patient oriented x3 Limitations: no limitations HENMT Head: Yes normocephalic and Yes atraumatic Ears: external ears normal General nose exam: Normal external nose present Face and sinus: Yes face symmetric Mouth: oropharynx normal and moist mucous membranes Throat: Yes uvula midline Eyes Pupils: Equal, round and reactive pupils present Neck Neck: Yes normal visual inspection and Yes supple Resp Effort & Inspection: normal respiratory effort and able to speak in complete sentences Auscultation: clear to auscultation bilaterally Cardio Rate: regular rate Rhythm: regular rhythm Heart sounds: S1 normal heart sound present and S2 normal heart sound present GI Palpation (GI): Soft to palpation and nontender Auscultation: normoactive bowel sounds General: Yes CVA tenderness on the right Back/Spine/Pelvis Back: CVA tenderness Skin General skin exam: elasticity normal and turgor normal Neuro General: oriented to person, oriented to place, oriented to time, patient oriented x3, moves all extremities, no focal motor deficits and CN's II-XI intact bilaterally Cranial nerves: Yes Equal, round and reactive pupils present Cognition (Neuro): normal cognition Extrem General: Yes full ROM, Yes no pedal edema and Yes no calf tenderness Psych Mental Status: mental status grossly normal Affect: normal affect Thought process: Normal thought process present Medications Administered Discontinued Medications Generic Name Dose Route Start Last Admin Trade Name Freq PRN Reason Stop Dose Admin Ketorolac Tromethamine 30 mg 03/25/24 09:34 03/25/24 09:46 Ketorolac Tromethamine 30 Mg/Ml Vial IM 03/25/24 09:35 30 mg ONCE ONE Administration Medical Decision Making Medical Decision Making [facility] Narrative: Patient is a 53-year-old female with history of DM, HTN, asthma, renal calculi presenting to the emergency department with complaint of right mid back pain radiating around to right flank. On exam patient is awake, A+Ox3, VS WNL, afebrile, normal neurological exam without focal deficits, physical exam findings as above. Given reported symptoms and physical exam findings, initial differential includes renal/ureteral calculi, UTI/pyelonephritis, muscle strain. Unlikely PE, Wells score 0. Unlikely pneumonia as patient denies cough or other URI symptoms. X-ray chest ordered by RN via protocol notable for no evidence of pneumonia. My interpretation is in agreement with the radiologist's interpretation. Will hold off on medicating with cyclobenzaprine in ED as patient drove herself. Urinalysis is without evidence of infection, no blood noted. Unlikely calculi. Upon re-evaluation patient stating that the pain is radiating more to her right upper quadrant than to her right flank. Currently rates pain at 9/10. Now having tenderness to palpation of RUQ. Will obtain labs and right upper quadrant ultrasound. U/S shows hepatic steatosis and s/p cholecystectomy. Labs notable for mildly elevated ALT, normal T bili, no other abnormalities. Patient updated on results and all questions answered. Feel patient is stable for discharge home at this time. Will prescribe short course of cyclobenzaprine to determine if pain is musculoskeletal as patient states it begins in mid back and then radiates around right side. Instructed her to follow up with primary care provider. Return precautions discussed at bedside. Patient verbalized understanding of and agreement with plan. Differential Diagnosis Differential Diagnoses: The differential diagnosis associated with the presentation includes As per [facility]. Admission/Observation Consideration of admission/observation: Escalation of care including admission/observation considered Patient would have been admitted to the hospital had their work up had any findings where hospital admission was appropriate and their clinical presentation warranted hospital admission. Lab Data [facility] Lab Attestation statement: I reviewed the patient's lab results. As per [facility] 03/25/24 09:43 03/25/24 09:43 Labs: Lab Results 03/25/24 03/25/24 Range/Units 08:36 09:43 WBC 6.3 (4.8-10.8) X10*3/uL RBC 4.48 (4.20-5.50) X10*6/uL Hgb 12.6 (12.0-16.0) g/dl Hct 38.9 (37.0-47.0) % MCV 86.8 (80.0-98.0) fL MCH 28.1 (27.0-33.0) pg MCHC 32.4 (31.0-35.0) g/dl RDW 12.2 (11.0-16.0) % Plt Count 273 (160-400) X10*3/uL MPV 11.2 (9.4-12.3) fL Immature Gran % (Auto) 0.3 (0.0-0.4) % Neut % (Auto) 55.0 (45-73) % Lymph % (Auto) 29.8 (20-40) % Petroleum % (Auto) 8.7 (2-11) % Eos % (Auto) 5.4 H (0-4) % Baso % (Auto) 0.8 (0-2) % Lymph # (Auto) 1.9 (1.2-4.9) X10*3/uL Petroleum # (Auto) 0.6 (0.1-1.2) X10*3/uL Eos # (Auto) 0.3 (0.0-0.4) X10*3/uL Baso # (Auto) 0.1 (0.0-0.2) X10*3/uL Abs Immat Gran (auto) 0.02 (0.00-0.03) X10*3/uL Absolute Neuts (auto) 3.5 (2.0-8.3) x10*3/uL Absolute Nucleated RBC 0.000 (0.0-0.012) X10*3/uL Nucleated RBC % (auto) 0.0 (0.0-0.2) /100WBC D-Dimer High Sensitivty 171 NG/ML Sodium 139 (135-145) mmol/L Potassium 4.1 (3.3-5.1) mmol/L Chloride 105 (96-108) mmol/L Carbon Dioxide 26 (22-29) mmol/L Anion Gap 12 (12-20) BUN 11 (9-16) mg/dL Creatinine 0.80 (0.5-1.4) mg/dL Estim Creat Clear Calc 96.3 Estimated GFR > 60 Random Glucose 183 H (60-115) mg/dL Calcium 9.0 (8.4-10.2) mg/dL Total Bilirubin 0.3 (0.0-1.0) mg/dL AST 23 (5-31) U/L ALT 49 H (0-31) U/L Alkaline Phosphatase 88 (39-117) U/L Total Protein 6.9 (6.5-8.0) g/dL Albumin 3.8 (3.5-5.0) g/dL Amylase 28 (28-100) U/L Lipase 27 (8-78) U/L Urine Color Yellow Urine Appearance Clear Urine pH 5.5 (5.0-9.0) Ur Specific [place] 1.020 (1.005-1.025) Urine Protein Negative (Neg-Trace) mg/dL Urine Glucose (UA) 100 H (Negative) mg/dL Urine Ketones Negative (Negative) mg/dL Urine Blood Negative (Negative) Urine Nitrite Negative (Negative) Ur Leukocyte Esterase Negative (Negative) Urine Test NEGATIVE (NEGATIVE) Independent Interpretation I performed an independent interpretation of an: Plain X-Ray and Ultrasound Interpretation: U/S notable for hepatic steatosis, s/p cholecystectomy CXR unremarkable. Radiology Impression Discussion of test interpretation with radiology: I have reviewed the radiologist's reading. Radiologist Impression: US/US abdomen limited IMPRESSION: 1. Hepatic steatosis. 2. Prior cholecystectomy. XR/XR chest 1V IMPRESSION: No acute cardiopulmonary abnormality. External Record Review External record reviewed: Inpatient record, Office record and Outpatient record Prescription Management I considered prescription management with: Other Discharge Plan Discharge Clinical Impression: Abdominal pain Patient Disposition: Home, Self-Care Instructions: Abdominal Pain (ED) Additional Instructions: You have been evaluated in the emergency department today for abdominal pain. Your evaluation did not show evidence of medical conditions requiring emergent intervention at this time. Please schedule an appointment with your primary care physician this week. You are being prescribed cyclobenzaprine which is a muscle relaxer that you can use every 8 hours as needed to see if this improves your pain. Use caution with this medication in combination with trazodone as it came increased drowsiness. We recommend that you continue to use Tylenol and ibuprofen per package instructions. Return to the emergency department if you experience worsening or uncontrolled pain, fevers 100.4? F or greater, recurrent vomiting, inability to tolerate food or fluids by mouth, bloody stools or vomit, black or tarry stools, or any other concerning symptoms. Prescriptions: New cyclobenzaprine 5 mg tablet 5 mg PO TID PRN (Reason: muscle spasm) Qty: 10 0RF No Action tramadol 50 mg tablet 50 mg PO Q8H PRN (Reason: pain) Qty: 18 0RF atorvastatin 20 mg tablet 20 mg PO DAILY lisinopril 5 mg tablet 5 mg PO DAILY metformin 500 mg tablet extended release 24 hr 1,000 mg PO DAILY@0800 Trelegy Ellipta 200-62.5-25 mcg blister with device 1 ea INHALATION DAILY omeprazole 20 mg capsule,delayed release(DR/EC) 20 mg PO DAILY@0630 albuterol sulfate 90 mcg/actuation HFA aerosol inhaler 2 puff INHALATION QID PRN (Reason: wheezing) albuterol sulfate 2.5 mg /3 mL (0.083 %) solution for nebulization 2.5 mg inhalation Q6H PRN (Reason: wheezing) azelastine 137 mcg (0.1 %) aerosol,spray 2 spray intranasal BID PRN (Reason: Allergy Symptoms) fluticasone propionate 50 mcg/actuation spray,suspension 2 spray intranasal DAILY PRN (Reason: Congestion) cephalexin 500 mg capsule 500 mg PO BID 5 Days Qty: 10 0RF allopurinol 100 mg tablet 100 mg PO BID Qty: 60 3RF oxybutynin chloride 5 mg tablet extended release 24hr 5 mg PO TID PRN (Reason: urinary urgency) Qty: 90 0RF hydromorphone [Dilaudid] 2 mg tablet 2 mg PO Q6-8H Qty: 8 0RF Rx Instructions: Partial Fill upon patient request. Print Language: Ghanaian
[2024-03-25 08:48] LABS: Appearance Urine Clear; Color Urine Yellow; Glucose Urine UA 100 mg/dL (Negative); Leukocyte Esterase Urine Negative (Negative); Nitrite Urine Negative (Negative); PH 5.5 (5.0-9.0); Urine Blood Negative (Negative); Urine Ketones Negative (Negative); Urine Protein Negative (Neg-Trace)
[2024-03-25 08:50] LABS: UPreg QC Valid YES; Urine Pregnancy NEGATIVE (NEGATIVE)
[2024-03-25] MEDS: Ketorolac Tromethamine 30 MG/ML VIAL IM (09:46)
[2024-03-25 09:47] LABS: MANUAL DIFF FLAG NO
[2024-03-25 09:51] LABS: Basophils Absolute Auto 0.1 X10*3/uL (0.0-0.2); Basophils Percent Auto 0.8 % (0-2); Eosinophils Absolute Auto 0.3 X10*3/uL (0.0-0.4); Eosinophils Percent Auto 5.4 % (0-4); Hematocrit 38.9 % (37.0-47.0); Hemoglobin 12.6 g/dl (12.0-16.0); Imm Gran Abs Auto 0.02 X10*3/uL (0.00-0.03); Imm Gran Pct Auto 0.3 % (0.0-0.4); Lymphocytes Absolute Auto 1.9 X10*3/uL (1.2-4.9); Lymphocytes Percent Auto 29.8 % (20-40); Mean Corpuscular HGB Conc 32.4 g/dl (31.0-35.0); Mean Corpuscular Hemoglobin 28.1 pg (27.0-33.0); Mean Corpuscular Volume 86.8 fL (80.0-98.0); Mean Platelet Volume 11.2 fL (9.4-12.3); Monocytes Absolute Auto 0.6 X10*3/uL (0.1-1.2); Monocytes Percent Auto 8.7 % (2-11); Neutrophils Absolute Auto 3.5 x10*3/uL (2.0-8.3); Platelet Count 273 X10*3/uL (160-400); Red Blood Count 4.48 X10*6/uL (4.20-5.50); Red Cell Distribution Width 12.2 % (11.0-16.0); White Blood Count 6.3 X10*3/uL (4.8-10.8)
[2024-03-25 10:00] LABS: D Dimer High Sensitivity 171 NG/ML
[2024-03-25 10:07] LABS: Alanine Aminotransferase 49 U/L (0-31); Albumin Level 3.8 g/dL (3.5-5.0); Alkaline Phosphatase 88 U/L (39-117); Amylase 28 U/L (28-100); Anion Gap 12 (12-20); Aspartate Amino Transferase 23 U/L (5-31); Bilirubin Total 0.3 mg/dL (0.0-1.0); Blood Urea Nitrogen 11 mg/dL (9-16); Carbon Dioxide 26 mmol/L (22-29); Chloride 105 mmol/L (96-108); Creatinine Clr Calc Pharmacy 96.3; Estimated Glomerular Filt Rate > 60; Glucose Random 183 mg/dL (60-115); Lipase 27 U/L (8-78); Potassium 4.1 mmol/L (3.3-5.1); Sodium 139 mmol/L (135-145); Total Protein 6.9 g/dL (6.5-8.0)
[2024-03-25 12:46] VITALS: BP 165/76; PULSE 75; RESP 16; TEMP 36.8; O2SAT 94
== END 2024-03-25 12:47 | disposition home or self-care (01) ==
PROVIDERS: Registered Nurse Emergency; Emergency Provider Emergency Medicine; PCP Internal Medicine
DX: R10.9 Unspecified abdominal pain (principal); M54.50 Low back pain, unspecified; R07.89 Other chest pain; E11.9 Type 2 diabetes mellitus without complications; I10 Essential (primary) hypertension; Z79.84 Long term (current) use of oral hypoglycemic drugs; Z87.891 Personal history of nicotine dependence; Z79.899 Other long term (current) drug therapy
CPT/HCPCS: 36415; 71045; 76705; 80053; 81003; 81025; 82150; 83690; 85025; 85379; 96372; 99284; J1885

== ENCOUNTER 2024-07-30 09:51 | Outpatient (REF) | payer OTHER, SELFPAY | END 2024-07-30 09:52 | disposition home or self-care (01) | LOC: HO.LAB 09:51 | PROVIDERS: Visit Provider Urology | DX: R39.9 Unspecified symptoms and signs involving the genitourinary system (principal); R35.0 Frequency of micturition; N13.2 Hydronephrosis with renal and ureteral calculous obstruction | CPT/HCPCS: 81003; 99212 ==

== ENCOUNTER 2024-07-30 10:11 | Outpatient (AMB) | payer OTHER, SELFPAY ==
--- NOTE | 2024-07-30 10:15 | MHC.OFFVIS ---
Intake Visit Reasons: 4m/[employer] 05/18) Intake Note: Allergies:No known allergies Urology Medication: Oxybutynin Visit Reason: 4 months follow up/[employer] Pension Administrator Required: No Accompanied by: Self / Same As Patient Allergies propofol [PROPOFOL] Allergy (Severe, Verified 03/25/24 06:03) ANAPHYLACTIC REACTION, anaphylaxis succinylcholine [Anectine] Allergy (Severe, Verified 03/25/24 06:03) anaphylaxis morphine [MORPHINE] Allergy (Intermediate, Verified 03/25/24 06:03) ITCHINESS AND HIVES, anaphylaxis Anesthetics - Amide Type - Select A [Anesthetics - [facility]ide Type] Allergy (Unknown, Verified 03/25/24 06:03) UNKNOWN Anesthetics - [facility] Type- Parabens [Anesthetics - [facility] Type] Allergy (Unknown, Verified 03/25/24 06:03) UNKNOWN From ANECTINE Allergy (Severe, Uncoded 03/25/24 06:03) ANAPHYLACTIC nuts Allergy (Severe, Uncoded 03/25/24 06:03) Anaphylaxis SEAFOOD Allergy (Unknown, Uncoded 03/25/24 06:03) Anaphylaxis HPI Comments Details: 07/30/24--Kay is followed for OAB and nephrolithiasis. Discussed 24 hour urine results: Total volume 2.59 mL, Calcium 185 mg; Oxalate 32 mg, Sodium 153, Citrate 938 mg, Uric acid 0.88. Cont allopurinol, Low oxalate diet, low sodium diet. FU in one year, renal US. Cont oxybutynin. Review of chart: 03/18/2024--Kay is here for follow-up. Discussed 24 hour urine results: Collection date 03/10/24--Total volume 3.33 L, Calcium 199 mg; Oxalate 31 mg, Sodium 116, Citrate 1229 mg, uric acid 0.95--. Instructed on importance of fluid intake, Low oxalate diet, low sodium diet. We will start allopurinol 100 mg twice a day discussed reduce protein in diet. Renal US - 03/11/24- resolution of Vanlue and KUB- 02/05/24--no remaining renal calcifications. Stone analysis 95% calcium oxalate 01/08/24--Kay is a 53-year-old female who presents today to the office for a follow-up. s/p right ureteroscopy laser litho, with fu stent removal c/o's dysuria, UA today leuks negative, nitrite negative, however will empirically start keflex and send urine culture 10/24/2023? She was evaluated for hydronephrosis with ureteral calculus. She is a status post right ureteral stent done on 10/21/2023 for obstructive 1 cm UPJ stone. She underwent ESWL of the right kidney on 10/22/2023. She states that she was seen in the ED last week and treated for a UTI but feels like she still has one. She is taking tylenol prn for pain. Reviewed imagings, recent KUB films with the patient, which is not officially read as yet. There is a calcification in the renal pelvis and there may be some fragments along the proximal portion of the right stent. 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 Patient Tobacco Use Status: Former Tobacco user service: No Review of Systems Const All systems reviewed & are unremarkable except as noted in HPI and below Reports no additional complaints Eyes Reports no additional complaints ENT Reports no additional complaints Card Reports no additional complaints Resp Reports no additional complaints GI Reports no additional complaints Reports as per HPI Musc Reports no additional complaints Skin/Breast Reports system reviewed and no additional complaints, except as documented Neuro Reports no additional complaints Psych Reports no additional complaints Endo Reports no additional complaints Ant/Lymph Reports no additional complaints Aller/Immun Reports no additional complaints Results AMB Urinalysis, Automated UA Leukoctes 0 Suellen/uL Last Edit by Hanna Suazo on 07/30/24 10:30 UA Nitrite Negative Last Edit by Hanna Suazo on 07/30/24 10:30 UA Urobilinogen 0.2 mg/dL Last Edit by Hanna Suazo on 07/30/24 10:30 UA Protein 15 mg/dL Last Edit by Hanna Suazo on 07/30/24 10:30 UA pH 6.0 Last Edit by Hanna Suazo on 07/30/24 10:30 UA Blood 0 [place]/uL Last Edit by Hanna Suazo on 07/30/24 10:30 UA Specific [place] 1.030 Last Edit by Hanna Suazo on 07/30/24 10:30 UA Ketone Negative Last Edit by Hanna Suazo on 07/30/24 10:30 UA Bilirubin 0 mg/dL Last Edit by Hanna Suazo on 07/30/24 10:30 UA Glucose 0 mg/dL Last Edit by Hanna Suazo on 07/30/24 10:30 Results Reviewed Results Reviewed: Laboratory Last Values Urine pH (Auto) 6.0 07/30/24 09:51 Specific [place] (Auto) 1.030 07/30/24 09:51 Urine Protein (Auto) 15 mg/dL 07/30/24 09:51 Glucose (UA)(Auto) 0 mg/dL 07/30/24 09:51 Urine Ketones (Auto) Negative 07/30/24 09:51 Urine Blood (Auto) 0 [place]/uL 07/30/24 09:51 Urine Nitrite (Auto) Negative 07/30/24 09:51 Urine Bilirubin (Auto) 0 mg/dL 07/30/24 09:51 Urine Urobilinogen (Auto) 0.2 mg/dL 07/30/24 09:51 Leukocyte Esterase (Auto) 0 [place]ellen/uL 07/30/24 09:51 Assessment & Plan Assessment & Plan (1) Kidney stone: Code(s): N20.0 - Calculus of kidney Category: Medical (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 FU in one year, renal US. Cont oxybutynin. Orders: Orders AMB Post Void Residual by ultrasound 07/30/24 R82.993 - Hyperuricosuria, R39.9 - Unspecified symptoms and signs involving the genitourinary system, R35.0 - Frequency of micturition, N13.2 - Hydronephrosis with renal and ureteral calculous obstruction Urine Culture 07/30/24 N13.2 - Hydronephrosis with renal and ureteral calculous obstruction, R35.0 - Frequency of micturition, R39.9 - Unspecified symptoms and signs involving the genitourinary system AMB Urinalysis Automated 07/30/24 R39.9 - Unspecified symptoms and signs involving the genitourinary system, R35.0 - Frequency of micturition, N13.2 - Hydronephrosis with renal and ureteral calculous obstruction Patient Instructions: The patient had an opportunity to ask questions regarding treatment plan. The patient expressed understanding and agreement with the above treatment plan. The patient is aware they should contact our office by phone for worsening of their current condition or the appearance of new symptoms. Compliance is encouraged with any medications and followup testing that is ordered. It is a privilege to be allowed the opportunity to participate in the urologic care of your patient. If you have any questions or concerns regarding treatment for the above conditions please do not hesitate to contact me. The office telephone contact is [phone]. This note is constructed in part using voice recognition software. While every effort has been made to ensure accuracy senior manufacturing engineer errors may have been included. Yours sincerely, Angle Kingsley MD Coding Level of Care Code Est Pt Level 4 (57067) Diagnoses Kidney stone N20.0 Hyperuricosuria R82.993 OAB (overactive bladder) N32.81
== END 2024-07-30 10:51 | disposition home or self-care (01) ==
PROVIDERS: PCP Internal Medicine; Visit Provider Urology
DX: N20.0 Calculus of kidney (principal); R82.993 Hyperuricosuria; N32.81 Overactive bladder
CPT/HCPCS: 99214

== ENCOUNTER 2025-07-25 14:01 | Emergency (ER) | payer OTHER, SELFPAY ==
--- NOTE | ~2025-07-25 | CT_ITS ---
CLINICAL HISTORY: right flank pain CT abdomen and pelvis without contrast Comparison: Abdominal ultrasound 03/25/2024 Findings: The lung bases are clear. Cholecystectomy. Solid organs are within normal limits. Tiny punctate nonobstructing right renal calculi. No bowel obstruction, pneumoperitoneum, or pneumatosis. Pelvic contents unremarkable. Normal appendix. The bones are intact. Degenerative changes throughout lumbar spine. IMPRESSION: 1. Punctate nonobstructing right renal calculi. 2. Cholecystectomy. 3. Additional findings as above. This document has been electronically signed by: Vishal Glover MD on 07/25/2025 19:53:48
[2025-07-25 14:32] VITALS: BP 152/60; PULSE 73; RESP 16; TEMP 36.8; O2SAT 96; BMI 33.8
--- NOTE | 2025-07-25 14:32 | ED.GENADULT ---
HPI - General Adult General Chief complaint: Back Pain/Injury Stated complaint: R sided back pain Time Seen by Provider: 07/25/25 17:03 Source: patient and RN notes reviewed Mode of arrival: ambulatory History of Present Illness ED Provider: Mili MARVIN narrative: Pt is a 55 yo female who presents for evaluation of right sided flank pain for 3 days. She describes pain as burning and achy, 8/10. She states it is associated with dysuria and urinary frequency. Denies hematuria. She endorses increase in bowel movements, but denies blood in the stool. Pt reports chills since yesterday, but denies night sweats, nausea, vomiting, or pelvic pain. She has a history of urethral stent placement and 1 year ago, and recurrent kidney stones. 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 She denies any recent changes in physical activity, trauma, or heavy lifting. Pt states she has diabetes well-controlled on metformin. Related Data Home Medications ?Medication ?Instructions ?Recorded ?Confirmed albuterol sulfate 2.5 mg/3 mL 2.5 mg inhalation Q6H PRN wheezing 10/21/23 01/08/24 (0.083 %) solution for nebulization albuterol sulfate 90 mcg/actuation 2 puff inhalation QID PRN wheezing 10/21/23 01/08/24 aerosol inhaler atorvastatin 20 mg tablet 20 mg PO DAILY 10/21/23 01/08/24 azelastine 137 mcg (0.1 %) nasal 2 spray intranasal BID PRN Allergy 10/21/23 01/08/24 spray Symptoms fluticasone fur. 200 mcg-umeclid 1 ea inhalation DAILY 10/21/23 01/08/24 62.5 mcg-vilant 25 mcg inhalat.powder (Trelegy Ellipta) fluticasone propionate 50 2 spray intranasal DAILY PRN 10/21/23 01/08/24 mcg/actuation nasal Congestion spray,suspension lisinopril 5 mg tablet 5 mg PO DAILY 10/21/23 01/08/24 metformin 500 mg tablet,extended 1,000 mg PO DAILY@0800 10/21/23 01/08/24 release 24 hr omeprazole 20 mg capsule,delayed 20 mg PO DAILY@0630 10/21/23 01/08/24 release Previous Rx's ?Medication ?Instructions ?Recorded hydromorphone 2 mg tablet 2 mg PO Q6-8H pain #8 tabs 10/24/23 (Dilaudid) oxybutynin chloride 5 mg 5 mg PO TID PRN urinary urgency 10/24/23 tablet,extended release 24 hr #90 tabs tramadol 50 mg tablet 50 mg PO Q8H PRN pain #18 tabs 11/25/23 cephalexin 500 mg capsule 500 mg PO BID 5 days #10 caps 01/08/24 cyclobenzaprine 5 mg tablet 5 mg PO TID PRN muscle spasm #10 03/25/24 tabs allopurinol 100 mg tablet 100 mg PO BID 90 days #180 tabs 04/13/25 Allergies Allergy/AdvReac Type Severity Reaction Status Date / Time propofol (PROPOFOL) Allergy Severe ANAPHYLACTIC Verified 07/25/25 14:34 REACTION, anaphylaxis succinylcholine (Anectine) Allergy Severe anaphylaxis Verified 07/25/25 14:34 morphine (MORPHINE) Allergy Intermediate ITCHINESS Verified 07/25/25 14:34 AND HIVES, anaphylaxis Anesthetics - [facility] Type - Allergy Unknown UNKNOWN Verified 07/25/25 14:34 Select A (Anesthetics - [facility] Type) Anesthetics - [facility] Type- Allergy Unknown UNKNOWN Verified 07/25/25 14:34 Parabens (Anesthetics - [facility] Type) From ANECTINE Allergy Severe ANAPHYLACTI Uncoded 07/25/25 14:34 C nuts Allergy Severe Anaphylaxis Uncoded 07/25/25 14:34 SEAFOOD Allergy Unknown Anaphylaxis Uncoded 07/25/25 14:34 Review of Systems Constitutional: Constitutional: Reports chills, Denies excessive sweating and Denies fever(s) Cardiovascular: Cardiovascular: Denies chest pain and Denies dyspnea Respiratory: Respiratory: Denies dyspnea Gastrointestinal: Gastrointestinal: Denies abdominal pain, Reports change in bowel habits (increased frequency), Denies constipation, Denies diarrhea and Denies vomiting Genitourinary: Genitourinary: Denies abnormal vaginal bleeding, Denies hematuria, Reports dysuria, Denies pelvic pain, Reports flank pain, Reports urinary urgency and Denies vaginal discharge Musculoskeletal: Musculoskeletal: Denies muscle cramps Psychiatric: Psychiatric: Denies change in appetite Endocrine: Endocrine: Denies excessive sweating PMFSH Past Medical History Medical History Asthma Hypertension Diabetes Cholecystectomy planned Surgical History History of cholecystectomy History of lumbar surgery Hx of lithotripsy History of tubal ligation Social History Social History Household Members: Family Housing: House Do you presently have 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) Alcohol 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 Patient Tobacco Use Status: Former Tobacco user Smoked in Last 30 Days: No Use of substances other than those prescribed or required for medical reasons: No Advance Directives: No Advance Directives Information Provided: No Do you have a plan to hurt others: No Plan Patient : No service: No Physical Exam ED Vital Signs: Vital Signs - 24 hr 07/25/25 14:32 07/25/25 19:42 Temperature 98.2 F Pulse Rate 73 68 Respiratory Rate 16 16 Blood Pressure 152/60 H 147/68 H Pulse Oximetry 96 95 Oxygen Delivery Method Room Air Room Air BMI result Body Mass Index 33.8 Resp Effort & Inspection: normal respiratory effort Auscultation: clear to auscultation bilaterally Cardio Rate: regular rate Rhythm: regular rhythm GI Inspection: Yes normal to inspection Palpation (GI): Soft to palpation, nontender, no guarding, not rigid and No Rebound tenderness present Percussion: Yes normal to percussion Auscultation: normal bowel sounds General: Yes no CVA tenderness Back/Spine/Pelvis Back: no CVA tenderness and No back tenderness Thoracic/Lumbar Spine: No paraspinal muscle tenderness Course Course Course Narrative: Rapid medical examination performed in triage by Hailey Carcamo PA-C. Patient is a 55 year old assigned female at presenting to the emergency department with right sided flank pain. Detailed physical exam and review of systems are deferred to the folding machine setter. Labs ordered. Patient placed back in the waiting room pending room availability and results. Medications Administered Discontinued Medications Generic Name Dose Route Start Last Admin Trade Name Freq PRN Reason Stop Dose Admin Ketorolac Tromethamine 30 mg 07/25/25 18:09 07/25/25 19:17 Ketorolac Tromethamine 30 Mg/Ml Vial IM 07/25/25 18:10 30 mg ONCE ONE Administration Medical Decision Making Medical Decision Making MDM Narrative: 55-year-old female with a past medical history significant for diabetes, overactive bladder, obstructive uropathy presents for evaluation of right flank pain for the last 3 days. Her labs are reassuring, on exam she has no CVA tenderness. Urinalysis is clear without evidence of hematuria or infection. Her pain may be related to a muscle strain, we will get a CT scan of the abdomen pelvis without contrast to evaluate for obstructive uropathy. Vital signs are stable, no evidence of infection. Differential Diagnosis Differential Diagnoses: The differential diagnosis associated with the presentation includes Obstructive uropathy Pyelonephritis Cystitis Muscle strain Constipation biliary colic less likely Lab Data MDM Lab Attestation statement: I reviewed the patient's lab results. No leukocytosis or significant anemia. Normal platelet count. No significant electrolyte abnormalities warranting intervention. Random glucose of 132 with no evidence of DKA. 07/25/25 14:42 07/25/25 14:42 Labs: Lab Results 07/25/25 07/25/25 Range/Units 14:42 17:25 WBC 7.4 (4.8-10.8) X10*3/uL RBC 4.28 (4.20-5.50) X10*6/uL Hgb 12.0 (12.0-16.0) g/dl Hct 36.8 L (37.0-47.0) % MCV 86.0 (80.0-98.0) fL MCH 28.0 (27.0-33.0) pg MCHC 32.6 (31.0-35.0) g/dl RDW 13.2 (11.0-16.0) % Plt Count 262 (160-400) X10*3/uL MPV 11.1 (9.4-12.3) fL Immature Gran % (Auto) 0.1 (0.0-0.4) % Neut % (Auto) 65.5 (45-73) % Lymph % (Auto) 24.9 (20-40) % [place] % (Auto) 6.8 (2-11) % Eos % (Auto) 2.0 (0-4) % Baso % (Auto) 0.7 (0-2) % Lymph # (Auto) 1.8 (1.2-4.9) X10*3/uL [place] # (Auto) 0.5 (0.1-1.2) X10*3/uL Eos # (Auto) 0.2 (0.0-0.4) X10*3/uL Baso # (Auto) 0.1 (0.0-0.2) X10*3/uL Abs Immat Gran (auto) 0.01 (0.00-0.03) X10*3/uL Absolute Neuts (auto) 4.8 (2.0-8.3) x10*3/uL Absolute Nucleated RBC 0.000 (0.0-0.012) X10*3/uL Nucleated RBC % (auto) 0.0 (0.0-0.2) /100WBC Sodium 140 (135-145) mmol/L Potassium 4.1 (3.3-5.1) mmol/L Chloride 104 (96-108) mmol/L Carbon Dioxide 30 H (22-29) mmol/L Anion Gap 10 L (12-20) BUN 17 H (9-16) mg/dL Creatinine 0.94 (0.5-1.4) mg/dL Estim Creat Clear Calc 77.6 Estimated GFR > 60 Random Glucose 132 H (60-115) mg/dL Calcium 9.2 (8.4-10.2) mg/dL Total Bilirubin 0.4 (0.0-1.0) mg/dL AST 18 (5-31) U/L ALT 30 (0-31) U/L Alkaline Phosphatase 82 (39-117) U/L Total Protein 7.3 (6.5-8.0) g/dL Albumin 4.4 (3.5-5.0) g/dL Urine Color Yellow Urine Appearance Clear Urine pH 7.0 (5.0-9.0) Ur Specific [place] 1.010 (1.005-1.025) Urine Protein Negative (Neg-Trace) mg/dL Urine Glucose (UA) Negative (Negative) mg/dL Urine Ketones Negative (Negative) mg/dL Urine Blood Negative (Negative) Urine Nitrite Negative (Negative) Ur Leukocyte Esterase Negative (Negative) Radiology Impression Discussion of test interpretation with radiology: I have reviewed the radiologist's reading. Radiologist Impression: Findings: The lung bases are clear. Cholecystectomy. Solid organs are within normal limits. Tiny punctate nonobstructing right renal calculi. No bowel obstruction, pneumoperitoneum, or pneumatosis. Pelvic contents unremarkable. Normal appendix. The bones are intact. Degenerative changes throughout lumbar spine. IMPRESSION: 1. Punctate nonobstructing right renal calculi. 2. Cholecystectomy. 3. Additional findings as above. This document has been electronically signed by: Vishal Glover MD on 07/25/2025 19:53:48 Discharge Plan Discharge Clinical Impression: Acute right flank pain Patient Disposition: Home, Self-Care Instructions: Back Pain (ED) Additional Instructions: your workup in the ER today was reassuring. This includes your blood work, urinalysis and your CT scan. There is no evidence of infection in your urine use ibuprofen/ Tylenol as needed for pain. Follow-up with your primary doctor, return for new or worsening symptoms Prescriptions: No Action allopurinol 100 mg tablet 100 mg PO BID 90 Days Qty: 180 1RF tramadol 50 mg tablet 50 mg PO Q8H PRN (Reason: pain) Qty: 18 0RF atorvastatin 20 mg tablet 20 mg PO DAILY lisinopril 5 mg tablet 5 mg PO DAILY metformin 500 mg tablet extended release 24 hr 1,000 mg PO DAILY@0800 Trelegy Ellipta 200-62.5-25 mcg blister with device 1 ea INHALATION DAILY omeprazole 20 mg capsule,delayed release(DR/EC) 20 mg PO DAILY@0630 albuterol sulfate 90 mcg/actuation HFA aerosol inhaler 2 puff INHALATION QID PRN (Reason: wheezing) albuterol sulfate 2.5 mg /3 mL (0.083 %) solution for nebulization 2.5 mg inhalation Q6H PRN (Reason: wheezing) azelastine 137 mcg (0.1 %) aerosol,spray 2 spray intranasal BID PRN (Reason: Allergy Symptoms) fluticasone propionate 50 mcg/actuation spray,suspension 2 spray intranasal DAILY PRN (Reason: Congestion) cyclobenzaprine 5 mg tablet 5 mg PO TID PRN (Reason: muscle spasm) Qty: 10 0RF cephalexin 500 mg capsule 500 mg PO BID 5 Days Qty: 10 0RF oxybutynin chloride 5 mg tablet extended release 24hr 5 mg PO TID PRN (Reason: urinary urgency) Qty: 90 0RF hydromorphone [Dilaudid] 2 mg tablet 2 mg PO Q6-8H Qty: 8 0RF Rx Instructions: Partial Fill upon patient request. Print Language: [place]
[2025-07-25 14:45] LABS: MANUAL DIFF FLAG NO
[2025-07-25 14:48] LABS: Hematocrit 36.8 % (37.0-47.0); Hemoglobin 12.0 g/dl (12.0-16.0); Imm Gran Abs Auto 0.01 X10*3/uL (0.00-0.03); Imm Gran Pct Auto 0.1 % (0.0-0.4); Lymphocytes Absolute Auto 1.8 X10*3/uL (1.2-4.9); Mean Corpuscular HGB Conc 32.6 g/dl (31.0-35.0); Mean Corpuscular Hemoglobin 28.0 pg (27.0-33.0); Mean Corpuscular Volume 86.0 fL (80.0-98.0); NRBC Abs Auto 0.000 X10*3/uL (0.0-0.012); NRBC Pct Auto 0.0 /100WBC (0.0-0.2); Platelet Count 262 X10*3/uL (160-400); Red Blood Count 4.28 X10*6/uL (4.20-5.50); White Blood Count 7.4 X10*3/uL (4.8-10.8)
[2025-07-25 15:04] LABS: Alanine Aminotransferase 30 U/L (0-31); Albumin Level 4.4 g/dL (3.5-5.0); Alkaline Phosphatase 82 U/L (39-117); Anion Gap 10 (12-20); Aspartate Amino Transferase 18 U/L (5-31); Blood Urea Nitrogen 17 mg/dL (9-16); Calcium 9.2 mg/dL (8.4-10.2); Carbon Dioxide 30 mmol/L (22-29); Chloride 104 mmol/L (96-108); Creatinine Clr Calc Pharmacy 77.6; Estimated Glomerular Filt Rate > 60; Potassium 4.1 mmol/L (3.3-5.1); Sodium 140 mmol/L (135-145); Total Protein 7.3 g/dL (6.5-8.0)
[2025-07-25 17:33] LABS: Appearance Urine Clear; Glucose Urine UA Negative (Negative); PH 7.0 (5.0-9.0); Specific Gravity - Urine 1.010 (1.005-1.025)
--- OUTSIDE RECORDS SUMMARY | 2025-07-25 18:54 | XMS_ITS | Clinical Summary ---
Author Organization [address] [facility] Address [address] [place] [address] Phone Care Team Providers Care Ordained Minister Name Role Phone Sarthak Silva MD Primary Care Provider [phone] Allergies Active Allergy Reactions Criticality Noted Date Comments Diph,Pertus(Acel),Tet Ped (Pf) Rash 08/11/2019 Tdap Morphine Rash,Other 03/23/2012 Pneumococcal Vaccine Dermatitis 08/11/2019 Propofol Other 01/12/2010 anaphylactic Shellfish Containing Products Swelling 2008 Tongue swells and lip swelling Succinylcholine 10/19/2024 Vonoprazan Unknown 10/19/2024 Medications albuterol 2.5 mg /3 mL (0.083 %) nebulizer solution Take 3 mL (2.5 mg total) by nebulization every 6 (six) hours if needed for wheezing. 04/21/20 24 Active azelastine (ASTELIN) 137 mcg (0.1 %) nasal spray Administer 1 spray into each nostril 2 (two) times a day. Active blood sugar diagnostic (FreeStyle Lite Strips) test strip 01/03/20 21 Active montelukast (SINGULAIR) 10 mg tablet Take 1 tablet (10 mg total) by mouth 1 (one) time each day in the evening. 07/02/20 23 Active Trelegy Ellipta 200-62.5-25 mcg inhaler TAKE INHALATION DAILY,INSTR:AT THE SAME TIME EVERY DAY J45.9 Active EPINEPHrine (EpiPen 2-Balaji) 0.3 mg/0.3 mL injection Inject 0.3 mL (0.3 mg total) into the thigh. 08/23/20 22 Active atorvastatin (Lipitor) 80 mg tablet Take 1 tablet (80 mg total) by mouth at bedtime. 30 each 11 01/27/20 25 026 Active losartan (COZAAR) 50 mg tablet TAKE 1 AND 1/2 TABLETS DAILY BY MOUTH 135 tablet 1 02/12/20 25 Active famotidine (PEPCID) 40 mg tablet Take 1 tablet (40 mg total) by mouth 1 (one) time each day. 02/14/20 25 Active hydrocortisone 2.5 % cream APPLY TO AREA TWICE A DAY 56 g 5 03/04/20 25 Active omeprazole (PriLOSEC) [address] capsule Take 1 capsule (40 mg total) by mouth 1 (one) time each day. Do not crush or chew. 90 each 2 03/21/20 25 Active albuterol HFA (PROAIR HFA ; PROVENTIL HFA ; VENTOLIN HFA) 90 mcg/actuation inhalerIndication s:Unspecified asthma, uncomplicated Inhale 2 puffs by mouth every 4 (four) hours if needed for wheezing. 8.5 g 03/21/20 25 Active ibuprofen (ADVIL,MOTRIN) 800 mg tablet Take 1 tablet (800 mg total) by mouth 3 (three) times a day if needed for mild pain (pain). 90 tablet 5 03/21/20 25 026 Active fluticasone propionate (FLONASE) 50 mcg/actuation nasal spray Administer 2 sprays into each nostril 1 (one) time each day. Shake gently. Before first use, prime pump. After use, clean tip and replace cap. 16 g 03/29/20 25 026 Active diclofenac (VOLTAREN) 1 % topical gel Apply 1 g topically 4 (four) times a day. 1 each 1 06/21/20 25 Active acetaminophen (TYLENOL) 500 mg tablet Take 2 tablets (1,000 mg total) by mouth every 8 (eight) hours if needed (right hip pain). 60 tablet 06/21/20 25 Active freestyle (FreeStyle Lancets) 28 gauge lancets Use to test twice daily 200 each 3 06/29/20 25 Active blood-glucose meter kit Use daily or as directed for monitoring of diabetes 1 each 06/29/20 25 026 Active semaglutide (OZEMPIC) 0.25 mg or 0.5 mg (2 mg/3 mL) injection penIndications:Ty pe 2 diabetes mellitus with obesity ([facility] V24, [facility] V28) . 5 mg sc every 7 days 3 Pen 5 06/29/20 25 Active metFORMIN XR (GLUCOPHAGE-XR) 500 mg 24 hr tablet Take 1 tablet (500 mg total) by mouth 2 (two) times a day with meals. Do not crush, chew, or split. 180 each 1 06/29/20 25 Active metFORMIN XR (GLUCOPHAGE-XR) 500 mg 24 hr tablet Take 1 tablet (500 mg total) by mouth 2 (two) times a day. Do not crush, chew, or split. 025 Discontin ued(Reord er) semaglutide (OZEMPIC) 0.25 mg or 0.5 mg (2 mg/3 mL) injection penIndications:Ty pe 2 diabetes mellitus with obesity ([facility] V24, [facility] V28) Inject 0.25 mg under the skin every 7 (seven) days. INITIATION: 0.25 mg once weekly for 4 weeks followed by 0.5 mg once weekly for AT LEAST 4 weeks. MAINTENANCE: Continue 0.5 mg once weekly 3 Pen 5 02/25/20 25 025 Discontin ued(Reord er) Active Problems Problem Noted Date Diagnosed Date Type 2 diabetes mellitus wit h obesity ([facility] V24, [facility] V28) 10/27/2024 Asthma 10/24/2024 Lumbar disc disorder 10/24/2024 Microalbuminuria 08/13/2024 Gastroesophageal reflux disease without esophagi tis 05/17/2024 Nephrolithiasis 08/23/2022 Hyperlipidemia 07/21/2020 Abdominal pain, chronic, right upper quadrant Overview (10/24/2024): Chronic right upper quadrant and epigastric pain, onset approximate age [age] years old. Hypertension 09/17/2019 Migraines 09/10/2019 Overview (10/24/2024): Patient went to ER for migraines on September 08, 2019. Her CT was negative. Referral for neurology has been placed. Type II diabetes mellitus wi th renal manifestations [place] [facility] [place] 08/09/2019 Heartburn 09/07/2013 Severe obesity (BMI 35.0-39. 9) with comorbidity [place] [place] [facility] [place] 08/06/2011 Neuropathic pain syndrome (non-herpetic) 010 Chronic rhinitis 07/10/2009 Fatty liver 07/10/2009 Resolved Problems Problem Noted Date Diagnosed Date Resolved Date Skin lesion 08/27/2023 02/16/2025 Overview (10/24/2024): Last Assessment & Plan: Lesion of abdomen may be related to prior cyst or irritant that is now causing itching while healing. Recommend steroid ointment burst and taper. Patient instructed on use. RTO 4-6 weeks to ensure resolution Vulvar lesion 08/08/2023 02/16/2025 Overview (10/24/2024): Last Assessment & Plan: Not ammenable to drainage. Continue sitz baths. RTO if symptoms worsen or if there is concern for infection. Pruritus 09/16/2018 02/16/2025 Encounters Date Type Department Care Team Description 06/29/2025 2:30 PM EDT Office Visit [address] [phone] Keke Caldera PA Type 2 diabetes mellitus with diabetic chronic kidney disease, unspecified CKD stage, unspecified whether [place] [facility] [place] [place] [facility] [place] (Primary Dx); Primary hypertension; Pure hypercholesterolemia ; Type 2 diabetes mellitus with obesity [place], [facility] V28) 06/21/2025 3:18 PM EDT - 06/21/2025 11:59 PM EDT Hospital Encounter XRAY [address] [phone] Acute right hip pain Discharge Disposition: Home or Self Care 06/21/2025 2:45 PM EDT Office Visit Adult Medicine [address] [phone] Tanna Chau PA Acute right hip pain (Primary Dx) 05/03/2025 Telephone Adult Medicine [address] [phone] Sarthak Silva MD from Last 3 Months Immunizations Name Administration Dates Next Due Influenza trivalent, with pr eservative (Fluzone; Afluria) 6mo and older 08/07/2009 Pfizer SARS-CoV-2 COVID-19, mRNA, LNP-S, preservative free 08/15/2021 Pneumococcal polysaccharide 23 valent (Pneumovax 23) 2yo and older 08/09/2019 Tdap Tetanus diptheria acell ular pertussis (Boostrix; Adacel) 7yo and older 08/09/2019 Surgical History Surgery Date Site/Laterality Comments BACK SURGERY : removal l5 and s1 2006; 2007 (stimulator - not efective) CHOLECYSTECTOMY 1997 TUBAL LIGATION 2005 CERVICAL BIOPSY W/ LOOP ELEC TRODE EXCISION UPPER GASTROINTESTINAL ENDOSCOPY 03/15/2020 Tiny fundic gland polyps, otherwise normal. COLONOSCOPY 02/20/2021 tiny erosion - TI, random biopsy normal. Medical History Medical History Date Comments Lumbar disc disorder Asthma Chronic rhinitis 07/10/2009 Heartburn 09/07/2013 Fatty liver 07/10/2009 DX:Fatty liver Neuropathic pain syndrome (non-herpetic) 01/26/2010 Abdominal pain, chronic, rig ht upper quadrant 03/15/2020 Chronic right upper quadrant and epigastric pain, onset approximate age [age] years old. Type II diabetes mellitus wi th renal manifestations (CMS/HCC V24, CMS/HCC V28) 08/09/2019 Migraines 09/10/2019 Patient went to ER for migraines on September 08, 2019. Her CT was negative. Referral for neurology has been placed. Hypertension 09/17/2019 Hyperlipidemia 07/21/2020 Family History Medical History Relation Name Comments Diabetes Maternal Grandfather Hypertension Mother rheumatoid arth ritis Breast cancer Neg Hx Colon cancer Neg Hx Ovarian cancer Neg Hx Relation Name Status Comments Maternal Grandfather Mother Social History Tobacco Use Types Packs/Day Years Used Date Smoking Tobacco: Former Smokeless Tobacco: Never Tobacco Cessation:Counseling Given: Not Answered Alcohol Use Standard Drinks/Week Comments No 0 (1 standard drink = 0.6 oz pur e alcohol) Comments No Sex and Gender Information Value Date Recorded Sex Assigned at Not on file Legal Sex Female 4:34 AM EST Gender Identity Not on file Sexual Orientation Not on file Obstetrics History Para Term AB IAB SAB Ectopic Multiple Livin g Live Births 3 3 3 0 0 0 3 3 Date Outcome GA Total Labor Labor/2nd/3rd Weight Sex Type Anes PTL Shelbi A1 A5 Name Clin Term Living Term Living Term Living Last Filed Vital Signs Vital Sign Reading Time Taken Comments Blood Pressure 126/82 06/29/2025 2:36 PM EDT Pulse 82 06/29/2025 2:36 PM EDT Temperature 36.4 C (97.5 F) 06/29/2025 2:36 PM EDT Respiratory Rate 12 06/21/2025 2:51 PM EDT Oxygen Saturation 93% 06/21/2025 2:51 PM EDT Inhaled Oxygen Concentration - - Weight 93.2 kg (205 lb 6.4 oz) 06/29/2025 2:36 P M EDT Height 165.1 cm (5' 5 ) 06/29/2025 2:36 PM EDT Body Mass Index 34.18 06/29/2025 2:36 PM EDT Plan of Treatment Upcoming Encounters Date Type Department Care Team (Late st Contact Info) Description 07/29/2025 11:00 AM EDT Consult Orthopedics - [address] [phone] Filippo Tena PA [address] [place] [phone] 08/09/2025 9:40 AM EDT Office Visit Gastroenterology - [address] [place] [phone] Trace Murillo MD [address] [place] [phone] 09/29/2025 1:00 PM EST Office Visit Endocrinology - [address] [phone] Keke Caldera PA [address] [place] [phone] 10/10/2025 9:45 AM EST Office Visit Adult Medicine [address] [phone] Sarthak Silva MD [address] [place] [address] Health Maintenance Due Date Last Done Comments Hepatitis B Vaccines (1 of 3 - 19+ 3-dose series) 1991 Zoster Vaccines (1 of 2) 1991 Pneumococcal Vaccine: 50+ Years (2 of 2 - PCV) 08/09/2020 08/09/2019 COVID-19 Vaccine (3 - Pfizer risk series) 09/12/2021 08/15/2021, 07/25/2021 Colorectal Cancer Screening: Colonoscopy 10/26/2022 HIV Screening 10/26/2022 Hepatitis C Screening 10/26/2022 Medicare Annual Wellness Visit 10/26/2022 Social Influencers of Health Screening 10/26/2022 Depression Screening 11/17/2024 Influenza Vaccine (#1) 2025 08/07/2009 Diabetes: Annual Retina Eye Exam 08/30/2025 08/30/2024 Diabetes: Annual Foot Exam 08/31/2025 08/31/2024 Cervical Cancer Screening: Pap Smear 09/12/2025 09/12/2022 Diabetes: Blood Sugar Control Test (HGBA1C) 12/30/2025 06/29/2025, 01/18/2025, 05/05/2024 Diabetes: Annual Urine Albumin-Creatinine Ratio (uACR) 01/18/2026 01/18/2025 Diabetes: Annual GFR (Glomerular Filtration Rate) 01/18/2026 01/18/2025, 05/05/2024 Hypertension/CHF/CAD Annual BMP Blood Test 01/18/2026 01/18/2025, 05/05/2024 Breast Cancer Screening 02/04/2027 02/05/20 25, 09/26/2022, 10/18/2021, Additional history exists DTaP,Tdap,and Td Vaccines (2 - Td or Tdap) 08/09/2029 08/09/2019 Cholesterol Screening (Lipid Panel) 01/18/2030 01/18/2025, 05/05/2024 HIB Vaccines Aged Out No longer eligi ble based on patient's age to complete this topic HPV Vaccines Aged Out No longer eligi ble based on patient's age to complete this topic Hepatitis A Vaccines Aged Out No long er eligible based on patient's age to complete this topic IPV Vaccines Aged Out No longer eligi ble based on patient's age to complete this topic MMR Vaccines Aged Out No longer eligi ble based on patient's age to complete this topic Meningococcal ACWY Vaccine Aged Out N o longer eligible based on patient's age to complete this topic Meningococcal B Vaccine Aged Out No l onger eligible based on patient's age to complete this topic RSV Immunization Patients Under 20 months Aged Out No longer eligible based on patient's age to complete this topic Varicella Vaccines Aged Out No longer eligible based on patient's age to complete this topic Procedures Procedure Name Priority Date/Time Associated Diagnosis Comments HEMOGLOBIN A1C Routine 06/29/2025 3:03 PM EDT Type 2 diabetes mellitus with diabetic chronic kidney disease, unspecified CKD stage, unspecified whether [place] [facility] [place] ([facility] V24, [facility] V28) POC GLUCOSE Routine 06/29/2025 2:35 PM EDT Type 2 diabetes mellitus with diabetic chronic kidney disease, unspecified CKD stage, unspecified whether [place] [facility] [place] use ([facility] V24, [facility] V28) XR HIP 2-3 VIEWS RIGHT Routine 06/21/2025 3:22 PM EDT Acute right hip pain MG MAMMO DIGITAL DIAGNOSTIC W [place]ILAT Routine 02/04/2025 10:48 AM EDT Breast pain, left MICROALBUMIN CREATININE URINE RATIO Routine 01/18/2025 11:19 AM EST Type 2 diabetes mellitus with stage 3 chronic kidney disease, without long-term current use of insulin, unspecified whether stage 3a or 3b CKD ([facility] V24, [facility] V28) BASIC METABOLIC PANEL Routine 01/18/2025 11:19 AM EST Type 2 diabetes mellitus with stage 3 chronic kidney disease, without long-term current use of insulin, unspecified whether stage 3a or 3b CKD ([facility] V24, [facility] V28) LIPID PANEL WITH REFLEX TO DIRECT LDL Routine 01/18/2025 11:19 AM EST Type 2 diabetes mellitus with stage 3 chronic kidney disease, without long-term current use of insulin, unspecified whether stage 3a or 3b CKD ([facility] V24, [facility] V28) PAP SMEAR Routine 09/12/2022 from Last 3 Months or Most Recently Relevant to Health Maintenance Results * (ABNORMAL) Hemoglobin A1c (06/29/2025 3:03 PM EDT) Hemoglobin A1C 6.9(H) <6.5 % LAB CHEMISTRY METHOD 06/29/2025 8:51 PM EDT [facility] Mean Bld Glu Estim. 151 mg/dL LAB CHEMISTRY METHOD 06/29/2025 8:51 PM EDT [facility] Blood Venous blood specimen / Unknown Venipuncture / Unknown 06/29/2025 3:03 PM EDT 06/29/2025 3:03 PM EDT us Keke HWANG LAB BLOOD ORDERABLES Final Result [facility] [address] [place] [address], [place] [phone] * POC glucose manually resulted (06/29/2025 2:35 PM EDT) Glucose POC 181 mg/dL Blood Capillary blood specimen / Unknown 06/29/2025 2:35 PM EDT us Keke HWANG POINT OF CARE TEST ENTER/ED IT ORDERABLES Final Result * XR Hip 2-3 Views Right (06/21/2025 3:22 PM EDT) Anatomical Region Laterality Modality Lower Extremities, Hip Right Radiograp hic Imaging 06/21/2025 10:0 4 PM EDT Impressions 06/21/2025 10:08 PM EDT Findings of right calcific trochanteric bursitis. Cam-type femoroacetabular morphology without appreciable degenerative changes. POS - [id number] -------- FINAL REPORT -------- Dictated By: Gi Gagnon Dictated Date: 06/21/2025 22:04 ET Assigned Physician: Gi Gagnon Reviewed and Electronically Signed By: Gi Gagnon Signed Date: 06/21/2025 22:08 ET Workstation ID: [id number] Transcribed By: Self Edit Transcribed Date: 06/21/2025 22:04 ET Narrative 06/21/2025 10:08 PM EDT EXAM: Pelvic and right hip x-ray. HISTORY: Right hip pain. COMPARISON: None VIEWS: AP view of the pelvis and AP and frog-lateral views of the right hip performed. FINDINGS: Right hip joint space is preserved without periarticular spurring. Subtle contour bulge at the femoral head neck junction as seen with cam-type femoroacetabular impingement morphology. Small soft tissue calcification adjacent to the right greater trochanter from calcific trochanteric bursitis. No evidence of an acute fracture or dislocation. Pelvic ring is intact. No destructive bone lesion. Intervertebral disc prosthesis at L5-S1. Procedure Note Gi Gagnon MD - 06/21/2025 EXAM: Pelvic and right hip x-ray. HISTORY: Right hip pain. COMPARISON: None VIEWS: AP view of the pelvis and AP and frog-lateral views of the righthip performed. FINDINGS: Right hip joint space is preserved without periarticular spurring. Subtlecontour bulge at the femoral head neck junction as seen with cam-typefemoroacetabular impingement morphology. Small soft tissue calcificationadjacent to the right greater trochanter from calcific trochantericbursitis. No evidence of an acute fracture or dislocation. Pelvic ring isintact. No destructive bone lesion. Intervertebral disc prosthesis atL5-S1. IMPRESSION: Findings of right calcific trochanteric bursitis. Cam-typefemoroacetabular morphology without appreciable degenerative changes. POS - [id number] -------- FINAL REPORT -------- Dictated By: Gi Gagnon Dictated Date: 06/21/2025 22:04 ET Assigned Physician: Gi Gagnon Reviewed and Electronically Signed By: Gi Gagnon Signed Date: 06/21/2025 22:08 ET Workstation ID: [id number] Transcribed By: Self Edit Transcribed Date: 06/21/2025 22:04 ET us Tanna HWANG IMG XR PROCEDURES Final Resul t * MG Mammo Digital Diagnostic w [place] bilat (02/04/2025 10:48 AM EDT) Anatomical Region Laterality Modality Breast Bilateral Mammography 02/04/2025 11:2 2 AM EDT Impressions 02/04/2025 11:25 AM EDT No mammographic evidence for malignancy. Findings were explained to the patient. She was advised to follow with you provider for clinical management of the pain. Follow-up mammogram at the time of the next annual screening. BI-RADS CATEGORY: 1 - NEGATIVE RECOMMENDATION: Return to annual mammography. Clinical management of left breast is recommended. Mammo Location: [facility], [address] [place] [address], [facility], . -------- FINAL REPORT -------- Dictated By: Luisa Morrison Dictated Date: 02/04/2025 11:22 ET Assigned Physician: Luisa Morrison Reviewed and Electronically Signed By: Luisa Morrison Signed Date: 02/04/2025 11:25 ET Workstation ID: [id number] Transcribed By: Self Edit Transcribed Date: 02/04/2025 11:22 ET Narrative 02/04/2025 11:25 AM EDT CLINICAL: 54 years old, Female, pain in the left lateral breast. COMPARISON: Latest screening mammogram from 09/26/2022. FINDINGS: MAMMOGRAPHY TECHNIQUE: Bilateral MLO and CC views were obtained digitally with 2-D C views and 3-D mammogram (digital breast tomosynthesis). Computer-aided detection was utilized in evaluation of this exam (CAD). There is no evidence of suspicious mass or architectural distortion. No worrisome calcifications are evident. There has been no significant change from prior exam(s). BREAST DENSITY: B - There are scattered areas of fibroglandular density. ULTRASOUND TECHNIQUE: Targeted ultrasound of the left lateral breast was performed with attention to the area indicated by the patient. There is no evidence of morphologically suspicious mass. No evidence of cystic lesions or focal areas of acoustic shadowing. Procedure Note Luisa Morrison MD - 02/04/2025 CLINICAL: 54 years old, Female, pain in the left lateral breast. COMPARISON: Latest screening mammogram from 09/26/2022. FINDINGS: MAMMOGRAPHY TECHNIQUE: Bilateral MLO and CC views were obtained digitally with 2-D Cviews and 3-D mammogram (digital breast tomosynthesis). Computer-aideddetection was utilized in evaluation of this exam (CAD). There is no evidence of suspicious mass or architectural distortion. Noworrisome calcifications are evident. There has been no significantchange from prior exam(s). BREAST DENSITY: B - There are scattered areas of fibroglandular density. ULTRASOUND TECHNIQUE: Targeted ultrasound of the left lateral breast was performedwith attention to the area indicated by the patient. There is no evidence of morphologically suspicious mass. No evidence ofcystic lesions or focal areas of acoustic shadowing. IMPRESSION: No mammographic evidence for malignancy. Findings were explained to thepatient. She was advised to follow with you provider for clinicalmanagement of the pain. Follow-up mammogram at the time of the nextannual screening. BI-RADS CATEGORY: 1 - NEGATIVE RECOMMENDATION: Return to annual mammography. Clinical management of left breast isrecommended. Mammo Location: [facility], [address] [place] [address], [id number], . -------- FINAL REPORT -------- Dictated By: Luisa Morrison Dictated Date: 02/04/2025 11:22 ET Assigned Physician: Luisa Morrison Reviewed and Electronically Signed By: Luisa Morrison Signed Date: 02/04/2025 11:25 ET Workstation ID: [id number] Transcribed By: Self Edit Transcribed Date: 02/04/2025 11:22 ET us Arabella Uribe CN IMG BI PROCEDURES Final Result * (ABNORMAL) Lipid panel with reflex to direct LDL (01/18/2025 11:19 AM EST) Cholesterol 189 0 - 200 mg/dL LAB CHEMISTRY METHOD 01/18/2025 3:57 PM EST [facility] Triglycerides 105 0 - 150 mg/dL LAB CHEMISTRY METHOD 01/18/2025 3:57 PM EST [facility] HDL 54 >=40 mg/dL LAB CHEMISTRY METHOD 01/18/2025 3:57 PM EST [facility] LDL Calculated 114(H) 0 - 100 mg/dL LAB CHEMISTRY METHOD 01/18/2025 3:57 PM EST [facility] VLDL Cholesterol Angel 21 mg/dL LAB CHEMISTRY METHOD 01/18/2025 3:57 PM EST [facility] Non HDL Chol. (LDL+VLDL) 135 <145 mg/dL LAB CHEMISTRY METHOD 01/18/2025 3:57 PM EST [facility] Chol/HDL Ratio 3.5 0.0 - 4.4 LAB CHEMISTRY METHOD 01/18/2025 3:57 PM EST [facility] Blood Venous blood specimen / Unknown Venipuncture / Unknown 01/18/2025 11:19 AM EST 01/18/2025 11:19 AM EST us Keke HWANG LAB BLOOD ORDERABLES Final Result [facility] [address] [place] [address], * (ABNORMAL) Microalbumin creatinine urine ratio (01/18/2025 11:19 AM EST) Creatinine, Urine 277.0 mg/dL LAB CHEMISTRY METHOD 01/18/2025 1:14 PM EST [facility] Microalb, Ur 32.6(H) 0.0 - 29.0 mg/L LAB CHEMISTRY METHOD 01/18/2025 1:14 PM [facility] Microalb/Crea t Ratio 12 <30 mg/g creat LAB CHEMISTRY METHOD 01/18/2025 1:14 PM [facility] Urine Urine specimen from urethra / Unknown Non-blood Collection / Unknown 01/18/2025 11:19 AM EST 01/18/2025 11:19 AM EST us Keke HWANG LAB URINE ORDERABLES Final Result [facility] [address] [place] [address], [place] [phone] * (ABNORMAL) Basic metabolic panel (01/18/2025 11:19 AM EST) Sodium 136 133 - 145 mmol/L LAB CHEMISTRY METHOD 01/18/2025 3:53 PM [facility] Potassium 4.4 3.5 - 5.5 mmol/L LAB CHEMISTRY METHOD 01/18/2025 3:53 PM [facility] Chloride 102 96 - 110 mmol/L LAB CHEMISTRY METHOD 01/18/2025 3:53 PM [facility] CO2 29 21 - 32 mmol/L LAB CHEMISTRY METHOD 01/18/2025 3:53 PM [facility] Anion Gap 5 3 - 11 LAB CHEMISTRY METHOD 01/18/2025 3:53 PM [facility] Glucose 176(H) 70 - 100 mg/dL LAB CHEMISTRY METHOD 01/18/2025 3:53 PM [facility] BUN 15 5 - 25 mg/dL LAB CHEMISTRY METHOD 01/18/2025 3:53 PM [facility] Creatinine 0.92 0.50 - 1.10 mg/dL LAB CHEMISTRY METHOD 01/18/2025 3:53 PM EST [facility] eGFR 75 >=60 mL/min/1. 73m2 LAB CHEMISTRY METHOD 01/18/2025 3:53 PM EST [facility] Comment:Calculation based on the Chronic Kidney Disease Epidemiology Collaboration (CKD-EPI) equation refit without adjustment for race. BUN/Creatinine Ratio 16.3 LAB CHEMISTRY METHOD 01/18/2025 3:53 PM EST [facility] Calcium 9.4 8.5 - 10.5 mg/dL LAB CHEMISTRY METHOD 01/18/2025 3:53 PM EST [facility] Blood Venous blood specimen / Unknown Venipuncture / Unknown 01/18/2025 11:19 AM EST 01/18/2025 11:19 AM EST us Keke HWANG LAB BLOOD ORDERABLES Final Result [facility] [address] [place] [address], * Pap smear (09/12/2022) 09/12/2022 Narrative HISTORICAL TESTING LAB RESULTING AGENCY - 09/20/2022 10:55 AM EDT [id number] THINPREP PAP, IMAGED: NEGATIVE FOR SQUAMOUS INTRAEPITHELIAL LESION AND MALIGNANCY . HALLIE GRANADO(ASCP) (CASE ELECTRONICALLY SIGNED 09 20 2022) RESULT OF APTIMA HIGH RISK HPV ASSAY: HIGH RISK HPV: NEGATIVE (SEROTYPES 16,18,31,33,35,39,45,51,52,56,58,59,66,68) COMPLETED ON 2022-09-13 ADEQUACY: SATISFACTORY ENDOCERVICAL/TRANSFORMATION ZONE COMPONENT PRESENT. SOURCE: THINPREP PAP HPV ANY DX: REFLEX 16 AND 18, CERVICAL, IMAGED CLINICAL INFORMATION: HPV ANY DIAGNOSIS. MENOPAUSE, PAP HX NEGATIVE, [Z01.419] Arabella Rony CN LAB CYTOLOGY ORDERABLES Final R esult HISTORICAL TESTING LAB RESULTING AGENCY from Last 3 Months or Most Recently Relevant to Health Maintenance Insurance [facility] Member Subscriber Plan / Payer (Ef fective 2024-Present) Name:KAY GAONA Relation to Subscriber:Self Name:Kay Gaona Payer ID:[id number] Type:Not on file Address: [facility] [address] [phone] Care Teams Ordained Minister Relationship Specialty Start Date End Date Sarthak Silva MD [address] [place] [phone] PCP - General Internal Medicine 09/15/24
[2025-07-25 19:42] VITALS: BP 147/68; PULSE 68; RESP 16; O2SAT 95
[2025-07-25 20:35] VITALS: BP 147/68; PULSE 68; RESP 16; TEMP 36.7; O2SAT 95
== END 2025-07-25 20:37 | disposition home or self-care (01) ==
PROVIDERS: Physician Assistant Medical; Emergency Provider Emergency Medicine Emergency Medical Services; PCP Internal Medicine
DX: R10.9 Unspecified abdominal pain (principal); R30.0 Dysuria; R35.0 Frequency of micturition
CPT/HCPCS: 36415; 74176; 80053; 81003; 85025; 96372; 99284; J1885

== ENCOUNTER → 2025-07-25 18:09 | Outpatient (BNV) | payer OTHER, SELFPAY | PROVIDERS: Emergency Provider Emergency Medicine Emergency Medical Services; PCP Internal Medicine; Visit Provider Radiology Diagnostic Radiology | DX: N20.0 Calculus of kidney (principal) | CPT/HCPCS: 74176 ==

== ENCOUNTER 2025-07-29 10:55 | Outpatient (AMB) | payer OTHER, SELFPAY ==
--- OUTSIDE RECORDS SUMMARY | 2025-07-27 13:30 | XMS_ITS | Encounter Summary ---
Author Organization [facility] Address [address] [place] [phone] Care Team Providers Care Planning Rn Name Role Phone Sarthak Silva MD Primary Care Provider [phone] Reason for Visit * Reason Comments Back Pain Right sided Hyperlipidemia Encounter Details Date Type Department Care Team (Late st Contact Info) Description 07/27/2025 1:30 PM EDT Office Visit Adult Medicine [facility] [address] [place] [address] Alla Rodarte MD [address] [place], [place] Acute right-sided low back pain without sciatica (Primary Dx); Type 2 diabetes mellitus with chronic kidney disease, without long-term current use of insulin, unspecified CKD stage (CMS/HCC V24, CMS/HCC V28); Primary hypertension; Pure hypercholesterolemia ; Gastroesophageal reflux disease without esophagitis Social History Tobacco Use Types Packs/Day Years [...] on file Sexual Orientation Not on file documented as of this encounter Last Filed Vital Signs Vital Sign Reading Time Taken Comments Blood Pressure 114/64 07/27/2025 1:09 PM EDT Pulse 78 07/27/2025 1:09 PM EDT Temperature 35.9 C (96.7 F) 07/27/2025 1:09 PM EDT Respiratory Rate 16 07/27/2025 1:09 PM EDT Oxygen Saturation 96% 07/27/2025 1:09 PM EDT Inhaled Oxygen Concentration - - Weight 92 kg (202 lb 14.4 oz) 07/27/2025 1:09 PM EDT Height 165.1 cm (5' 5 ) 07/27/2025 1:09 PM EDT Body Mass Index 33.76 07/27/2025 1:09 PM EDT documented in this encounter Ordered Prescriptions Prescription Sig Dispense Quantity Refills Last Filled Start Date End Date methocarbamoL (ROBAXIN) 500 mg tablet Take 1 tablet (500 mg total) by mouth 3 (three) times a day if needed for muscle spasms. 30 tablet 07/27/2025 09/25/2025 documented in this encounter Progress Notes * Alla Rodarte MD - 07/27/2025 1:30 PM EDT Chief Complaint: Chief Complaint Patient presents with Back Pain Right sided Hyperlipidemia IDENTIFIER: Kay Gaona is a 55 y.o. old female HPI She comes for evaluation with acute onset of right sided low back pain that started 3 weeks ago. She does have chronic lumbar disc disease, denies any precipitating activities or unusual lifting, no injury or falling. The pain has not radiated, no associated weakness, numbness or paresthesias. She notes that she has been having some constipation and then when she moves her bowels it just keeps coming, she does have an appointment with GI in 2 weeks. She is using the albuterol inhaler, Trelegy inhaler, continuing on metformin for diabetes control, she notes that she did discontinue the Ozempicbecause of GI issues. She has been using ibuprofen twice daily for her back discomfort, continues on Lipitor as well for her cholesterol and Pepcid. Breathing has been well- controlled using her inhalers. ROS: General: No malaise, significant weight loss or fever Respiratory: No cough, wheezing or shortness of breath Cardiovascular: No chest pain, palpitations, no orthopnea Endo no polyuria or polydipsia Musc as noted Past Medical History: Patient Active Problem List Diagnosis Date Noted Type 2 diabetes mellitus with obesity ([facility] V24, [facility] V28) 10/27/2024 Asthma 10/24/2024 Lumbar disc disorder 10/24/2024 Microalbuminuria 08/13/2024 Gastroesophageal reflux disease without esophagitis 05/17/2024 Nephrolithiasis 08/23/2022 Hyperlipidemia 07/21/2020 Abdominal pain, chronic, right upper quadrant 03/15/2020 Hypertension 09/17/2019 Migraines 09/10/2019 Type II diabetes mellitus with renal manifestations ([facility] V24, [facility] V28) 08/09/2019 Heartburn 09/07/2013 Severe obesity (BMI 35.0-39.9) with comorbidity ([facility] V24, [facility] V28) 08/06/2011 Neuropathic pain syndrome (non-herpetic) 01/26/2010 Chronic rhinitis 07/10/2009 Fatty liver 07/10/2009 Surgical History: Past Surgical History: Procedure Laterality Date BACK SURGERY : removal l5 and s1 2006; 2007 (stimulator - not efective) CERVICAL BIOPSY W/ LOOP ELECTRODE EXCISION CHOLECYSTECTOMY 1997 COLONOSCOPY 02/20/2021 tiny erosion - TI, random biopsy normal. TUBAL LIGATION 2005 UPPER GASTROINTESTINAL ENDOSCOPY 03/15/2020 Tiny fundic gland polyps, otherwise normal. Family History: Family History Problem Relation Name Age of Onset Hypertension Mother rheumatoid arthritis Diabetes Maternal Grandfather Breast cancer Neg Hx Colon cancer Neg Hx Ovarian cancer Neg Hx Social History: Social History Tobacco Use Smoking status: Former Smokeless tobacco: Never Substance Use Topics Alcohol use: No Allergies: Diph,pertus(acel),tet ped (pf); Morphine; Pneumococcal vaccine; Propofol; Shellfish containing products; Succinylcholine; and Vonoprazan Medications: Outpatient Medications Marked as Taking for the 07/27/25 encounter (Office Visit) with Alla Rodarte MD Medication Sig Dispense Refill acetaminophen (TYLENOL) 500 mg tablet Take 2 tablets (1,000 mg total) by mouth every 8 (eight) hours if needed (right hip pain). 60 tablet 0 albuterol 2.5 mg /3 mL (0.083 %) nebulizer solution Take 3 mL (2.5 mg total) by nebulization every 6 (six) hours if needed for wheezing. albuterol HFA (PROAIR HFA ; PROVENTIL HFA ; VENTOLIN HFA) 90 mcg/actuation inhaler Inhale 2 puffs by mouth every 4 (four) hours if needed for wheezing. 8.5 g 0 atorvastatin (Lipitor) 80 mg tablet Take 1 tablet (80 mg total) by mouth at bedtime. 30 each 11 azelastine (ASTELIN) 137 mcg (0.1 %) nasal spray Administer 1 spray into each nostril 2 (two) timesa day. blood sugar diagnostic (FreeStyle Lite Strips) test strip blood-glucose meter kit Use daily or as directed for monitoring of diabetes 1 each 0 diclofenac (VOLTAREN) 1 % topical gel Apply 1 g topically 4 (four) times a day. 1 each 1 EPINEPHrine (EpiPen 2-Balaji) 0.3 mg/0.3 mL injection Inject 0.3 mL (0.3 mg total) into the thigh. famotidine (PEPCID) 40 mg tablet Take 1 tablet (40 mg total) by mouth 1 (one) time each day. fluticasone propionate (FLONASE) 50 mcg/actuation nasal spray Administer 2 sprays into each nostril1 (one) time each day. Shake gently. Before first use, prime pump. After use, clean tip and replacecap. 16 g 0 freestyle (FreeStyle Lancets) 28 gauge lancets Use to test twice daily 200 each 3 hydrocortisone 2.5 % cream APPLY TO AREA TWICE A DAY 56 g 5 ibuprofen (ADVIL,MOTRIN) 800 mg tablet Take 1 tablet (800 mg total) by mouth 3 (three) times a day if needed for mild pain (pain). 90 tablet 5 losartan (COZAAR) 50 mg tablet TAKE 1 AND 1/2 TABLETS DAILY BY MOUTH 135 tablet 1 metFORMIN XR (GLUCOPHAGE-XR) 500 mg 24 hr tablet Take 1 tablet (500 mg total) by mouth 2 (two) times a day with meals. Do not crush, chew, or split. 180 each 1 montelukast (SINGULAIR) 10 mg tablet Take 1 tablet (10 mg total) by mouth 1 (one) time each day in the evening. omeprazole (PriLOSEC) [address] capsule Take 1 capsule (40 mg total) by mouth 1 (one) time each day.Do not crush or chew. 90 each 2 semaglutide (OZEMPIC) 0.25 mg or 0.5 mg (2 mg/3 mL) injection pen . 5 mg sc every 7 days 3 Pen 5 Trelegy Ellipta 200-62.5-25 mcg inhaler TAKE INHALATION DAILY,INSTR:AT THE SAME TIME EVERY DAY J45.9 Medication Discontinued/Reordered: There are no discontinued medications. Vitals: Blood pressure 114/64, pulse 78, temperature 35.9 ??C (96.7 ??F), temperature source Temporal, resp. rate 16, height 1.651 m (65 ), weight 92 kg (202 lb 14.4 oz), SpO2 96%. Body mass index is 33.76 kg/m??.Plan is deferred until next visit Physical Exam: General: patient is in no acute distress. Neck supple without adenopathy, no thyromegaly. Lungs clear with auscultation. Heart: regular S1S2 without murmur, rub or gallop. There is discomfort with palpation of the right low back. Extremities without cyanosis, clubbing or edema. Strength, reflexes, sensation in the lower extremities intact. Labs: Lab Results Component Value Date HGBA1C 6.9 (H) 06/29/2025 Impression: 1. Acute right-sided low back pain without sciatica 2. Type 2 diabetes mellitus with chronic kidney disease, without long-term current use of insulin, unspecified CKD stage (CMS/HCC V24, CMS/HCC V28) 3. Primary hypertension 4. Pure hypercholesterolemia 5. Gastroesophageal reflux disease without esophagitis Assessment and Plan: She is following with endocrine with regards to the diabetes, she will see GI with regards to the bowel issues, continue on omeprazole for reflux, losartan for blood pressure control. Her sugars havebeen well-controlled, she is temporarily off the Ozempic. She we will increase the ibuprofen to 3 times daily, is given Robaxin to use at night, cautioned regarding drowsiness and she will ice her back as well. Blood pressures have been stable. She will return if symptoms worsening or not improving. documented in this encounter Plan of Treatment Upcoming Encounters Date Type Department Care Team (Late st Contact Info) Description 08/02/2025 12:30 PM EDT Consult Orthopedics [address] [phone] Filippo Tena PA [address] [place] [phone] 08/09/2025 9:40 AM EDT Office Visit Gastroenterology - [address] [facility] [address] [place] [phone] Trace Murillo MD [address] [place] [phone] 09/29/2025 1:00 PM EST Office Visit Endocrinology [address] [phone] Keke Caldera PA [address] [place] [address] 10/10/2025 9:45 AM EST Office Visit [facility] Medicine [place] - [address] [phone] Sarthak Silva MD [address] [place] [address] documented as of this encounter Visit Diagnoses Diagnosis Acute right-sided low back pain without sciatica- Primary Type 2 diabetes mellitus with chronic kidney disease, without long-term current use of insulin, unspecified CKD stage ([facility] V24, [facility] V28) Primary hypertension Unspecified essential hypertension Pure hypercholesterolemia Gastroesophageal reflux disease without esophagitis Esophageal reflux documented in this encounter Discontinued Medications Medication Sig Discontinue Reason Start Date End Da te semaglutide (OZEMPIC) 0.25 mg or 0.5 mg (2 mg/3 mL) injection penIndications:Type 2 diabetes mellitus with obesity ([facility] V24, [facility] V28) . 5 mg sc every 7 days 06/29/2025 07/27/2025 documented as of this encounter Care Teams Planning Rn Relationship Specialty Start Date End Date Sarthak Silva MD [address] [place] [address] PCP - General Internal Medicine 09/15/24 documented as of this encounter
--- NOTE | 2025-07-29 10:56 | MHC.OFFVIS ---
Intake Visit Reasons: 1y/US Intake Note: Patient presents today for a 1yr/US 07/25 Abdomen/Pelvis CT Urology Meds- no longer using oxybutynin or allopurinol Allergies to Antibiotic- No Known Allergies Blood Thinner- None Anthropology Department Chair Required: No Accompanied by: Self / Same As Patient Allergies propofol (PROPOFOL) Allergy (Severe, Verified 07/29/25 10:56) ANAPHYLACTIC REACTION, anaphylaxis succinylcholine ([place]nectine) Allergy (Severe, Verified 07/29/25 10:56) anaphylaxis morphine (MORPHINE) Allergy (Intermediate, Verified 07/29/25 10:56) ITCHINESS AND HIVES, anaphylaxis Anesthetics - Amide Type - Select A (Anesthetics - Amide Type) Allergy (Unknown, Verified 07/29/25 10:56) UNKNOWN Anesthetics - [facility] Type- Parabens (Anesthetics - [facility] Type) Allergy (Unknown, Verified 07/29/25 10:56) UNKNOWN From ANECTINE Allergy (Severe, Uncoded 07/25/25 14:34) ANAPHYLACTIC nuts Allergy (Severe, Uncoded 07/25/25 14:34) Anaphylaxis SEAFOOD Allergy (Unknown, Uncoded 07/25/25 14:34) Anaphylaxis Medication List - Last Reconciled 07/29/25 by Angle Kingsley MD albuterol sulfate 2.5 mg inhalation Q6H PRN albuterol sulfate 90 mcg/actuation 2 puffs inhalation QID PRN atorvastatin 20 mg PO DAILY azelastine 2 sprays intranasal BID PRN fluticasone propionate 50 mcg/actuation 2 sprays intranasal DAILY PRN rbcdxwdpgdd-ehykfxpvn-siguvekw 200-62.5-25 mcg (Trelegy Ellipta) 1 ea inhalation DAILY lisinopril 5 mg PO DAILY metformin ER 1,000 mg PO DAILY@0800 omeprazole 20 mg PO DAILY@0630 HPI Comments Details: 07/29/25--Kay is a 55-year-old female who has been evaluated and managed for overactive bladder and nephrolithiasis. Telehealth follow-up today. The patient was seen in the emergency room a week ago for complaints of right flank pain I reviewed the ER records CT imaging 07/25/2025 punctate right kidney stone no hydronephrosis. Urinalysis negative. She was prescribed NSAID for likely musculoskeletal pain. The patient had 24 hour urine in the past which noted adequate urine volume, hyperuricosuria and normal values for urine calcium and urine oxalate, she was prescribed allopurinol, currently she is managing with change of diet. History of Present Illness The patient is a 55-year-old female presenting with the management of overactive bladder and nephrolithiasis. Recent emergency room visit due to right flank pain on 07/25/25. The CT imaging from the ER visit revealed a punctate right kidney stone without hydronephrosis, and urinalysis was negative. The pain was determined to be musculoskeletal, and she was prescribed NSAIDs, which provided relief. The patient has a history of adequate urine volume and normal calcium levels from a previous 24-hour urine test. She has been advised to maintain hydration and dietary measures to prevent kidney stones, including adding lemon to water. The patient reported stopping oxybutynin, initially prescribed for frequent urination, as she no longer experiences significant symptoms. She also mentioned discontinuing Ozempic due to constipation, which persists despite cessation. Results - CT imagin07/25/25--Punctate right kidney stone, no hydronephrosis Plan 1. Overactive Bladder - Continue monitoring symptoms and dietary measures. Oxybutynin not to be represcribed as symptoms are managed. 2. Nephrolithiasis - Maintain hydration and dietary measures, including lemon in water. Hold on allopurinol. Plan for kidney ultrasound and repeat 24 hour urine next year. 07/30/24--Kay is followed for OAB and nephrolithiasis. Discussed 24 hour urine results: Total volume 2.59 mL, Calcium 185 mg; Oxalate 32 mg, Sodium 153, Citrate 938 mg, Uric acid 0.88. Cont allopurinol, Low oxalate diet, low sodium diet. FU in one year, renal US. Cont oxybutynin. 03/18/2024--Kay is here for follow-up. Discussed 24 hour urine results: Collection date 03/10/24--Total volume 3.33 L, Calcium 199 mg; Oxalate 31 mg, Sodium 116, Citrate 1229 mg, uric acid 0.95--. Instructed on importance of fluid intake, Low oxalate diet, low sodium diet. We will start allopurinol 100 mg twice a day discussed reduce protein in diet. Renal US - 03/11/24- resolution of [place] and KUB- 02/05/24--no remaining renal calcifications. Stone analysis 95% calcium oxalate 01/08/24--Kay is a 53-year-old female who presents today to the office for a follow-up. s/p right ureteroscopy laser litho, with fu stent removal c/o's dysuria, UA today leuks negative, nitrite negative, however will empirically start keflex and send urine culture 10/24/2023?She was evaluated for hydronephrosis with ureteral calculus. She is a status post right ureteral stent done on 10/21/2023 for obstructive 1 cm UPJ stone. She underwent ESWL of the right kidney on 10/22/2023. She states that she was seen in the ED last week and treated for a UTI but feels like she still has one. She is taking tylenol prn for pain. Reviewed imagings, recent KUB films with the patient, which is not officially read as yet. There is a calcification in the renal pelvis and there may be some fragments along the proximal portion of the right stent. 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) Alcohol 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 Patient Tobacco Use Status: Former Tobacco user service: No Review of Systems Const All systems reviewed & are unremarkable except as noted in HPI and below Reports no additional complaints Eyes Reports no additional complaints ENT Reports no additional complaints Card Reports no additional complaints Resp Reports no additional complaints GI Reports no additional complaints Reports as per HPI Musc Reports no additional complaints Skin/Breast Reports system reviewed and no additional complaints, except as documented Neuro Reports no additional complaints Psych Reports no additional complaints Endo Reports no additional complaints Ant/Lymph Reports no additional complaints Aller/Immun Reports no additional complaints Telehealth Telehealth Telehealth Platform: [facility] Location of provider rendering services: practice address Location of patient: address on file Patient Identification confirmed using: Name, : Yes Telehealth method: video Patient verbally consented to treatment: Yes Patient verbally consented to billing insurance company: Yes Patient informed of any privacy concerns related to visit: Yes Results Reviewed Results Reviewed: Date of Service: 07/25/25 CLINICAL HISTORY: right flank pain CT abdomen and pelvis without contrast Comparison: Abdominal ultrasound 03/25/2024 Findings: The lung bases are clear. Cholecystectomy. Solid organs are within normal limits. Tiny punctate nonobstructing right renal calculi. No bowel obstruction, pneumoperitoneum, or pneumatosis. Pelvic contents unremarkable. Normal appendix. The bones are intact. Degenerative changes throughout lumbar spine. IMPRESSION: 1. Punctate nonobstructing right renal calculi. Date of Service: 03/11/24 EXAMINATION: US RETROPERITONEAL LIMITED (RENAL ONLY) CLINICAL INFORMATION: Hydronephrosis with renal and ureteral calculus obstruction. Status post lithotripsy and stent removal. COMPARISON: X-ray abdomen KUB 02/05/2024 and 12/05/2023. CT abdomen and pelvis 11/02/2023. TECHNIQUE: Real-time imaging of the kidneys. FINDINGS: RIGHT KIDNEY: 10.8 x 3.6 x 5.4 cm (SAG x AP x TRV). The kidney is normal in size, contour, and echogenicity. Renal cortical thickness is normal. No calculi or focal parenchymal lesions. No hydronephrosis. LEFT KIDNEY: 11.5 x 5.7 x 4.5 cm (SAG x AP x TRV). The kidney is normal in size, contour, and echogenicity. Renal cortical thickness is normal. No calculi or focal parenchymal lesions. No hydronephrosis. ADDITIONAL FINDINGS: Incidental note made of a hyperechoic liver consistent with hepatic steatosis. IMPRESSION: 1. Normal-appearing kidneys without hydronephrosis. 2. Incidentally noted hepatic steatosis. Date of Service: 02/05/24 EXAMINATION: XR ABDOMEN KUB CLINICAL INDICATION: Renal calculus COMPARISON: 12/05/2023 and 11/11/2023 TECHNIQUE: AP view of the abdomen. FINDINGS: Seen previously calculus in the expected location of right kidney is not identified. Seen previously right ureteral stent has been removed. Patient is status post cholecystectomy with surgical vivian in the right upper quadrant. There are mild degenerative changes of lumbar spine with minimal levoscoliosis. 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 Overactive Bladder - Continue monitoring symptoms and dietary measures. Oxybutynin not to be represcribed as symptoms are managed. 2. Nephrolithiasis - Maintain hydration and dietary measures, including lemon in water. Hold on allopurinol. Plan for kidney ultrasound and repeat 24 hour urine next year. Medications: Discontinued cyclobenzaprine Discontinued Reason: Patient Completed Course 5 mg PO TID PRN 10 tabs 0RF muscle spasm tramadol Discontinued Reason: Patient Completed Course 50 mg PO Q8H PRN 18 tabs 0RF pain hydromorphone (Dilaudid) Partial Fill upon patient request. Discontinued Reason: Patient Completed Course 2 mg PO Q6-8H 8 tabs 0RF pain cephalexin Discontinued Reason: Patient Completed Course 500 mg PO BID 5 days 10 caps 0RF Patient Instructions: The patient had an opportunity to ask questions regarding treatment plan. The patient expressed understanding and agreement with the above treatment plan. The patient is aware they should contact our office by phone for worsening of their current condition or the appearance of new symptoms. Compliance is encouraged with any medications and followup testing that is ordered. It is a privilege to be allowed the opportunity to participate in the urologic care of your patient. If you have any questions or concerns regarding treatment for the above conditions please do not hesitate to contact me. The office telephone contact is [phone]. This note is constructed in part using voice recognition software. While every effort has been made to ensure accuracy catering truck operator errors may have been included. Yours sincerely, Angle Kingsley MD Scribe Plan - Not visible on output: Patient was informed and verbally consented to the use of an ambient scribe for clinic note documentation during this visit. Coding Level of Care Code Tele Est Pt Level 4 (30310) Diagnoses Kidney stone N20.0 Hyperuricosuria R82.993 OAB (overactive bladder) N32.81
--- OUTSIDE RECORDS SUMMARY | 2025-07-29 12:32 | XMS_ITS | Clinical Summary ---
Author Organization [facility] Address [address] [place] [address] Phone Care Team Providers Care Threshing Operator Name Role Phone Sarthak Silva MD Primary Care Provider [phone] Allergies Active Allergy Reactions Criticality Noted Date [...] 6 (six) hours if needed for wheezing. 024 Active azelastine (ASTELIN) 137 mcg (0.1 %) nasal spray Administer 1 spray into each nostril 2 (two) times a day. Active blood sugar diagnostic (FreeStyle Lite Strips) test strip 021 Active montelukast (SINGULAIR) 10 mg tablet Take 1 tablet (10 mg total) by mouth 1 (one) time each day in the evening. 023 Active Trelegy Ellipta 200-62.5-25 mcg inhaler TAKE INHALATION DAILY,INSTR:AT THE SAME TIME EVERY DAY J45.9 Active EPINEPHrine (EpiPen 2-Balaji) 0.3 mg/0.3 mL injection Inject 0.3 mL (0.3 mg total) into the thigh. Active atorvastatin (Lipitor) 80 mg tablet Take 1 tablet (80 mg total) by mouth at bedtime. 30 each 11 025 2025 Active losartan (COZAAR) 50 mg tablet TAKE 1 AND 1/2 TABLETS DAILY BY MOUTH 135 tablet 1 Active famotidine (PEPCID) 40 mg tablet Take 1 tablet (40 mg total) by mouth 1 (one) time each day. Active hydrocortisone 2.5 % cream APPLY TO AREA TWICE A DAY 56 g 5 Active omeprazole (PriLOSEC) [address] capsule Take 1 capsule (40 mg total) by mouth 1 (one) time each day. Do not crush or chew. 90 each 2 Active albuterol HFA (PROAIR HFA ; PROVENTIL HFA ; VENTOLIN HFA) 90 mcg/actuation inhalerIndicatio ns:Unspecified asthma, uncomplicated Inhale 2 puffs by mouth every 4 (four) hours if needed for wheezing. 8.5 g Active ibuprofen (ADVIL,MOTRIN) 800 mg tablet Take 1 tablet (800 mg total) by mouth 3 (three) times a day if needed for mild pain (pain). 90 tablet 5 025 2025 Active fluticasone propionate (FLONASE) 50 mcg/actuation nasal spray Administer 2 sprays into each nostril 1 (one) time each day. Shake gently. Before first use, prime pump. After use, clean tip and replace cap. 16 g 025 2025 Active diclofenac (VOLTAREN) 1 % topical gel Apply 1 g topically 4 (four) times a day. 1 each 1 Active acetaminophen (TYLENOL) 500 mg tablet Take 2 tablets (1,000 mg total) by mouth every 8 (eight) hours if needed (right hip pain). 60 tablet Active freestyle (FreeStyle Lancets) 28 gauge lancets Use to test twice daily 200 each 3 Active blood-glucose meter kit Use daily or as directed for monitoring of diabetes 1 each 025 2025 Active metFORMIN XR (GLUCOPHAGE-XR) 500 mg 24 hr tablet Take 1 tablet (500 mg total) by mouth 2 (two) times a day with meals. Do not crush, chew, or split. 180 each 1 025 Active methocarbamoL (ROBAXIN) 500 mg tablet Take 1 tablet (500 mg total) by mouth 3 (three) times a day if needed for muscle spasms. 30 tablet 025 2024 Active semaglutide (OZEMPIC) 0.25 mg or 0.5 mg (2 mg/3 mL) injection penIndications:T ype 2 diabetes mellitus with obesity ([facility] V24, [facility] V28) . 5 mg sc every 7 days 3 Pen 5 025 2024 Discontinued Active Problems Problem Noted Date Diagnosed Date Type 2 diabetes mellitus wit h obesity ([facility] V24, [facility] V28) 10/27/2024 Asthma 10/24/2024 Lumbar disc disorder [...] II diabetes mellitus wi th renal manifestations ([facility] V24, [facility] V28) 08/09/2019 Heartburn 09/07/2013 Severe obesity (BMI 35.0-39. 9) with comorbidity ([facility] V24, [facility] V28) 08/06/2011 Neuropathic pain syndrome (non-herpetic) 010 [...] Encounters Date Type Department Care Team Description 07/27/2025 1:30 PM EDT Office Visit [address] [phone] Alla Rodarte MD Acute right-sided low back pain without sciatica (Primary Dx); Type 2 diabetes mellitus with chronic kidney disease, without long-term current use of insulin, unspecified CKD stage ([facility]/HCC V24, CMS/HCC V28); Primary hypertension; Pure hypercholesterolemia ; Gastroesophageal reflux disease without esophagitis 06/29/2025 2:30 PM EDT Office Visit [address] [phone] Keke Caldera PA Type 2 diabetes mellitus with diabetic chronic kidney disease, unspecified CKD stage, unspecified whether wood repatcher insulin use (CMS/HCC V24, CMS/[facility] V28) (Primary Dx); Primary hypertension; Pure hypercholesterolemia ; Type 2 diabetes mellitus with obesity (CMS/HCC V24, CMS/HCC V28) 06/21/2025 3:18 PM EDT - 06/21/2025 11:59 PM EDT Hospital Encounter [address] [phone] Acute right hip pain Discharge Disposition: Home or Self Care 06/21/2025 2:45 PM EDT Office Visit [address] [phone] Tanna Chau PA Acute right hip pain (Primary Dx) 05/03/2025 Telephone Adult Medicine [address] [phone] Sarthak Silva MD from Last 3 Months [...] Mass Index 33.76 07/27/2025 1:09 PM EDT Plan of Treatment Upcoming Encounters Date Type Department Care Team (Late st Contact Info) Description 08/02/2025 12:30 PM EDT Consult Orthopedics - [address] [phone] Filippo Tena PA [address] [place] [phone] 08/09/2025 9:40 AM EDT Office Visit Gastroenterology - [address] [facility] [address] [place] [phone] Trace Murillo MD [address] [place] [phone] 09/29/2025 1:00 PM EST Office Visit Endocrinology - [address] [phone] Keke Caldera PA [address] [place] [address] 10/10/2025 9:45 AM EST Office Visit Adult Medicine [address] [phone] Sarthak Silva MD [address] [place] [address] Health Maintenance Due Date Last Done Comments [...] kidney disease, unspecified CKD stage, unspecified whether wood repatcher insulin use ([facility] V24, [facility] V28) POC GLUCOSE Routine 06/29/2025 2:35 PM EDT Type 2 diabetes mellitus with diabetic chronic kidney disease, unspecified CKD stage, unspecified whether wood repatcher insulin use ([facility] V24, [facility] V28) XR HIP 2-3 VIEWS RIGHT Routine 06/21/2025 3:22 PM EDT Acute right hip pain MG MAMMO DIGITAL DIAGNOSTIC W [place] BILAT Routine 02/04/2025 10:48 AM EDT Breast pain, left MICROALBUMIN CREATININE URINE RATIO Routine 01/18/2025 11:19 AM EST Type 2 diabetes mellitus with stage 3 chronic kidney disease, without long-term current use of insulin, unspecified whether stage 3a or 3b CKD ([facility] V24, CMS/[facility] V28) BASIC METABOLIC PANEL Routine 01/18/2025 11:19 AM EST Type 2 diabetes mellitus with stage 3 chronic kidney disease, without long-term current use of insulin, unspecified whether stage 3a or 3b CKD ([facility] V24, [facility] V28) LIPID PANEL WITH REFLEX TO DIRECT LDL Routine 01/18/2025 11:19 AM EST Type 2 diabetes mellitus with stage 3 chronic kidney disease, without long-term current use of insulin, unspecified whether stage 3a or 3b CKD ([facility] V24, [facility] V28) PAP SMEAR Routine 09/12/2022 from Last 3 Months or Most Recently Relevant to Health Maintenance Results * (ABNORMAL) Hemoglobin A1c (06/29/2025 3:03 PM EDT) Hemoglobin A1C 6.9(H) <6.5 % LAB CHEMISTRY METHOD 06/29/2025 8:51 PM EDT [facility] Mean Bld Glu Estim. 151 mg/dL LAB CHEMISTRY METHOD 06/29/2025 8:51 PM EDT [facility] Blood Venous blood specimen / Unknown Venipuncture / Unknown 06/29/2025 3:03 PM EDT 06/29/2025 3:03 PM EDT Keke HWANG LAB BLOOD ORDERABLES Final Result [facility] [address] [place] [address], [place] [phone] * POC glucose manually resulted (06/29/2025 2:35 PM EDT) Glucose POC 181 mg/dL Blood Capillary blood specimen / Unknown 06/29/2025 2:35 PM EDT Keke HWANG POINT OF CARE TEST ENTER/ED IT ORDERABLES Final Result * XR Hip 2-3 Views Right (06/21/2025 3:22 PM EDT) Anatomical Region Laterality Modality Lower Extremities, Hip Right Radiograp hic Imaging 06/21/2025 10:0 4 PM EDT Impressions 06/21/2025 10:08 PM EDT Findings of right calcific trochanteric bursitis. Cam-type femoroacetabular morphology without appreciable degenerative changes. POS - [id number] -------- FINAL REPORT -------- Dictated By: Gi Gagnon Dictated Date: 06/21/2025 22:04 ET Assigned Physician: Gi Gagnon Reviewed and Electronically Signed By: Gi Gagnon Signed Date: 06/21/2025 22:08 ET Workstation ID: [id number] Transcribed By: Self Edit Transcribed Date: 06/21/2025 [...] morphology without appreciable degenerative changes. POS - [id number] -------- FINAL REPORT -------- Dictated By: Gi Gagnon Dictated Date: 06/21/2025 22:04 ET Assigned Physician: Gi Gagnon Reviewed and Electronically Signed By: Gi Gagnon Signed Date: 06/21/2025 22:08 ET Workstation ID: [id number] Transcribed By: Self Edit Transcribed Date: 06/21/2025 [...] of left breast is recommended. Mammo Location: [facility], [address] [place] [address], [address], . -------- FINAL REPORT -------- Dictated By: Luisa Morrison Dictated Date: 02/04/2025 11:22 ET Assigned Physician: Luisa Morrison Reviewed and Electronically Signed By: Luisa Morrison Signed Date: 02/04/2025 11:25 ET Workstation ID: [id number] Transcribed By: Self Edit Transcribed Date: 02/04/2025 [...] management of left breast isrecommended. Mammo Location: [facility], [address] [place] [address], [id number], . -------- FINAL REPORT -------- Dictated By: Luisa Morrison Dictated Date: 02/04/2025 11:22 ET Assigned Physician: Luisa Morrison Reviewed and Electronically Signed By: Luisa Morrison Signed Date: 02/04/2025 11:25 ET Workstation ID: [id number] Transcribed By: Self Edit Transcribed Date: 02/04/2025 11:22 ET us Arabella Uribe CN IMG BI PROCEDURES Final Result * (ABNORMAL) Lipid panel with reflex to direct LDL (01/18/2025 11:19 AM EST) Cholesterol 189 0 - 200 mg/dL LAB CHEMISTRY METHOD 01/18/2025 3:57 PM EST [facility] Triglycerides 105 0 - 150 mg/dL LAB CHEMISTRY METHOD 01/18/2025 3:57 PM EST [facility] HDL 54 >=40 mg/dL LAB CHEMISTRY METHOD 01/18/2025 3:57 PM EST [facility] LDL Calculated 114(H) 0 - 100 mg/dL LAB CHEMISTRY METHOD 01/18/2025 3:57 PM EST [facility] VLDL Cholesterol Angel 21 mg/dL LAB CHEMISTRY METHOD 01/18/2025 3:57 PM EST [facility] Non HDL Chol. (LDL+VLDL) 135 <145 mg/dL LAB CHEMISTRY METHOD 01/18/2025 3:57 PM EST [facility] Chol/HDL Ratio 3.5 0.0 - 4.4 LAB CHEMISTRY METHOD 01/18/2025 3:57 PM EST [facility] Blood Venous blood specimen / Unknown Venipuncture / Unknown 01/18/2025 11:19 AM EST 01/18/2025 11:19 AM EST us Keke HWANG LAB BLOOD ORDERABLES Final Result [facility] [address] [place] [address], * (ABNORMAL) Microalbumin creatinine urine ratio (01/18/2025 11:19 AM EST) Creatinine, Urine 277.0 mg/dL LAB CHEMISTRY METHOD 01/18/2025 1:14 PM EST [facility] Microalb, Ur 32.6(H) 0.0 - 29.0 mg/L LAB CHEMISTRY METHOD 01/18/2025 1:14 PM [facility] Microalb/Crea t Ratio 12 <30 mg/g creat LAB CHEMISTRY METHOD 01/18/2025 1:14 PM [facility] Urine Urine specimen from urethra / Unknown Non-blood Collection / Unknown 01/18/2025 11:19 AM EST 01/18/2025 11:19 AM EST us Keke HWANG LAB URINE ORDERABLES Final Result [facility] [address] [place] [address], * (ABNORMAL) Basic metabolic panel (01/18/2025 11:19 AM EST) Sodium 136 133 - 145 mmol/L LAB CHEMISTRY METHOD 01/18/2025 3:53 PM [facility] Potassium 4.4 3.5 - 5.5 mmol/L LAB CHEMISTRY METHOD 01/18/2025 3:53 PM [facility] Chloride 102 96 - 110 mmol/L LAB CHEMISTRY METHOD 01/18/2025 3:53 PM [facility] CO2 29 21 - 32 mmol/L LAB CHEMISTRY METHOD 01/18/2025 3:53 PM [facility] Anion Gap 5 3 - 11 LAB CHEMISTRY METHOD 01/18/2025 3:53 PM [facility] Glucose 176(H) 70 - 100 mg/dL LAB CHEMISTRY METHOD 01/18/2025 3:53 PM [facility] BUN 15 5 - 25 mg/dL LAB CHEMISTRY METHOD 01/18/2025 3:53 PM [facility] Creatinine 0.92 0.50 - 1.10 mg/dL LAB CHEMISTRY METHOD 01/18/2025 3:53 PM [facility] eGFR 75 >=60 mL/min/1. 73m2 LAB CHEMISTRY METHOD 01/18/2025 3:53 PM EST [facility] Comment:Calculation based on the Chronic Kidney Disease Epidemiology Collaboration (CKD-EPI) equation refit without adjustment for race. BUN/Creatinine Ratio 16.3 LAB CHEMISTRY METHOD 01/18/2025 3:53 PM EST [facility] Calcium 9.4 8.5 - 10.5 mg/dL LAB CHEMISTRY METHOD 01/18/2025 3:53 PM EST [facility] Blood Venous blood specimen / Unknown Venipuncture / Unknown 01/18/2025 11:19 AM EST 01/18/2025 11:19 AM EST us Keke HWANG LAB BLOOD ORDERABLES Final Result [facility] [address] [place] [address], * Pap smear (09/12/2022) 09/12/2022 Narrative HISTORICAL TESTING LAB RESULTING AGENCY - 09/20/2022 10:55 AM EDT [id number] THINPREP PAP, IMAGED: NEGATIVE FOR SQUAMOUS INTRAEPITHELIAL [...] DIAGNOSIS. MENOPAUSE, PAP HX NEGATIVE, [Z01.419] Arabella DALAL LAB CYTOLOGY ORDERABLES Final R esult HISTORICAL TESTING LAB RESULTING AGENCY from Last 3 Months or Most Recently Relevant to Health Maintenance Insurance [facility] MEDIC[facility] Member Subscriber Plan / Payer (Ef fective 2024-Present) Name:KAY GAONA Relation to Subscriber:Self Name:Kay Gaona Payer ID:[id number] Type:Not on file Address: [place] [address] [address] [phone] Care Teams Threshing Operator Relationship Specialty Start Date End Date Satrhak Silva MD [address] [place] [address] PCP - General Internal Medicine 09/15/24
== END 2025-07-29 11:20 | disposition home or self-care (01) ==
LOC: HO.HUSH 10:55
PROVIDERS: PCP Internal Medicine; Visit Provider Urology
DX: N20.0 Calculus of kidney (principal); R82.993 Hyperuricosuria; N32.81 Overactive bladder
CPT/HCPCS: 99214

== ENCOUNTER 2025-09-19 10:00 | Outpatient (RCR) | payer OTHER, SELFPAY ==
[2025-08-18 13:07] VITALS: BP 122/68; PULSE 81
== END 2025-09-21 08:36 | disposition home or self-care (01) ==
LOC: HO.PT 10:00
PROVIDERS: PCP Internal Medicine; Visit Provider Physician Assistant
DX: M25.551 Pain in right hip (principal); M67.951 Unspecified disorder of synovium and tendon, right thigh
CPT/HCPCS: 97110; 97161; 97530